=== PATIENT | female | born 1975 | race African-American/Black ===

== ENCOUNTER 2016-03-29 23:20 | Emergency (ER) | payer MEDICARE, MEDICAID ==
[2016-03-29] MEDS ORDERED: ASPIRIN 81 MG TABLET, CHEWABLE PO ONE (23:30)
[2016-03-30 00:23] LABS: ABSOLUTE EOSINOPHILS # (AUTO) 0.3 10^3/uL (0.0-0.6); ABSOLUTE LYMPHOCYTES (AUTO) 2.4 10^3/uL (0.5-4.7); ABSOLUTE MONOCYTES (AUTO) 0.6 10^3/uL (0.1-1.4); ABSOLUTE NEUT (AUTO) 3.5 10^3/uL (1.7-8.2); BASOPHILS % (AUTO) 0.5 % (0-2); EOSINOPHILS % (AUTO) 4.3 % (0-6); HEMATOCRIT 34.1 % (36.0-47.0); HEMOGLOBIN 10.7 g/dL (12.0-15.5); MEAN CORPUSCULAR HEMOGLOBIN 25.7 pg (27.0-33.4); MEAN CORPUSCULAR HGB CONC 31.5 g/dL (32.0-36.0); MEAN CORPUSCULAR VOLUME 82 fl (80-97); MONOCYTES % (AUTO) 8.5 % (3-13); RED BLOOD COUNT 4.18 10^6/uL (3.72-5.28); RED CELL DISTRIBUTION WIDTH 14.7 % (11.5-14.0); SEGMENTED NEUTROPHILS % (AUTO) 51.7 % (42-78); WHITE BLOOD COUNT 6.8 10^3/uL (4.0-10.5)
--- NOTE | 2016-03-30 00:29 | ER Document Report ---
ED Cardiac - General Chief Complaint: Chest Pain Stated Complaint: CHEST DISCOMFORT Time seen by provider: 00:27 Mode of Arrival: Medic Information source: Patient TRAVEL OUTSIDE OF THE [place] IN LAST 30 DAYS: No - HPI Patient complains to provider of: Chest pain, Palpitations, Shortness of breath Was the onset of pain: Gradual Is the pain a: New problem Chest pain location: Substernal Quality of pain: Achy Severity now: Mild Severity at worst: Moderate Chest pain precipitating factors: At Rest Cardiac risk factors: Hypertension, Hx CHF Associated symptoms: Back pain, Nausea/vomiting, Palpitations, Shortness of breath Exacerbated by: Denies Relieved by: Nothing Similar symptoms previously: Yes Recently seen / treated by doctor: No Notes: Patient is a 40-year-old female presenting to the emergency room complaining of chest pain, numbness and tingling in her hands and feet, blurred vision, head numbness, nonproductive cough, nausea, dyspnea on exertion, denies any fever, no shortness of breath at rest, no vomiting or diarrhea, she reports a mild headache after taking nitroglycerin, patient took aspirin at home prior to calling EMS - Related Data Allergies/Adverse Reactions: lisinopril [Lisinopril] Allergy (Severe, Verified 01/22/16 10:14) Difficulty breathing levofloxacin [From Levaquin] Allergy (Verified 01/22/16 10:14) Past Medical History - General Information source: Patient - Social History Smoking Status: Current Every Day Smoker Family History: CAD - Father with an MA in his 30s, Hyperlipidemia, Hypertension - Past Medical History Cardiac Medical History: Reports: Hx Congestive Heart Failure, Hx Coronary Artery Disease, Hx Heart Attack - 2007, Hx Hypercholesterolemia, Hx Hypertension Pulmonary Medical History: Reports: Hx Asthma, Hx COPD, Hx Pneumonia GI Medical History: Reports: Hx Gastroesophageal Reflux Disease Musculoskeltal Medical History: Reports Hx Arthritis Psychiatric Medical History: Reports: Hx Anxiety, Hx Depression Past Surgical History: Reports: Hx Section - x3, Hx Oral Surgery - wisdom tooth, Hx Orthopedic Surgery - left hand tendon repair, Hx Tonsillectomy - Immunizations Hx Diphtheria, Pertussis, Tetanus Vaccination: Yes Hx Pneumococcal Vaccination: 03/31/13 Review of Systems - Review of Systems Constitutional: No symptoms reported EENT: No symptoms reported Cardiovascular: See HPI Respiratory: See HPI Gastrointestinal: No symptoms reported Genitourinary: No symptoms reported Female Genitourinary: No symptoms reported Musculoskeletal: No symptoms reported Skin: No symptoms reported Hematologic/Lymphatic: No symptoms reported Neurological/Psychological: See HPI -: Yes All other systems reviewed and negative Physical Exam - Vital signs Vitals: Temp 97.5 F 03/29/16 23:22 Interpretation: Normal - General General appearance: Appears well, Alert - HEENT Head: Normocephalic, Atraumatic Eyes: Normal Pupils: PERRL - Respiratory Respiratory status: No respiratory distress Chest status: Nontender Breath sounds: Normal Chest palpation: Normal - Cardiovascular Rhythm: Regular Heart sounds: Normal auscultation Murmur: No - Abdominal Inspection: Morbidly Obese Distension: No distension Bowel sounds: Normal Tenderness: Nontender Organomegaly: No organomegaly - Back Back: Normal, Nontender - Extremities General upper extremity: Normal inspection, Nontender, Normal color, Normal ROM , Normal temperature General lower extremity: Normal inspection, Nontender, Normal color, Normal ROM , Normal temperature, Normal weight bearing. No: Selwyn's sign - Neurological Neuro grossly intact: Yes Cognition: Normal Orientation: AAOx4 Karan Coma Scale Eye Opening: Spontaneous Karan Coma Scale Verbal: Oriented [place] Coma Scale Motor: Obeys Commands Karan Coma Scale Total: 15 Speech: Normal Motor strength normal: LUE, RUE, LLE, RLE Sensory: Normal - Psychological Associated symptoms: Normal affect, Normal mood - Skin Skin Temperature: Warm Skin Moisture: Dry Skin Color: Normal Course - Re-evaluation Re-evalutation: 03/30/16 02:01 I received records from patient's visit to [facility] dated , patient did have a cardiac catheterization performed on 01/24/2016, report shows "no angiographic evidence of coronary artery disease", patient also had an echocardiogram performed, a shows "borderline PA PE, PV acceleration time of 129 MS right ventricular function cannot be assessed due to poor image quality. The left ventricle is normal in size 4 BSA mild concentric left ventricular hypertrophy, cannot assess left ventricular diastolic function and global LVEF of 52%" 03/30/16 02:33 Patient resting comfortably, vital signs are stable, she reports feeling much better, symptoms likely related to chronic cocaine abuse, I received records from [facility] which shows a clean cardiac catheterization that was performed 3 months ago, patient was advised to make lifestyle changes to decrease her risk of coronary artery disease in the future, follow up with her primary care provider in one to 2 days, return to the emergency room if symptoms worsen, patient acknowledges understanding and agreement with this plan - Vital Signs Vital signs: Temp Pulse Resp BP Pulse Ox 97.5 F 18 104/62 97 03/29/16 23:22 03/30/16 01:31 03/30/16 01:31 03/30/16 01:31 - Laboratory Result Diagrams: 03/29/16 23:58 03/29/16 23:58 Laboratory results interpreted by me: 03/29/16 03/29/16 03/30/16 23:58 23:58 02:09 Hgb 10.7 L Hct 34.1 L MCH 25.7 L MCHC 31.5 L RDW 14.7 H Sodium 145.2 H Potassium 3.5 L Urine Blood SMALL H Urine Urobilinogen 4.0 H - Diagnostic Test Radiology reviewed: Image reviewed, Reports reviewed - EKG Interpretation by Me EKG shows normal: Sinus rhythm Rate: Normal Rhythm: NSR When compared to previous EKG there are: No significant change Additional EKG results interpreted by me: 03/30/16 00:29 Inverted T waves in leads 2 and aVF Discharge - Discharge Clinical Impression: Paresthesias Chest pain Qualifiers: Chest pain type: unspecified Qualified Code(s): R07.9 - Chest pain, unspecified Condition: Stable Disposition: HOME, SELF-CARE Instructions: Chest Pain of Unclear Cause ([facility]), Numbness or Paresthesia ([facility]) Additional Instructions: Follow up with your primary care provider in one to 2 days. Return to the emergency room immediately if symptoms worsen or any additional concerns.
[2016-03-30 00:39] LABS: ALANINE AMINOTRANSFERASE 11 U/L (9-52); ALBUMIN 3.7 g/dL (3.5-5.0); ALKALINE PHOSPHATASE 61 U/L (38-126); ANION GAP 9 (5-19); ASPARTATE AMINO TRANSFERASE 23 U/L (14-36); BILIRUBIN,TOTAL 0.4 mg/dL (0.2-1.3); BLOOD UREA NITROGEN 13 mg/dL (7-20); CALCIUM 8.4 mg/dL (8.4-10.2); CARBON DIOXIDE 29 mmol/L (22-30); CHLORIDE 107 mmol/L (98-107); CREATINE KINASE 82 U/L (30-135); CREATININE RESULT 0.62 mg/dL (0.52-1.25); GLUCOSE 104 mg/dL (75-110); POTASSIUM 3.5 mmol/L (3.6-5.0); SODIUM 145.2 mmol/L (137-145); TOTAL PROTEIN 7.7 g/dL (6.3-8.2)
[2016-03-30 00:54] LABS: TROPONIN I < 0.012 ng/mL
[2016-03-30 02:29] LABS: APPEARANCE,URINE SLIGHTLY-CLOUDY; BILIRUBIN,URINE NEGATIVE (NEGATIVE); GLUCOSE, URINE NEGATIVE (NEGATIVE); KETONES,URINE NEGATIVE (NEGATIVE); LEUKOCYTE ESTERASE,URINE NEGATIVE (NEGATIVE); NITRITE,URINE NEGATIVE (NEGATIVE); PROTEIN,URINE NEGATIVE (NEGATIVE); URINE SPECIFIC GRAVITY 1.029
[2016-03-30 03:17] LABS: URINE BARBITURATES SCREEN NEGATIVE; URINE METHADONE SCREEN NEGATIVE; URINE OPIATES LOW NEGATIVE; URINE PHENCYCLIDINE SCREEN NEGATIVE
[2016-03-30 03:19] VITALS: BP 109/64
== END 2016-03-30 03:22 | disposition home or self-care (01) ==
LOC: ER 23:20
DX: R07.9 Chest pain, unspecified (principal); R00.2 Palpitations; R12 Heartburn; M54.9 Dorsalgia, unspecified; R20.0 Anesthesia of skin; R20.2 Paresthesia of skin; H53.8 Other visual disturbances; R05 Cough; Z88.8 Allergy status to other drugs, medicaments and biological substances; Z88.1 Allergy status to other antibiotic agents; F17.200 Nicotine dependence, unspecified, uncomplicated; Z82.49 Family history of ischemic heart disease and other diseases of the circulatory system; I25.10 Atherosclerotic heart disease of native coronary artery without angina pectoris; I25.2 Old myocardial infarction; I10 Essential (primary) hypertension; J44.9 Chronic obstructive pulmonary disease, unspecified; J45.909 Unspecified asthma, uncomplicated
CPT/HCPCS: 36415; 71010; 80053; 80307; 81001; 82550; 82553; 83880; 84484; 85025; 99285

== ENCOUNTER 2016-04-21 09:14 | Emergency (ER) | payer MEDICARE, MEDICAID ==
[2016-04-21] MEDS ORDERED: LIDOCAINE 5% (700 MG) TRANSDERMAL ADH..PATCH TP ONE (12:01)
--- NOTE | 2016-04-21 12:03 | ER Document Report ---
ED General - General Chief Complaint: Knee Injury Stated Complaint: KNEE PAIN TRAVEL OUTSIDE OF THE [place] IN LAST 30 DAYS: No - HPI Patient complains to provider of: left knee pain Notes: Patient is a severely morbidly obese female coming in for left knee pain and she hit it on a table. Patient states difficulty in relating. Patient denies any fevers chills nausea vomiting denies any other injuries. Upon my evaluation patient lying in stretcher on her right-hand side. - Related Data Allergies/Adverse Reactions: lisinopril [Lisinopril] Allergy (Severe, Verified 01/22/16 10:14) Difficulty breathing levofloxacin [From Levaquin] Allergy (Verified 01/22/16 10:14) Past Medical History - Social History Smoking Status: Current Every Day Smoker Chew tobacco use (# tins/day): No Frequency of alcohol use: None Drug Abuse: None Family History: CAD - Father with an IL in his 30s, Hyperlipidemia, Hypertension Patient has suicidal ideation: No Patient has homicidal ideation: No - Past Medical History Cardiac Medical History: Reports: Hx Congestive Heart Failure, Hx Coronary Artery Disease, Hx Heart Attack - 2007, Hx Hypercholesterolemia, Hx Hypertension Pulmonary Medical History: Reports: Hx Asthma, Hx COPD, Hx Pneumonia Renal/ Medical History: Denies: Hx Peritoneal Dialysis GI Medical History: Reports: Hx Gastroesophageal Reflux Disease Musculoskeltal Medical History: Reports Hx Arthritis Psychiatric Medical History: Reports: Hx Anxiety, Hx Depression Past Surgical History: Reports: Hx Section - x3, Hx Oral Surgery - wisdom tooth, Hx Orthopedic Surgery - left hand tendon repair, Hx Tonsillectomy - Immunizations Hx Diphtheria, Pertussis, Tetanus Vaccination: Yes Hx Pneumococcal Vaccination: 03/31/13 Review of Systems - Review of Systems Constitutional: No symptoms reported EENT: No symptoms reported Cardiovascular: No symptoms reported Respiratory: No symptoms reported Gastrointestinal: No symptoms reported Genitourinary: No symptoms reported Female Genitourinary: No symptoms reported Musculoskeletal: Other - Knee pain Skin: No symptoms reported Hematologic/Lymphatic: No symptoms reported Neurological/Psychological: No symptoms reported -: Yes All other systems reviewed and negative Physical Exam - Vital signs Vitals: Temp 98.6 F 04/21/16 09:18 Interpretation: Normal - Notes Notes: Patient's entire examination is made difficult that she is severely morbidly obese - General General appearance: Appears well, Alert - HEENT Head: Normocephalic, Atraumatic Eyes: Normal Pupils: PERRL - Respiratory Respiratory status: No respiratory distress Chest status: Nontender Breath sounds: Normal Chest palpation: Normal - Cardiovascular Rhythm: Regular Heart sounds: Normal auscultation Murmur: No - Abdominal Inspection: Normal, Morbidly Obese Distension: No distension Bowel sounds: Normal Tenderness: Nontender Organomegaly: No organomegaly - Back Back: Normal, Nontender - Extremities General upper extremity: Normal inspection, Normal color, Normal ROM, Normal temperature General lower extremity: Normal inspection, Nontender, Normal color, Normal ROM , Normal temperature. No: Selwyn's sign - Neurological Neuro grossly intact: Yes Cognition: Normal Orientation: AAOx4 [place] Coma Scale Eye Opening: Spontaneous Karan Coma Scale Verbal: Oriented Karan Coma Scale Motor: Obeys Commands Karan Coma Scale Total: 15 Speech: Normal Motor strength normal: LUE, RUE, LLE, RLE Sensory: Normal - Psychological Associated symptoms: Normal affect, Normal mood - Skin Skin Temperature: Warm Skin Moisture: Dry Skin Color: Normal Course - Re-evaluation Re-evalutation: 04/21/16 15:39 X-ray shows diffuse osteoarthritis there is no signs of any fracture. Patient will be discharged home follow-up with her PCP. - Vital Signs Vital signs: Temp Pulse Resp BP Pulse Ox 97.9 F 66 20 132/93 H 100 04/21/16 12:24 04/21/16 12:24 04/21/16 12:24 04/21/16 12:24 04/21/16 12:24 Procedures - Immobilization Left Knee Immobilizer type: Teo wrap Performed by: PCT Post-Proc Neuro Vasc Exam: Normal Alignment checked and good: No Discharge - Discharge Clinical Impression: Morbid obesity with BMI of 70 and over, adult Knee pain, left Qualifiers: Chronicity: acute Qualified Code(s): M25.562 - Pain in left knee Condition: Good Disposition: HOME, SELF-CARE Instructions: Use of Crutches ([facility]), Sprained Knee ([facility]), Teo Wrap ([facility]), Ice & Elevation ([facility]), Oral Narcotic Medication ([facility]) Additional Instructions: Follow-up with your primary care physician take medication as prescribed. Prescriptions: Lidocaine [Lidoderm 5% (700 mg) Transdermal Patch] 1 patch TP DAILY #30 adh..patch Tramadol HCl [Ultram 50 mg Tablet] 50 mg PO ASDIR PRN #20 tablet PRN Reason: Referrals: PAZ QUINTEROS MD [Primary Care Provider] - Follow up in 3-5 days
[2016-04-21 12:28] VITALS: BP 132/93
== END 2016-04-21 12:28 | disposition home or self-care (01) ==
LOC: ER 09:14 → EEVIPCON 09:14 → ER 12:28
DX: M25.562 Pain in left knee (principal); F17.200 Nicotine dependence, unspecified, uncomplicated; E66.01 Morbid (severe) obesity due to excess calories; Z68.45 Body mass index [BMI] 70 or greater, adult; I50.9 Heart failure, unspecified; I25.10 Atherosclerotic heart disease of native coronary artery without angina pectoris; J44.9 Chronic obstructive pulmonary disease, unspecified; E78.00 Pure hypercholesterolemia, unspecified; I11.0 Hypertensive heart disease with heart failure; J45.909 Unspecified asthma, uncomplicated; K21.9 Gastro-esophageal reflux disease without esophagitis; I25.2 Old myocardial infarction
CPT/HCPCS: 99283

== ENCOUNTER 2016-06-21 19:51 | Emergency (ER) | payer MEDICARE, MEDICAID ==
[2016-06-21 20:18] VITALS: BP 140/78
[2016-06-21] MEDS ORDERED: ASPIRIN 81 MG TABLET, CHEWABLE PO ONE (21:00)
--- NOTE | 2016-06-22 21:53 | EKG REPORT ---
SEVERITY:- ABNORMAL ECG - SINUS RHYTHM PROBABLE LEFT ATRIAL ABNORMALITY LEFT AXIS DEVIATION LEFT VENTRICULAR HYPERTROPHY NONSPECIFIC T ABNORMALITIES, INFERIOR LEADS : Confirmed by: Amy Montejo MD 22-Jun-2016 21:53:17
== END 2016-06-22 03:57 | disposition left against medical advice (07) ==
LOC: ER 19:51
DX: Z53.21 Procedure and treatment not carried out due to patient leaving prior to being seen by health care provider (principal)
CPT/HCPCS: 93005; 93010; A9270

== ENCOUNTER 2016-08-29 10:48 | Emergency (ER) | payer MEDICARE, MEDICAID ==
--- NOTE | 2016-08-29 11:27 | ER Document Report ---
ED Medical Screen (RME) - General Chief Complaint: Cold Symptoms Stated Complaint: SINUS CONGESTION Time Seen by Provider: 08/29/16 11:23 Notes: Pt is a 40 yo female, PMHx CHF, asthma, current smoker, HTN, presents with 2 of cough, congestion, left ear pain and now 1 day of feeling her heart is racing after she coughed. She has had this in the past and seen a analyst geochemical prospecting for this. Denies fevers, chest pain, increased leg swelling, hemoptysis or control use. PE: NAD. Mild end expiratory wheezes. Abdomen soft and nontender. I have greeted and performed a rapid initial assessment of this patient. A comprehensive ED assessment and evaluation of the patient, analysis of test results and completion of the medical decision making process will be conducted by additional ED providers. TRAVEL OUTSIDE OF THE [place] IN LAST 30 DAYS: No - Related Data Allergies/Adverse Reactions: lisinopril [Lisinopril] Allergy (Severe, Verified 08/29/16 10:55) Difficulty breathing levofloxacin [From Levaquin] Allergy (Verified 08/29/16 10:55) Past Medical History - Past Medical History Cardiac Medical History: Reports: Hx Congestive Heart Failure, Hx Coronary Artery Disease, Hx Heart Attack - 2007, Hx Hypercholesterolemia, Hx Hypertension Pulmonary Medical History: Reports: Hx Asthma, Hx COPD, Hx Pneumonia Renal/ Medical History: Denies: Hx Peritoneal Dialysis GI Medical History: Reports: Hx Gastroesophageal Reflux Disease Musculoskeltal Medical History: Reports Hx Arthritis Psychiatric Medical History: Reports: Hx Anxiety, Hx Depression Past Surgical History: Reports: Hx Section - x3, Hx Oral Surgery - wisdom tooth, Hx Orthopedic Surgery - left hand tendon repair, Hx Tonsillectomy - Immunizations Hx Diphtheria, Pertussis, Tetanus Vaccination: Yes Physical Exam - Vital signs Vitals: Temp Pulse Resp BP Pulse Ox 98.2 F 66 21 H 138/92 H 98 08/29/16 10:57 08/29/16 10:57 08/29/16 10:57 08/29/16 10:57 08/29/16 10:57 Course - Vital Signs Vital signs: Temp Pulse Resp BP Pulse Ox 98.2 F 66 21 H 138/92 H 98 08/29/16 10:57 08/29/16 10:57 08/29/16 10:57 08/29/16 10:57 08/29/16 10:57
--- NOTE | 2016-08-29 12:13 | RADIOLOGY REPORT (SQ) ---
EXAM DESCRIPTION: CHEST PA/LAT COMPLETED DATE/TIME: 08/29/2016 12:02 pm REASON FOR STUDY: chest pain COMPARISON: 01/22/2016 EXAM PARAMETERS: NUMBER OF VIEWS: two views TECHNIQUE: Digital Frontal and Lateral radiographic views of the chest acquired. RADIATION DOSE: NA LIMITATIONS: none FINDINGS: LUNGS AND PLEURA: No opacities, masses or pneumothorax. No pleural effusion. MEDIASTINUM AND HILAR STRUCTURES: No masses or contour abnormalities. HEART AND VASCULAR STRUCTURES: Heart size is borderline. There is pulmonary vascular congestion. BONES: No acute findings. HARDWARE: None in the chest. OTHER: No other significant finding. IMPRESSION: Borderline cardiomegaly with pulmonary vascular congestion but no cristhian CHF. TECHNICAL DOCUMENTATION: JOB ID: [id number] [employer]- All Rights Reserved
--- NOTE | 2016-08-29 12:34 | ER Document Report ---
ED Respiratory Problem - General Chief Complaint: Cold Symptoms Stated Complaint: SINUS CONGESTION Time Seen by Provider: 08/29/16 11:23 Mode of Arrival: Ambulatory Information source: Patient Notes: Patient is a 40-year-old female with a history of hypertension, COPD, asthma, current smoker, CHF who presents to the ER today for cough 3 days with wheezing. Patient states it is productive of thick yellow "chunky" sputum and also has some nausea and vomiting. She admits to fever and chills but did not take her temperature. She denies any increased swelling in her lower extremities, shortness of breath. TRAVEL OUTSIDE OF THE [place] IN LAST 30 DAYS: No - Related Data Allergies/Adverse Reactions: lisinopril [Lisinopril] Allergy (Severe, Verified 08/29/16 10:55) Difficulty breathing levofloxacin [From Levaquin] Allergy (Verified 08/29/16 10:55) Past Medical History - General Information source: Patient - Social History Smoking Status: Current Every Day Smoker Family History: CAD - Father with an CO in his 30s, Hyperlipidemia, Hypertension Patient has suicidal ideation: No Patient has homicidal ideation: No - Past Medical History Cardiac Medical History: Reports: Hx Congestive Heart Failure, Hx Coronary Artery Disease, Hx Heart Attack - 2007, Hx Hypercholesterolemia, Hx Hypertension Pulmonary Medical History: Reports: Hx Asthma, Hx COPD, Hx Pneumonia Renal/ Medical History: Denies: Hx Peritoneal Dialysis GI Medical History: Reports: Hx Gastroesophageal Reflux Disease Musculoskeltal Medical History: Reports Hx Arthritis Psychiatric Medical History: Reports: Hx Anxiety, Hx Depression Past Surgical History: Reports: Hx Section - x3, Hx Oral Surgery - wisdom tooth, Hx Orthopedic Surgery - left hand tendon repair, Hx Tonsillectomy - Immunizations Hx Diphtheria, Pertussis, Tetanus Vaccination: Yes Hx Pneumococcal Vaccination: 03/31/13 Review of Systems - Review of Systems Constitutional: See HPI EENT: No symptoms reported Cardiovascular: See HPI Respiratory: See HPI Gastrointestinal: No symptoms reported Genitourinary: No symptoms reported Female Genitourinary: No symptoms reported Musculoskeletal: No symptoms reported Skin: No symptoms reported Hematologic/Lymphatic: No symptoms reported Neurological/Psychological: No symptoms reported Physical Exam - Vital signs Vitals: Temp Pulse Resp BP Pulse Ox 98.2 F 66 21 H 138/92 H 98 08/29/16 10:57 08/29/16 10:57 08/29/16 10:57 08/29/16 10:57 08/29/16 10:57 - Notes Notes: PHYSICAL EXAMINATION: GENERAL: morbidly obese, mildly ill appearing, in no acute distress. HEAD: Atraumatic, normocephalic. EYES: Pupils equal round and reactive to light, extraocular movements intact, sclera anicteric, conjunctiva are normal. ENT: right ear canal without erythema or foreign body, left ear canal with white cotton in canal, cannot visulaize TM, right TM pearly streeter with good bony landmarks, nares with mucoid discharge, oropharynx clear without exudates. Moist mucous membranes. NECK: Normal range of motion, supple without lymphadenopathy LUNGS: coughing, otherwise CTAB and equal. No wheezes rales or rhonchi. HEART: Regular rate and rhythm without murmurs EXTREMITIES: Normal range of motion, no pitting edema. No cyanosis. NEUROLOGICAL: Cranial nerves grossly intact. Normal sensory/motor exams. PSYCH: Normal mood, normal affect. SKIN: Warm, Dry, normal turgor, no rashes or lesions noted Course - Re-evaluation Re-evalutation: 08/29/16 13:59 Upper is unremarkable today including a normal white blood cell count. Patient has some mild vascular congestion on chest x-ray but no cristhian CHF. BNP is mildly elevated. Patient is actively coughing productive sputum in the room, but no wheezing or shortness of breath. I will send her home with an inhaler from here as she has an asthmatic and does complain of wheezing with this. Her vitals are all stable, 97% on room air and not tachypneic, afebrile. I will place her on azithromycin. She does take Lasix daily. 08/29/16 14:25 08/29/16 14:35 Pt had cotton stuck in left ear canal, was removed by flushing by Wolfgang Quesada PA-C - Vital Signs Vital signs: Temp Pulse Resp BP Pulse Ox 98.2 F 66 21 H 138/92 H 98 08/29/16 10:57 08/29/16 10:57 08/29/16 10:57 08/29/16 10:57 08/29/16 10:57 - Laboratory Result Diagrams: 08/29/16 12:15 08/29/16 12:15 Laboratory results interpreted by me: 08/29/16 08/29/16 08/29/16 12:15 12:15 12:15 Hgb 10.4 L Hct 32.8 L MCH 25.5 L MCHC 31.7 L RDW 15.9 H Seg Neuts % (Manual) 38 L Band Neutrophils % 1 L Calcium 8.2 L NT-Pro-B Natriuret Pep 270 H Albumin 3.1 L Procedures - Additional Procedures foreign body removal ear Time performed: 14:36 - cotton removed by flushing Discharge - Discharge Clinical Impression: Asthmatic bronchitis Qualifiers: Asthma severity: unspecified severity Asthma complication type: uncomplicated Qualified Code(s): J45.909 - Unspecified asthma, uncomplicated Condition: Stable Disposition: HOME, SELF-CARE Additional Instructions: Return immediately for any new or worsening symptoms. Follow up with primary care provider, call tomorrow to make followup appointment. Prescriptions: Azithromycin [Zithromax 250 mg Tablet] 250 mg PO ASDIR PRN #6 tablet PRN Reason: D-Methorphan Hb/Prometh HCl [Promethazine-Dm Syrup] 5 ml PO Q8 PRN #120 ml PRN Reason: Referrals: PAZ QUINTEROS MD [Primary Care Provider] - Follow up as needed
[2016-08-29 12:35] LABS: HEMATOCRIT 32.8 % (36.0-47.0); HEMOGLOBIN 10.4 g/dL (12.0-15.5); HGB HCT DIFFERENCE -1.6; MEAN CORPUSCULAR HEMOGLOBIN 25.5 pg (27.0-33.4); MEAN CORPUSCULAR HGB CONC 31.7 g/dL (32.0-36.0); MEAN CORPUSCULAR VOLUME 81 fl (80-97); RED BLOOD COUNT 4.07 10^6/uL (3.72-5.28); RED CELL DISTRIBUTION WIDTH 15.9 % (11.5-14.0); WHITE BLOOD COUNT 5.3 10^3/uL (4.0-10.5)
[2016-08-29] MEDS ORDERED: GUAIFENESIN/D-METHORPHAN (200-20 MG) SYRUP 10 ML PO ONE (12:38)
[2016-08-29] MEDS ORDERED: BENZONATATE 100 MG CAPSULE PO ONE (12:38)
[2016-08-29 13:32] LABS: ALANINE AMINOTRANSFERASE 29 U/L (9-52); ALBUMIN 3.1 g/dL (3.5-5.0); ALKALINE PHOSPHATASE 75 U/L (38-126); ANION GAP 9 (5-19); ASPARTATE AMINO TRANSFERASE 31 U/L (14-36); BILIRUBIN,DIRECT 0.4 mg/dL (0.0-0.4); BILIRUBIN,TOTAL 0.6 mg/dL (0.2-1.3); BLOOD UREA NITROGEN 7 mg/dL (7-20); CALCIUM 8.2 mg/dL (8.4-10.2); CARBON DIOXIDE 29 mmol/L (22-30); CHLORIDE 105 mmol/L (98-107); CREATINE KINASE 51 U/L (30-135); CREATININE RESULT 0.62 mg/dL (0.52-1.25); GLUCOSE 93 mg/dL (75-110); SODIUM 142.6 mmol/L (137-145); TOTAL PROTEIN 7.1 g/dL (6.3-8.2)
[2016-08-29 13:39] LABS: BAND NEUTROPHILS % (MANUAL) 1 % (3-5); BASOPHILS % (MANUAL) 0 % (0-2); EOSINOPHILS % (MANUAL) 4 % (0-6); LYMPHOCYTES % (MANUAL) 44 % (13-45); TOTAL CELLS COUNTED 100
[2016-08-29 13:40] LABS: ANISOCYTOSIS SLIGHT; HYPOCHROMASIA SLIGHT; POLYCHROMASIA SLIGHT
[2016-08-29 13:45] LABS: TROPONIN I < 0.012 ng/mL
[2016-08-29] MEDS ORDERED: AZITHROMYCIN 250 MG TABLET PO ONE (13:54)
[2016-08-29 14:43] VITALS: BP 124/85
[2016-08-29] MEDS ORDERED: ALBUTEROL SULFATE HFA (90 MCG/PUFF) 8 GM MDI (1 MDI/ER DISP) IH PRN (15:10)
--- NOTE | 2016-08-29 21:24 | EKG REPORT ---
SEVERITY:- ABNORMAL ECG - SINUS RHYTHM BORDERLINE LEFT AXIS DEVIATION ABNORMAL Q SUGGESTS ANTERIOR INFARCT NONSPECIFIC T ABNORMALITIES, DIFFUSE LEADS : Confirmed by: Lacho Martinez 29-Aug-2016 21:24:01
== END 2016-08-29 14:50 | disposition home or self-care (01) ==
LOC: ER 10:48
DX: J45.909 Unspecified asthma, uncomplicated (principal); R09.81 Nasal congestion; I10 Essential (primary) hypertension; J44.9 Chronic obstructive pulmonary disease, unspecified; R05 Cough; F17.200 Nicotine dependence, unspecified, uncomplicated
CPT/HCPCS: 93005; 99284; 36415; 82550; 84443; 85025; 80053; 84484; 83880; 71020; 93010; A9270 ×2; J3490

== ENCOUNTER 2016-11-14 12:33 | Emergency (ER) | payer MEDICARE, MEDICAID ==
--- NOTE | 2016-11-14 13:07 | RADIOLOGY REPORT (SQ) ---
EXAM DESCRIPTION: CHEST SINGLE VIEW COMPLETED DATE/TIME: 11/14/2016 12:48 pm REASON FOR STUDY: bed 9 db COMPARISON: Two-view chest 08/29/2016 EXAM PARAMETERS: NUMBER OF VIEWS: One view. TECHNIQUE: Single frontal radiographic view of the chest acquired. RADIATION DOSE: NA LIMITATIONS: Morbidly obese patient, AP portable technique FINDINGS: LUNGS AND PLEURA: No opacities, masses or pneumothorax. No pleural effusion. MEDIASTINUM AND HILAR STRUCTURES: No masses. Contour normal. HEART AND VASCULAR STRUCTURES: Stable mild cardiomegaly BONES: No acute findings. HARDWARE: None in the chest. OTHER: No other significant finding. IMPRESSION: Stable mild cardiomegaly TECHNICAL DOCUMENTATION: JOB ID: [id number]
--- NOTE | 2016-11-14 13:20 | ER Document Report ---
ED Respiratory Problem - General Chief Complaint: Shortness Of Breath Stated Complaint: CHEST PAIN Time Seen by Provider: 11/14/16 13:16 Notes: Patient says that she has been experiencing a cough with shortness of breath and wheezing for about the past 3 days. She coughs up green appearing phlegm. Has also had some vomiting and diarrhea. Also has had some left-sided chest pain, especially with the cough. Not aware of any fever, although she has had some chills. Patient has a history of cardiomyopathy and CHF. Has had a cardiac cath done in January 2016, at [facility], and told she had an abnormal rhythm of her heart. History of hypertension, sleep apnea, morbid obesity with weight over 400 pounds. TRAVEL OUTSIDE OF THE [place] IN LAST 30 DAYS: No - Related Data Allergies/Adverse Reactions: lisinopril [Lisinopril] Allergy (Severe, Verified 08/29/16 10:55) Difficulty breathing levofloxacin [From Levaquin] Allergy (Verified 08/29/16 10:55) Home Medications: Current Home Medications Losartan/Hydrochlorothiazide [Hyzaar 100-25 Tablet] 1 each PO BID 11/14/16 [ History] Past Medical History - Social History Smoking Status: Current Every Day Smoker Family History: Reviewed & Not Pertinent, CAD - Father with an [place] in his 30s, Hyperlipidemia, Hypertension - Past Medical History Cardiac Medical History: Reports: Hx Congestive Heart Failure, Hx Coronary Artery Disease, Hx Heart Attack - 2008, Hx Hypercholesterolemia, Hx Hypertension Pulmonary Medical History: Reports: Hx Asthma, Hx COPD, Hx Pneumonia GI Medical History: Reports: Hx Gastroesophageal Reflux Disease Musculoskeltal Medical History: Reports Hx Arthritis Psychiatric Medical History: Reports: Hx Anxiety, Hx Depression Past Surgical History: Reports: Hx Section - x3, Hx Oral Surgery - wisdom tooth, Hx Orthopedic Surgery - left hand tendon repair, Hx Tonsillectomy - Immunizations Hx Diphtheria, Pertussis, Tetanus Vaccination: Yes Hx Pneumococcal Vaccination: 03/31/13 Review of Systems - Review of Systems Notes: REVIEW OF SYSTEMS: CONSTITUTIONAL : Denies fever, but says she has had some chills.. EENT: Denies eye, ear, nose or mouth or throat pain or other symptoms. CARDIOVASCULAR: Denies chest pain. Respiratory: See HPI. GASTROINTESTINAL: Denies abdominal pain but has had some nausea and vomiting and diarrhea this morning. GENITOURINARY: Denies difficulty or painful urinating, urinary frequency, blood in urine. No pretibial edema bilaterally. MUSCULOSKELETAL: Denies back or neck pain. Denies joint pain or swelling. SKIN: Denies rash or skin lesions. NEUROLOGICAL: Denies LOC or altered mental status. Denies headache. Denies sensory loss or motor deficits. ALL OTHER SYSTEMS REVIEWED AND NEGATIVE. Physical Exam - Vital signs Vitals: Pulse Ox 99 11/14/16 12:36 Interpretation: Normal - Notes Notes: PHYSICAL EXAMINATION: GENERAL: Well-appearing, in no acute distress. Weighs 190 kg. HEAD: Atraumatic, normocephalic. NECK: Normal range of motion, supple. LUNGS: Breath sounds clear and equal bilaterally. No rales heard. No rhonchi heard. No wheezes heard. Good air exchange. HEART: Regular rate and rhythm without murmurs. ABDOMEN: Soft, nontender. No guarding or rebound. BACK: No tenderness throughout entire back. EXTREMITIES: Normal range of motion without pain. No peripheral edema present. NEUROLOGICAL: Normal speech, normal gait. Normal sensory, motor, and reflex exams. Awake, alert, and oriented x3. Cranial nerves normal. PSYCH: Normal mood, normal affect. SKIN: Warm, dry, no rashes. Course - Vital Signs Vital signs: Temp Pulse Resp BP Pulse Ox 98.7 F 27 H 134/94 H 96 11/14/16 16:56 11/14/16 14:00 11/14/16 16:56 11/14/16 16:56 - Laboratory Result Diagrams: 11/14/16 12:50 11/14/16 12:50 Laboratory results interpreted by me: 11/14/16 11/14/16 12:50 12:50 Hgb 10.9 L Hct 32.9 L MCV 79 L MCH 26.2 L RDW 15.7 H Seg Neutrophils % 35.2 L Lymphocytes % 53.9 H Chloride 108 H Discharge - Discharge Clinical Impression: Bronchitis Condition: Stable Disposition: HOME, SELF-CARE Additional Instructions: BRONCHITIS: You have acute bronchitis. This disease is an infection or inflammation of the air passageways in your lungs. Symptoms usually include cough, low grade fever, shortness of breath, and wheezing. The cough usually persists for a couple of weeks. Most cases of bronchitis get better without antibiotics. We prescribe antibiotics when we believe bacteria are damaging your airways, or if there's high risk the bronchitis will worsen into pneumonia. Increase your fluid intake. A cool mist humidifier may make your lungs more comfortable. An expectorant (cough medicine that loosens phlegm) can help. If you smoke, STOP!!! Recovery from bronchitis can be somewhat slow, but you should see improvement within a day or two. Repeated episodes of bronchitis may result in lung damage -- for example, chronic bronchitis, recurrent pneumonias, or emphysema. Call the doctor if you develop increasing fever, shortness of breath, chest pain, bloody sputum, or otherwise worsen. If you have not improved at all after several days, contact the physician. ANTIBIOTIC THERAPY: You have been given an antibiotic prescription. It's important that you take all the medication, unless instructed otherwise by your physician. Failure to complete the entire course can result in relapse of your condition. Common side effects of antibiotics include nausea, intestinal cramping, or diarrhea. Women may develop vaginal yeast infections, and babies can get yeast (thrush) in the mouth following the use of antibiotics. Contact your physician if you develop significant side effects from this medication. Allergy to this antibiotic can result in hives, wheezing, faintness, or itching. If symptoms of allergy occur, stop the medication and call your doctor. AZITHROMYCIN: Azithromycin (Zithromax) is a broad spectrum antibiotic in the same class as erythromycin. It can treat a variety of bacterial infections, but is most frequently used for respiratory infections. Azithromycin is extremely long-lasting. It accumulates in body tissues and continues to kill bacteria for many days. In order to improve absorption, Azithromycin should be taken at least one hour before or two hours after a meal. It does not have the same strong tendency to upset the stomach as erythromycin and is usually very well tolerated. Patients who have had a rash or other true allergic reactions to erythromycin should not take this medication. Call if you develop gastrointestinal distress, severe diarrhea, rash, hives, itching, or shortness of breath. SMOKING: If you smoke, you should stop smoking. The tar and chemicals in cigarette smoke are harmful. Smoking has been shown to cause: emphysema chronic bronchitis lung cancer mouth and throat cancer stomach and pancreas cancer premature aging defects In addition, smoking increases ear and lung infections in children of smokers. FOLLOW-UP CARE: If you have been referred to a physician for follow-up care, call the physician s office for an appointment as you were instructed or within the next two days. If you experience worsening or a significant change in your symptoms, notify the physician immediately or return to the Emergency Department at any time for re-evaluation. Follow-up with Dr. Quinteros in his office this week. Prescriptions: Azithromycin [Zithromax 250 mg Tablet] 250 mg PO ASDIR PRN #6 tablet PRN Reason: Referrals: PAZ QUINTEROS MD [ACTIVE STAFF] - Follow up in 3-5 days
[2016-11-14 13:27] LABS: ABSOLUTE EOSINOPHILS # (AUTO) 0.2 10^3/uL (0.0-0.6); ABSOLUTE LYMPHOCYTES (AUTO) 3.3 10^3/uL (0.5-4.7); ABSOLUTE MONOCYTES (AUTO) 0.4 10^3/uL (0.1-1.4); ABSOLUTE NEUT (AUTO) 2.1 10^3/uL (1.7-8.2); BASOPHILS % (AUTO) 0.4 % (0-2); EOSINOPHILS % (AUTO) 3.8 % (0-6); HEMATOCRIT 32.9 % (36.0-47.0); HEMOGLOBIN 10.9 g/dL (12.0-15.5); HGB HCT DIFFERENCE -0.2; LYMPHOCYTES % (AUTO) 53.9 % (13-45); MEAN CORPUSCULAR HEMOGLOBIN 26.2 pg (27.0-33.4); MEAN CORPUSCULAR VOLUME 79 fl (80-97); MONOCYTES % (AUTO) 6.7 % (3-13); RED BLOOD COUNT 4.14 10^6/uL (3.72-5.28); RED CELL DISTRIBUTION WIDTH 15.7 % (11.5-14.0); SEGMENTED NEUTROPHILS % (AUTO) 35.2 % (42-78); WHITE BLOOD COUNT 6.1 10^3/uL (4.0-10.5)
[2016-11-14 13:30] LABS: ALANINE AMINOTRANSFERASE 17 U/L (9-52); ALBUMIN 3.5 g/dL (3.5-5.0); ALKALINE PHOSPHATASE 65 U/L (38-126); ANION GAP 8 (5-19); ASPARTATE AMINO TRANSFERASE 16 U/L (14-36); BILIRUBIN,DIRECT 0.3 mg/dL (0.0-0.4); BILIRUBIN,TOTAL 0.5 mg/dL (0.2-1.3); BLOOD UREA NITROGEN 8 mg/dL (7-20); CALCIUM 8.8 mg/dL (8.4-10.2); CARBON DIOXIDE 25 mmol/L (22-30); CHLORIDE 108 mmol/L (98-107); CREATINE KINASE 48 U/L (30-135); CREATININE RESULT 0.59 mg/dL (0.52-1.25); GLUCOSE 95 mg/dL (75-110); POTASSIUM 3.9 mmol/L (3.6-5.0); SODIUM 140.9 mmol/L (137-145); TOTAL PROTEIN 7.1 g/dL (6.3-8.2)
[2016-11-14 13:41] LABS: CREATINE KINASE MB 0.24 ng/mL (<4.55)
[2016-11-14 13:44] LABS: TROPONIN I < 0.012 ng/mL
[2016-11-14 17:07] VITALS: BP 134/94
--- NOTE | 2016-11-14 22:51 | EKG REPORT ---
SEVERITY:- ABNORMAL ECG - SINUS ARRHYTHMIA, RATE 58-68 VENTRICULAR PREMATURE COMPLEXES LEFT AXIS DEVIATION ABNORMAL Q SUGGESTS ANTERIOR INFARCT NONSPECIFIC T ABNORMALITIES, DIFFUSE LEADS : Confirmed by: Lacho Martinez 14-Nov-2016 22:51:21
== END 2016-11-14 17:07 | disposition home or self-care (01) ==
LOC: ER 12:33
DX: J40 Bronchitis, not specified as acute or chronic (principal); R06.02 Shortness of breath; R07.9 Chest pain, unspecified; R05 Cough; R06.2 Wheezing; R11.10 Vomiting, unspecified; R19.7 Diarrhea, unspecified; F17.200 Nicotine dependence, unspecified, uncomplicated; Z79.899 Other long term (current) drug therapy
CPT/HCPCS: 36415; 71010; 80053; 82550; 82553; 83880; 84484; 85025; 87040; 93005; 93010; 99285

== ENCOUNTER 2017-03-16 11:54 | Observation (INO) | payer MEDICARE, MEDICAID ==
[2017-03-16] MEDS ORDERED: FUROSEMIDE INJ/PF 40 MG/4 ML SDV IV ONE (12:12)
--- NOTE | 2017-03-16 12:15 | ER Document Report ---
ED Medical Screen (RME) - General Chief Complaint: Cough Stated Complaint: COUGH Time Seen by Provider: 03/16/17 12:11 Mode of Arrival: Wheelchair Information source: Patient TRAVEL OUTSIDE OF THE [place] IN LAST 30 DAYS: No - HPI Patient complains to provider of: cough, SOB Onset: Yesterday - pt with h/o CHF with c/o cough, achy, and sob -- has orthopnea and PND symptoms. Denies CP - Related Data Allergies/Adverse Reactions: lisinopril [Lisinopril] Allergy (Severe, Verified 03/16/17 12:07) Difficulty breathing levofloxacin [From Levaquin] Allergy (Verified 03/16/17 12:07) Home Medications: Current Home Medications Albuterol Sulfate [Proair Hfa Inhalation Aerosol 8.5 gm Mdi] 2 puff IH Q4 PRN [History] Past Medical History - Social History Chew tobacco use (# tins/day): No Frequency of alcohol use: None Drug Abuse: None - Past Medical History Cardiac Medical History: Reports: Hx Congestive Heart Failure, Hx Coronary Artery Disease, Hx Heart Attack - 2007, Hx Hypercholesterolemia, Hx Hypertension Pulmonary Medical History: Reports: Hx Asthma, Hx COPD, Hx Pneumonia Renal/ Medical History: Denies: Hx Peritoneal Dialysis GI Medical History: Reports: Hx Gastroesophageal Reflux Disease. Denies: Hx Pancreatitis Musculoskeltal Medical History: Reports Hx Arthritis Psychiatric Medical History: Reports: Hx Anxiety, Hx Depression Past Surgical History: Reports: Hx Section - x3, Hx Oral Surgery - wisdom tooth, Hx Orthopedic Surgery - left hand tendon repair, Hx Tonsillectomy - Immunizations Hx Diphtheria, Pertussis, Tetanus Vaccination: Yes History of Influenza Vaccine for 12/2016 - 05/2017 Season: No
[2017-03-16 13:20] LABS: ABSOLUTE LYMPHOCYTES (AUTO) 1.2 10^3/uL (0.5-4.7); ABSOLUTE MONOCYTES (AUTO) 0.6 10^3/uL (0.1-1.4); ABSOLUTE NEUT (AUTO) 1.9 10^3/uL (1.7-8.2); BASOPHILS % (AUTO) 0.2 % (0-2); EOSINOPHILS % (AUTO) 0.9 % (0-6); HEMATOCRIT 33.4 % (36.0-47.0); HEMOGLOBIN 10.7 g/dL (12.0-15.5); LYMPHOCYTES % (AUTO) 32.1 % (13-45); MEAN CORPUSCULAR HEMOGLOBIN 25.5 pg (27.0-33.4); MEAN CORPUSCULAR HGB CONC 32.1 g/dL (32.0-36.0); MEAN CORPUSCULAR VOLUME 79 fl (80-97); MONOCYTES % (AUTO) 15.7 % (3-13); PLATELET COUNT 147 10^3/uL (150-450); RED BLOOD COUNT 4.21 10^6/uL (3.72-5.28); SEGMENTED NEUTROPHILS % (AUTO) 51.1 % (42-78); TOTAL CELLS COUNTED % (AUTO) 100 %; WHITE BLOOD COUNT 3.7 10^3/uL (4.0-10.5)
[2017-03-16 13:28] LABS: A TYPE INFLUENZA AG POSITIVE (NEGATIVE); B INFLUENZA AG NEGATIVE (NEGATIVE)
[2017-03-16 13:40] LABS: ALANINE AMINOTRANSFERASE 18 U/L (9-52); ALBUMIN 3.7 g/dL (3.5-5.0); ALKALINE PHOSPHATASE 54 U/L (38-126); ANION GAP 7 (5-19); ASPARTATE AMINO TRANSFERASE 19 U/L (14-36); BILIRUBIN,DIRECT 0.2 mg/dL (0.0-0.4); BILIRUBIN,TOTAL 0.2 mg/dL (0.2-1.3); BLOOD UREA NITROGEN 8 mg/dL (7-20); CALCIUM 8.6 mg/dL (8.4-10.2); CARBON DIOXIDE 28 mmol/L (22-30); CHLORIDE 104 mmol/L (98-107); CREATINE KINASE 62 U/L (30-135); GLUCOSE 88 mg/dL (75-110); POTASSIUM 4.3 mmol/L (3.6-5.0); SODIUM 138.8 mmol/L (137-145); TOTAL PROTEIN 7.3 g/dL (6.3-8.2)
[2017-03-16 13:51] LABS: CREATINE KINASE MB < 0.22 ng/mL (<4.55); NT PRO BNP 135 pg/mL (<125); TROPONIN I < 0.012 ng/mL
--- NOTE | 2017-03-16 14:19 | RADIOLOGY REPORT (SQ) ---
EXAM DESCRIPTION: CHEST PA/LAT COMPLETED DATE/TIME: 03/16/2017 1:51 pm REASON FOR STUDY: cough, SOB COMPARISON: None. EXAM PARAMETERS: NUMBER OF VIEWS: two views TECHNIQUE: Digital Frontal and Lateral radiographic views of the chest acquired. RADIATION DOSE: NA LIMITATIONS: none FINDINGS: LUNGS AND PLEURA: No opacities, masses or pneumothorax. No pleural effusion. MEDIASTINUM AND HILAR STRUCTURES: No masses or contour abnormalities. HEART AND VASCULAR STRUCTURES: Borderline cardiomegaly. Borderline vascular congestion. BONES: No acute findings. HARDWARE: None in the chest. OTHER: No other significant finding. IMPRESSION: BORDERLINE CARDIOMEGALY WITH BORDERLINE VASCULAR CONGESTION. TECHNICAL DOCUMENTATION: JOB ID: [id number] [employer]- All Rights Reserved
[2017-03-16] MEDS ORDERED: ONDANSETRON 4 MG TAB.RAPDIS PO ONE (14:32)
[2017-03-16] MEDS ORDERED: NORMAL SALINE 1000 ML 1,000 ML IV PRN (14:59)
[2017-03-16] MEDS ORDERED: ACETAMINOPHEN 325 MG TABLET PO PRN (15:26)
[2017-03-16] MEDS ORDERED: ZOLPIDEM TARTRATE 5 MG TABLET PO PRN (15:26)
[2017-03-16] MEDS ORDERED: ONDANSETRON HCL INJ/PF 4 MG/2 ML SDV IV PRN (15:26)
[2017-03-16] MEDS ORDERED: ONDANSETRON 4 MG TAB.RAPDIS PO PRN (15:32)
--- NOTE | 2017-03-16 16:12 | ER Document Report ---
ED General - General Chief Complaint: Cough Stated Complaint: COUGH Time Seen by Provider: 03/16/17 12:11 Mode of Arrival: Wheelchair Information source: Patient TRAVEL OUTSIDE OF THE [place] IN LAST 30 DAYS: No - HPI Patient complains to provider of: Cough /body aches Onset: Other - Began 2 weeks ago Onset/Duration: Gradual, Worse Quality of pain: Achy - She complains of achy muscular pain all over her body as well as centralized dull chest pain worse with deep inspiration and cough Associated symptoms: Chest pain, Chills, Productive cough, Diarrhea, Hurts to breath, Nausea, Vomiting Relieved by: Denies Similar symptoms previously: Yes Recently seen / treated by doctor: Yes - Patient was seen here a few weeks ago - Related Data Allergies/Adverse Reactions: lisinopril [Lisinopril] Allergy (Severe, Verified 03/16/17 12:07) Difficulty breathing levofloxacin [From Levaquin] Allergy (Verified 03/16/17 12:07) Home Medications: Current Home Medications Albuterol Sulfate [Proair Hfa Inhalation Aerosol 8.5 gm Mdi] 2 puff IH Q4 PRN [History] Carvedilol [Coreg 6.25 mg Tablet] 6.25 mg PO Q12 03/16/17 [History] Dicyclomine HCl [Bentyl 20 mg Tablet] 20 mg PO QIDP PRN 03/16/17 [History] Valsartan [Diovan 80 mg Tablet] 80 mg PO DAILY 03/16/17 [History] Past Medical History - General Information source: Patient - Social History Smoking Status: Current Every Day Smoker Chew tobacco use (# tins/day): No Frequency of alcohol use: None Drug Abuse: None Lives with: Family Family History: Reviewed & Not Pertinent, CAD - Father with an [place] in his 30s, Hyperlipidemia, Hypertension Patient has suicidal ideation: No Patient has homicidal ideation: No - Past Medical History Cardiac Medical History: Reports: Hx Congestive Heart Failure, Hx Coronary Artery Disease, Hx Heart Attack - 2007, Hx Hypercholesterolemia, Hx Hypertension Pulmonary Medical History: Reports: Hx Asthma, Hx COPD, Hx Pneumonia, Hx Sleep Apnea Renal/ Medical History: Denies: Hx Peritoneal Dialysis GI Medical History: Reports: Hx Gastroesophageal Reflux Disease. Denies: Hx Pancreatitis Musculoskeltal Medical History: Reports Hx Arthritis Psychiatric Medical History: Reports: Hx Anxiety, Hx Depression Past Surgical History: Reports: Hx Section - x3, Hx Oral Surgery - wisdom tooth, Hx Orthopedic Surgery - left hand tendon repair, Hx Tonsillectomy - Immunizations Hx Diphtheria, Pertussis, Tetanus Vaccination: Yes History of Influenza Vaccine for 12/2016 - 05/2017 Season: No History of Pneumococcal Vaccine: Yes Hx Pneumococcal Vaccination: 10/09/16 Review of Systems - Review of Systems Constitutional: Chills, Weakness EENT: Nose congestion Cardiovascular: Chest pain, Heart racing Respiratory: Cough, Hurts to breathe, Short of breath Gastrointestinal: Diarrhea, Nausea Female Genitourinary: No symptoms reported Musculoskeletal: No symptoms reported Skin: No symptoms reported Hematologic/Lymphatic: No symptoms reported Neurological/Psychological: No symptoms reported Physical Exam - Vital signs Vitals: Temp Pulse Resp BP Pulse Ox 99.0 F 123 H 20 120/70 99 03/16/17 14:45 03/16/17 14:45 03/16/17 14:45 03/16/17 14:45 03/16/17 14:45 - Notes Notes: PHYSICAL EXAMINATION: GENERAL: Patient has a hacking dry cough, she is lying in the gurney and appears ill HEAD: Atraumatic, normocephalic. EYES: Pupils equal round and reactive to light, extraocular movements intact, conjunctiva are normal. ENT: Nares question, oropharynx clear without exudates. Dry mucous membranes. NECK: Normal range of motion, supple without lymphadenopathy LUNGS: Breath sounds clear to auscultation bilaterally and equal. No wheezes rales or rhonchi. HEART: Regular rate and rhythm without murmurs ABDOMEN: obese Soft, nontender, nondistended abdomen. No guarding, no rebound. No masses appreciated. Female : deferred Musculoskeletal: Normal range of motion, no pitting or edema. No cyanosis. NEUROLOGICAL: Cranial nerves grossly intact. Normal speech, normal gait. Normal sensory, motor exams PSYCH: Anxious teary-eyed SKIN: Warm, Dry, normal turgor, no rashes or lesions noted. Course - Re-evaluation Re-evalutation: 03/16/17 16:13 On ambulation patient's heart rate goes up to 125 sinus tach. Chest x-ray shows mild edema and BNP is mildly elevated. I do believe the patient is most likely intravascularly depleted however bolusing her with normal saline solution right results in extension of her pulmonary edema and hypoxia. I did talk to the hospitalist who agreed to an obtuse placement for the patient. - Vital Signs Vital signs: Temp Pulse Resp BP Pulse Ox 99.0 F 123 H 20 120/70 99 03/16/17 14:45 03/16/17 14:45 03/16/17 14:45 03/16/17 14:45 03/16/17 14:45 - Laboratory Result Diagrams: 03/16/17 12:35 03/16/17 12:35 Laboratory results interpreted by me: 03/16/17 03/16/17 12:35 12:35 WBC 3.7 L Hgb 10.7 L Hct 33.4 L MCV 79 L MCH 25.5 L RDW 15.0 H Plt Count 147 L Monocytes % 15.7 H NT-Pro-B Natriuret Pep 135 H 03/16/17 16:15 Influenza A positive - Diagnostic Test Radiology reviewed: Image reviewed, Reports reviewed Radiology results interpreted by nv: 03/16/17 16:12 Mild CHF - EKG Interpretation by Ne EKG shows normal: Sinus rhythm - 80 Rhythm: PVC's When compared to previous EKG there are: Other Additional EKG results interpreted by nv: 03/16/17 16:14 She has poor R-wave progression in the anterior leads. T-wave inversion in lead III Discharge - Discharge Clinical Impression: CHF (congestive heart failure), Influenza A Disposition: ADMITTED OBSERVATION Admitting Provider: Hospitalist - Dr. Oakley Unit Admitted: Telemetry Referrals: PAZ QUINTEROS MD [Primary Care Provider] - Follow up as needed
--- NOTE | 2017-03-16 16:40 | EKG REPORT ---
SEVERITY:- ABNORMAL ECG - SINUS RHYTHM VENTRICULAR PREMATURE COMPLEX CONSIDER ANTEROSEPTAL INFARCT NONSPECIFIC T ABNORMALITIES, INFERIOR LEADS : Confirmed by: Ruben Andres MD 16-Mar-2017 16:39:54
--- NOTE | 2017-03-16 17:06 | PDOC H&P ---
History of Present Illness Admission Date/PCP: [facility] March 16, 2017 Patient complains of: Cough for the past 2 days History of Present Illness: KEI PIERCE is a 41 year old female Presents to emergency room complaining of fever, chills, headache, pains all over her body for the past 2 weeks. Patient states that she began experiencing some cough last week but the fever and chills and other symptoms had been getting progressively worse over the course of 2 days. She admits that she did not get the flu vaccine but the pneumonia vaccine. Patient reports history of his sleep apnea and accordingly she is compliant with the CPAP. She is on a fluid restriction of 1500 mL's per day. She also carries a history of myocardial infarction. During the course of evaluation in emergency room influenza test was positive for influenza a and our service was contacted for further management and prompted to admit primarily for observation status. Dr. Arellano will take over care of patient in a.m. Past Medical History Cardiac Medical History: Reports: Congestive Heart Failure, Coronary Artery Disease, Myocardial Infarction - 2007, Hyperlipidema, Hypertension Pulmonary Medical History: Reports: Asthma, Chronic Obstructive Pulmonary Disease (COPD), Pneumonia EENT Medical History: Reports: None Neurological Medical History: Reports: None Endocrine Medical History: Reports: None Renal/ Medical History: Reports: None Malignancy Medical History: Reports: None GI Medical History: Reports: None, Gastroesophageal Reflux Disease Musculoskeltal Medical History: Reports: Arthritis Skin Medical History: Reports: None Psychiatric Medical History: Reports: Depression Traumatic Medical History: Reports: None Hematology: Reports: None Infectious Medical History: Reports: None Past Surgical History Past Surgical History: Reports: Section - x3, Orthopedic Surgery - left hand tendon repair, Tonsillectomy Denies: Amputation Social History Smoking Status: Current Every Day Smoker Frequency of Alcohol Use: None Hx Recreational Drug Use: No Drugs: None Hx Prescription Drug Abuse: No - Advance Directive Resuscitation Status: Full Code Family History Family History: Reviewed & Not Pertinent, CAD - Father with an [place] in his 30s, Hyperlipidemia, Hypertension Parental Family History Reviewed: Yes Children Family History Reviewed: Yes Sibling(s) Family History Reviewed.: Yes Medication/Allergy Home Medications: Furosemide [Lasix 40 mg Tablet] 40 mg PO DAILY #30 tablet 04/24/15 Albuterol Sulfate [Proair Hfa Inhalation Aerosol 8.5 gm Mdi] 2 puff IH Q4 PRN Carvedilol [Coreg 6.25 mg Tablet] 6.25 mg PO Q12 03/16/17 Dicyclomine HCl [Bentyl 20 mg Tablet] 20 mg PO QIDP PRN 03/16/17 Valsartan [Diovan 80 mg Tablet] 80 mg PO DAILY 03/16/17 Allergies/Adverse Reactions: lisinopril [Lisinopril] Allergy (Severe, Verified 03/16/17 12:07) Difficulty breathing levofloxacin [From Levaquin] Allergy (Verified 03/16/17 12:07) Review of Systems Constitutional: PRESENT: chills, fever(s), headache(s) Eyes: ABSENT: visual disturbances Ears: ABSENT: hearing changes Nose, Mouth, and Throat: PRESENT: sore throat. ABSENT: mouth pain Cardiovascular: ABSENT: chest pain, dyspnea on exertion, edema Respiratory: ABSENT: dyspnea Gastrointestinal: ABSENT: nausea, vomiting Genitourinary: ABSENT: dysuria Musculoskeletal: PRESENT: back pain. ABSENT: deformity, joint swelling Integumentary: ABSENT: pruritus, rash Neurological: PRESENT: weakness. ABSENT: focal weakness Endocrine: ABSENT: cold intolerance, flushing Hematologic/Lymphatic: ABSENT: lymphadenopathy Allergic/Immunologic: ABSENT: seasonal rhinorrhea Physical Exam Vital Signs: Temp Pulse Resp BP Pulse Ox 99.0 F 123 H 20 120/70 99 03/16/17 14:45 03/16/17 14:45 03/16/17 14:45 03/16/17 14:45 03/16/17 14:45 General appearance: PRESENT: cooperative, mild distress, morbidly obese Head exam: PRESENT: atraumatic, normocephalic Eye exam: PRESENT: conjunctiva pink, EOMI, PERRLA Ear exam: PRESENT: normal external ear exam Mouth exam: PRESENT: moist, neck supple Neck exam: PRESENT: full ROM. ABSENT: JVD, lymphadenopathy, tenderness Respiratory exam: PRESENT: clear to auscultation myranda. ABSENT: crackles, rhonchi , wheezes Cardiovascular exam: PRESENT: tachycardia. ABSENT: diastolic murmur, systolic murmur Vascular exam: PRESENT: normal capillary refill GI/Abdominal exam: PRESENT: normal bowel sounds, soft. ABSENT: tenderness Extremities exam: PRESENT: full ROM. ABSENT: joint swelling, pedal edema Neurological exam: PRESENT: alert, oriented to person, oriented to place, oriented to time Psychiatric exam: PRESENT: agitated, appropriate affect Skin exam: PRESENT: normal color Results Laboratory Results: 03/16/17 12:35 03/16/17 12:35 03/16/17 03/16/17 12:35 12:35 WBC 3.7 L RBC 4.21 Hgb 10.7 L Hct 33.4 L MCV 79 L MCH 25.5 L MCHC 32.1 RDW 15.0 H Plt Count 147 L Seg Neutrophils % 51.1 Lymphocytes % 32.1 Monocytes % 15.7 H Eosinophils % 0.9 Basophils % 0.2 Absolute Neutrophils 1.9 Absolute Lymphocytes 1.2 Absolute Monocytes 0.6 Absolute Eosinophils 0.0 Absolute Basophils 0.0 Sodium 138.8 Potassium 4.3 Chloride 104 Carbon Dioxide 28 Anion Gap 7 BUN 8 Creatinine 0.76 Est GFR ( Amer) > 60 Est GFR (Non-Af Amer) > 60 Glucose 88 Calcium 8.6 Total Bilirubin 0.2 AST 19 ALT 18 Alkaline Phosphatase 54 Total Protein 7.3 Albumin 3.7 03/16/17 03/16/17 12:35 12:35 Creatine Kinase 62 CK-MB (CK-2) < 0.22 Troponin I < 0.012 NT-Pro-B Natriuret Pep 135 H Impressions: Chest X-Ray 03/16/17 12:12 IMPRESSION: BORDERLINE CARDIOMEGALY WITH BORDERLINE VASCULAR CONGESTION. Assessment & Plan - Diagnosis (1) CHF (congestive heart failure) Qualifiers: Congestive heart failure type: diastolic Congestive heart failure chronicity: chronic Qualified Code(s): I50.32 - Chronic diastolic (congestive ) heart failure Is this a current diagnosis for this admission?: Yes Plan: Findings are consistent with chronic congestive heart failure. Patient is not in overt congestive heart failure acutely (2) Influenza A Is this a current diagnosis for this admission?: Yes Plan: Start Tamiflu since after history taking it appears that her symptoms got worse over the course of 2 days. Will provide supportive care (3) Morbid obesity Is this a current diagnosis for this admission?: Yes Plan: Patient states that she is going to have weight reduction surgery in the near future (4) Sleep apnea Is this a current diagnosis for this admission?: Yes Plan: To place on CPAP while in-house - Time Time Spent: 30 to 50 Minutes Medications reviewed and adjusted accordingly: Yes Anticipated discharge: Home Within: within 24 hours - Inpatient Certification Based on my medical assessment, after consideration of the patient's comorbidities, presenting symptoms, or acuity I expect that the services needed warrant INPATIENT care.: No I certify that my determination is in accordance with my understanding of Medicare's requirements for reasonable and necessary INPATIENT services [42 CFR 412.3e].: Yes Medical Necessity: Need for Nebulizer Therapy and Monitoring of Response
[2017-03-16] MEDS: CARVEDILOL 12.5 MG TABLET PO SCH (18:17)
[2017-03-16] MEDS: OSELTAMIVIR PHOSPHATE 75 MG CAPSULE PO SCH (18:18)
[2017-03-16] MEDS: DICYCLOMINE HCL 20 MG TABLET PO SCH ×2 (18:18→22:40)
[2017-03-16] MEDS: IPRATROPIUM/ALBUTEROL 0.5-2.5 MG/3 ML AMPUL NEB SCH (20:38)
[2017-03-16] MEDS: HEPARIN SOD (PORCINE) 5,000 UNIT/ML 1 ML SYRINGE SUBCUT SCH (22:37)
[2017-03-16] MEDS: BENZONATATE 100 MG CAPSULE PO PRN (23:56)
[2017-03-17] MEDS: HEPARIN SOD (PORCINE) 5,000 UNIT/ML 1 ML SYRINGE SUBCUT SCH ×2 (06:46→14:22)
[2017-03-17] MEDS: IPRATROPIUM/ALBUTEROL 0.5-2.5 MG/3 ML AMPUL NEB SCH ×2 (08:49→14:25)
[2017-03-17] MEDS: CARVEDILOL 12.5 MG TABLET PO SCH (09:35)
[2017-03-17] MEDS: OSELTAMIVIR PHOSPHATE 75 MG CAPSULE PO SCH ×2 (09:36→18:22)
[2017-03-17] MEDS: DICYCLOMINE HCL 20 MG TABLET PO SCH ×3 (09:36→18:22)
[2017-03-17] MEDS ORDERED: LOSARTAN POTASSIUM 50 MG TABLET PO SCH (10:00)
[2017-03-17] MEDS ORDERED: FUROSEMIDE 40 MG TABLET PO SCH (10:00)
[2017-03-17] MEDS ORDERED: OSELTAMIVIR PHOSPHATE 75 MG CAPSULE PO SCH (13:15)
[2017-03-17] MEDS ORDERED: ONDANSETRON 4 MG TAB.RAPDIS PO PRN (14:00)
[2017-03-17] MEDS: BENZONATATE 100 MG CAPSULE PO PRN (14:09)
[2017-03-17] MEDS ORDERED: OSELTAMIVIR PHOSPHATE 75 MG CAPSULE PO ONE (14:15)
[2017-03-17] MEDS ORDERED: NORMAL SALINE 1000 ML 1,000 ML IV PRN (14:37)
--- NOTE | 2017-03-17 16:47 | PDOC DISCHARGE SUMMARY ---
General - Admit/Disc Date/PCP Admission Date/Primary Care Provider: 03/16/17 16:55 PAZ ALDAIR Discharge Date: 03/17/17 - Discharge Diagnosis (1) Influenza A Is this a current diagnosis for this admission?: Yes (2) Chronic diastolic (congestive) heart failure Is this a current diagnosis for this admission?: Yes - Additional Information Resuscitation Status: Full Code Prescriptions: Oseltamivir Phosphate [Tamiflu 75 mg Capsule] 75 mg PO BID #14 capsule Home Medications: Furosemide [Lasix 40 mg Tablet] 40 mg PO DAILY #30 tablet 04/24/15 Albuterol Sulfate [Proair HFA Inhalation Aerosol 8.5 gm MDI] 2 puff IH Q4 PRN Carvedilol [Coreg 6.25 mg Tablet] 6.25 mg PO Q12 03/16/17 Dicyclomine HCl [Bentyl 20 mg Tablet] 20 mg PO QIDP PRN 03/16/17 Valsartan [Diovan 80 mg Tablet] 80 mg PO DAILY 03/16/17 Oseltamivir Phosphate [Tamiflu 75 mg Capsule] 75 mg PO BID #14 capsule 03/17/17 History of Present Illness History of Present Illness: KEI PIERCE is a 41 year old female she was admitted yesterday by the hospitalist service for treatment of influenza, she came to the emergency room for evaluation of 2 week history of respiratory symptoms, cough, congestion. She was found to have influenza virus A Hospital Course Hospital Course: Patient was admitted for the management of influenza, treated with Tamiflu, she was brought in for observation Physical Exam Vital Signs: Temp Pulse Resp BP Pulse Ox 99 F 69 18 107/55 L 97 03/17/17 13:45 03/17/17 14:25 03/17/17 14:25 03/17/17 13:45 03/17/17 13:45 Intake & Output 03/16/17 03/17/17 03/18/17 06:59 06:59 06:59 Weight 187.3 kg General appearance: PRESENT: no acute distress, well-developed, well-nourished Head exam: PRESENT: atraumatic, normocephalic Eye exam: PRESENT: conjunctiva pink, EOMI, PERRLA Ear exam: PRESENT: normal external ear exam Mouth exam: PRESENT: moist, tongue midline Neck exam: PRESENT: full ROM Respiratory exam: PRESENT: clear to auscultation myranda Cardiovascular exam: PRESENT: RRR, +S1, +S2 Pulses: PRESENT: normal dorsalis pedis pul, +2 pedal pulses bilateral Vascular exam: PRESENT: normal capillary refill GI/Abdominal exam: PRESENT: normal bowel sounds, soft Rectal exam: PRESENT: deferred Neurological exam: PRESENT: alert, awake, oriented to person, oriented to place , oriented to time, oriented to situation, CN II-XII grossly intact Psychiatric exam: PRESENT: appropriate affect, normal mood Skin exam: PRESENT: dry, intact, warm. ABSENT: cyanosis, rash Results Impressions: Chest X-Ray 03/16/17 12:12 IMPRESSION: BORDERLINE CARDIOMEGALY WITH BORDERLINE VASCULAR CONGESTION.
[2017-03-17 17:26] VITALS: BP 121/63
== END 2017-03-17 18:40 | disposition home or self-care (01) ==
LOC: ER 11:54 → EH 16:55 → 2N 03-17 13:40
PROVIDERS: ADMIT Emergency Medicine; ATTEND Internal Medicine Geriatric Medicine
PROC: 5A09357 Assistance with Respiratory Ventilation, Less than 24 Consecutive Hours, Continuous Positive Airway Pressure (ICD-10-PCS; principal; 2017-03-17)
PROC: 3E0F7GC Introduction of Other Therapeutic Substance into Respiratory Tract, Via Natural or Artificial Opening (ICD-10-PCS; 2017-03-17)
DX: J09.X2 Influenza due to identified novel influenza A virus with other respiratory manifestations (principal); I11.0 Hypertensive heart disease with heart failure; I50.32 Chronic diastolic (congestive) heart failure; G47.30 Sleep apnea, unspecified; E66.01 Morbid (severe) obesity due to excess calories; I25.2 Old myocardial infarction; I25.10 Atherosclerotic heart disease of native coronary artery without angina pectoris; F17.200 Nicotine dependence, unspecified, uncomplicated; J45.909 Unspecified asthma, uncomplicated; R45.1 Restlessness and agitation; R00.0 Tachycardia, unspecified; R19.7 Diarrhea, unspecified; R09.02 Hypoxemia; J81.1 Chronic pulmonary edema; Z79.899 Other long term (current) drug therapy; Z82.49 Family history of ischemic heart disease and other diseases of the circulatory system; Z87.01 Personal history of pneumonia (recurrent); Z68.44 Body mass index [BMI] 60.0-69.9, adult
CPT/HCPCS: 93005; 99285; 96361; 96374; 36415; 82553; 82550; 85025; 80053; 84484; 87804; 83880; 71046; 93010; 94660 ×2; 94640 ×2; A9270 ×15; J1644 ×2; J1940; J7030; G0378; J3490; J7620; S0119

== ENCOUNTER 2017-03-18 14:42 | Emergency (ER) | payer MEDICARE, MEDICAID ==
[2017-03-18] MEDS ORDERED: ALBUTEROL SULFATE 0.083% NEB 2.5 MG/3 ML AMPUL NEB ONE (16:18)
--- NOTE | 2017-03-18 16:19 | ER Document Report ---
ED Medical Screen (RME) - General Chief Complaint: Flu Symptoms Stated Complaint: COUGH Time Seen by Provider: 03/18/17 16:12 Notes: Patient was recently seen at this facility and diagnosed with influenza. She was admitted for observation. She was discharged approximately 24 hours ago. She states she still is nauseous and has diffuse body aches. She states she still feels short of breath and has cough and wheezing. She states she is not getting any relief from her inhaler. She states she called her primary care physician who instructed her to come back to the hospital. TRAVEL OUTSIDE OF THE [place] IN LAST 30 DAYS: No - Related Data Allergies/Adverse Reactions: lisinopril [Lisinopril] Allergy (Severe, Verified 03/16/17 12:07) Difficulty breathing levofloxacin [From Levaquin] Allergy (Verified 03/16/17 12:07) Past Medical History - Social History Chew tobacco use (# tins/day): No Frequency of alcohol use: None Drug Abuse: None - Past Medical History Cardiac Medical History: Reports: Hx Congestive Heart Failure, Hx Coronary Artery Disease, Hx Heart Attack - 2007, Hx Hypercholesterolemia, Hx Hypertension Pulmonary Medical History: Reports: Hx Asthma, Hx COPD, Hx Pneumonia, Hx Sleep Apnea Renal/ Medical History: Denies: Hx Peritoneal Dialysis GI Medical History: Reports: Hx Gastroesophageal Reflux Disease. Denies: Hx Pancreatitis Musculoskeltal Medical History: Reports Hx Arthritis Psychiatric Medical History: Reports: Hx Anxiety, Hx Depression Past Surgical History: Reports: Hx Section - x3, Hx Oral Surgery - wisdom tooth, Hx Orthopedic Surgery - left hand tendon repair, Hx Tonsillectomy - Immunizations Hx Diphtheria, Pertussis, Tetanus Vaccination: Yes History of Influenza Vaccine for 12/2016 - 05/2017 Season: No Physical Exam - Vital signs Vitals: Temp Pulse Resp BP Pulse Ox 98.2 F 73 14 121/56 L 97 03/18/17 14:59 03/18/17 14:59 03/18/17 14:59 03/18/17 14:59 03/18/17 14:59 Course - Vital Signs Vital signs: Temp Pulse Resp BP Pulse Ox 98.2 F 73 14 121/56 L 97 03/18/17 14:59 03/18/17 14:59 03/18/17 14:59 03/18/17 14:59 03/18/17 14:59
--- NOTE | 2017-03-18 16:49 | RADIOLOGY REPORT (SQ) ---
EXAM DESCRIPTION: CHEST PA/LAT COMPLETED DATE/TIME: 03/18/2017 4:42 pm REASON FOR STUDY: ocugh COMPARISON: 03/16/2017 EXAM PARAMETERS: NUMBER OF VIEWS: two views TECHNIQUE: Digital Frontal and Lateral radiographic views of the chest acquired. RADIATION DOSE: NA LIMITATIONS: none FINDINGS: LUNGS AND PLEURA: No new opacities, masses or pneumothorax. No pleural effusion. MEDIASTINUM AND HILAR STRUCTURES: No masses or contour abnormalities. HEART AND VASCULAR STRUCTURES: Heart stable in size. No evidence for failure. BONES: No acute findings. HARDWARE: None in the chest. OTHER: No other significant finding. IMPRESSION: NO ACUTE CARDIOPULMONARY PROCESS. NO SIGNIFICANT CHANGE FROM PRIOR STUDY. TECHNICAL DOCUMENTATION: JOB ID: [id number] [employer]- All Rights Reserved
[2017-03-18 16:51] LABS: HEMATOCRIT 34.4 % (36.0-47.0); MEAN CORPUSCULAR HEMOGLOBIN 25.2 pg (27.0-33.4); MEAN CORPUSCULAR HGB CONC 31.9 g/dL (32.0-36.0); MEAN CORPUSCULAR VOLUME 79 fl (80-97); PLATELET COUNT 141 10^3/uL (150-450); RED BLOOD COUNT 4.37 10^6/uL (3.72-5.28); RED CELL DISTRIBUTION WIDTH 15.3 % (11.5-14.0); WHITE BLOOD COUNT 4.1 10^3/uL (4.0-10.5)
[2017-03-18 17:17] LABS: ALANINE AMINOTRANSFERASE 26 U/L (9-52); ALBUMIN 3.5 g/dL (3.5-5.0); ALKALINE PHOSPHATASE 52 U/L (38-126); ANION GAP 7 (5-19); ASPARTATE AMINO TRANSFERASE 38 U/L (14-36); BILIRUBIN,DIRECT 0.2 mg/dL (0.0-0.4); BILIRUBIN,TOTAL 0.2 mg/dL (0.2-1.3); BLOOD UREA NITROGEN 9 mg/dL (7-20); CALCIUM 8.3 mg/dL (8.4-10.2); CARBON DIOXIDE 29 mmol/L (22-30); CHLORIDE 104 mmol/L (98-107); GLUCOSE 89 mg/dL (75-110); POTASSIUM 3.8 mmol/L (3.6-5.0); SODIUM 139.9 mmol/L (137-145); TOTAL PROTEIN 7.2 g/dL (6.3-8.2)
[2017-03-18 17:24] LABS: ABSOLUTE LYMPHOCYTES# (MANUAL) 3.1 10^3/uL (0.5-4.7); ABSOLUTE MONOCYTES # (MANUAL) 0.3 10^3/uL (0.1-1.4); ABSOLUTE NEUTROPHILS# (MANUAL) 0.7 10^3/uL (1.7-8.2); BASOPHILS % (MANUAL) 0 % (0-2); EOSINOPHILS % (MANUAL) 0 % (0-6); MONOCYTES % (MANUAL) 7 % (3-13); SEGMENTED NEUTROPHILS % (MAN) 17 % (42-78); TOTAL CELLS COUNTED 100
[2017-03-18 17:25] LABS: ANISOCYTOSIS SLIGHT; HYPOCHROMASIA SLIGHT; PLATELET CLUMPS PRESENT; PLATELET COMMENT ADEQUATE; PLATELET GIANT PRESENT; PLATELET LARGE PRESENT; TOXIC VACUOLATION PRESENT
[2017-03-18 17:27] LABS: LYMPHOCYTES % (MANUAL) 76 % (13-45)
[2017-03-18 18:44] VITALS: BP 112/62
[2017-03-18] MEDS ORDERED: PREDNISONE 20 MG TABLET PO ONE (18:56)
[2017-03-18] MEDS ORDERED: GUAIFENESIN/D-METHORPHAN (200-20 MG) SYRUP 10 ML PO ONE (18:56)
[2017-03-18] MEDS ORDERED: ALBUTEROL SULFATE HFA (90 MCG/PUFF) 8 GM MDI (1 MDI/ER DISP) IH PRN (18:57)
--- NOTE | 2017-03-18 19:04 | ER Document Report ---
ED General - General Chief Complaint: Flu Symptoms Stated Complaint: COUGH Time Seen by Provider: 03/18/17 16:12 Mode of Arrival: Ambulatory Information source: Patient, Relative TRAVEL OUTSIDE OF THE [place] IN LAST 30 DAYS: No - HPI Patient complains to provider of: wheezing Onset: Yesterday Context: She states that she was diagnosed with the flu 2 days ago here.(I was her emergency room physician). Patient states she was only admitted for approximately 8 hours she does not feel like it was long enough. She states Dr. Abraham discharged her home. She states she is wheezing for the last few days. She does have pro-air at home but she is run out. She has no other complaints. - Related Data Allergies/Adverse Reactions: lisinopril [Lisinopril] Allergy (Severe, Verified 03/16/17 12:07) Difficulty breathing levofloxacin [From Levaquin] Allergy (Verified 03/16/17 12:07) Past Medical History - General Information source: Patient - Social History Smoking Status: Current Every Day Smoker Chew tobacco use (# tins/day): No Frequency of alcohol use: None Drug Abuse: None Family History: Reviewed & Not Pertinent, CAD - Father with an [place] in his 30s, Hyperlipidemia, Hypertension Patient has suicidal ideation: No Patient has homicidal ideation: No - Past Medical History Cardiac Medical History: Reports: Hx Congestive Heart Failure, Hx Coronary Artery Disease, Hx Heart Attack - 2007, Hx Hypercholesterolemia, Hx Hypertension Pulmonary Medical History: Reports: Hx Asthma, Hx COPD, Hx Pneumonia, Hx Sleep Apnea Endocrine Medical History: Reports: None Renal/ Medical History: Denies: Hx Peritoneal Dialysis Malignancy Medical History: Reports: None GI Medical History: Reports: Hx Gastroesophageal Reflux Disease. Denies: Hx Pancreatitis Musculoskeltal Medical History: Reports Hx Arthritis Psychiatric Medical History: Reports: Hx Anxiety, Hx Depression Past Surgical History: Reports: Hx Section - x3, Hx Oral Surgery - wisdom tooth, Hx Orthopedic Surgery - left hand tendon repair, Hx Tonsillectomy - Immunizations Hx Diphtheria, Pertussis, Tetanus Vaccination: Yes Hx Pneumococcal Vaccination: 10/09/16 Review of Systems - Review of Systems Constitutional: Chills EENT: Nose congestion Cardiovascular: No symptoms reported Respiratory: Wheezing Gastrointestinal: No symptoms reported Genitourinary: No symptoms reported Female Genitourinary: No symptoms reported Musculoskeletal: Other - Body aches Skin: No symptoms reported Hematologic/Lymphatic: No symptoms reported Neurological/Psychological: No symptoms reported Physical Exam - Vital signs Vitals: Temp Pulse Resp BP Pulse Ox 98.2 F 70 14 121/56 L 98 03/18/17 14:55 03/18/17 14:55 03/18/17 14:55 03/18/17 14:55 03/18/17 14:55 Interpretation: Normal - Notes Notes: PHYSICAL EXAMINATION: GENERAL: Well-appearing, well-nourished and in no acute distress. HEAD: Atraumatic, normocephalic. EYES: Pupils equal round and reactive to light, extraocular movements intact, conjunctiva are normal. ENT: Nares patent, oropharynx clear without exudates. Moist mucous membranes. NECK: Normal range of motion, supple without lymphadenopathy LUNGS: Expiratory wheezing. No respiratory distress. HEART: Regular rate and rhythm without murmurs ABDOMEN: Obese, soft, nontender, nondistended abdomen. No guarding, no rebound. No masses appreciated. Female : deferred Musculoskeletal: Normal range of motion, no pitting or edema. No cyanosis. NEUROLOGICAL: Cranial nerves grossly intact. Normal speech, normal gait. Normal sensory, motor exams PSYCH: Normal mood, normal affect. SKIN: Warm, Dry, normal turgor, no rashes or lesions noted. Course - Re-evaluation Re-evalutation: 03/18/17 19:06 Pt. states she is out of her proair. - Vital Signs Vital signs: Temp Pulse Resp BP Pulse Ox 97.8 F 72 16 112/62 98 03/18/17 18:40 03/18/17 18:40 03/18/17 18:40 03/18/17 18:40 03/18/17 18:40 03/18/17 19:10 Pulse ox was 90% on room air at 1845. Will be discharged home with a pro-air inhaler so she has medication until she gets her prescription filled - Laboratory Result Diagrams: 03/18/17 15:31 03/18/17 15:31 Laboratory results interpreted by me: 03/18/17 03/18/17 15:31 15:31 Hgb 11.0 L Hct 34.4 L MCV 79 L MCH 25.2 L MCHC 31.9 L RDW 15.3 H Plt Count 141 L Seg Neuts % (Manual) 17 L Lymphocytes % (Manual) 76 H Abs Neuts (Manual) 0.7 L Calcium 8.3 L AST 38 H 03/18/17 19:01 Patient had positive influenza A 2 days ago here - Diagnostic Test Radiology reviewed: Image reviewed, Reports reviewed Radiology results interpreted by me: 03/18/17 19:11 No acute findings on chest x-ray. No evidence of heart failure 03/18/17 19:11 03/18/17 19:11 Discharge - Discharge Clinical Impression: Wheezing, Influenza A Disposition: HOME, SELF-CARE Prescriptions: Albuterol Sulfate [Proair Respiclick] 90 mcg IH Q4 #1 [email or web address] Prednisone [Deltasone 20 mg Tablet] 3 tab PO DAILY 5 Days #15 tablet Referrals: PAZ QUINTEROS MD [Primary Care Provider] - Follow up tomorrow (Call Dr. Abraham's office in a.m. for appointment in the next few days. Take prednisone and pro- air as we discussed. Return to the emergency department if you have any concerns)
== END 2017-03-18 19:34 | disposition home or self-care (01) ==
LOC: ER 14:42
DX: J44.9 Chronic obstructive pulmonary disease, unspecified (principal); J11.1 Influenza due to unidentified influenza virus with other respiratory manifestations; F17.200 Nicotine dependence, unspecified, uncomplicated; I25.10 Atherosclerotic heart disease of native coronary artery without angina pectoris; I10 Essential (primary) hypertension; I25.2 Old myocardial infarction; Z88.8 Allergy status to other drugs, medicaments and biological substances; Z88.1 Allergy status to other antibiotic agents; Z87.01 Personal history of pneumonia (recurrent)
CPT/HCPCS: 94640; 99283; 36415; 85025; 80053; 83880; 71046; A9270 ×3; J3490; J7512

== ENCOUNTER 2017-03-24 17:21 | Inpatient (IN) | payer MEDICARE, MEDICAID ==
--- NOTE | 2017-03-24 17:32 | ER Document Report ---
HPI - HPI Patient complains to provider of: Wheezing and vomiting Onset: This afternoon Onset/Duration: Sudden Pain Level: 0 Context: 41-year-old female with a history of congestive heart failure and morbid obesity is complaining of persistent coughing and wheezing. She was admitted to the hospital on March for influenza A. - REPRODUCTIVE Reproductive: DENIES: : Past Medical History - Social History Family History: Reviewed & Not Pertinent, CAD - Father with an CA in his 30s, Hyperlipidemia, Hypertension - Past Medical History Cardiac Medical History: Reports: Hx Congestive Heart Failure, Hx Coronary Artery Disease, Hx Heart Attack - 2008, Hx Hypercholesterolemia, Hx Hypertension Pulmonary Medical History: Reports: Hx Asthma, Hx COPD, Hx Pneumonia, Hx Sleep Apnea Renal/ Medical History: Denies: Hx Peritoneal Dialysis GI Medical History: Reports: Hx Gastroesophageal Reflux Disease. Denies: Hx Pancreatitis Musculoskeltal Medical History: Reports Hx Arthritis Psychiatric Medical History: Reports: Hx Anxiety, Hx Depression Past Surgical History: Reports: Hx Section - x3, Hx Oral Surgery - wisdom tooth, Hx Orthopedic Surgery - left hand tendon repair, Hx Tonsillectomy - Immunizations Hx Diphtheria, Pertussis, Tetanus Vaccination: Yes Hx Pneumococcal Vaccination: 10/09/16 Vertical Provider Document - INFECTION CONTROL TRAVEL OUTSIDE OF THE [place] IN LAST 30 DAYS: No - RESPIRATORY O2 Sat by Pulse Oximetry: 99 Course - Vital Signs Vital signs: Temp Pulse Resp BP Pulse Ox 98.4 F 69 16 141/98 H 99 03/24/17 17:24 03/24/17 17:24 03/24/17 17:24 03/24/17 17:24 03/24/17 17:24
[2017-03-24] MEDS ORDERED: IPRATROPIUM/ALBUTEROL 0.5-2.5 MG/3 ML AMPUL NEB ONE (17:42)
[2017-03-24] MEDS ORDERED: ASPIRIN 81 MG TABLET, CHEWABLE PO ONE (17:58)
--- NOTE | 2017-03-24 17:58 | ER Document Report ---
ED Respiratory Problem - General Chief Complaint: Flu Symptoms Stated Complaint: FLU LIKE SYMPTOMS Time Seen by Provider: 03/24/17 17:31 Mode of Arrival: Medic Information source: Patient Notes: 41-year-old smoker female with a Hx CHF, COPD, Asthma, [place], CAD, Hyperlipidemic, HTN and morbid obesity is complaining of persistent coughing, body pain, chest pressure, shortness of breath (got worse last night), food doesn't taste normal so not eating, and wheezing. She was admitted to the hospital on March 16 for influenza A. She was discharged on March 17. She returned to the emergency room on the to be reevaluated she did not think she was in the hospital long enough. She has been using albuterol metered-dose inhaler, COPD, and prednisone which did not help. She was feeling nauseated and vomited 3 times after orthodox today, with persistant cough and wheeze despite prednisone and alburterol MDI SHe is worried that the persistent cough, chest pressure, shortness of breath, and wheezes is due to her heart. Consult Dr. Velasco, the EKG inverted T waves are no significant change from January 2017. No Nebulizer at home. TRAVEL OUTSIDE OF THE [place] IN LAST 30 DAYS: No - Related Data Allergies/Adverse Reactions: lisinopril [Lisinopril] Allergy (Severe, Verified 03/24/17 17:22) Difficulty breathing levofloxacin [From Levaquin] Allergy (Verified 03/24/17 17:22) Past Medical History - General Information source: Patient - Social History Smoking Status: Current Every Day Smoker Frequency of alcohol use: None Drug Abuse: None Lives with: Spouse/Significant other Family History: Reviewed & Not Pertinent, CAD - Father with an [place] in his 30s, Hyperlipidemia, Hypertension - Past Medical History Cardiac Medical History: Reports: Hx Congestive Heart Failure, Hx Coronary Artery Disease, Hx Heart Attack - 2008, Hx Hypercholesterolemia, Hx Hypertension Pulmonary Medical History: Reports: Hx Asthma, Hx COPD, Hx Pneumonia, Hx Sleep Apnea Renal/ Medical History: Denies: Hx Peritoneal Dialysis GI Medical History: Reports: Hx Gastroesophageal Reflux Disease Musculoskeltal Medical History: Reports Hx Arthritis Psychiatric Medical History: Reports: Hx Anxiety, Hx Depression Past Surgical History: Reports: Hx Section - x3, Hx Oral Surgery - wisdom tooth, Hx Orthopedic Surgery - left hand tendon repair, Hx Tonsillectomy - Immunizations Hx Diphtheria, Pertussis, Tetanus Vaccination: Yes Hx Pneumococcal Vaccination: 10/09/16 Review of Systems - Review of Systems Constitutional: See HPI EENT: No symptoms reported Cardiovascular: See HPI Respiratory: See HPI Gastrointestinal: See HPI Genitourinary: No symptoms reported Female Genitourinary: No symptoms reported Musculoskeletal: No symptoms reported Skin: No symptoms reported Hematologic/Lymphatic: No symptoms reported Neurological/Psychological: No symptoms reported Physical Exam - Vital signs Vitals: Temp Pulse Resp BP Pulse Ox 98.4 F 69 16 141/98 H 99 03/24/17 17:24 03/24/17 17:24 03/24/17 17:24 03/24/17 17:24 03/24/17 17:24 Interpretation: Hypertensive - General General appearance: Appears well, Alert Notes: morbid obesity - HEENT Head: Normocephalic, Atraumatic Eyes: Normal Conjunctiva: Normal Pupils: PERRL Mucous membranes: Normal Pharynx: Erythema Neck: Supple. No: Lymphadenopathy - Respiratory Respiratory status: No respiratory distress Chest status: Nontender Breath sounds: Productive cough - but swallows it, Wheezing - expiratory biateral Chest palpation: Normal - Cardiovascular Rhythm: Regular Heart sounds: Normal auscultation Murmur: No - Abdominal Inspection: Normal Distension: No distension Bowel sounds: Normal Tenderness: Nontender. No: Tender Organomegaly: No organomegaly - Back Back: Normal, Nontender - Extremities General upper extremity: Normal inspection, Nontender, Normal color, Normal ROM , Normal temperature General lower extremity: Normal inspection, Nontender, Normal color, Normal ROM , Normal temperature, Normal weight bearing. No: Selwyn's sign Notes: no edema - Neurological Neuro grossly intact: Yes Cognition: Normal Orientation: AAOx4 Karan Coma Scale Eye Opening: Spontaneous [place] Coma Scale Verbal: Oriented [place] Coma Scale Motor: Obeys Commands [place] Coma Scale Total: 15 Speech: Normal Motor strength normal: LUE, RUE, LLE, RLE Sensory: Normal - Psychological Associated symptoms: Normal affect, Normal mood - Skin Skin Temperature: Warm Skin Moisture: Dry Skin Color: Normal Skin irregularity: negative: Rash Course - Re-evaluation Re-evalutation: 03/24/17 18:57 Patient had the nebulizer off because she is eating chicken. I told her that she needed to keep the nebulizer on to try to get rid of this wheezing. She still has persistent expiratory wheezing. Potassium is 3.3 I ordered some oral potassium. Also I ordered magnesium 2 g IV. 03/24/17 18:58 chest xray no infiltrate or failure 03/24/17 19:55 Patient continues to wheeze bilaterally despite a DuoNeb, albuterol 5 mg and Xopenex 1.2 mg and magnesium 2 g. Her cardiac enzymes were negative. I will call Dr. Vargas for COPD exacerbation, shortness of breath, and chest pain. 03/24/17 20:12 do alicia has not returned the call, the charging crane operator left a message on his cell phone 03/24/17 20:13 03/24/17 20:29 dr vargas will admit to [facility], pt agreeable to being admitted. He wants the influenza repeated. - Vital Signs Vital signs: Temp Pulse Resp BP Pulse Ox 98.4 F 69 30 H 159/92 H 97 03/24/17 17:24 03/24/17 17:24 03/24/17 19:31 03/24/17 19:31 03/24/17 19:31 - Laboratory Result Diagrams: 03/24/17 18:03 03/24/17 18:03 Laboratory results interpreted by me: 03/24/17 03/24/17 03/24/17 18:03 18:03 18:03 Hgb 10.7 L Hct 33.7 L MCV 79 L MCH 25.1 L MCHC 31.6 L RDW 15.6 H Plt Count 138 L Lymphocytes % 48.1 H Potassium 3.3 L NT-Pro-B Natriuret Pep 629 H Discharge - Discharge Clinical Impression: Hypokalemia, COPD exacerbation, Shortness of breath, Morbid obesity with BMI of 70 and over, adult, Wheezing Chest pain Qualifiers: Chest pain type: unspecified Qualified Code(s): R07.9 - Chest pain, unspecified Condition: Fair Disposition: ADMITTED INPATIENT Admitting Provider: Alicia Unit Admitted: [facility]
[2017-03-24] MEDS ORDERED: PREDNISONE 20 MG TABLET PO ONE (18:09)
[2017-03-24] MEDS ORDERED: ONDANSETRON 4 MG TAB.RAPDIS PO ONE (18:11)
--- NOTE | 2017-03-24 18:11 | ER Document Report ---
ED Medical Screen (RME) - General Chief Complaint: Flu Symptoms Stated Complaint: FLU LIKE SYMPTOMS Time Seen by Provider: 03/24/17 17:31 Mode of Arrival: Medic TRAVEL OUTSIDE OF THE [place] IN LAST 30 DAYS: No - Related Data Allergies/Adverse Reactions: lisinopril [Lisinopril] Allergy (Severe, Verified 03/24/17 17:22) Difficulty breathing levofloxacin [From Levaquin] Allergy (Verified 03/24/17 17:22) Past Medical History - Past Medical History Cardiac Medical History: Reports: Hx Congestive Heart Failure, Hx Coronary Artery Disease, Hx Heart Attack - 2007, Hx Hypercholesterolemia, Hx Hypertension Pulmonary Medical History: Reports: Hx Asthma, Hx COPD, Hx Pneumonia, Hx Sleep Apnea Renal/ Medical History: Denies: Hx Peritoneal Dialysis GI Medical History: Reports: Hx Gastroesophageal Reflux Disease. Denies: Hx Pancreatitis Musculoskeltal Medical History: Reports Hx Arthritis Psychiatric Medical History: Reports: Hx Anxiety, Hx Depression Past Surgical History: Reports: Hx Section - x3, Hx Oral Surgery - wisdom tooth, Hx Orthopedic Surgery - left hand tendon repair, Hx Tonsillectomy - Immunizations Hx Diphtheria, Pertussis, Tetanus Vaccination: Yes History of Influenza Vaccine for 12/2016 - 05/2017 Season: No Physical Exam - Vital signs Vitals: Temp Pulse Resp BP Pulse Ox 98.4 F 69 16 141/98 H 99 03/24/17 17:24 03/24/17 17:24 03/24/17 17:24 03/24/17 17:24 03/24/17 17:24 Course - Vital Signs Vital signs: Temp Pulse Resp BP Pulse Ox 98.4 F 69 16 141/98 H 99 03/24/17 17:24 03/24/17 17:24 03/24/17 17:24 03/24/17 17:24 03/24/17 17:51 - Laboratory Result Diagrams: 03/24/17 18:03 03/24/17 18:03
[2017-03-24] MEDS ORDERED: ALBUTEROL SULFATE 0.083% NEB 2.5 MG/3 ML AMPUL NEB ONE (18:18)
[2017-03-24 18:21] LABS: ABSOLUTE EOSINOPHILS # (AUTO) 0.1 10^3/uL (0.0-0.6); ABSOLUTE LYMPHOCYTES (AUTO) 4.1 10^3/uL (0.5-4.7); ABSOLUTE MONOCYTES (AUTO) 0.5 10^3/uL (0.1-1.4); ABSOLUTE NEUT (AUTO) 3.8 10^3/uL (1.7-8.2); BASOPHILS % (AUTO) 0.1 % (0-2); EOSINOPHILS % (AUTO) 0.7 % (0-6); HEMATOCRIT 33.7 % (36.0-47.0); HEMOGLOBIN 10.7 g/dL (12.0-15.5); LYMPHOCYTES % (AUTO) 48.1 % (13-45); MEAN CORPUSCULAR HEMOGLOBIN 25.1 pg (27.0-33.4); MEAN CORPUSCULAR HGB CONC 31.6 g/dL (32.0-36.0); MEAN CORPUSCULAR VOLUME 79 fl (80-97); MONOCYTES % (AUTO) 6.3 % (3-13); PLATELET COUNT 138 10^3/uL (150-450); RED BLOOD COUNT 4.25 10^6/uL (3.72-5.28); RED CELL DISTRIBUTION WIDTH 15.6 % (11.5-14.0); SEGMENTED NEUTROPHILS % (AUTO) 44.8 % (42-78); TOTAL CELLS COUNTED % (AUTO) 100 %; WHITE BLOOD COUNT 8.5 10^3/uL (4.0-10.5)
[2017-03-24 18:41] LABS: ALANINE AMINOTRANSFERASE 40 U/L (9-52); ALBUMIN 3.5 g/dL (3.5-5.0); ALKALINE PHOSPHATASE 52 U/L (38-126); ANION GAP 10 (5-19); ASPARTATE AMINO TRANSFERASE 21 U/L (14-36); BILIRUBIN,DIRECT 0.2 mg/dL (0.0-0.4); BILIRUBIN,TOTAL 0.2 mg/dL (0.2-1.3); BLOOD UREA NITROGEN 8 mg/dL (7-20); CALCIUM 8.5 mg/dL (8.4-10.2); CARBON DIOXIDE 30 mmol/L (22-30); CHLORIDE 105 mmol/L (98-107); CREATINE KINASE 58 U/L (30-135); GLUCOSE 99 mg/dL (75-110); POTASSIUM 3.3 mmol/L (3.6-5.0); SODIUM 144.6 mmol/L (137-145)
[2017-03-24 18:52] LABS: CREATINE KINASE MB 0.61 ng/mL (<4.55); NT PRO BNP 629 pg/mL (<125)
[2017-03-24] MEDS ORDERED: POTASSIUM CHLORIDE 20 MEQ/15 ML UDCUP PO ONE (18:55)
[2017-03-24 18:56] LABS: TROPONIN I < 0.012 ng/mL
[2017-03-24] MEDS ORDERED: LEVALBUTEROL HCL NEB 1.25 MG/3 ML AMPUL NEB ONE (18:58)
[2017-03-24] MEDS: MAGNESIUM SULFATE/D5W 1 GM/100 ML RTUPB IV SCH ×2 (19:32→21:14)
--- NOTE | 2017-03-24 19:32 | RADIOLOGY REPORT (SQ) ---
EXAM DESCRIPTION: CHEST SINGLE VIEW COMPLETED DATE/TIME: 03/24/2017 7:10 pm REASON FOR STUDY: persistant wheezing COMPARISON: Two-view chest 03/18/2017 EXAM PARAMETERS: NUMBER OF VIEWS: One view. TECHNIQUE: Single frontal radiographic view of the chest acquired. RADIATION DOSE: NA LIMITATIONS: Large patient, portable technique FINDINGS: LUNGS AND PLEURA: No opacities, masses or pneumothorax. No pleural effusion. MEDIASTINUM AND HILAR STRUCTURES: No masses. Contour normal. HEART AND VASCULAR STRUCTURES: Moderate cardiomegaly, stable BONES: No acute findings. HARDWARE: None in the chest. OTHER: No other significant finding. IMPRESSION: No acute findings TECHNICAL DOCUMENTATION: JOB ID: [id number] [employer]- All Rights Reserved
[2017-03-24] MEDS ORDERED: CEFTRIAXONE INJ 1000 MG VIAL IV ONE (19:57)
--- NOTE | 2017-03-24 19:58 | EKG REPORT ---
SEVERITY:- ABNORMAL ECG - SINUS RHYTHM PROBABLE LEFT ATRIAL ABNORMALITY LEFT AXIS DEVIATION LEFT VENTRICULAR HYPERTROPHY ANTERIOR Q WAVES, POSSIBLY DUE TO LVH ABNORMAL T, CONSIDER ISCHEMIA, INFERIOR LEADS : Confirmed by: Lacho Martinez 24-Mar-2017 19:57:32
[2017-03-24] MEDS ORDERED: ACETAMINOPHEN 325 MG TABLET PO ONE (20:11)
[2017-03-25] MEDS ORDERED: IPRATROPIUM/ALBUTEROL 0.5-2.5 MG/3 ML AMPUL NEB ONE (00:14)
[2017-03-25] MEDS ORDERED: CEFTRIAXONE 1 GM/D5W RTU 1 GM/50 ML RTUPB IV SCH (12:00)
--- NOTE | 2017-03-25 12:05 | PDOC H&P ---
History of Present Illness Admission Date/PCP: 03/24/17 21:07 PAZ MARLIYoni Patient complains of: Vomiting, Difficulty with breathing History of Present Illness: KEI PIERCE is a 41 year old female known to my practice who was brought to the ED via EMS due to development of vomiting and worsening difficulty with breathing. Patient reported that she was at a [employer] when she started having nausea and subsequently vomited several times prior to arrival in the ED. She was recently diagnosed with Influenza infection and treated with Tamiflu. She reported compliance with the treatment but continue to have productive coughing with feeling of pressure in her chest radiating down into her left shoulder and upper extremity. Despite nebulizer therapy with oral prednisone she continue to experience persistent wheezing. In view of her recent medical problem and repeated visit to the ED along with poor response to treatment she was advised admission to the hospital. Her morbidities included morbid obesity, chronic combined systolic/diastolic CHF, CAD, Old NM, Hyperlipidemia, Asthma and COPD. She continue to smoke cigarette and her living environment continue to expose her to significant cigarette smoke. Past Medical History Cardiac Medical History: Reports: Congestive Heart Failure, Coronary Artery Disease, Myocardial Infarction - 2008, Hyperlipidema, Hypertension Pulmonary Medical History: Reports: Asthma, Chronic Obstructive Pulmonary Disease (COPD), Pneumonia, Sleep Apnea GI Medical History: Reports: Gastroesophageal Reflux Disease Musculoskeltal Medical History: Reports: Arthritis Psychiatric Medical History: Reports: Depression Past Surgical History Past Surgical History: Reports: Section - x3, Orthopedic Surgery - left hand tendon repair, Tonsillectomy Denies: Amputation Social History Lives with: Spouse/Significant other Smoking Status: Current Every Day Smoker Frequency of Alcohol Use: None Hx Recreational Drug Use: No Drugs: None Hx Prescription Drug Abuse: No Family History Family History: Reviewed & Not Pertinent, CAD - Father with an NM in his 30s, Hyperlipidemia, Hypertension Parental Family History Reviewed: Yes Children Family History Reviewed: Yes Sibling(s) Family History Reviewed.: Yes Medication/Allergy Home Medications: Albuterol Sulfate [Proair HFA] 1 puff IH Q4 PRN 03/25/17 Carvedilol [Coreg] 6.25 mg PO Q12 03/25/17 Furosemide [Lasix] 40 mg PO BID 03/25/17 Valsartan [Diovan] 80 mg PO DAILY 03/25/17 Allergies/Adverse Reactions: lisinopril [Lisinopril] Allergy (Severe, Verified 03/24/17 17:22) Difficulty breathing levofloxacin [From Levaquin] Allergy (Verified 03/24/17 17:22) Review of Systems Constitutional: ABSENT: chills, fever(s), headache(s), weight gain, weight loss Eyes: ABSENT: visual disturbances Ears: ABSENT: hearing changes Nose, Mouth, and Throat: ABSENT: as per HPI, headache(s), mouth pain, sore throat, vertigo, other Cardiovascular: PRESENT: chest pain, dyspnea on exertion, orthropnea. ABSENT: as per HPI, edema, palpitations, other Respiratory: PRESENT: cough, dyspnea, sputum. ABSENT: as per HPI, hemoptysis, other Gastrointestinal: ABSENT: abdominal pain, constipation, diarrhea, hematemesis, hematochezia, nausea, vomiting Genitourinary: ABSENT: dysuria, hematuria Musculoskeletal: ABSENT: joint swelling Integumentary: ABSENT: rash, wounds Neurological: ABSENT: abnormal gait, abnormal speech, confusion, dizziness, focal weakness, syncope Psychiatric: ABSENT: anxiety, depression, homidical ideation, suicidal ideation Endocrine: ABSENT: cold intolerance, heat intolerance, menstrual abnormalities, polydipsia, polyuria Hematologic/Lymphatic: ABSENT: easy bleeding, easy bruising, lymphadenopathy Physical Exam Vital Signs: Temp Pulse Resp BP Pulse Ox 98.7 F 69 14 136/111 H 100 03/25/17 04:36 03/24/17 17:24 03/25/17 10:42 03/25/17 10:42 03/25/17 10:42 General appearance: PRESENT: morbidly obese Head exam: PRESENT: atraumatic, normocephalic Eye exam: PRESENT: conjunctiva pink, EOMI, PERRLA. ABSENT: scleral icterus Ear exam: PRESENT: normal external ear exam Mouth exam: PRESENT: moist, tongue midline Neck exam: PRESENT: full ROM. ABSENT: carotid bruit, JVD, lymphadenopathy, thyromegaly Respiratory exam: PRESENT: decreased breath sounds - at lung bases, rhonchi - expiratory phase, wheezes - expiratory phase Cardiovascular exam: PRESENT: RRR. ABSENT: diastolic murmur, rubs, systolic murmur Vascular exam: PRESENT: normal capillary refill. ABSENT: pallor GI/Abdominal exam: PRESENT: normal bowel sounds, soft. ABSENT: distended, guarding, mass, organolmegaly, rebound, tenderness Rectal exam: PRESENT: deferred Extremities exam: ABSENT: pedal edema Musculoskeletal exam: PRESENT: other - fat tissue loculation Neurological exam: PRESENT: alert, awake, oriented to person, oriented to place , oriented to time, oriented to situation, CN II-XII grossly intact. ABSENT: motor sensory deficit Psychiatric exam: PRESENT: appropriate affect, normal mood. ABSENT: homicidal ideation, suicidal ideation Skin exam: PRESENT: dry, intact, warm. ABSENT: cyanosis, rash Results Laboratory Results: 03/24/17 23:05 Troponin I < 0.012 Impressions: Chest X-Ray 03/24/17 17:42 IMPRESSION: No acute findings Assessment & Plan - Diagnosis (1) COPD exacerbation Is this a current diagnosis for this admission?: Yes Plan: See admitting physician orders. (2) Hypoventilation associated with obesity syndrome Is this a current diagnosis for this admission?: Yes Plan: See admitting physician orders. (4) Chronic combined systolic (congestive) and diastolic (congestive) heart failure Is this a current diagnosis for this admission?: Yes Plan: See admitting physician orders. (5) HTN (hypertension) Qualifiers: Hypertension type: essential hypertension Qualified Code(s): I10 - Essential (primary) hypertension Is this a current diagnosis for this admission?: Yes Plan: See admitting physician orders. (6) Sleep apnea Qualifiers: Sleep apnea type: unspecified type Qualified Code(s): G47.30 - Sleep apnea , unspecified Is this a current diagnosis for this admission?: Yes Plan: See admitting physician orders. - Time Time Spent: 50 to 70 Minutes Medications reviewed and adjusted accordingly: Yes Anticipated discharge: Home with Homehealth Within: Other - Inpatient Certification Based on my medical assessment, after consideration of the patient's comorbidities, presenting symptoms, or acuity I expect that the services needed warrant INPATIENT care.: Yes I certify that my determination is in accordance with my understanding of Medicare's requirements for reasonable and necessary INPATIENT services [42 CFR 412.3e].: Yes Medical Necessity: Need Close Monitoring Due to Risk of Patient Decompensation, Need For IV Fluids, Need For Continuous Telemetry Monitoring, Need for Nebulizer Therapy and Monitoring of Response, Need for IV Antibiotics, Risk of Complication if Not Cared For in Hospital 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
[2017-03-25] MEDS: IPRATROPIUM/ALBUTEROL 0.5-2.5 MG/3 ML AMPUL NEB PRN ×2 (12:08→15:43)
[2017-03-25] MEDS: VALSARTAN 80 MG TABLET PO SCH (12:51)
[2017-03-25] MEDS ORDERED: ENOXAPARIN SODIUM INJ 40 MG/0.4 ML DISP.SYRIN SUBCUT ONE (13:00)
[2017-03-25 13:19] LABS: INTERNATIONAL RATION (INR) 0.94; PROTHROMBIN TIME 13.3 SEC (11.4-15.4)
[2017-03-25 13:33] LABS: ANION GAP 8 (5-19); BLOOD UREA NITROGEN 11 mg/dL (7-20); CALCIUM 8.8 mg/dL (8.4-10.2); CARBON DIOXIDE 27 mmol/L (22-30); CHLORIDE 104 mmol/L (98-107); GLUCOSE 90 mg/dL (75-110); POTASSIUM 4.1 mmol/L (3.6-5.0); SODIUM 139.2 mmol/L (137-145)
[2017-03-25] MEDS: METHYLPREDNISOLONE INJ 125 MG/2 ML SDV IV SCH ×2 (15:02→22:40)
[2017-03-25] MEDS: CEFTRIAXONE SODIUM 1,000 MG in DEXTROSE 5%-WATER 50 ML IV SCH (15:03)
[2017-03-25] MEDS: FUROSEMIDE 40 MG TABLET PO SCH (17:49)
[2017-03-25] MEDS: CARVEDILOL 6.25 MG TABLET PO SCH (17:49)
[2017-03-25] MEDS: NORMAL SALINE 1000 ML 1,000 ML IV PRN (17:52)
[2017-03-26 04:57] LABS: ABSOLUTE LYMPHOCYTES (AUTO) 1.1 10^3/uL (0.5-4.7); ABSOLUTE MONOCYTES (AUTO) 0.2 10^3/uL (0.1-1.4); ABSOLUTE NEUT (AUTO) 7.8 10^3/uL (1.7-8.2); BASOPHILS % (AUTO) 0.1 % (0-2); HEMATOCRIT 33.6 % (36.0-47.0); HEMOGLOBIN 10.8 g/dL (12.0-15.5); LYMPHOCYTES % (AUTO) 11.8 % (13-45); MEAN CORPUSCULAR HEMOGLOBIN 25.2 pg (27.0-33.4); MEAN CORPUSCULAR HGB CONC 32.2 g/dL (32.0-36.0); MEAN CORPUSCULAR VOLUME 78 fl (80-97); MONOCYTES % (AUTO) 2.5 % (3-13); PLATELET COUNT 164 10^3/uL (150-450); RED BLOOD COUNT 4.29 10^6/uL (3.72-5.28); RED CELL DISTRIBUTION WIDTH 15.5 % (11.5-14.0); SEGMENTED NEUTROPHILS % (AUTO) 85.6 % (42-78); TOTAL CELLS COUNTED % (AUTO) 100 %; WHITE BLOOD COUNT 9.1 10^3/uL (4.0-10.5)
[2017-03-26] MEDS: CARVEDILOL 6.25 MG TABLET PO SCH ×2 (05:13→17:51)
[2017-03-26] MEDS: METHYLPREDNISOLONE INJ 125 MG/2 ML SDV IV SCH ×2 (05:15→13:49)
[2017-03-26] MEDS: LANSOPRAZOLE 30 MG TAB.RAP.DR PO SCH (05:15)
[2017-03-26 05:20] LABS: ALANINE AMINOTRANSFERASE 37 U/L (9-52); ALBUMIN 3.5 g/dL (3.5-5.0); ALKALINE PHOSPHATASE 56 U/L (38-126); ANION GAP 8 (5-19); ASPARTATE AMINO TRANSFERASE 18 U/L (14-36); BILIRUBIN,DIRECT 0.2 mg/dL (0.0-0.4); BILIRUBIN,TOTAL 0.2 mg/dL (0.2-1.3); BLOOD UREA NITROGEN 18 mg/dL (7-20); CALCIUM 8.9 mg/dL (8.4-10.2); CARBON DIOXIDE 26 mmol/L (22-30); CHLORIDE 106 mmol/L (98-107); GLUCOSE 142 mg/dL (75-110); POTASSIUM 4.9 mmol/L (3.6-5.0); SODIUM 139.7 mmol/L (137-145)
[2017-03-26] MEDS: ENOXAPARIN SODIUM INJ 40 MG/0.4 ML DISP.SYRIN SUBCUT SCH (09:40)
[2017-03-26] MEDS: FUROSEMIDE 40 MG TABLET PO SCH ×2 (09:41→17:54)
[2017-03-26] MEDS: IPRATROPIUM/ALBUTEROL 0.5-2.5 MG/3 ML AMPUL NEB PRN (11:27)
[2017-03-26] MEDS ORDERED: INFLUENZA ADLT QUAD (36MOS+) 2017-18 VAC 0.5 ML SYR IM PRN (11:43)
[2017-03-26] MEDS: VALSARTAN 80 MG TABLET PO SCH (11:55)
[2017-03-26] MEDS: CEFTRIAXONE SODIUM 1,000 MG in DEXTROSE 5%-WATER 50 ML IV SCH (13:49)
--- NOTE | 2017-03-26 20:29 | PDOC PROGRESS REPORT ---
Subjective Progress Note for:: 03/26/17 Subjective:: Patient reported coughing with blackish sputum production. She denied any definite associated chest pain with coughing. No fever or chills. Remain compliant with CPAP usage while sleeping. No fever or chills. No nausea or vomiting. Reason For Visit: ACUTE EXACERBATED COPD/MORBID OBESITY Physical Exam Vital Signs: Temp Pulse Resp BP Pulse Ox 98.6 F 53 L 20 166/80 H 99 03/26/17 16:22 03/26/17 16:22 03/26/17 16:22 03/26/17 16:22 03/26/17 16:22 Intake & Output 03/25/17 03/26/17 03/27/17 06:59 06:59 06:59 Intake Total 922 1360 Output Total 0 Balance 922 1360 Weight 185.5 kg General appearance: PRESENT: mild distress - with slight audible wheezing., morbidly obese Head exam: PRESENT: atraumatic, normocephalic Eye exam: PRESENT: conjunctiva pink, EOMI, PERRLA Mouth exam: PRESENT: moist Respiratory exam: PRESENT: decreased breath sounds - at lung bases, rhonchi, wheezes - minimal in expiratory phase Cardiovascular exam: PRESENT: RRR. ABSENT: diastolic murmur, rubs, systolic murmur GI/Abdominal exam: PRESENT: normal bowel sounds, soft. ABSENT: distended, guarding, mass, organolmegaly, rebound, tenderness Extremities exam: PRESENT: other - generalized loculated adipose tissue. ABSENT : pedal edema Musculoskeletal exam: PRESENT: deformity - loculated adipose tissue Neurological exam: PRESENT: alert, awake, oriented to person, oriented to place , oriented to time, oriented to situation, CN II-XII grossly intact. ABSENT: motor sensory deficit Psychiatric exam: PRESENT: appropriate affect, normal mood. ABSENT: homicidal ideation, suicidal ideation Skin exam: PRESENT: dry, intact, warm. ABSENT: cyanosis, rash Results Laboratory Results: 03/26/17 04:35 03/26/17 04:35 03/26/17 03/26/17 04:35 04:35 WBC 9.1 RBC 4.29 Hgb 10.8 L Hct 33.6 L MCV 78 L MCH 25.2 L MCHC 32.2 RDW 15.5 H Plt Count 164 Seg Neutrophils % 85.6 H Lymphocytes % 11.8 L Monocytes % 2.5 L Eosinophils % 0.0 Basophils % 0.1 Absolute Neutrophils 7.8 Absolute Lymphocytes 1.1 Absolute Monocytes 0.2 Absolute Eosinophils 0.0 Absolute Basophils 0.0 Sodium 139.7 Potassium 4.9 Chloride 106 Carbon Dioxide 26 Anion Gap 8 BUN 18 Creatinine 0.70 Est GFR ( Amer) > 60 Est GFR (Non-Af Amer) > 60 Glucose 142 H Calcium 8.9 Total Bilirubin 0.2 AST 18 ALT 37 Alkaline Phosphatase 56 Total Protein 7.0 Albumin 3.5 03/24/17 23:05 Troponin I < 0.012 Impressions: Chest X-Ray 03/24/17 17:42 IMPRESSION: No acute findings Assessment & Plan - Diagnosis (1) COPD exacerbation Is this a current diagnosis for this admission?: Yes (2) Hypoventilation associated with obesity syndrome Is this a current diagnosis for this admission?: Yes (4) Chronic combined systolic (congestive) and diastolic (congestive) heart failure Is this a current diagnosis for this admission?: Yes (5) HTN (hypertension) Qualifiers: Hypertension type: essential hypertension Qualified Code(s): I10 - Essential (primary) hypertension Is this a current diagnosis for this admission?: Yes (6) Sleep apnea Qualifiers: Sleep apnea type: unspecified type Qualified Code(s): G47.30 - Sleep apnea , unspecified Is this a current diagnosis for this admission?: Yes - Time Time Spent with patient: 25-34 minutes Medications reviewed and adjusted accordingly: Yes Anticipated discharge: Home with Homehealth Within: Other - Inpatient Certification Based on my medical assessment, after consideration of the patient's comorbidities, presenting symptoms, or acuity I expect that the services needed warrant INPATIENT care.: Yes I certify that my determination is in accordance with my understanding of Medicare's requirements for reasonable and necessary INPATIENT services [42 CFR 412.3e].: Yes Medical Necessity: Need Close Monitoring Due to Risk of Patient Decompensation, Need For IV Fluids, Need For Continuous Telemetry Monitoring, Need for Nebulizer Therapy and Monitoring of Response, Need for IV Antibiotics, Risk of Complication if Not Cared For in Hospital 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 Follow up on blood culture findings. Emphasized compliance with CPAP usage. Reevaluate Coreg dosing if heart rate persistently remain below 60/min. Her bradycardia is mostly related to LG.
[2017-03-26] MEDS ORDERED: METHYLPREDNISOLONE INJ 125 MG/2 ML SDV IV SCH (20:30)
[2017-03-26] MEDS: METHYLPREDNISOLONE INJ 40 MG/1 ML SDV IV SCH (21:37)
[2017-03-26] MEDS: ACETAMINOPHEN 325 MG TABLET PO PRN (22:32)
[2017-03-27] MEDS: CARVEDILOL 6.25 MG TABLET PO SCH ×2 (05:06→18:32)
[2017-03-27] MEDS: METHYLPREDNISOLONE INJ 40 MG/1 ML SDV IV SCH ×3 (05:12→21:12)
[2017-03-27] MEDS: LANSOPRAZOLE 30 MG TAB.RAP.DR PO SCH (05:12)
--- NOTE | 2017-03-27 07:20 | PDOC PROGRESS REPORT ---
Subjective Progress Note for:: 03/27/17 Subjective:: Patient reported nasal stuffiness. Some improvement in her coughing and sputum production. No fever or chills. No chest pain. Heart rate remain less than 60/ min and currently off Coreg administration. Remain compliant with CPAP usage while sleeping. No abdominal pain, nausea or vomiting. Reason For Visit: ACUTE EXACERBATED COPD/MORBID OBESITY Physical Exam Vital Signs: Temp Pulse Resp BP Pulse Ox 97.5 F 54 L 16 144/85 H 96 03/27/17 04:02 03/27/17 04:02 03/27/17 00:00 03/27/17 04:02 03/27/17 04:02 Intake & Output 03/26/17 03/27/17 03/28/17 06:59 06:59 06:59 Intake Total 922 2420 Output Total 0 Balance 922 2420 Weight 185.5 kg 186.6 kg Physical Exam: General appearance: PRESENT: mild distress - with slight audible wheezing., morbidly obese Head exam: PRESENT: atraumatic, normocephalic Eye exam: PRESENT: conjunctiva pink, EOMI, PERRLA Mouth exam: PRESENT: moist Respiratory exam: PRESENT: decreased breath sounds - at lung bases, rhonchi, wheezes - minimal in expiratory phase Cardiovascular exam: PRESENT: RRR. ABSENT: diastolic murmur, rubs, systolic murmur GI/Abdominal exam: PRESENT: normal bowel sounds, soft. ABSENT: distended, guarding, mass, organomegaly, rebound, tenderness Extremities exam: PRESENT: other - generalized loculated adipose tissue. ABSENT : pedal edema Musculoskeletal exam: PRESENT: deformity - loculated adipose tissue Neurological exam: PRESENT: alert, awake, oriented to person, oriented to place , oriented to time, oriented to situation, CN II-XII grossly intact. ABSENT: motor sensory deficit Psychiatric exam: PRESENT: appropriate affect, normal mood. ABSENT: homicidal ideation, suicidal ideation Skin exam: PRESENT: dry, intact, warm. ABSENT: cyanosis, rash Results Laboratory Results: 03/26/17 04:35 03/26/17 04:35 03/24/17 23:05 Troponin I < 0.012 Impressions: Chest X-Ray 03/24/17 17:42 IMPRESSION: No acute findings Assessment & Plan - Diagnosis (1) COPD exacerbation Is this a current diagnosis for this admission?: Yes (2) Hypoventilation associated with obesity syndrome Is this a current diagnosis for this admission?: Yes (4) Chronic combined systolic (congestive) and diastolic (congestive) heart failure Is this a current diagnosis for this admission?: Yes (5) HTN (hypertension) Qualifiers: Hypertension type: essential hypertension Qualified Code(s): I10 - Essential (primary) hypertension Is this a current diagnosis for this admission?: Yes (6) Sleep apnea Qualifiers: Sleep apnea type: unspecified type Qualified Code(s): G47.30 - Sleep apnea , unspecified Is this a current diagnosis for this admission?: Yes - Time Time Spent with patient: 25-34 minutes Medications reviewed and adjusted accordingly: Yes Anticipated discharge: Home with Homehealth Within: Other - Inpatient Certification Based on my medical assessment, after consideration of the patient's comorbidities, presenting symptoms, or acuity I expect that the services needed warrant INPATIENT care.: Yes I certify that my determination is in accordance with my understanding of Medicare's requirements for reasonable and necessary INPATIENT services [42 CFR 412.3e].: Yes Medical Necessity: Need Close Monitoring Due to Risk of Patient Decompensation, Need For IV Fluids, Need For Continuous Telemetry Monitoring, Need for Nebulizer Therapy and Monitoring of Response, Need for IV Antibiotics, Risk of Complication if Not Cared For in Hospital Post Hospital Care: D/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 Obtain complete echocardiogram in view of her chronic CHF history and persistent bradycardia despite CPAP usage. Encouraged compliance with CPAP machine usage.
[2017-03-27] MEDS: FLUTICASONE NASAL SPRAY 50 MCG/SPRY 120 SPRAY/16 GM NASL SCH (10:38)
[2017-03-27] MEDS: FUROSEMIDE 40 MG TABLET PO SCH ×2 (10:41→18:33)
[2017-03-27] MEDS: ENOXAPARIN SODIUM INJ 40 MG/0.4 ML DISP.SYRIN SUBCUT SCH (10:42)
--- NOTE | 2017-03-27 11:48 | XCELERA REPORT ---
[address] [address] Transthoracic Echocardiogram Report Name: KEI PIERCE Age: 41 yrs Gender: Female : 1975 Patient Status: Inpatient Patient Location: [address] [place] [address] Study Date: 03/27/2017 09:58 AM Height: 67 in Weight: 411 lb BSA: 2.7 m2 Procedure: A complete two-dimensional transthoracic echocardiogram was performed (2D, M-mode, spectral and color flow Doppler). The study was technically difficult with many images being suboptimal in quality. Reason For Study: Persistent Bradycardia, SOB, Bradycardia Ordering Physician: PAZ QUINTEROS Performed By: Eliane Long Interpretation Summary The study was technically difficult with many images being suboptimal in quality. The left ventricular ejection fraction is preserved. Consider additional methods to assess LVEF such as MUGA scan, CTA heart, cardiac MRI, SILVESTRE, etc. if clinically indicated. The left ventricle is grossly normal size. There is mild concentric left ventricular hypertrophy. Doppler measurements suggest pseudonormalized left ventricular relaxation, which is associated with grade II/IV or mild to moderate diastolic dysfunction Regional wall motion abnormalities cannot be excluded due to limited visualization. The right ventricular systolic function is normal. The right atrium is mildly dilated. The left atrium is mildly dilated. There is a trace amount of mitral regurgitation There is no mitral valve stenosis. There is no aortic valve stenosis No aortic regurgitation is present. No tricuspid regurgitation. There is no tricuspid stenosis. The aortic root is not well visualized. The inferior vena cava was not well visualized There is no pericardial effusion. MMode/2D Measurements & Calculations RVDd: 3.6 cm LVIDd: 6.2 cmFS: 26.5 % Ao root diam: 3.9 cm IVSd: 1.2 cm LVIDs: 4.5 cmEDV(Teich): 191.2 ml LVPWd: 1.2 cmESV(Teich): 93.9 ml Ao root area: 12.1 cm2 EF(Teich): 50.9 % LA dimension: 4.2 cm LVOT diam: 2.6 cm LVOT area: 5.3 cm2 Doppler Measurements & Calculations MV E max juliocesar: MV P1/2t max juliocesar: Ao V2 max: LV V1 max P.0 cm/sec 116.0 cm/sec 156.9 cm/sec 3.6 mmHg MV A max juliocesar: MV P1/2t: 63.4 msec Ao max PG: LV V1 max: 65.6 cm/sec MVA(P1/2t): 3.5 cm2 9.8 mmHg 94.8 cm/sec MV E/A: 1.8 MV dec slope: YEIMI(V,D): 3.2 cm2 535.4 cm/sec2 PA V2 max: PI end-d juliocesar: 83.9 cm/sec 122.2 cm/sec PA max P.8 mmHg Left Ventricle The left ventricle is grossly normal size. There is mild concentric left ventricular hypertrophy. The left ventricular ejection fraction is preserved. Consider additional methods to assess LVEF such as MUGA scan, CTA heart, cardiac MRI, SILVESTRE, etc. if clinically indicated. Doppler measurements suggest pseudonormalized left ventricular relaxation, which is associated with grade II/IV or mild to moderate diastolic dysfunction. Regional wall motion abnormalities cannot be excluded due to limited visualization. Right Ventricle The right ventricle is borderline dilated. There is normal right ventricular wall thickness. The right ventricular systolic function is normal. Atria The right atrium is mildly dilated. The left atrium is mildly dilated. Interarterial septum not well visualized and not well dopplered. Cannot comment on ASD/PFO presence. Mitral Valve There is mild mitral annular calcification. There is no mitral valve stenosis. There is a trace amount of mitral regurgitation. Aortic Valve The aortic valve is not well visualized secondary to technical limitations. There is no aortic valve stenosis. No aortic regurgitation is present. Tricuspid Valve The tricuspid valve is not well visualized secondary to technical limitations. There is no tricuspid stenosis. No tricuspid regurgitation. Pulmonic Valve The pulmonic valve is not well visualized. Great Vessels The aortic root is not well visualized. The inferior vena cava was not well visualized. Effusions There is no pericardial effusion. : PAZ QUINTEROS > Lacho Martinez
[2017-03-27] MEDS: VALSARTAN 80 MG TABLET PO SCH (13:13)
[2017-03-27] MEDS: CEFTRIAXONE SODIUM 1,000 MG in DEXTROSE 5%-WATER 50 ML IV SCH (13:14)
[2017-03-27] MEDS: NORMAL SALINE 1000 ML 1,000 ML IV PRN (13:24)
[2017-03-28] MEDS: METHYLPREDNISOLONE INJ 40 MG/1 ML SDV IV SCH ×3 (05:41→21:56)
[2017-03-28] MEDS: LANSOPRAZOLE 30 MG TAB.RAP.DR PO SCH (05:41)
[2017-03-28] MEDS: CARVEDILOL 6.25 MG TABLET PO SCH ×2 (05:42→17:09)
[2017-03-28] MEDS ORDERED: VALSARTAN 80 MG TABLET PO ONE (09:00)
[2017-03-28] MEDS: ENOXAPARIN SODIUM INJ 40 MG/0.4 ML DISP.SYRIN SUBCUT SCH (09:40)
[2017-03-28] MEDS: FLUTICASONE NASAL SPRAY 50 MCG/SPRY 120 SPRAY/16 GM NASL SCH (09:40)
[2017-03-28] MEDS: FUROSEMIDE 40 MG TABLET PO SCH ×2 (09:40→17:06)
[2017-03-28] MEDS: VALSARTAN 80 MG TABLET PO SCH (13:28)
[2017-03-28] MEDS: CEFTRIAXONE SODIUM 1,000 MG in DEXTROSE 5%-WATER 50 ML IV SCH (13:29)
--- NOTE | 2017-03-28 18:14 | PDOC PROGRESS REPORT ---
Subjective Progress Note for:: 03/28/17 Subjective:: Patient continue to complain about exertional dyspnea and wheezing. Episode of elevated blood pressure earlier today. Unable to get Coreg administration due to her persistent bradycardia. Reason For Visit: ACUTE EXACERBATED COPD/MORBID OBESITY Physical Exam Vital Signs: Temp Pulse Resp BP Pulse Ox 98.0 F 80 16 158/86 H 97 03/28/17 16:11 03/28/17 16:11 03/28/17 16:11 03/28/17 16:11 03/28/17 16:11 Intake & Output 03/27/17 03/28/17 03/29/17 06:59 06:59 06:59 Intake Total 2420 2983 918 Balance 2420 2983 918 Weight 186.6 kg 194 kg Physical Exam: General appearance: PRESENT: mild distress - with slight audible wheezing., morbidly obese Head exam: PRESENT: atraumatic, normocephalic Eye exam: PRESENT: conjunctiva pink, EOMI, PERRLA Mouth exam: PRESENT: moist Respiratory exam: PRESENT: decreased breath sounds - at lung bases Cardiovascular exam: PRESENT: RRR. ABSENT: diastolic murmur, rubs, systolic murmur GI/Abdominal exam: PRESENT: normal bowel sounds, soft. ABSENT: distended, guarding, mass, organomegaly, rebound, tenderness Extremities exam: PRESENT: other - generalized loculated adipose tissue. ABSENT : pedal edema Musculoskeletal exam: PRESENT: deformity - loculated adipose tissue Neurological exam: PRESENT: alert, awake, oriented to person, oriented to place , oriented to time, oriented to situation, CN II-XII grossly intact. ABSENT: motor sensory deficit Psychiatric exam: PRESENT: appropriate affect, normal mood. ABSENT: homicidal ideation, suicidal ideation Skin exam: PRESENT: dry, intact, warm. ABSENT: cyanosis, rash Results Laboratory Results: 03/26/17 04:35 03/26/17 04:35 03/24/17 23:05 Troponin I < 0.012 Impressions: Chest X-Ray 03/24/17 17:42 IMPRESSION: No acute findings Assessment & Plan - Diagnosis (1) COPD exacerbation Is this a current diagnosis for this admission?: Yes (2) Hypoventilation associated with obesity syndrome Is this a current diagnosis for this admission?: Yes (3) Morbid obesity with BMI of 60.0-69.9, adult Is this a current diagnosis for this admission?: Yes Plan: See attending physician orders. (4) Chronic combined systolic (congestive) and diastolic (congestive) heart failure Is this a current diagnosis for this admission?: Yes (5) HTN (hypertension) Qualifiers: Hypertension type: essential hypertension Qualified Code(s): I10 - Essential (primary) hypertension Is this a current diagnosis for this admission?: Yes (6) Sleep apnea Qualifiers: Sleep apnea type: unspecified type Qualified Code(s): G47.30 - Sleep apnea , unspecified Is this a current diagnosis for this admission?: Yes - Time Time Spent with patient: 25-34 minutes Medications reviewed and adjusted accordingly: Yes Anticipated discharge: Home with Homehealth Within: Other - Inpatient Certification Based on my medical assessment, after consideration of the patient's comorbidities, presenting symptoms, or acuity I expect that the services needed warrant INPATIENT care.: Yes I certify that my determination is in accordance with my understanding of Medicare's requirements for reasonable and necessary INPATIENT services [42 CFR 412.3e].: Yes Medical Necessity: Need Close Monitoring Due to Risk of Patient Decompensation, Need For IV Fluids, Need For Continuous Telemetry Monitoring, Need for Nebulizer Therapy and Monitoring of Response, Need for IV Antibiotics Post Hospital Care: D/C Belt Loop Maker Documentation - Plan Summary Plan Summary: Decrease IV Solu Medrol to 40 mg [id number]. Increase Diovan to 160 mg po daily. Maintain on all other current medication management. Follow up on blood culture. Obtain chest X ray PA and Lateral views.
[2017-03-28] MEDS: NORMAL SALINE 1000 ML 1,000 ML IV PRN (21:54)
[2017-03-29] MEDS: LANSOPRAZOLE 30 MG TAB.RAP.DR PO SCH (05:22)
[2017-03-29] MEDS: METHYLPREDNISOLONE INJ 40 MG/1 ML SDV IV SCH ×3 (05:22→21:37)
[2017-03-29] MEDS: CARVEDILOL 6.25 MG TABLET PO SCH ×2 (05:24→18:35)
[2017-03-29] MEDS: VALSARTAN 160 MG TABLET PO SCH (09:25)
[2017-03-29] MEDS: ENOXAPARIN SODIUM INJ 40 MG/0.4 ML DISP.SYRIN SUBCUT SCH (09:26)
[2017-03-29] MEDS: FUROSEMIDE 40 MG TABLET PO SCH ×2 (09:26→18:35)
[2017-03-29] MEDS: FLUTICASONE NASAL SPRAY 50 MCG/SPRY 120 SPRAY/16 GM NASL SCH (09:28)
[2017-03-29] MEDS ORDERED: CEFTRIAXONE SODIUM 1,000 MG in NORMAL SALINE 50 ML IV SCH (14:00)
[2017-03-29] MEDS: ACETAMINOPHEN 325 MG TABLET PO PRN (16:03)
--- NOTE | 2017-03-29 16:45 | PDOC PROGRESS REPORT ---
Subjective Progress Note for:: 03/29/17 Subjective:: Patient continue to experience SOB with exertion. She denied chest pain or palpitation. Currently off Coreg due to bradycardia. Blood pressure is fairly controlled. Reason For Visit: ACUTE EXACERBATED COPD/MORBID OBESITY Physical Exam Vital Signs: Temp Pulse Resp BP Pulse Ox 97.9 F 50 L 18 157/91 H 98 03/29/17 15:39 03/29/17 15:39 03/29/17 15:39 03/29/17 15:39 03/29/17 15:39 Intake & Output 03/28/17 03/29/17 03/30/17 06:59 06:59 06:59 Intake Total 2983 2218 600 Output Total 3000 Balance 2983 -782 600 Weight 194 kg Physical Exam: General appearance: PRESENT: mild distress - with slight audible wheezing., morbidly obese Head exam: PRESENT: atraumatic, normocephalic Eye exam: PRESENT: conjunctiva pink, EOMI, PERRLA Mouth exam: PRESENT: moist Respiratory exam: PRESENT: decreased breath sounds - at lung bases Cardiovascular exam: PRESENT: RRR. ABSENT: diastolic murmur, rubs, systolic murmur GI/Abdominal exam: PRESENT: normal bowel sounds, soft. ABSENT: distended, guarding, mass, organomegaly, rebound, tenderness Extremities exam: PRESENT: other - generalized loculated adipose tissue. ABSENT : pedal edema Musculoskeletal exam: PRESENT: deformity - loculated adipose tissue Neurological exam: PRESENT: alert, awake, oriented to person, oriented to place , oriented to time, oriented to situation, CN II-XII grossly intact. ABSENT: motor sensory deficit Psychiatric exam: PRESENT: appropriate affect, normal mood. ABSENT: homicidal ideation, suicidal ideation Skin exam: PRESENT: dry, intact, warm. ABSENT: cyanosis, rash Results Laboratory Results: 03/26/17 04:35 03/26/17 04:35 03/24/17 23:05 Troponin I < 0.012 Impressions: Chest X-Ray 03/24/17 17:42 IMPRESSION: No acute findings Assessment & Plan - Diagnosis (1) COPD exacerbation Is this a current diagnosis for this admission?: Yes (2) Hypoventilation associated with obesity syndrome Is this a current diagnosis for this admission?: Yes (3) Morbid obesity with BMI of 60.0-69.9, adult Is this a current diagnosis for this admission?: Yes (4) Chronic combined systolic (congestive) and diastolic (congestive) heart failure Is this a current diagnosis for this admission?: Yes Plan: Her morbid obesity may cause her low NT-BNP level. Her echocardiogram is unrevealing regard to her LVEF. Continue all other current medication management. (5) HTN (hypertension) Qualifiers: Hypertension type: essential hypertension Qualified Code(s): I10 - Essential (primary) hypertension Is this a current diagnosis for this admission?: Yes (6) Sleep apnea Qualifiers: Sleep apnea type: unspecified type Qualified Code(s): G47.30 - Sleep apnea , unspecified Is this a current diagnosis for this admission?: Yes - Time Time Spent with patient: 25-34 minutes Medications reviewed and adjusted accordingly: Yes Anticipated discharge: Home with Homehealth Within: Other - Inpatient Certification Based on my medical assessment, after consideration of the patient's comorbidities, presenting symptoms, or acuity I expect that the services needed warrant INPATIENT care.: Yes I certify that my determination is in accordance with my understanding of Medicare's requirements for reasonable and necessary INPATIENT services [42 CFR 412.3e].: Yes Medical Necessity: Need Close Monitoring Due to Risk of Patient Decompensation, Need For Continuous Telemetry Monitoring, Need for Nebulizer Therapy and Monitoring of Response, Need for IV Antibiotics, Risk of Complication if Not Cared For in Hospital Post Hospital Care: D/C It Director Documentation - Plan Summary Plan Summary: See attending physician orders.
[2017-03-29] MEDS: NORMAL SALINE 1000 ML 1,000 ML IV PRN (19:37)
[2017-03-30] MEDS: LANSOPRAZOLE 30 MG TAB.RAP.DR PO SCH (05:05)
[2017-03-30] MEDS: CARVEDILOL 6.25 MG TABLET PO SCH ×2 (05:06→17:12)
[2017-03-30] MEDS: ENOXAPARIN SODIUM INJ 40 MG/0.4 ML DISP.SYRIN SUBCUT SCH (09:43)
[2017-03-30] MEDS: VALSARTAN 160 MG TABLET PO SCH (09:44)
[2017-03-30] MEDS: FUROSEMIDE 40 MG TABLET PO SCH ×2 (09:44→17:13)
[2017-03-30] MEDS: FLUTICASONE NASAL SPRAY 50 MCG/SPRY 120 SPRAY/16 GM NASL SCH (09:44)
[2017-03-30] MEDS: METHYLPREDNISOLONE INJ 40 MG/1 ML SDV IV SCH (09:44)
--- NOTE | 2017-03-30 13:46 | PDOC PROGRESS REPORT ---
Subjective Progress Note for:: 03/30/17 Subjective:: Patient seen by the bedside, she lost the IV access, will transition IV medication to p.o. Reason For Visit: ACUTE EXACERBATED COPD/MORBID OBESITY Physical Exam Vital Signs: Temp Pulse Resp BP Pulse Ox 97.6 F 52 L 18 149/98 H 99 03/30/17 11:49 03/30/17 11:49 03/30/17 11:49 03/30/17 11:49 03/30/17 11:49 Intake & Output 03/29/17 03/30/17 03/31/17 06:59 06:59 06:59 Intake Total 2218 3350 Output Total 3000 Balance -782 3350 Weight 196.9 kg General appearance: PRESENT: no acute distress, obese Head exam: PRESENT: atraumatic, normocephalic Eye exam: PRESENT: PERRLA Neck exam: PRESENT: full ROM Respiratory exam: PRESENT: clear to auscultation myranda Cardiovascular exam: PRESENT: RRR, +S1, +S2 Vascular exam: PRESENT: normal capillary refill GI/Abdominal exam: PRESENT: normal bowel sounds, soft Rectal exam: PRESENT: deferred Neurological exam: PRESENT: alert, CN II-XII grossly intact. ABSENT: motor sensory deficit Psychiatric exam: PRESENT: appropriate affect, normal mood Skin exam: PRESENT: dry, intact, warm Results Laboratory Results: 03/26/17 04:35 03/26/17 04:35 03/24/17 23:05 Troponin I < 0.012 Impressions: Chest X-Ray 03/24/17 17:42 IMPRESSION: No acute findings Assessment & Plan - Diagnosis (1) COPD exacerbation Is this a current diagnosis for this admission?: Yes Plan: DC IV Solu-Medrol start prednisone 20 mg p.o. daily (2) Chronic combined systolic (congestive) and diastolic (congestive) heart failure Is this a current diagnosis for this admission?: Yes (3) Hypoventilation associated with obesity syndrome Is this a current diagnosis for this admission?: Yes (4) Morbid obesity with BMI of 60.0-69.9, adult Is this a current diagnosis for this admission?: Yes
[2017-03-30] MEDS ORDERED: PREDNISONE 20 MG TABLET PO ONE (15:00)
[2017-03-31] MEDS: CARVEDILOL 6.25 MG TABLET PO SCH ×2 (04:59→17:22)
[2017-03-31] MEDS: LANSOPRAZOLE 30 MG TAB.RAP.DR PO SCH (05:00)
[2017-03-31] MEDS: VALSARTAN 160 MG TABLET PO SCH (09:40)
[2017-03-31] MEDS: PREDNISONE 20 MG TABLET PO SCH (09:40)
[2017-03-31] MEDS: FLUTICASONE NASAL SPRAY 50 MCG/SPRY 120 SPRAY/16 GM NASL SCH (09:41)
[2017-03-31] MEDS: FUROSEMIDE 40 MG TABLET PO SCH ×2 (09:41→17:23)
[2017-03-31] MEDS: ENOXAPARIN SODIUM INJ 40 MG/0.4 ML DISP.SYRIN SUBCUT SCH (09:41)
[2017-03-31] MEDS ORDERED: (PENDING PHARMACY ID) (Clonazepam [Clonazepam] 0.5 MG) PO PRN (12:31)
[2017-03-31] MEDS ORDERED: CLONAZEPAM 1 MG TABLET PO PRN (14:29)
[2017-03-31] MEDS ORDERED: SERTRALINE HCL 50 MG TABLET PO ONE (15:00)
[2017-03-31] MEDS ORDERED: MAG HYDROX/AL HYDROX/SIMETH SUSP 30 ML UDCUP ONE (15:44)
[2017-03-31] MEDS ORDERED: MAG HYDROX/AL HYDROX/SIMETH SUSP 30 ML UDCUP PO PRN (15:46)
--- NOTE | 2017-03-31 17:04 | PDOC PROGRESS REPORT ---
Subjective Progress Note for:: 03/31/17 Subjective:: Patient seen by the bedside, she lost the IV access, will transition IV medication to p.o. Reason For Visit: ACUTE EXACERBATED COPD/MORBID OBESITY Physical Exam Vital Signs: Temp Pulse Resp BP Pulse Ox 97.6 F 81 20 145/68 H 96 03/31/17 08:14 03/31/17 14:00 03/31/17 08:14 03/31/17 08:14 03/31/17 08:14 Intake & Output 03/30/17 03/31/17 04/01/17 06:59 06:59 06:59 Intake Total 3350 3428 Balance 3350 3428 Weight 196.9 kg 196.4 kg General appearance: PRESENT: no acute distress Head exam: PRESENT: atraumatic, normocephalic Eye exam: PRESENT: conjunctiva pink, EOMI, PERRLA Ear exam: PRESENT: normal external ear exam Mouth exam: PRESENT: moist, tongue midline Neck exam: PRESENT: full ROM Respiratory exam: PRESENT: clear to auscultation myranda Cardiovascular exam: PRESENT: RRR, +S1, +S2 Pulses: PRESENT: normal dorsalis pedis pul, +2 pedal pulses bilateral Vascular exam: PRESENT: normal capillary refill GI/Abdominal exam: PRESENT: normal bowel sounds, soft Rectal exam: PRESENT: deferred Neurological exam: PRESENT: alert Skin exam: PRESENT: dry, intact, warm. ABSENT: cyanosis, rash Results Laboratory Results: 03/26/17 04:35 03/26/17 04:35 03/26/17 13:36 Blood Blood Culture - Final NO GROWTH IN 5 DAYS 03/26/17 12:56 Blood Blood Culture - Final NO GROWTH IN 5 DAYS 03/24/17 23:05 Troponin I < 0.012 Impressions: Chest X-Ray 03/24/17 17:42 IMPRESSION: No acute findings Assessment & Plan - Diagnosis (1) COPD exacerbation Is this a current diagnosis for this admission?: Yes (2) Chronic combined systolic (congestive) and diastolic (congestive) heart failure Is this a current diagnosis for this admission?: Yes (3) Hypoventilation associated with obesity syndrome Is this a current diagnosis for this admission?: Yes (4) Morbid obesity with BMI of 60.0-69.9, adult Is this a current diagnosis for this admission?: Yes
[2017-04-01] MEDS: CARVEDILOL 6.25 MG TABLET PO SCH ×2 (06:14→17:27)
[2017-04-01] MEDS: LANSOPRAZOLE 30 MG TAB.RAP.DR PO SCH (06:14)
[2017-04-01] MEDS: SERTRALINE HCL 50 MG TABLET PO SCH (10:14)
[2017-04-01] MEDS: VALSARTAN 160 MG TABLET PO SCH (10:15)
[2017-04-01] MEDS: ENOXAPARIN SODIUM INJ 40 MG/0.4 ML DISP.SYRIN SUBCUT SCH (10:15)
[2017-04-01] MEDS: PREDNISONE 20 MG TABLET PO SCH (10:15)
[2017-04-01] MEDS: FUROSEMIDE 40 MG TABLET PO SCH ×2 (10:15→17:28)
[2017-04-01] MEDS: FLUTICASONE NASAL SPRAY 50 MCG/SPRY 120 SPRAY/16 GM NASL SCH (10:16)
--- NOTE | 2017-04-01 18:57 | PDOC PROGRESS REPORT ---
Subjective Progress Note for:: 04/01/17 Subjective:: Patient denied any chest pain or palpitation. No nausea, vomiting or abdominal pain. Reason For Visit: ACUTE EXACERBATED COPD/MORBID OBESITY Physical Exam Vital Signs: Temp Pulse Resp BP Pulse Ox 98.3 F 95 18 136/73 H 100 04/01/17 16:02 04/01/17 16:02 04/01/17 16:02 04/01/17 16:02 04/01/17 16:02 Intake & Output 03/31/17 04/01/17 04/02/17 06:59 06:59 06:59 Intake Total 3428 2214 1177 Balance 3428 2214 1177 Weight 196.4 kg 192.2 kg Physical Exam: General appearance: PRESENT: morbidly obese Head exam: PRESENT: atraumatic, normocephalic Eye exam: PRESENT: conjunctiva pink, EOMI, PERRLA Mouth exam: PRESENT: moist Respiratory exam: PRESENT: decreased breath sounds - at lung bases Cardiovascular exam: PRESENT: RRR. ABSENT: diastolic murmur, rubs, systolic murmur GI/Abdominal exam: PRESENT: normal bowel sounds, soft. ABSENT: distended, guarding, mass, organomegaly, rebound, tenderness Extremities exam: PRESENT: other - generalized loculated adipose tissue. ABSENT : pedal edema Musculoskeletal exam: PRESENT: deformity - loculated adipose tissue Neurological exam: PRESENT: alert, awake, oriented to person, oriented to place , oriented to time, oriented to situation, CN II-XII grossly intact. ABSENT: motor sensory deficit Psychiatric exam: PRESENT: appropriate affect, normal mood. ABSENT: homicidal ideation, suicidal ideation Skin exam: PRESENT: dry, intact, warm. ABSENT: cyanosis, rash Results Laboratory Results: 03/26/17 04:35 03/26/17 04:35 03/24/17 23:05 Troponin I < 0.012 Impressions: Chest X-Ray 03/24/17 17:42 IMPRESSION: No acute findings Assessment & Plan - Diagnosis (1) COPD exacerbation Is this a current diagnosis for this admission?: Yes (2) Hypoventilation associated with obesity syndrome Is this a current diagnosis for this admission?: Yes (3) Morbid obesity with BMI of 60.0-69.9, adult Is this a current diagnosis for this admission?: Yes (4) Chronic combined systolic (congestive) and diastolic (congestive) heart failure Is this a current diagnosis for this admission?: Yes (5) HTN (hypertension) Qualifiers: Hypertension type: essential hypertension Qualified Code(s): I10 - Essential (primary) hypertension Is this a current diagnosis for this admission?: Yes (6) Sleep apnea Qualifiers: Sleep apnea type: unspecified type Qualified Code(s): G47.30 - Sleep apnea , unspecified Is this a current diagnosis for this admission?: Yes - Time Time Spent with patient: 25-34 minutes Medications reviewed and adjusted accordingly: Yes Anticipated discharge: Home with Homehealth Within: within 24 hours - Inpatient Certification Based on my medical assessment, after consideration of the patient's comorbidities, presenting symptoms, or acuity I expect that the services needed warrant INPATIENT care.: Yes I certify that my determination is in accordance with my understanding of Medicare's requirements for reasonable and necessary INPATIENT services [42 CFR 412.3e].: Yes Medical Necessity: Need Close Monitoring Due to Risk of Patient Decompensation, Need For Continuous Telemetry Monitoring, Need for Nebulizer Therapy and Monitoring of Response, Risk of Complication if Not Cared For in Hospital Post Hospital Care: D/C Airline Reservationist Documentation - Plan Summary Plan Summary: Continue current medication management. Obtain CBC, BMP.
[2017-04-01 19:39] LABS: ABSOLUTE EOSINOPHILS # (AUTO) 0.1 10^3/uL (0.0-0.6); ABSOLUTE LYMPHOCYTES (AUTO) 2.3 10^3/uL (0.5-4.7); ABSOLUTE MONOCYTES (AUTO) 0.8 10^3/uL (0.1-1.4); BASOPHILS % (AUTO) 0.3 % (0-2); EOSINOPHILS % (AUTO) 0.4 % (0-6); HEMATOCRIT 36.1 % (36.0-47.0); HEMOGLOBIN 11.3 g/dL (12.0-15.5); LYMPHOCYTES % (AUTO) 16.4 % (13-45); MEAN CORPUSCULAR HEMOGLOBIN 24.8 pg (27.0-33.4); MEAN CORPUSCULAR HGB CONC 31.3 g/dL (32.0-36.0); MEAN CORPUSCULAR VOLUME 79 fl (80-97); MONOCYTES % (AUTO) 5.8 % (3-13); PLATELET COUNT 217 10^3/uL (150-450); RED BLOOD COUNT 4.55 10^6/uL (3.72-5.28); SEGMENTED NEUTROPHILS % (AUTO) 77.1 % (42-78); TOTAL CELLS COUNTED % (AUTO) 100 %; WHITE BLOOD COUNT 14.2 10^3/uL (4.0-10.5)
[2017-04-01 19:55] LABS: ANION GAP 7 (5-19); BLOOD UREA NITROGEN 18 mg/dL (7-20); CALCIUM 8.8 mg/dL (8.4-10.2); CARBON DIOXIDE 32 mmol/L (22-30); CHLORIDE 100 mmol/L (98-107); GLUCOSE 125 mg/dL (75-110); POTASSIUM 4.4 mmol/L (3.6-5.0); SODIUM 139.4 mmol/L (137-145)
[2017-04-01] MEDS ORDERED: PREDNISONE 10 MG TABLET PO ONE (21:00)
[2017-04-01] MEDS: CLOTRIMAZOLE 10 MG TROCHE PO SCH (23:27)
[2017-04-02] MEDS: CARVEDILOL 6.25 MG TABLET PO SCH (06:03)
[2017-04-02] MEDS: LANSOPRAZOLE 30 MG TAB.RAP.DR PO SCH (06:03)
--- NOTE | 2017-04-02 08:28 | PDOC DISCHARGE SUMMARY ---
General - Admit/Disc Date/PCP Admission Date/Primary Care Provider: 03/24/17 21:07 PAZ ALDAIR Discharge Date: 04/02/17 - Discharge Diagnosis (1) COPD exacerbation Is this a current diagnosis for this admission?: Yes (2) Hypoventilation associated with obesity syndrome Is this a current diagnosis for this admission?: Yes (3) Morbid obesity with BMI of 60.0-69.9, adult Is this a current diagnosis for this admission?: Yes (4) Chronic combined systolic (congestive) and diastolic (congestive) heart failure Is this a current diagnosis for this admission?: Yes (5) HTN (hypertension) Is this a current diagnosis for this admission?: Yes (6) Sleep apnea Is this a current diagnosis for this admission?: Yes - Additional Information Resuscitation Status: Full Code Discharge Diet: Cardiac Discharge Activity: Activity As Tolerated Prescriptions: Clotrimazole [Mycelex 10 mg Yadi] 10 mg PO QID #40 yadi Fluticasone Propionate [Flonase Nasal [place] 50 Mcg/[place] 16 gm] 2 spray NASL DAILY #1 spray.pump Prednisone 5 mg PO ASDIR PRN #8 tablet PRN Reason: Valsartan [Diovan 160 mg Tablet] 160 mg PO DAILY #30 tablet Home Medications: Albuterol Sulfate [Proair HFA] 1 puff IH Q4 PRN 03/25/17 Carvedilol [Coreg] 6.25 mg PO Q12 03/25/17 Furosemide [Lasix] 40 mg PO BID 03/25/17 Clonazepam 0.5 mg PO Q8 PRN 03/31/17 Sertraline HCl 100 mg PO DAILY 03/31/17 Clotrimazole [Mycelex 10 mg Aydi] 10 mg PO QID #40 yadi 04/02/17 Fluticasone Propionate [Flonase Nasal [place] 50 Mcg/[place] 16 gm] 2 spray NASL DAILY #1 spray.pump 04/02/17 Prednisone 5 mg PO ASDIR PRN #8 tablet 04/02/17 Valsartan [Diovan 160 mg Tablet] 160 mg PO DAILY #30 tablet 04/02/17 History of Present Illness History of Present Illness: KEI PIERCE is a 41 year old female known to my practice who was brought to the ED via EMS due to development of vomiting and worsening difficulty with breathing. Patient reported that she was at a [employer]az[employer] when she started having nausea and subsequently vomited several times prior to arrival in the ED. She was recently diagnosed with Influenza infection and treated with Tamiflu. She reported compliance with the treatment but continue to have productive coughing with feeling of pressure in her chest radiating down into her left shoulder and upper extremity. Despite nebulizer therapy with oral prednisone she continue to experience persistent wheezing. In view of her recent medical problem and repeated visit to the ED along with poor response to treatment she was advised admission to the hospital. Her morbidities included morbid obesity, chronic combined systolic/diastolic CHF, CAD, Old HI, Hyperlipidemia, Asthma and COPD. She continue to smoke cigarette and her living environment continue to expose her to significant cigarette smoke. Hospital Course Hospital Course: Patient was admitted as a case of exacerbated COPD and responded to therapy. She was taper of IV Solu Medrol and Nebulizer therapy. She will be discharged home on Inhaler and tapering dose of Prednisone. Her cardiac evaluation did not revealed any overt congestive failure. She was extensively counselled on smoking cessation and avoidance of environment that exacerbate decompensation of her breathing ability. We will further evaluate her LVEF on outpatient. Schedule MUGA scan could not be completed in the hospital due to weight limitation at this facility. Physical Exam Vital Signs: Temp Pulse Resp BP Pulse Ox 97.6 F 58 L 20 112/63 95 04/02/17 07:30 04/02/17 07:30 04/02/17 07:30 04/02/17 07:30 04/02/17 07:30 Intake & Output 04/01/17 04/02/17 04/03/17 06:59 06:59 06:59 Intake Total 2214 2442 Balance 2214 2442 Weight 192.2 kg Physical Exam: General appearance: PRESENT: morbidly obese Head exam: PRESENT: atraumatic, normocephalic Eye exam: PRESENT: conjunctiva pink, EOMI, PERRLA Mouth exam: PRESENT: moist Respiratory exam: PRESENT: decreased breath sounds - at lung bases Cardiovascular exam: PRESENT: RRR. ABSENT: diastolic murmur, rubs, systolic murmur GI/Abdominal exam: PRESENT: normal bowel sounds, soft. ABSENT: distended, guarding, mass, organomegaly, rebound, tenderness Extremities exam: PRESENT: other - generalized loculated adipose tissue. ABSENT : pedal edema Musculoskeletal exam: PRESENT: deformity - loculated adipose tissue Neurological exam: PRESENT: alert, awake, oriented to person, oriented to place , oriented to time, oriented to situation, CN II-XII grossly intact. ABSENT: motor sensory deficit Psychiatric exam: PRESENT: appropriate affect, normal mood. ABSENT: homicidal ideation, suicidal ideation Skin exam: PRESENT: dry, intact, warm. ABSENT: cyanosis, rash Results Laboratory Results: 04/01/17 19:30 04/01/17 19:30 04/01/17 04/01/17 19:30 19:30 WBC 14.2 H RBC 4.55 Hgb 11.3 L Hct 36.1 MCV 79 L MCH 24.8 L MCHC 31.3 L RDW 16.0 H Plt Count 217 Seg Neutrophils % 77.1 Lymphocytes % 16.4 Monocytes % 5.8 Eosinophils % 0.4 Basophils % 0.3 Absolute Neutrophils 11.0 H Absolute Lymphocytes 2.3 Absolute Monocytes 0.8 Absolute Eosinophils 0.1 Absolute Basophils 0.0 Sodium 139.4 Potassium 4.4 Chloride 100 Carbon Dioxide 32 H Anion Gap 7 BUN 18 Creatinine 0.74 Est GFR ( Amer) > 60 Est GFR (Non-Af Amer) > 60 Glucose 125 H Calcium 8.8 03/24/17 23:05 Troponin I < 0.012 Impressions: Chest X-Ray 03/24/17 17:42 IMPRESSION: No acute findings Qualifiers PATEINT BEING DISCHARGED WITH ANY OF THE FOLLOWING DIAGNOSIS?: No Plan Discharge Plan: D/C home today with follow up appointment as instructed upon discharge. Time Spent: Less than 30 Minutes
[2017-04-02] MEDS: VALSARTAN 160 MG TABLET PO SCH (09:46)
[2017-04-02] MEDS: CLOTRIMAZOLE 10 MG TROCHE PO SCH (09:46)
[2017-04-02] MEDS: SERTRALINE HCL 50 MG TABLET PO SCH (09:46)
[2017-04-02] MEDS: FLUTICASONE NASAL SPRAY 50 MCG/SPRY 120 SPRAY/16 GM NASL SCH (09:47)
[2017-04-02] MEDS: FUROSEMIDE 40 MG TABLET PO SCH (09:47)
[2017-04-02] MEDS: ENOXAPARIN SODIUM INJ 40 MG/0.4 ML DISP.SYRIN SUBCUT SCH (09:47)
[2017-04-02] MEDS ORDERED: PREDNISONE 10 MG TABLET PO SCH (10:00)
[2017-04-02 11:08] VITALS: BP 140/77
[2017-04-02] MEDS ORDERED: PREDNISONE 20 MG TABLET PO SCH (19:15)
== END 2017-04-02 11:46 | disposition home or self-care (01) | DRG 191 ==
LOC: ER 17:21 → EH 21:07 → 3W 03-25 20:04
PROVIDERS: ADMIT Internal Medicine Geriatric Medicine; ATTEND Internal Medicine Geriatric Medicine
DX: J44.1 Chronic obstructive pulmonary disease with (acute) exacerbation (principal); I50.42 Chronic combined systolic (congestive) and diastolic (congestive) heart failure; Z68.44 Body mass index [BMI] 60.0-69.9, adult; E66.2 Morbid (severe) obesity with alveolar hypoventilation; I11.0 Hypertensive heart disease with heart failure; I25.10 Atherosclerotic heart disease of native coronary artery without angina pectoris; E78.5 Hyperlipidemia, unspecified; M19.90 Unspecified osteoarthritis, unspecified site; K21.9 Gastro-esophageal reflux disease without esophagitis; F32.9 Major depressive disorder, single episode, unspecified; Z79.899 Other long term (current) drug therapy; I25.2 Old myocardial infarction; F17.200 Nicotine dependence, unspecified, uncomplicated; Z88.8 Allergy status to other drugs, medicaments and biological substances
CPT/HCPCS: 36415; 71045; 80048; 80053; 82550; 82553; 83690; 83735; 83880; 84484; 85025; 85610; 85730; 87040; 90686; 93005; 93010; 93306; 94640; 94660; 96365; 99285; J0696; J1650; J2920; J2930; J3475; J3490; J7030; J7512; J7620; S0119

== ENCOUNTER 2017-04-08 00:56 | Emergency (ER) | payer MEDICARE, MEDICAID ==
[2017-04-08 01:30] LABS: ANION GAP 8 (5-19); BLOOD UREA NITROGEN 14 mg/dL (7-20); CALCIUM 8.5 mg/dL (8.4-10.2); CARBON DIOXIDE 26 mmol/L (22-30); CHLORIDE 108 mmol/L (98-107); GLUCOSE 107 mg/dL (75-110); POTASSIUM 3.8 mmol/L (3.6-5.0); SODIUM 142.1 mmol/L (137-145)
--- NOTE | 2017-04-08 02:04 | RADIOLOGY REPORT (SQ) ---
EXAM DESCRIPTION: CHEST SINGLE VIEW COMPLETED DATE/TIME: 04/08/2017 1:40 am REASON FOR STUDY: sob COMPARISON: Chest x-ray 03/24/2017, CT abdomen and pelvis 01/04/2017. EXAM PARAMETERS: NUMBER OF VIEWS: One view. TECHNIQUE: Single frontal radiographic view of the chest acquired. RADIATION DOSE: NA LIMITATIONS: Patient's body habitus. FINDINGS: LUNGS AND PLEURA: There is elevation of the right hemidiaphragm. No consolidation, pleura l effusion or pneumothorax. MEDIASTINUM AND HILAR STRUCTURES: No masses. Contour normal. HEART AND VASCULAR STRUCTURES: The heart remains enlarged. Normal vasculature. BONES: No acute findings. HARDWARE: None in the chest. IMPRESSION: Stable cardiomegaly. Otherwise, no acute radiographic finding in the chest. TECHNICAL DOCUMENTATION: JOB ID: [id number] 2010 [employer]- All Rights Reserved
[2017-04-08 02:18] VITALS: BP 106/75
--- NOTE | 2017-04-08 02:25 | ER Document Report ---
ED General - General Chief Complaint: Anxiety Stated Complaint: ANXIETY Time Seen by Provider: 04/08/17 01:09 Notes: Patient is a 41-year-old female with a past medical history of morbid obesity, coronary artery disease, diabetes, hypertension hyperlipidemia who presents with anxiety, palpitations, and shortness of breath. Symptoms have been constant and unchanged since onset. Describes a sensation of pins and needles over her chest. Nothing improves or worsens her symptoms. Patient states that this feels very similar to prior panic attacks but states that she was very worried it could also be her heart so she came to the emergency department. She states that she has been panicked regarding the way a speedboat driver had been driving a vehicle earlier in the day and could not shake the feeling of anxiety despite using clonazepam. She has not seen her general doctor regarding today' s concerns. TRAVEL OUTSIDE OF THE [place] IN LAST 30 DAYS: No - Related Data Allergies/Adverse Reactions: lisinopril [Lisinopril] Allergy (Severe, Verified 04/08/17 01:32) Difficulty breathing levofloxacin [From Levaquin] Allergy (Verified 04/08/17 01:32) Past Medical History - General Information source: Patient - Social History Smoking Status: Never Smoker Frequency of alcohol use: None Drug Abuse: None Lives with: Family Family History: Reviewed & Not Pertinent, CAD - Father with an ME in his 30s, Hyperlipidemia, Hypertension Patient has suicidal ideation: No Patient has homicidal ideation: No - Past Medical History Cardiac Medical History: Reports: Hx Congestive Heart Failure, Hx Coronary Artery Disease, Hx Heart Attack - 2008, Hx Hypercholesterolemia, Hx Hypertension Pulmonary Medical History: Reports: Hx Asthma, Hx COPD, Hx Pneumonia, Hx Sleep Apnea Renal/ Medical History: Denies: Hx Peritoneal Dialysis GI Medical History: Reports: Hx Gastroesophageal Reflux Disease. Denies: Hx Pancreatitis Musculoskeltal Medical History: Reports Hx Arthritis Psychiatric Medical History: Reports: Hx Anxiety, Hx Depression Past Surgical History: Reports: Hx Section - x3, Hx Oral Surgery - wisdom tooth, Hx Orthopedic Surgery - left hand tendon repair, Hx Tonsillectomy - Immunizations Hx Diphtheria, Pertussis, Tetanus Vaccination: Yes Hx Pneumococcal Vaccination: 10/09/16 Review of Systems - Review of Systems Notes: Constitutional: Negative for fever. HENT: Negative for sore throat. Eyes: Negative for visual changes. Cardiovascular: Positive for chest pain. Respiratory: Positive for shortness of breath. Gastrointestinal: Negative for abdominal pain, vomiting or diarrhea. Genitourinary: Negative for dysuria. Musculoskeletal: Negative for back pain. Skin: Negative for rash. Neurological: Negative for headaches, weakness or numbness. 10 point ROS negative except as marked above and in HPI. Physical Exam - Vital signs Vitals: Pulse 97 04/08/17 01:00 Interpretation: Normal Notes: PHYSICAL EXAMINATION: GENERAL: Well-appearing, well-nourished and in no acute distress. HEAD: Atraumatic, normocephalic. EYES: Pupils equal round and reactive to light, extraocular movements intact, sclera anicteric, conjunctiva are normal. ENT: nares patent, oropharynx clear without exudates. Moist mucous membranes. NECK: Normal range of motion, supple without lymphadenopathy LUNGS: Breath sounds clear to auscultation bilaterally and equal. No wheezes rales or rhonchi. HEART: Regular rate and rhythm without murmurs ABDOMEN: Soft, morbidly obese abdomen, nontender, normoactive bowel sounds. No guarding, no rebound. No masses appreciated. EXTREMITIES: Normal range of motion, no pitting or edema. No cyanosis. NEUROLOGICAL: No focal neurological deficits. Moves all extremities spontaneously and on command. PSYCH: Normal mood, normal affect. SKIN: Warm, Dry, normal turgor, no rashes or lesions noted. Course - Re-evaluation Re-evalutation: 04/08/17 02:21 Patient presents with complaints of panic, palpitations, feeling like she may or may not had chest pain. Patient states that she has been very anxious all day, took clonazepam with moderate improvement of her symptoms. At the time of my assessment she is listening to music, denies any symptoms and states that she has been very stressed out and worried about her health. Labs today unremarkable. EKG unchanged from prior. Chest x-ray with stable cardiomegaly. Low clinical suspicion for ACS, acute pulmonary embolus, pneumothorax, aortic dissection or any other lites or any pathology at this time based on exam and history. At this time will discharge with return precautions and follow-up recommendations. Verbal discharge instructions given a the bedside and opportunity for questions given. Medication warnings reviewed. Patient is in agreement with this plan and has verbalized understanding of return precautions and the need for primary care follow-up in the next 24-72 hours. - Vital Signs Vital signs: Temp Pulse Resp BP Pulse Ox 97 17 106/75 96 04/08/17 01:00 04/08/17 02:04 04/08/17 02:04 04/08/17 02:04 - Laboratory Result Diagrams: 04/08/17 01:04 Laboratory results interpreted by me: 04/08/17 01:04 Chloride 108 H - Diagnostic Test Radiology reviewed: Image reviewed, Reports reviewed Radiology results interpreted by me: 04/08/17 02:23 Chest x-ray: Cardiomegaly but no acute infiltrate or pulmonary edema - EKG Interpretation by Me Additional EKG results interpreted by me: 04/08/17 02:23 Sinus rhythm. Rate 93. No ST elevations or depressions. QTC is 463. Discharge - Discharge Clinical Impression: Morbid obesity with BMI of 70 and over, adult, Palpitations, Chest discomfort Condition: Fair Disposition: HOME, SELF-CARE Instructions: [facility] ([facility] Additional Instructions: You were seen today for chest pain. The exact cause of your pain is unclear. However, based on your cardiac enzyme testing, chest x-ray, and EKG it does not appear that it is from an immediately life-threatening cause at this time. Please return to emergency department immediately if you have worsening of your chest pain, shortness of breath, vomiting, become unable to exert yourself due to pain or difficulty breathing, you pass out, or have any pain that radiates into your arms, jaw, or back. Please also return if you have any additional symptoms that are concerning to you. Referrals: PAZ QUINTEROS MD [Primary Care Provider] - Follow up as needed
--- NOTE | 2017-04-08 06:29 | EKG REPORT ---
SEVERITY:- ABNORMAL ECG - SINUS RHYTHM MULTIFORM VENTRICULAR PREMATURE COMPLEXES BORDERLINE LEFT AXIS DEVIATION CONSIDER ANTEROSEPTAL INFARCT NONSPECIFIC T ABNORMALITIES, INFERIOR LEADS : Confirmed by: Ruben Andres MD 08-Apr-2017 06:28:01
== END 2017-04-08 03:05 | disposition home or self-care (01) ==
LOC: ER 00:56
DX: E66.01 Morbid (severe) obesity due to excess calories (principal); R07.9 Chest pain, unspecified; R00.2 Palpitations; F41.9 Anxiety disorder, unspecified; Z68.45 Body mass index [BMI] 70 or greater, adult; I25.10 Atherosclerotic heart disease of native coronary artery without angina pectoris; I50.9 Heart failure, unspecified; E78.00 Pure hypercholesterolemia, unspecified; I11.0 Hypertensive heart disease with heart failure; J44.9 Chronic obstructive pulmonary disease, unspecified; I25.2 Old myocardial infarction
CPT/HCPCS: 36415; 71045; 80048; 84484; 93005; 93010; 99284

== ENCOUNTER 2017-04-10 07:26 | Emergency (ER) | payer MEDICARE, MEDICAID ==
[2017-04-10] MEDS ORDERED: ACETAMINOPHEN 325 MG TABLET PO ONE (08:31)
--- NOTE | 2017-04-10 08:32 | ER Document Report ---
ED Extremity Problem, Lower - General Chief Complaint: Ankle Injury Stated Complaint: ANKLE PAIN Time Seen by Provider: 04/10/17 08:31 Notes: patient is a 41-year-old female who presents emergency department via EMS after a fall this evening. Patient states that she is on and off is nUmbness and tingling in her left leg for a couple of months. she has not followed up with her primary care doctor regarding this issue. Follows with Dr. Arellano she states that last night she was sitting on the toilet when she went to get up she lost her balance and rolled her left ankle. She admits to pain along the lateral aspect of her left ankle and left leg. She admits to history of chronic knee pain in this leg. Also has a history of congestive heart failure, osteoarthritis, low back pain.Past medical history significant for anxiety TRAVEL OUTSIDE OF THE [place] IN LAST 30 DAYS: No - Related Data Allergies/Adverse Reactions: lisinopril [Lisinopril] Allergy (Severe, Verified 04/10/17 07:34) Difficulty breathing levofloxacin [From Levaquin] Allergy (Verified 04/10/17 07:34) Past Medical History - Social History Smoking Status: Smoker,Current Status Unk Family History: Reviewed & Not Pertinent, CAD - Father with an CO in his 30s, Hyperlipidemia, Hypertension - Past Medical History Cardiac Medical History: Reports: Hx Congestive Heart Failure, Hx Coronary Artery Disease, Hx Heart Attack - 2007, Hx Hypercholesterolemia, Hx Hypertension Pulmonary Medical History: Reports: Hx Asthma, Hx COPD, Hx Pneumonia, Hx Sleep Apnea Renal/ Medical History: Denies: Hx Peritoneal Dialysis GI Medical History: Reports: Hx Gastroesophageal Reflux Disease. Denies: Hx Pancreatitis Musculoskeltal Medical History: Reports Hx Arthritis Psychiatric Medical History: Reports: Hx Anxiety, Hx Depression Past Surgical History: Reports: Hx Section - x3, Hx Oral Surgery - wisdom tooth, Hx Orthopedic Surgery - left hand tendon repair, Hx Tonsillectomy - Immunizations Hx Diphtheria, Pertussis, Tetanus Vaccination: Yes Hx Pneumococcal Vaccination: 10/09/16 Review of Systems - Review of Systems Constitutional: No symptoms reported Cardiovascular: No symptoms reported Respiratory: No symptoms reported Gastrointestinal: No symptoms reported Musculoskeletal: See HPI - Is Neurological/Psychological: See HPI -: Yes All other systems reviewed and negative Physical Exam - Vital signs Vitals: Temp Pulse Resp BP Pulse Ox 99.1 F 95 20 128/99 H 97 04/10/17 07:42 04/10/17 07:42 04/10/17 07:42 04/10/17 07:42 04/10/17 07:42 - Notes Notes: PHYSICAL EXAM GENERAL: Alert, interacts well. HEAD: Normocephalic, atraumatic. LUNGS: Clear to auscultation bilaterally, no wheezes, rales, or rhonchi. No respiratory distress. HEART: Regular rate and rhythm. No murmurs, gallops, or rubs. EXTREMITIES: Moves all 4 extremities spontaneously. Left lower extremity with no swelling, deformity, ecchymosis. Superficial tenderness palpation at the left fibula. Patient able to bear weight. No edema, radial and dorsalis pedis pulses 2/4 bilaterally. No cyanosis. NEUROLOGICAL: Alert and oriented x4. Face symmetric. Tongue protrudes midline. Extraocular motions intact. Pupils are 2 mm and equally reactive. Normal speech, normal gait. 5 out of 5 strength in both the distal and proximal upper and lower extremities bilaterally. Sensation is grossly intact throughout. Finger to nose testing normal. Pronator drift normal. PSYCH: Normal affect, normal mood. SKIN: Warm, dry, normal turgor. No rashes or lesions noted. Course - Re-evaluation Re-evalutation: 04/10/17 10:30 Patient is a 41-year-old female presents emergency department with chief complaint of fall. She is hemodynamically stable, no acute distress and afebrile. X-ray shows evidence of osteoarthritis of the left knee. No evidence of deformity, fracture on x-ray. Patient able to bear weight upon reassessment after administration of Tylenol. Discussed with her that there is also arthritis developing in her knees and that her numbness and tingling is consistent with a pinched nerve likely in her back. Discussed with her that her weight is a component of development of this. Discussed with her to follow- up with her primary care provider regarding the numbness and tingling in her leg given that today it is not consistent with an acute CVA, TIA. - Vital Signs Vital signs: Temp Pulse Resp BP Pulse Ox 99.1 F 95 20 125/86 H 97 04/10/17 07:42 04/10/17 07:42 04/10/17 07:42 04/10/17 10:54 04/10/17 07:42 - Diagnostic Test Radiology reviewed: Image reviewed, Reports reviewed Discharge - Discharge Clinical Impression: Ankle pain Qualifiers: Chronicity: acute Laterality: left Qualified Code(s): M25.572 - Pain in left ankle and joints of left foot Condition: Good Disposition: HOME, SELF-CARE Instructions: Ankle Stirrup Splint ([facility]), Use of Crutches ([facility]), Ice & Elevation ([facility]), Sprained Ankle ([facility]) Referrals: PAZ QUINTEROS MD [Primary Care Provider] - Follow up in 3-5 days
--- NOTE | 2017-04-10 09:13 | RADIOLOGY REPORT (SQ) ---
EXAM DESCRIPTION: TIBIA FIBULA LEFT COMPLETED DATE/TIME: 04/10/2017 8:57 am REASON FOR STUDY: fall COMPARISON: None. NUMBER OF VIEWS: 4 views. TECHNIQUE: Two radiographic images acquired of the left tibia and fibula to include the knee and ank le in at least one projection. LIMITATIONS: None. FINDINGS: There is marked degenerative arthritis of the left knee with osteophytic change medially a nd laterally. Peaking of the intercondylar eminences noted. There is bowling of the proximal left f ibular noted with minimal periosteal reaction. Genu valgum. Plantar calcaneal bone spur. Otherwise , no acute fracture or bony abnormality seen. IMPRESSION: Severe degenerative arthritis left knee. Genu valgum. No acute fractures seen. TECHNICAL DOCUMENTATION: JOB ID: [id number] SC-[id number] 2010 [employer]- All Rights Reserved
[2017-04-10] MEDS ORDERED: IBUPROFEN 600 MG TABLET PO ONE (10:25)
[2017-04-10 10:55] VITALS: BP 125/86
== END 2017-04-10 10:57 | disposition home or self-care (01) ==
LOC: ER 07:26
DX: S99.912A Unspecified injury of left ankle, initial encounter (principal); M25.572 Pain in left ankle and joints of left foot; M79.605 Pain in left leg; M25.569 Pain in unspecified knee; G89.29 Other chronic pain; M19.90 Unspecified osteoarthritis, unspecified site; M54.5 Low back pain; F17.200 Nicotine dependence, unspecified, uncomplicated; I50.9 Heart failure, unspecified; W19.XXXA Unspecified fall, initial encounter
CPT/HCPCS: 99284; 73590; L1902; A9270

== ENCOUNTER → 2017-05-28 | Outpatient (CLI) | payer MEDICARE, MEDICAID ==
--- NOTE | 2017-05-28 11:35 | RADIOLOGY REPORT (SQ) ---
EXAM DESCRIPTION: VENOUS BILATERAL LOWER COMPLETED DATE/TIME: 05/28/2017 11:21 am REASON FOR STUDY: PAIN, OSTEOARTHRITIS M79.661 PAIN IN RIGHT LOWER LEG M79.662 PAIN IN LEFT LOWER LEG COMPARISON: None. TECHNIQUE: Dynamic and static brown scale and color images acquired of both lower extremity venous sy stems. Selected spectral images acquired with additional compression and augmentation maneuvers. Imag es stored on PACS. LIMITATIONS: Limited visualization of some structures due to body habitus. FINDINGS: RIGHT LEG COMMON FEMORAL AND FEMORAL: Normal phasicity, compression and augmentation. No visualized echogenic m aterial on brown scale. No defects on color images. POPLITEAL: Normal compression and augmentation. No visualized echogenic material on brown scale. No de fects on color images. CALF VESSELS: Normal compression and augmentation. No visualized echogenic material on brown scale. No defects on color image. GSV AND SSV: Normal compression. No visualized echogenic material on brown scale. No defects on color images. ANY DEEP VENOUS INSUFFICIENCY: Not evaluated. ANY EVIDENCE OF POPLITEAL CYST: No. OTHER: No other significant finding. LEFT LEG COMMON FEMORAL AND FEMORAL: Normal phasicity, compression and augmentation. No visualized echogenic m aterial on brown scale. No defects on color images. POPLITEAL: Normal compression and augmentation. No visualized echogenic material on bronw scale. No de fects on color images. CALF VESSELS: Normal compression and augmentation. No visualized echogenic material on brown scale. No defects on color images. GSV AND SSV: Normal compression. No visualized echogenic material on brown scale. No defects on color images. ANY DEEP VENOUS INSUFFICIENCY: Not evaluated. ANY EVIDENCE POPLITEAL CYST: No. OTHER: No other significant finding. IMPRESSION: As assessed common no DVT or SVT in the bilateral lower extremities. Somewhat limiting body habitus. TECHNICAL DOCUMENTATION: JOB ID: [id number] [employer]- All Rights Reserved Reading location - IP/workstation name: [email or web address]
== END ==
LOC: SP 09:31
PROVIDERS: ATTEND Physician Assistant
DX: M79.661 Pain in right lower leg (principal); M79.662 Pain in left lower leg
CPT/HCPCS: 93970

== ENCOUNTER 2017-06-25 20:14 | Emergency (ER) | payer MEDICARE, MEDICAID ==
--- NOTE | 2017-06-25 20:33 | ER Document Report ---
ED Cardiac - General Chief Complaint: Chest Pain Stated Complaint: CHEST PAIN Time Seen by Provider: 06/25/17 20:28 Notes: The patient is a 41 yo female, PMHx morbid obesity, chronic combined systolic/ diastolic CHF, CAD, "Old [place]", Hyperlipidemia, Asthma and COPD, presents with 2 days of sharp left-sided chest pain and pressure and tingling in her right arm and into her left shoulder. She is also having some nausea and vomiting earlier today. EMS provided her with 4 baby aspirin and 4 mg of sublingual Zofran with relief of her nausea. She is also having mild shortness of breath and cough. Patient's last heart catheterization was 2 years ago in [facility] and she said it showed "45% stenosis of a coronary artery". She was unable to obtain a stress test at [facility] due to her weight. Patient denies increased swelling, hemoptysis, back pain, abdominal pain, rash or syncope. TRAVEL OUTSIDE OF THE [place] IN LAST 30 DAYS: No - Related Data Allergies/Adverse Reactions: lisinopril [Lisinopril] Allergy (Severe, Verified 04/10/17 07:34) Difficulty breathing levofloxacin [From Levaquin] Allergy (Verified 04/10/17 07:34) Past Medical History - General Information source: Patient - Social History Smoking Status: Unknown if Ever Smoked Family History: Reviewed & Not Pertinent, CAD - Father with an [place] in his 30s, Hyperlipidemia, Hypertension - Past Medical History Cardiac Medical History: Reports: Hx Congestive Heart Failure, Hx Coronary Artery Disease, Hx Heart Attack - 2008, Hx Hypercholesterolemia, Hx Hypertension Pulmonary Medical History: Reports: Hx Asthma, Hx Bronchitis, Hx COPD, Hx Pneumonia, Hx Sleep Apnea Renal/ Medical History: Denies: Hx Peritoneal Dialysis GI Medical History: Reports: Hx Gastroesophageal Reflux Disease. Denies: Hx Pancreatitis Musculoskeltal Medical History: Reports Hx Arthritis Psychiatric Medical History: Reports: Hx Anxiety, Hx Depression Past Surgical History: Reports: Hx Section - x3, Hx Oral Surgery - wisdom tooth, Hx Orthopedic Surgery - left hand tendon repair, Hx Tonsillectomy - Immunizations Hx Diphtheria, Pertussis, Tetanus Vaccination: Yes Hx Pneumococcal Vaccination: 10/09/16 Review of Systems - Review of Systems Notes: REVIEW OF SYSTEMS: CONSTITUTIONAL: -fevers, -chills EENT: -eye pain, -difficulty swallowing, -nasal congestion CARDIOVASCULAR: +chest pain, -syncope. RESPIRATORY: +cough, +SOB GASTROINTESTINAL: -abdominal pain, +nausea, +vomiting, -diarrhea GENITOURINARY: -dysuria, -hematuria MUSCULOSKELETAL: -back pain, -neck pain SKIN: -rash or skin lesions. HEMATOLOGIC: -easy bruising or bleeding. LYMPHATIC: -swollen, enlarged glands. NEUROLOGICAL: -altered mental status or loss of consciousness, -headache, - neurologic symptoms PSYCHIATRIC: -anxiety, -depression. ALL OTHER SYSTEMS REVIEWED AND NEGATIVE. Physical Exam - Vital signs Vitals: Resp BP Pulse Ox 23 H 116/70 96 06/25/17 20:33 06/25/17 20:33 06/25/17 20:33 - Notes Notes: PHYSICAL EXAMINATION: GENERAL: Well-appearing, well-nourished and in no acute distress. HEAD: Atraumatic, normocephalic. EYES: Pupils equal round and reactive to light, extraocular movements intact, sclera anicteric, conjunctiva are normal. ENT: nares patent, oropharynx clear without exudates. Moist mucous membranes. NECK: Normal range of motion, supple without lymphadenopathy LUNGS: Breath sounds clear to auscultation bilaterally and equal. No wheezes rales or rhonchi. HEART: Regular rate and rhythm without murmurs ABDOMEN: Soft, nontender, normoactive bowel sounds. No guarding, no rebound. No masses appreciated. EXTREMITIES: Normal range of motion, no pitting or edema. No cyanosis. NEUROLOGICAL: Cranial nerves grossly intact. Normal speech, normal gait. Normal sensory and motor exams. PSYCH: Normal mood, normal affect. SKIN: Warm, Dry, normal turgor, no rashes or lesions noted. Course - Re-evaluation Re-evalutation: Patient chest pain-free on arrival to the ER after single nitro. EKG is unchanged and does not show a STEMI. Her HEART score is 5 (2 for story, 1 for EKG, 2 for risk factors). Patient said her last heart catheterization 2 years ago showed a stenosis of 45% and she has not had a cath or stress test since then. CXR shows cardiomegaly without evidence of overt heart failure. She also has a possible left lower lobe pneumonia on CXR, but the patient does not have a cough, fevers or leukocytosis to suggest a pneumonia. 06/25/17 21:55 Pt's first troponin is negative. Spoke to her primary care physician, Dr. Quinteros to discuss admission at [facility] or transfer back to [facility] and he agrees that with patient's known CAD and new chest pain, it is best for patient to be transferred to a facility with public health officer for possible heart catheterization. Placed call to [facility] and awaiting callback. 06/25/17 22:[address] Razo ([facility] Hospitalist) and he has accepted patient. He looked through the patient's cath report from 2 years ago and he said it was normal. - Vital Signs Vital signs: Temp Pulse Resp BP Pulse Ox 17 110/85 90 L 06/25/17 22:13 06/25/17 22:13 06/25/17 22:13 - Laboratory Result Diagrams: 06/25/17 20:40 06/25/17 20:40 Laboratory results interpreted by me: 06/25/17 06/25/17 20:40 20:40 Hgb 10.6 L Hct 32.7 L MCV 76 L MCH 24.8 L RDW 16.4 H Sodium 146.0 H - Diagnostic Test Radiology reviewed: Image reviewed, Reports reviewed Radiology results interpreted by me: CXR: Cardiomegaly without evidence of heart failure, cannot exclude a left lower lobe pneumonia - EKG Interpretation by Me EKG shows normal: Sinus rhythm Rate: Normal Rhythm: PVC's When compared to previous EKG there are: No significant change Discharge - Discharge Clinical Impression: Chest pain with high risk for cardiac etiology Condition: Stable Disposition: [facility] Referrals: PAZ QUINTEROS MD [Primary Care Provider] - Follow up as needed
[2017-06-25 20:58] LABS: ABSOLUTE EOSINOPHILS # (AUTO) 0.1 10^3/uL (0.0-0.6); ABSOLUTE LYMPHOCYTES (AUTO) 2.7 10^3/uL (0.5-4.7); ABSOLUTE MONOCYTES (AUTO) 0.4 10^3/uL (0.1-1.4); ABSOLUTE NEUT (AUTO) 3.5 10^3/uL (1.7-8.2); BASOPHILS % (AUTO) 0.6 % (0-2); EOSINOPHILS % (AUTO) 1.7 % (0-6); HEMATOCRIT 32.7 % (36.0-47.0); HEMOGLOBIN 10.6 g/dL (12.0-15.5); LYMPHOCYTES % (AUTO) 39.7 % (13-45); MEAN CORPUSCULAR HEMOGLOBIN 24.8 pg (27.0-33.4); MEAN CORPUSCULAR HGB CONC 32.5 g/dL (32.0-36.0); MEAN CORPUSCULAR VOLUME 76 fl (80-97); MONOCYTES % (AUTO) 6.1 % (3-13); PLATELET COUNT 204 10^3/uL (150-450); RED BLOOD COUNT 4.28 10^6/uL (3.72-5.28); RED CELL DISTRIBUTION WIDTH 16.4 % (11.5-14.0); SEGMENTED NEUTROPHILS % (AUTO) 51.9 % (42-78); TOTAL CELLS COUNTED % (AUTO) 100 %; WHITE BLOOD COUNT 6.8 10^3/uL (4.0-10.5)
--- NOTE | 2017-06-25 21:15 | RADIOLOGY REPORT (SQ) ---
EXAM DESCRIPTION: CHEST SINGLE VIEW COMPLETED DATE/TIME: 06/25/2017 9:03 pm REASON FOR STUDY: CP COMPARISON: 04/08/2017 EXAM PARAMETERS: NUMBER OF VIEWS: One view. TECHNIQUE: Single frontal radiographic view of the chest acquired. RADIATION DOSE: NA LIMITATIONS: None. FINDINGS: LUNGS AND PLEURA: There is considerable retrocardiac opacity. MEDIASTINUM AND HILAR STRUCTURES: No masses. Contour normal. HEART AND VASCULAR STRUCTURES: Cardiomegaly. Pulmonary vascular prominence. BONES: No acute findings. HARDWARE: None in the chest. OTHER: No other significant finding. IMPRESSION: 1. Cardiomegaly with pulmonary vascular prominence but no cristhian CHF. 2. Cannot exclude left lower lobe pneumonia. TECHNICAL DOCUMENTATION: JOB ID: [id number] [employer]- All Rights Reserved Reading location - IP/workstation name: [email or web address]
[2017-06-25 21:27] LABS: ALANINE AMINOTRANSFERASE 21 U/L (9-52); ALBUMIN 3.7 g/dL (3.5-5.0); ALKALINE PHOSPHATASE 58 U/L (38-126); ANION GAP 12 (5-19); ASPARTATE AMINO TRANSFERASE 26 U/L (14-36); BILIRUBIN,DIRECT 0.2 mg/dL (0.0-0.4); BILIRUBIN,TOTAL 0.2 mg/dL (0.2-1.3); BLOOD UREA NITROGEN 8 mg/dL (7-20); CALCIUM 8.7 mg/dL (8.4-10.2); CARBON DIOXIDE 28 mmol/L (22-30); CHLORIDE 106 mmol/L (98-107); CREATINE KINASE 60 U/L (30-135); GLUCOSE 98 mg/dL (75-110); POTASSIUM 3.7 mmol/L (3.6-5.0); TOTAL PROTEIN 7.6 g/dL (6.3-8.2)
[2017-06-25 21:36] LABS: CREATINE KINASE MB 0.28 ng/mL (<4.55)
[2017-06-25 21:44] LABS: TROPONIN I < 0.012 ng/mL
[2017-06-25] MEDS: NITROGLYCERIN 0.4 MG/TAB 25 TAB/BOTTLE SL PRN ×2 (22:01→22:15)
[2017-06-26] MEDS ORDERED: ACETAMINOPHEN 325 MG TABLET PO ONE (01:41)
--- NOTE | 2017-06-26 07:30 | EKG REPORT ---
SEVERITY:- ABNORMAL ECG - SINUS RHYTHM MULTIPLE VENTRICULAR PREMATURE COMPLEXES PROBABLE LEFT ATRIAL ABNORMALITY BORDERLINE LEFT AXIS DEVIATION CONSIDER ANTEROSEPTAL INFARCT BORDERLINE T WAVE ABNORMALITIES : Confirmed by: Ruben Andres MD 26-Jun-2017 07:30:18
[2017-06-26] MEDS ORDERED: FENTANYL CITRATE INJ/PF 100 MCG/2 ML AMPUL IV ONE (11:34)
[2017-06-26] MEDS ORDERED: ASPIRIN 325 MG TABLET PO SCH (23:30)
[2017-06-27] MEDS ORDERED: ASPIRIN 325 MG TABLET PO ONE (00:30)
[2017-06-27] MEDS ORDERED: FENTANYL CITRATE INJ/PF 100 MCG/2 ML AMPUL IV ONE (08:59)
[2017-06-27] MEDS: FUROSEMIDE 40 MG TABLET PO SCH (09:44)
[2017-06-27] MEDS: VALSARTAN 80 MG TABLET PO SCH (09:47)
[2017-06-28] MEDS ORDERED: CLONAZEPAM 1 MG TABLET PO ONE (11:11)
[2017-06-28] MEDS: FUROSEMIDE 40 MG TABLET PO SCH (11:17)
[2017-06-28] MEDS: VALSARTAN 80 MG TABLET PO SCH (11:17)
[2017-06-28 23:06] VITALS: BP 120/84
== END 2017-06-28 23:25 | disposition left against medical advice (07) ==
LOC: EEVIPCON 20:14 → ER 20:14
DX: R07.9 Chest pain, unspecified (principal); E66.01 Morbid (severe) obesity due to excess calories; I51.7 Cardiomegaly; I50.9 Heart failure, unspecified; I25.10 Atherosclerotic heart disease of native coronary artery without angina pectoris; J44.9 Chronic obstructive pulmonary disease, unspecified; I25.2 Old myocardial infarction
CPT/HCPCS: 93005; 96376; 99285; 96374; 36415; 82553; 82550; 84703; 85025; 80053; 84484; 71045; 93010; 94660 ×2; A9270 ×7; J3010 ×2; J3490

== ENCOUNTER 2017-07-12 10:01 | Emergency (ER) | payer MEDICARE, MEDICAID ==
--- NOTE | 2017-07-12 11:50 | ER Document Report ---
ED General - General Chief Complaint: Numbness Stated Complaint: LEFT SHOULDER PAIN/LEFT HAND NUMBNESS Time Seen by Provider: 07/12/17 11:29 TRAVEL OUTSIDE OF THE [place] IN LAST 30 DAYS: No - HPI Notes: Patient is a 41-year-old female with a history of morbid obesity, LG, chronic combined systolic/diastolic congestive heart failure, coronary artery disease, hyperlipidemia, asthma, COPD who presents to the ED complaining of a dry nonproductive cough 1 week. Patient states that she also continues to have left hand tingling and numbness that is worse at nighttime over the last month. Patient states that she has did get dizzy yesterday once, but is otherwise feeling well. Pt states that she will feel a palpitation and get dizzy which has been happening chronically but not on a daily basis. Patient states that on occasion she will have bilateral arm pain, but currently does not have any. She is eating and drinking without any difficulties. She is urinating normally and having normal bowel movements. Pt states that she develops nasal britany/ discharge with her sleep apnea machine which is what she terms "SOB." Patient was seen last month with similar symptoms and had a negative workup at that time , but had associated chest pain which she does not have today. Denies any headache, fever, neck pain, changes in vision/speech/mentation/ hearing, sore throat, chest pain, palpitations, syncope, shortness of breath, wheeze, dyspnea, abdominal pain, nausea/vomiting/diarrhea, urinary retention, dysuria, hematuria, loss of control of bowel or bladder, saddle anesthesia, muscle paralysis/weakness, or rash. Last heart cath 2 years ago negative. - Related Data Allergies/Adverse Reactions: lisinopril [Lisinopril] Allergy (Severe, Verified 07/12/17 10:03) Difficulty breathing levofloxacin [From Levaquin] Allergy (Verified 07/12/17 10:03) Past Medical History - Social History Smoking Status: Current Every Day Smoker Frequency of alcohol use: None Drug Abuse: None Family History: Reviewed & Not Pertinent, CAD - Father with an [place] in his 30s, Hyperlipidemia, Hypertension Patient has suicidal ideation: No Patient has homicidal ideation: No - Past Medical History Cardiac Medical History: Reports: Hx Congestive Heart Failure, Hx Coronary Artery Disease, Hx Heart Attack - 2007, Hx Hypercholesterolemia, Hx Hypertension Pulmonary Medical History: Reports: Hx Asthma, Hx Bronchitis, Hx COPD, Hx Pneumonia, Hx Sleep Apnea Renal/ Medical History: Denies: Hx Peritoneal Dialysis GI Medical History: Reports: Hx Gastroesophageal Reflux Disease. Denies: Hx Pancreatitis Musculoskeltal Medical History: Reports Hx Arthritis Psychiatric Medical History: Reports: Hx Anxiety, Hx Depression - & anxiety Past Surgical History: Reports: Hx Section - x3, Hx Oral Surgery - wisdom tooth, Hx Orthopedic Surgery - left hand tendon repair, Hx Tonsillectomy - Immunizations Hx Diphtheria, Pertussis, Tetanus Vaccination: Yes Hx Pneumococcal Vaccination: 10/09/16 Review of Systems - Review of Systems -: Yes All other systems reviewed and negative Physical Exam - Vital signs Vitals: Temp Pulse Resp BP Pulse Ox 98.5 F 83 20 115/71 96 07/12/17 10:14 07/12/17 10:14 07/12/17 10:14 07/12/17 10:14 07/12/17 10:14 - Notes Notes: PHYSICAL EXAMINATION: GENERAL: Well-appearing, well-nourished and in no acute distress. A&Ox4. Answers questions appropriately. Eating [employer] fried chicken, mac n cheese, and the rest of the meal when I came into her room while drinking soda. HEAD: Atraumatic, normocephalic. EYES: Pupils equal round and reactive to light, extraocular movements intact, sclera anicteric, conjunctiva are normal. ENT: EAC clear b/l. TM's intact b/l without erythema, fluid, or perforation. Nares patent and without discharge. oropharynx clear without exudates. No tonsilar hypertrophy or erythema. Moist mucous membranes. No sinus tenderness. NECK: Normal range of motion, supple without lymphadenopathy. Non-tender. Spurling negative. No tenderness. LUNGS: Breath sounds clear to auscultation bilaterally and equal. No wheezes rales or rhonchi. HEART: Regular rate and rhythm without murmurs, rubs, gallops. ABDOMEN: Soft, obese, nontender, nondistended abdomen. No guarding, no rebound. No masses appreciated. Normal bowel sounds present. No CVA tenderness bilaterally. Musculoskeletal: Ext's b/l: FROM to passive/active. Strength 5+/5. [place] neg b/ l. no bony tenderness. + tinel/phalen to the left wrist which reproduces patient's complaint. Extremities: No cyanosis, clubbing, or edema b/l. Peripheral pulses 2+. Capillary refill less than 3 seconds. NEUROLOGICAL: Cranial nerves grossly intact. Normal speech, normal gait. Normal sensory, motor exams PSYCH: Normal mood, normal affect. SKIN: Warm, Dry, normal turgor, no rashes or lesions noted. Course - Re-evaluation Re-evalutation: 07/12/17 15:[address] Shipman who is in agreement with dispo/plan: Patient is an afebrile, well-hydrated 41-year-old female who presents to the ED with pulmonary vascular congestion and left carpal tunnel syndrome based on H&P today. Vitals are acceptable. PE is otherwise unremarkable. Patient is tolerating p.o. without difficulties that she was eating [employer] from me entering the room and drinking soda. She has no significant tachycardia, tachypnea, or hypoxia. CBC, CMP, cardiac enzymes 2/EKG, BNP were unremarkable for any acute pathology. See chest x-ray result which showed pulmonary vascular congestion. Heart Score of 2 today. PERC 0. No other labs or imaging warranted at this time based on H&P. Low suspicion for any ACS, PE, pneumothorax, pericarditis, dissection, respiratory compromise, severe dehydration, sepsis, meningitis, or other systemic emergent condition at this time. Patient is aware that her condition can change from initial presentation and she needs to monitor symptoms closely and seek medical attention for any acute changes. Pt to double her dose of lasix for 3 days then resume as normal. Recommend conservative measures for symptoms. Recheck with your PCM in 3-5 days. Return to the ED with any worsening/concerning symptoms otherwise as reviewed in discharge. Patient is in agreement. - Vital Signs Vital signs: Temp Pulse Resp BP Pulse Ox 98.5 F 83 22 H 124/94 H 99 07/12/17 10:14 07/12/17 11:24 07/12/17 15:01 07/12/17 15:01 07/12/17 15:01 - Laboratory Result Diagrams: 07/12/17 11:19 07/12/17 11:19 Laboratory results interpreted by me: 07/12/17 07/12/17 11:19 11:19 Hgb 10.3 L Hct 32.8 L MCV 77 L MCH 24.1 L MCHC 31.3 L RDW 16.4 H Seg Neutrophils % 34.4 L Lymphocytes % 51.6 H Sodium 146.9 H Carbon Dioxide 31 H Glucose 112 H Discharge - Discharge Clinical Impression: Pulmonary vascular congestion Condition: Stable Disposition: HOME, SELF-CARE Additional Instructions: Maintain adequate fluid intake Take meds as directed--double your dose of lasix for 3 days then resume normal dosing tylenol/ibuprofen as needed over the counter cold medication as needed for symptoms Humidified air may help Wash your hands regularly Wear a mask when coughing F/u: with your PCM in 3-5 days for a recheck Return to the ED with any fever, worsening pain, chest pain, palpitations, syncope, worsening LEE, neck pain/stiffness, shortness of breath, wheezing, drooling, trouble swallowing/breathing, abdominal pain, n/v/d, rash, or worsening/concerning symptoms otherwise. Referrals: PAZ QUINTEROS MD [Primary Care Provider] - Follow up in 3-5 days
--- NOTE | 2017-07-12 12:44 | RADIOLOGY REPORT (SQ) ---
EXAM DESCRIPTION: CHEST SINGLE VIEW COMPLETED DATE/TIME: 07/12/2017 12:19 pm REASON FOR STUDY: cough COMPARISON: 06/25/2017 EXAM PARAMETERS: NUMBER OF VIEWS: One view. TECHNIQUE: Single frontal radiographic view of the chest acquired. RADIATION DOSE: NA LIMITATIONS: Motion. Body habitus. FINDINGS: LUNGS AND PLEURA: No opacities, masses or pneumothorax. No pleural effusion. MEDIASTINUM AND HILAR STRUCTURES: No masses. Contour normal. HEART AND VASCULAR STRUCTURES: Cardiomegaly. Vascular congestion. BONES: No acute findings. HARDWARE: None in the chest. OTHER: No other significant finding. IMPRESSION: Pulmonary vascular congestion. TECHNICAL DOCUMENTATION: JOB ID: [id number] [employer]- All Rights Reserved Reading location - IP/workstation name: Unknown
[2017-07-12 13:35] LABS: ABSOLUTE EOSINOPHILS # (AUTO) 0.3 10^3/uL (0.0-0.6); ABSOLUTE LYMPHOCYTES (AUTO) 2.7 10^3/uL (0.5-4.7); ABSOLUTE MONOCYTES (AUTO) 0.5 10^3/uL (0.1-1.4); ABSOLUTE NEUT (AUTO) 1.8 10^3/uL (1.7-8.2); BASOPHILS % (AUTO) 0.4 % (0-2); HEMATOCRIT 32.8 % (36.0-47.0); HEMOGLOBIN 10.3 g/dL (12.0-15.5); LYMPHOCYTES % (AUTO) 51.6 % (13-45); MEAN CORPUSCULAR HEMOGLOBIN 24.1 pg (27.0-33.4); MEAN CORPUSCULAR HGB CONC 31.3 g/dL (32.0-36.0); MEAN CORPUSCULAR VOLUME 77 fl (80-97); MONOCYTES % (AUTO) 8.6 % (3-13); PLATELET COUNT 194 10^3/uL (150-450); RED BLOOD COUNT 4.27 10^6/uL (3.72-5.28); RED CELL DISTRIBUTION WIDTH 16.4 % (11.5-14.0); SEGMENTED NEUTROPHILS % (AUTO) 34.4 % (42-78); TOTAL CELLS COUNTED % (AUTO) 100 %; WHITE BLOOD COUNT 5.2 10^3/uL (4.0-10.5)
--- NOTE | 2017-07-12 13:45 | EKG REPORT ---
SEVERITY:- ABNORMAL ECG - SINUS RHYTHM PAIRED VENTRICULAR PREMATURE COMPLEXES PROBABLE LEFT ATRIAL ABNORMALITY BORDERLINE LEFT AXIS DEVIATION CONSIDER ANTEROSEPTAL INFARCT BORDERLINE T ABNORMALITIES, DIFFUSE LEADS : Confirmed by: Ruben Andres MD 12-Jul-2017 13:44:41
[2017-07-12 13:50] LABS: ALANINE AMINOTRANSFERASE 15 U/L (9-52); ALBUMIN 3.6 g/dL (3.5-5.0); ALKALINE PHOSPHATASE 57 U/L (38-126); ANION GAP 10 (5-19); ASPARTATE AMINO TRANSFERASE 21 U/L (14-36); BILIRUBIN,DIRECT 0.4 mg/dL (0.0-0.4); BILIRUBIN,TOTAL 0.4 mg/dL (0.2-1.3); BLOOD UREA NITROGEN 10 mg/dL (7-20); CALCIUM 8.8 mg/dL (8.4-10.2); CARBON DIOXIDE 31 mmol/L (22-30); CHLORIDE 106 mmol/L (98-107); CREATINE KINASE 96 U/L (30-135); GLUCOSE 112 mg/dL (75-110); POTASSIUM 3.9 mmol/L (3.6-5.0); SODIUM 146.9 mmol/L (137-145); TOTAL PROTEIN 7.3 g/dL (6.3-8.2)
[2017-07-12 13:59] LABS: CREATINE KINASE MB 0.51 ng/mL (<4.55); NT PRO BNP 82 pg/mL (<125)
[2017-07-12 14:00] LABS: TROPONIN I < 0.012 ng/mL
[2017-07-12] MEDS ORDERED: OXYCODONE HCL IR 5 MG TABLET PO ONE (16:08)
[2017-07-12 16:41] VITALS: BP 107/88
== END 2017-07-12 16:42 | disposition home or self-care (01) ==
LOC: ER 10:01
DX: I11.0 Hypertensive heart disease with heart failure (principal); I50.42 Chronic combined systolic (congestive) and diastolic (congestive) heart failure; R09.89 Other specified symptoms and signs involving the circulatory and respiratory systems; G56.02 Carpal tunnel syndrome, left upper limb; Z79.899 Other long term (current) drug therapy; I25.10 Atherosclerotic heart disease of native coronary artery without angina pectoris; J44.9 Chronic obstructive pulmonary disease, unspecified; I25.2 Old myocardial infarction; R05 Cough; R00.2 Palpitations; R42 Dizziness and giddiness; G47.33 Obstructive sleep apnea (adult) (pediatric); F17.200 Nicotine dependence, unspecified, uncomplicated; E66.01 Morbid (severe) obesity due to excess calories; Z68.44 Body mass index [BMI] 60.0-69.9, adult; Z88.8 Allergy status to other drugs, medicaments and biological substances; Z88.1 Allergy status to other antibiotic agents
CPT/HCPCS: 36415; 71045; 80053; 82550; 82553; 83880; 84484; 85025; 93005; 93010; 99284

== ENCOUNTER 2017-08-15 22:12 | Emergency (ER) | payer MEDICARE, MEDICAID ==
[2017-08-15] MEDS ORDERED: ASPIRIN 81 MG TABLET, CHEWABLE PO ONE (22:59)
[2017-08-15 23:13] LABS: ABSOLUTE EOSINOPHILS # (AUTO) 0.1 10^3/uL (0.0-0.6); ABSOLUTE LYMPHOCYTES (AUTO) 2.4 10^3/uL (0.5-4.7); ABSOLUTE MONOCYTES (AUTO) 0.4 10^3/uL (0.1-1.4); ABSOLUTE NEUT (AUTO) 3.3 10^3/uL (1.7-8.2); BASOPHILS % (AUTO) 0.3 % (0-2); EOSINOPHILS % (AUTO) 2.4 % (0-6); HEMATOCRIT 32.4 % (36.0-47.0); HEMOGLOBIN 10.4 g/dL (12.0-15.5); LYMPHOCYTES % (AUTO) 38.1 % (13-45); MEAN CORPUSCULAR HEMOGLOBIN 24.1 pg (27.0-33.4); MEAN CORPUSCULAR HGB CONC 32.1 g/dL (32.0-36.0); MEAN CORPUSCULAR VOLUME 75 fl (80-97); PLATELET COUNT 202 10^3/uL (150-450); RED BLOOD COUNT 4.32 10^6/uL (3.72-5.28); RED CELL DISTRIBUTION WIDTH 16.3 % (11.5-14.0); SEGMENTED NEUTROPHILS % (AUTO) 53.2 % (42-78); TOTAL CELLS COUNTED % (AUTO) 100 %; WHITE BLOOD COUNT 6.3 10^3/uL (4.0-10.5)
--- NOTE | 2017-08-15 23:28 | RADIOLOGY REPORT (SQ) ---
EXAM DESCRIPTION: XR CHEST 1 VIEW COMPLETED DATE/TME: 08/15/2017 22:59 CLINICAL HISTORY: chest pain, h/o CHF COMPARISON: None. FINDINGS: Single frontal view of the chest. Cardiomegaly. Pulmonary vascular congestion. Respiratory motion artifact. Leads overlie the chest. Possible interstitial edema. No pneumothorax or definite pleural effusion. No acute osseous abnormalities. Degenerative change of the spine. Upper abdominal soft tissues are unremarkable. IMPRESSION: 1. Cardiomegaly with pulmonary vascular congestion and likely interstitial edema.
[2017-08-15 23:31] LABS: ALANINE AMINOTRANSFERASE 17 U/L (9-52); ALBUMIN 3.6 g/dL (3.5-5.0); ALKALINE PHOSPHATASE 58 U/L (38-126); ANION GAP 8 (5-19); ASPARTATE AMINO TRANSFERASE 15 U/L (14-36); BILIRUBIN,DIRECT 0.2 mg/dL (0.0-0.4); BILIRUBIN,TOTAL 0.2 mg/dL (0.2-1.3); BLOOD UREA NITROGEN 13 mg/dL (7-20); CALCIUM 8.4 mg/dL (8.4-10.2); CARBON DIOXIDE 29 mmol/L (22-30); CHLORIDE 110 mmol/L (98-107); CREATINE KINASE 65 U/L (30-135); GLUCOSE 99 mg/dL (75-110); POTASSIUM 3.4 mmol/L (3.6-5.0); SODIUM 147.3 mmol/L (137-145); TOTAL PROTEIN 7.3 g/dL (6.3-8.2)
[2017-08-15 23:42] LABS: CREATINE KINASE MB 0.25 ng/mL (<4.55); NT PRO BNP 165 pg/mL (<125)
[2017-08-15 23:43] LABS: TROPONIN I < 0.012 ng/mL
--- NOTE | 2017-08-15 23:47 | ER Document Report ---
ED General - General Mode of Arrival: Medic Information source: Patient TRAVEL OUTSIDE OF THE [place] IN LAST 30 DAYS: No <ZULEYKA LYON - Last Filed: 08/16/17 02:51> <MELI MENJIVAR - Last Filed: 08/16/17 03:55> - General Chief Complaint: Chest Pain > 30 Stated Complaint: CHEST PAIN Time Seen by Provider: 08/15/17 22:59 Notes: Patient is a 41 year old female with hypertension, CHF, asthma, sleep apnea and a history of NJ presents to the emergency department complaining of intermittent chest pain and dizziness onset 1 month ago. Patient states her chest pain is located on the right and states her symptoms are exacerbated with sitting. Patient states in 2015 she had a NJ and was sent to [facility], which according to [facility] records the patient had a negative catheterization performed. She denies having a stress test or catheterization after that. At bedside patient states she feels better after receiving to Nitro and 4 Aspirin from EMS. According to [facility] records, patient was seen and admitted here on June 28 for similar symptoms and left AMA due to there being no beds at [facility]. According to records, patient had 3 negative troponins at that time. (ZULEYKA LYON) - Related Data Allergies/Adverse Reactions: lisinopril [Lisinopril] Allergy (Severe, Verified 07/12/17 10:03) Difficulty breathing levofloxacin [From Levaquin] Allergy (Verified 07/12/17 10:03) Past Medical History - General Information source: Patient - Social History Smoking Status: Current Some Day Smoker Chew tobacco use (# tins/day): No Frequency of alcohol use: None Drug Abuse: None Family History: Reviewed & Not Pertinent, CAD - Father with an NJ in his 30s, Hyperlipidemia, Hypertension Patient has suicidal ideation: No Patient has homicidal ideation: No - Past Medical History Cardiac Medical History: Reports: Hx Congestive Heart Failure, Hx Coronary Artery Disease, Hx Heart Attack - 2007,2016, Hx Hypercholesterolemia, Hx Hypertension Pulmonary Medical History: Reports: Hx Asthma, Hx Bronchitis, Hx COPD, Hx Pneumonia, Hx Sleep Apnea GI Medical History: Reports: Hx Gastroesophageal Reflux Disease Musculoskeltal Medical History: Reports Hx Arthritis Psychiatric Medical History: Reports: Hx Anxiety, Hx Depression - & anxiety Past Surgical History: Reports: Hx Section - x3, Hx Oral Surgery - wisdom tooth, Hx Orthopedic Surgery - left hand tendon repair, Hx Tonsillectomy - Immunizations Hx Diphtheria, Pertussis, Tetanus Vaccination: Yes Hx Pneumococcal Vaccination: 10/09/16 <ZULEYKA LYON - Last Filed: 08/16/17 02:51> Review of Systems - Review of Systems Constitutional: No symptoms reported EENT: No symptoms reported Cardiovascular: See HPI, Chest pain, Dizziness Respiratory: No symptoms reported Gastrointestinal: No symptoms reported Genitourinary: No symptoms reported Female Genitourinary: No symptoms reported Musculoskeletal: No symptoms reported Skin: No symptoms reported Hematologic/Lymphatic: No symptoms reported Neurological/Psychological: No symptoms reported -: Yes All other systems reviewed and negative <ZULEYKA LYON - Last Filed: 08/16/17 02:51> Physical Exam <ZULEYKA LYON - Last Filed: 08/16/17 02:51> <MELI MENJIVAR - Last Filed: 08/16/17 03:55> - Vital signs Vitals: Resp 11 L 08/15/17 22:28 - Notes Notes: GENERAL: Alert, interacts well. No acute distress. HEAD: Normocephalic, atraumatic. EYES: Pupils equal, round, and reactive to light. Extraocular movements intact. ENT: Oral mucosa moist, tongue midline. NECK: Full range of motion. Supple. Trachea midline. LUNGS: Clear to auscultation bilaterally although diminished breath sounds at the bases, no wheezes, rales, or rhonchi. No respiratory distress. HEART: Regular rate and rhythm. No murmurs, gallops, or rubs. ABDOMEN: Soft, morbidly obese. non-tender. Non-distended. Bowel sounds present in all 4 quadrants. EXTREMITIES: Moves all 4 extremities spontaneously. No edema, radial and dorsalis pedis pulses 2/4 bilaterally. No cyanosis. NEUROLOGICAL: Alert and oriented x3. Normal speech. Biceps and patellar DTRs 2+ bilaterally. PSYCH: Normal affect, normal mood. SKIN: Warm, dry, normal turgor. No rashes or lesions noted. (ZULEYKA LYON) Course - Laboratory Result Diagrams: 08/15/17 22:50 08/15/17 22:50 - Consults Dr. Quinteros Time consulted: 00:47 - States if patient second enzymes come negative, he will arrange outpatient stress test or catheterization. <CAMRON,TAMJENNIFER - Last Filed: 08/16/17 02:51> - Laboratory Result Diagrams: 08/15/17 22:50 08/15/17 22:50 <MELI MENJIVAR - Last Filed: 08/16/17 03:55> - Re-evaluation Re-evalutation: 08/16/17 03:52 CBC shows mild anemia with hemoglobin 10.4, no leukocytosis, CMP shows slightly low potassium at 3.4 which will be repleted orally, cardiac enzymes negative 2 4 hours apart, proBNP minimally elevated at 165, chest x-ray shows cardiomegaly with pulmonary vascular congestion and likely interstitial edema per radiology however I feel like some of this is actually related to significant amount of soft tissue on this patient. EKG is nonischemic 2. Chest pain is not very suspicious for cardiac disease as it worsens when she sits down and improves with movement as does her lightheadedness and shortness of breath. I did discuss the patient with Dr. Quinteros her primary care physician who agrees with performing cardiac enzymes 2 and so long as they are negative I can discharge her and she can follow up with him in the office, he will set her up for an outpatient stress test or cardiac catheterization to further characterize this pain. (MELI MENJIVAR) - Vital Signs Vital signs: Temp Pulse Resp BP Pulse Ox 98.1 F 88 24 H 115/75 100 08/15/17 23:25 08/15/17 23:25 08/16/17 02:00 08/15/17 23:25 08/15/17 23:25 - Laboratory Laboratory results interpreted by me: 08/15/17 08/15/17 08/15/17 22:50 22:50 22:50 Hgb 10.4 L Hct 32.4 L MCV 75 L MCH 24.1 L RDW 16.3 H Sodium 147.3 H Potassium 3.4 L Chloride 110 H NT-Pro-B Natriuret Pep 165 H - EKG Interpretation by Me Additional EKG results interpreted by me: 08/16/17 03:53 Initial EKG shows sinus rhythm at a rate of 84, left axis deviation, interventricular conduction delay with a QRS of 102, poor R-wave progression, no ST segment elevations or depressions, no T-wave inversions per my interpretation. Repeat EKG shows sinus rhythm at a rate of 76, occasional PVCs, left axis deviation, continued interventricular conduction delay with a QRS of 108, still no ST segment elevations or depressions, no T-wave inversions per my interpretation. (MELI MENJIVAR) Discharge <ZULEYKA LYON - Last Filed: 08/16/17 02:51> <MELI MENJIVAR - Last Filed: 08/16/17 03:55> - Discharge Clinical Impression: Chest pain of uncertain etiology, Morbid obesity with BMI of 70 and over, adult Condition: Stable Disposition: HOME, SELF-CARE Additional Instructions: Today we did not find any evidence of a heart attack. It is important that you follow-up with your primary care physician Dr. Quinteros as an outpatient. He will want to set you up for a stress test or possibly a heart catheterization to further define what is causing your chest pain. At this time it is very reassuring that he gets better when you move around and it worsens when you sit down. Please return to the emergency department should your pain worsen with exertion or you develop any new or concerning symptoms. Referrals: PAZ QUINTEROS MD [Primary Care Provider] - Follow up in 3-5 days Scribe Attestation: 08/16/17 03:55 I personally performed the services described in the documentation, reviewed and edited the documentation which was dictated to the scribe in my presence, and it accurately records my words and actions. (MELI MENJIVAR) Scribe Documentation - Scribe Written by Shira:: Shira Appiah, 08/16/2017 00:14 acting as scribe for :: Dayami <ZULEYKA LYON - Last Filed: 08/16/17 02:51>
[2017-08-16 02:34] VITALS: BP 113/90
[2017-08-16] MEDS ORDERED: POTASSIUM CHLORIDE 20 MEQ/15 ML UDCUP PO ONE (03:53)
--- NOTE | 2017-08-16 07:31 | EKG REPORT ---
SEVERITY:- ABNORMAL ECG - SINUS RHYTHM PAIRED VENTRICULAR PREMATURE COMPLEXES LEFT ATRIAL ABNORMALITY CONSIDER ANTERIOR INFARCT : Confirmed by: Ruben Andres MD 16-Aug-2017 07:31:26
--- NOTE | 2017-08-16 07:33 | EKG REPORT ---
SEVERITY:- ABNORMAL ECG - SINUS RHYTHM PROBABLE LEFT ATRIAL ABNORMALITY BORDERLINE LEFT AXIS DEVIATION ANTERIOR INFARCT, AGE INDETERMINATE : Confirmed by: Ruben Andres MD 16-Aug-2017 07:31:56
== END 2017-08-16 04:25 | disposition home or self-care (01) ==
LOC: ER 22:12
DX: R07.9 Chest pain, unspecified (principal); E66.01 Morbid (severe) obesity due to excess calories; Z68.45 Body mass index [BMI] 70 or greater, adult; I50.9 Heart failure, unspecified; I25.10 Atherosclerotic heart disease of native coronary artery without angina pectoris; E78.00 Pure hypercholesterolemia, unspecified; J44.9 Chronic obstructive pulmonary disease, unspecified; I11.0 Hypertensive heart disease with heart failure; I25.2 Old myocardial infarction
CPT/HCPCS: 36415; 71045; 80053; 82550; 82553; 83880; 84484; 85025; 93005; 93010; 99285

== ENCOUNTER 2017-09-09 17:54 | Emergency (ER) | payer MEDICARE, MEDICAID ==
--- NOTE | 2017-09-09 18:18 | ER Document Report ---
ED Medical Screen (RME) - General Chief Complaint: Breathing Difficulty Stated Complaint: DIFFICULTY BREATHING Time Seen by Provider: 09/09/17 18:14 Notes: RAPID MEDICAL EVALUATION DISCLOSURE I have seen this patient as part of a Rapid Medical Evaluation and, if applicable, placed any initially appropriate orders. The patient will be seen and fully evaluated, including a full history and physical exam, by a provider ( in Main ED or Fast Track) when a room becomes available. 5-year-old female PMH CHF here with complaints of progressively worsening shortness of breath diaphoresis lightheadedness leg swelling chest pain cough productive of sometimes clear and sometimes yellow/brown sputum ongoing over the past few weeks. Yesterday she started to feel like she was having fevers and chills but did not measure her temperature. Her chest pain is worse with exertion breathing. She has missed today's dose of Lasix but denies missing any other doses. She feels as though this may be pneumonia or heart failure acting up. EXAM Diaphoretic Difficult to auscultate cardiac/pulmonary sounds due to massive body habitus TRAVEL OUTSIDE OF THE [place] IN LAST 30 DAYS: No - Related Data Allergies/Adverse Reactions: lisinopril [Lisinopril] Allergy (Severe, Verified 07/12/17 10:03) Difficulty breathing levofloxacin [From Levaquin] Allergy (Verified 07/12/17 10:03) Past Medical History - Past Medical History Cardiac Medical History: Reports: Hx Congestive Heart Failure, Hx Coronary Artery Disease, Hx Heart Attack - 2008,2016, Hx Hypercholesterolemia, Hx Hypertension Pulmonary Medical History: Reports: Hx Asthma, Hx Bronchitis, Hx COPD, Hx Pneumonia, Hx Sleep Apnea Renal/ Medical History: Denies: Hx Peritoneal Dialysis GI Medical History: Reports: Hx Gastroesophageal Reflux Disease. Denies: Hx Pancreatitis Musculoskeltal Medical History: Reports Hx Arthritis Psychiatric Medical History: Reports: Hx Anxiety, Hx Depression - & anxiety Past Surgical History: Reports: Hx Section - x3, Hx Oral Surgery - wisdom tooth, Hx Orthopedic Surgery - left hand tendon repair, Hx Tonsillectomy - Immunizations Hx Diphtheria, Pertussis, Tetanus Vaccination: Yes History of Influenza Vaccine for 12/2016 - 05/2017 Season: No Doctor's Discharge - Discharge Referrals: PAZ QUINTEROS MD [Primary Care Provider] - Follow up as needed
--- NOTE | 2017-09-09 19:05 | RADIOLOGY REPORT (SQ) ---
EXAM DESCRIPTION: CHEST 2 VIEWS COMPLETED DATE/TIME: 09/09/2017 6:49 pm REASON FOR STUDY: cp sob cough; eval edema vs pna COMPARISON: 03/18/2017 EXAM PARAMETERS: NUMBER OF VIEWS: two views TECHNIQUE: Digital Frontal and Lateral radiographic views of the chest acquired. RADIATION DOSE: NA LIMITATIONS: none FINDINGS: LUNGS AND PLEURA: Mild pulmonary vascular congestion. MEDIASTINUM AND HILAR STRUCTURES: No masses or contour abnormalities. HEART AND VASCULAR STRUCTURES: Cardiomegaly. No pulmonary edema. BONES: No acute findings. HARDWARE: None in the chest. OTHER: No other significant finding. IMPRESSION: Cardiomegaly with mild pulmonary vascular congestion but no cristhian CHF. TECHNICAL DOCUMENTATION: JOB ID: [id number] [employer]- All Rights Reserved Reading location - IP/workstation name: [email or web address]
[2017-09-09 19:08] LABS: ABSOLUTE EOSINOPHILS # (AUTO) 0.2 10^3/uL (0.0-0.6); ABSOLUTE LYMPHOCYTES (AUTO) 2.6 10^3/uL (0.5-4.7); ABSOLUTE MONOCYTES (AUTO) 0.4 10^3/uL (0.1-1.4); BASOPHILS % (AUTO) 0.2 % (0-2); EOSINOPHILS % (AUTO) 2.7 % (0-6); HEMATOCRIT 33.4 % (36.0-47.0); HEMOGLOBIN 10.6 g/dL (12.0-15.5); LYMPHOCYTES % (AUTO) 42.4 % (13-45); MEAN CORPUSCULAR HEMOGLOBIN 23.6 pg (27.0-33.4); MEAN CORPUSCULAR HGB CONC 31.9 g/dL (32.0-36.0); MEAN CORPUSCULAR VOLUME 74 fl (80-97); MONOCYTES % (AUTO) 6.8 % (3-13); PLATELET COUNT 218 10^3/uL (150-450); RED CELL DISTRIBUTION WIDTH 16.6 % (11.5-14.0); SEGMENTED NEUTROPHILS % (AUTO) 47.9 % (42-78); TOTAL CELLS COUNTED % (AUTO) 100 %; WHITE BLOOD COUNT 6.2 10^3/uL (4.0-10.5)
[2017-09-09 19:22] LABS: ALANINE AMINOTRANSFERASE 13 U/L (9-52); ALBUMIN 3.6 g/dL (3.5-5.0); ALKALINE PHOSPHATASE 58 U/L (38-126); ANION GAP 11 (5-19); ASPARTATE AMINO TRANSFERASE 16 U/L (14-36); BILIRUBIN,DIRECT 0.2 mg/dL (0.0-0.4); BILIRUBIN,TOTAL 0.2 mg/dL (0.2-1.3); BLOOD UREA NITROGEN 13 mg/dL (7-20); CALCIUM 8.5 mg/dL (8.4-10.2); CARBON DIOXIDE 28 mmol/L (22-30); CHLORIDE 106 mmol/L (98-107); GLUCOSE 101 mg/dL (75-110); POTASSIUM 3.9 mmol/L (3.6-5.0); SODIUM 144.8 mmol/L (137-145); TOTAL PROTEIN 7.5 g/dL (6.3-8.2)
[2017-09-09 19:35] LABS: NT PRO BNP 161 pg/mL (<125)
[2017-09-09 19:36] LABS: TROPONIN I < 0.012 ng/mL
[2017-09-09] MEDS ORDERED: FUROSEMIDE INJ/PF 40 MG/4 ML SDV IV ONE (20:14)
--- NOTE | 2017-09-09 20:16 | ER Document Report ---
ED General - General Chief Complaint: Breathing Difficulty Stated Complaint: DIFFICULTY BREATHING Time Seen by Provider: 09/09/17 18:14 TRAVEL OUTSIDE OF THE [place] IN LAST 30 DAYS: No - HPI Notes: Patient is a 41-year-old female with a history of CHF, hypertension, morbid obesity, sleep apnea, WI in 2016 (according to [facility] records negative catheterization) who presents to the ED complaining of dyspnea on exertion 4-5 days. Patient states that she is also had a dry semi-productive cough throughout this time. Patient states that she will feel a little bit of chest pain on occasion over the last several days, but states that her breathing is what brought her in. Patient states that she is still eating and drinking difficulties. She is urinating normally and having normal bowel movements. Pt will occ have a green/brown discloration, but no obvious blood. Denies any headache, fever, neck pain, URI, sore throat, palpitations, syncope, cough, wheeze, abdominal pain, nausea/vomiting/diarrhea, urinary retention, dysuria, hematuria, back pain, loss of control of bowel or bladder, numbness/tingling, saddle anesthesia, muscle paralysis/weakness, or rash. Denies any smoking, IV drug use, cancer history, previous DVT/PE, hormone use, prolonged immobilization , recent surgery/trauma. - Related Data Allergies/Adverse Reactions: lisinopril [Lisinopril] Allergy (Severe, Verified 07/12/17 10:03) Difficulty breathing levofloxacin [From Levaquin] Allergy (Verified 07/12/17 10:03) Past Medical History - Social History Smoking Status: Unknown if Ever Smoked - exposed to 2nd hand smoke in household Chew tobacco use (# tins/day): No Frequency of alcohol use: None Drug Abuse: None Family History: Reviewed & Not Pertinent, CAD - Father with an WI in his 30s, Hyperlipidemia, Hypertension Patient has suicidal ideation: No Patient has homicidal ideation: No - Past Medical History Cardiac Medical History: Reports: Hx Congestive Heart Failure, Hx Coronary Artery Disease, Hx Heart Attack - 2007,2016, Hx Hypercholesterolemia, Hx Hypertension Pulmonary Medical History: Reports: Hx Asthma, Hx Bronchitis, Hx COPD, Hx Pneumonia, Hx Sleep Apnea Renal/ Medical History: Denies: Hx Peritoneal Dialysis GI Medical History: Reports: Hx Gastroesophageal Reflux Disease. Denies: Hx Pancreatitis Musculoskeltal Medical History: Reports Hx Arthritis Psychiatric Medical History: Reports: Hx Anxiety, Hx Depression - & anxiety Past Surgical History: Reports: Hx Section - x3, Hx Oral Surgery - wisdom tooth, Hx Orthopedic Surgery - left hand tendon repair, Hx Tonsillectomy - Immunizations Hx Diphtheria, Pertussis, Tetanus Vaccination: Yes Hx Pneumococcal Vaccination: 10/09/16 Review of Systems - Review of Systems -: Yes All other systems reviewed and negative Physical Exam - Vital signs Vitals: Temp Pulse Resp BP Pulse Ox 98.5 F 89 22 H 166/107 H 99 09/09/17 18:13 09/09/17 18:13 09/09/17 18:13 09/09/17 18:13 09/09/17 18:13 - Notes Notes: PHYSICAL EXAMINATION: GENERAL: Well-appearing, well-nourished and in no acute distress. A&Ox4. Speaks in full sentences. Pt appears comfortable. HEAD: Atraumatic, normocephalic. EYES: Pupils equal round and reactive to light, extraocular movements intact, sclera anicteric, conjunctiva are normal. ENT: Nares patent and without discharge. oropharynx clear without exudates. No tonsilar hypertrophy or erythema. Moist mucous membranes. NECK: Normal range of motion, supple without lymphadenopathy LUNGS: Decreased breath sounds b/l base HEART: Regular rate and rhythm without murmurs, rubs, gallops. ABDOMEN: Soft, nontender, nondistended abdomen. No guarding, no rebound. No masses appreciated. Normal bowel sounds present. No CVA tenderness bilaterally. Musculoskeletal: FROM to passive/active. Strength 5+/5. [place] neg b/l. Extremities: No cyanosis, clubbing, or edema b/l. Peripheral pulses 2+. Capillary refill less than 3 seconds. NEUROLOGICAL: Normal speech, normal gait. PSYCH: Normal mood, normal affect. SKIN: Warm, Dry, normal turgor, no rashes or lesions noted. Course - Re-evaluation Re-evalutation: 09/09/17 22:33 Patient is an afebrile, well-hydrated, 41-year-old female who presents to the ED with dyspnea on exertion, since resolved. Vitals are acceptable without any significant tachycardia, tachypnea, or hypoxia. PE is otherwise unremarkable. Patient is nontoxic-appearing his time p.o. without difficulties. Patient ate an entire dinner that was brought in by her spouse. Patient was given 1 sublingual nitro, but that did not have any significant effects for her. Patient was also given Lasix 40 mg IV. Patient states that she has been able to walk to the bathroom and she has not been having any dyspnea on exertion or chest pains. Patient has a heart score of 3 and a wells score of 0. Patient is also PERC negative. CBC, CMP, cardiac enzymes 2/EKG, BNP, chest x-ray were grossly unremarkable for acute pathology. No other labs or imaging warranted at this time based on H&P. Pt has not been in any respiratory distress throughout her stay. I did review this case with Dr. Quinteros who recommends having her follow-up in the office this week and no admission is warranted. Conservative measures for symptoms. Recheck with your PCM in 2-3 days. Return to the ED with any worsening/concerning symptoms otherwise as reviewed in discharge. Patient is in agreement. - Vital Signs Vital signs: Temp Pulse Resp BP Pulse Ox 98.5 F 89 22 H 166/107 H 99 09/09/17 18:13 09/09/17 18:13 09/09/17 18:13 09/09/17 18:13 09/09/17 18:13 - Laboratory Result Diagrams: 09/09/17 17:40 09/09/17 17:40 Laboratory results interpreted by me: 09/09/17 09/09/17 17:40 17:40 Hgb 10.6 L Hct 33.4 L MCV 74 L MCH 23.6 L MCHC 31.9 L RDW 16.6 H NT-Pro-B Natriuret Pep 161 H Discharge - Discharge Clinical Impression: Shortness of breath Condition: Stable Disposition: HOME, SELF-CARE Additional Instructions: Maintain adequate fluid and food intake Take home medications as directed Low sodium/fat diet Exercise regularly Weight control Monitor blood pressure daily and keep a log Monitor symptoms for any acute changes Recheck with your PCM in 2-3 days, call tomorrow* Consider a follow-up with cardiology Return to the ED with any worsening symptoms and/or development of fever, headache, chest pain, palpitations, syncope, shortness of breath, trouble breathing, abdominal pain, n/v/d, blood in stool/urine, loss of control of bowel /bladder, urinary retention, muscle weakness/paralysis, numbness/tingling, or other worsening symptoms that are concerning to you. Forms: Elevated Blood Pressure Referrals: PAZ QUINTEROS MD [Primary Care Provider] - 09/11/17
[2017-09-09] MEDS ORDERED: NITROGLYCERIN 0.4 MG/TAB 25 TAB/BOTTLE SL PRN (20:18)
--- NOTE | 2017-09-09 20:24 | EKG REPORT ---
SEVERITY:- ABNORMAL ECG - SINUS RHYTHM SANCHEZ, CONSIDER BIATRIAL ABNORMALITIES CONSIDER ANTEROSEPTAL INFARCT BORDERLINE T ABNORMALITIES, LATERAL LEADS : Confirmed by: Amy Montejo MD 09-Sep-2017 20:22:26
[2017-09-09 23:15] VITALS: BP 149/89
== END 2017-09-09 23:15 | disposition home or self-care (01) ==
LOC: ER 17:54
DX: R06.02 Shortness of breath (principal); R06.00 Dyspnea, unspecified; I50.9 Heart failure, unspecified; I10 Essential (primary) hypertension; E66.01 Morbid (severe) obesity due to excess calories; G47.30 Sleep apnea, unspecified; I25.2 Old myocardial infarction; R05 Cough; I25.10 Atherosclerotic heart disease of native coronary artery without angina pectoris; J44.9 Chronic obstructive pulmonary disease, unspecified
CPT/HCPCS: 93005; 99285; 96374; 36415; 87040; 85025; 80053; 84484; 83880; 71046; 93010; J1940

== ENCOUNTER 2017-09-19 21:36 | Emergency (ER) | payer MEDICARE, MEDICAID ==
--- NOTE | 2017-09-19 23:08 | EKG REPORT ---
SEVERITY:- ABNORMAL ECG - SINUS TACHYCARDIA RUN OF VENTRICULAR PREMATURE COMPLEXES PROBABLE LEFT ATRIAL ABNORMALITY LEFT AXIS DEVIATION LEFT VENTRICULAR HYPERTROPHY ANTERIOR Q WAVES, POSSIBLY DUE TO LVH : Confirmed by: Lacho Martinez 19-Sep-2017 23:07:56
--- NOTE | 2017-09-19 23:18 | RADIOLOGY REPORT (SQ) ---
PROCEDURE: XR CHEST 1 VIEW HISTORY: difficulty breathing COMPARISON: 09/09/2017 TECHNIQUE: Single projection of the chest was done. FINDINGS: The lung sandy are well inflated . There are no discrete airspace infiltrates, pneumothoraces or pleural effusions. The pulmonary vascularity is normal. The cardiomediastinal silhouette is unremarkable for patient's age and sex. IMPRESSION: There is no acute pleural-parenchymal process seen in the imaged lung sandy. Location of Interpretation: Teleradiology
[2017-09-19 23:45] LABS: ABSOLUTE BASOPHILS # (AUTO) 0.1 10^3/uL (0.0-0.2); ABSOLUTE EOSINOPHILS # (AUTO) 0.2 10^3/uL (0.0-0.6); ABSOLUTE LYMPHOCYTES (AUTO) 3.8 10^3/uL (0.5-4.7); ABSOLUTE MONOCYTES (AUTO) 0.6 10^3/uL (0.1-1.4); ABSOLUTE NEUT (AUTO) 4.6 10^3/uL (1.7-8.2); BASOPHILS % (AUTO) 0.7 % (0-2); EOSINOPHILS % (AUTO) 2.6 % (0-6); HEMATOCRIT 35.8 % (36.0-47.0); HEMOGLOBIN 11.6 g/dL (12.0-15.5); LYMPHOCYTES % (AUTO) 40.7 % (13-45); MEAN CORPUSCULAR HEMOGLOBIN 23.9 pg (27.0-33.4); MEAN CORPUSCULAR HGB CONC 32.4 g/dL (32.0-36.0); MEAN CORPUSCULAR VOLUME 74 fl (80-97); MONOCYTES % (AUTO) 6.4 % (3-13); PLATELET COUNT 292 10^3/uL (150-450); RED BLOOD COUNT 4.85 10^6/uL (3.72-5.28); RED CELL DISTRIBUTION WIDTH 17.2 % (11.5-14.0); SEGMENTED NEUTROPHILS % (AUTO) 49.6 % (42-78); TOTAL CELLS COUNTED % (AUTO) 100 %; WHITE BLOOD COUNT 9.3 10^3/uL (4.0-10.5)
--- NOTE | 2017-09-19 23:55 | ER Document Report ---
ED General - General Mode of Arrival: Wheelchair Information source: Patient TRAVEL OUTSIDE OF THE [place] IN LAST 30 DAYS: No <ZULEYKA LYON - Last Filed: 09/20/17 03:16> <JULIETH HALL - Last Filed: 09/20/17 05:43> - General Chief Complaint: Shortness Of Breath Stated Complaint: SHORTNESS OF BREATH Time Seen by Provider: 09/19/17 23:00 Notes: Patient is a 41 year old female with CHF presents to the emergency department complaining of shortness of breath and chest pain onset 1 day ago. Patient states her shortness of breath and chest pain is exacerbated with movement. She states she was doing a sleep study when she began to develop her symptoms. She mentions being on CPAP for sleep apnea, without oxygen, following up with Dr. Martinez for cardiology. Patient denies any swelling. Patient's PCP is Dr. Tsai. (ZULEYKA LOYN) - Related Data Allergies/Adverse Reactions: lisinopril [Lisinopril] Allergy (Severe, Verified 07/12/17 10:03) Difficulty breathing levofloxacin [From Levaquin] Allergy (Verified 07/12/17 10:03) Past Medical History - General Information source: Patient - Social History Smoking Status: Current Every Day Smoker Cigarette use (# per day): Yes Chew tobacco use (# tins/day): No Family History: Reviewed & Not Pertinent, CAD - Father with an MA in his 30s, Hyperlipidemia, Hypertension - Past Medical History Cardiac Medical History: Reports: Hx Congestive Heart Failure, Hx Coronary Artery Disease, Hx Heart Attack - 2007,2016, Hx Hypercholesterolemia, Hx Hypertension Pulmonary Medical History: Reports: Hx Asthma, Hx Bronchitis, Hx COPD, Hx Pneumonia, Hx Sleep Apnea GI Medical History: Reports: Hx Gastroesophageal Reflux Disease Musculoskeletal Medical History: Reports Hx Arthritis Psychiatric Medical History: Reports: Hx Anxiety, Hx Depression - & anxiety Past Surgical History: Reports: Hx Section - x3, Hx Oral Surgery - wisdom tooth, Hx Orthopedic Surgery - left hand tendon repair, Hx Tonsillectomy - Immunizations Hx Diphtheria, Pertussis, Tetanus Vaccination: Yes Hx Pneumococcal Vaccination: 10/09/16 <ZULEYKA LYON - Last Filed: 09/20/17 03:16> Review of Systems - Review of Systems Constitutional: No symptoms reported EENT: No symptoms reported Cardiovascular: See HPI, Chest pain Respiratory: See HPI, Short of breath Gastrointestinal: No symptoms reported Genitourinary: No symptoms reported Female Genitourinary: No symptoms reported Musculoskeletal: No symptoms reported Skin: No symptoms reported Hematologic/Lymphatic: No symptoms reported Neurological/Psychological: No symptoms reported -: Yes All other systems reviewed and negative <ZULEYKA LYON - Last Filed: 09/20/17 03:16> Physical Exam - General General appearance: Appears well - Eating a burrito., Alert In distress: None - HEENT Head: Normocephalic, Atraumatic Eyes: Normal Conjunctiva: Normal Extraocular movements intact: Yes Pupils: PERRL Neck: Normal - Respiratory Respiratory status: No respiratory distress Chest status: Nontender Breath sounds: Normal Chest palpation: Normal - Cardiovascular Rhythm: Regular Heart sounds: Normal auscultation Murmur: No Friction rub: No Gallop: None auscultated - Abdominal Inspection: Morbidly Obese Distension: No distension Bowel sounds: Normal Tenderness: Nontender Organomegaly: No organomegaly - Extremities General upper extremity: Normal ROM General lower extremity: Normal ROM. No: Edema - Neurological Neuro grossly intact: Yes Cognition: Normal Orientation: AAOx4 [place] Coma Scale Eye Opening: Spontaneous [place] Coma Scale Verbal: Oriented [place] Coma Scale Motor: Obeys Commands Karan Coma Scale Total: 15 Speech: Normal - Psychological Associated symptoms: Normal affect, Normal mood - Skin Skin Temperature: Warm Skin Moisture: Dry Skin Color: Normal <ZULEYKA LYON - Last Filed: 09/20/17 03:16> - Vital signs Vitals: Temp Pulse BP Pulse Ox 98.5 F 92 116/63 96 09/19/17 22:03 09/19/17 22:03 09/19/17 22:03 09/19/17 22:03 Course - Laboratory Result Diagrams: 09/19/17 23:25 09/19/17 23:25 <ZULEYKA LYON - Last Filed: 09/20/17 03:16> - Laboratory Result Diagrams: 09/19/17 23:25 09/19/17 23:25 - Diagnostic Test Radiology reviewed: Reports reviewed - EKG Interpretation by [place] EKG shows normal: Sinus rhythm Rate: Normal Rhythm: NSR <JULIETH HALL - Last Filed: 09/20/17 05:43> - Re-evaluation Re-evalutation: 09/20/17 03:14 Discussed patient's concerns and symptoms of tachycardia, shortness of breath and chest pain with her PCP, Dr. Tsai, who states he follow up with her in the morning. (ZULEYKA LYON) Patient is a morbidly obese 41-year-old female who comes in complaining of dyspnea on exertion. This apparently is not new for her. Patient does not have any acute findings on blood work, including 2 negative troponins. EKG similar to old 2. Patient has been resting comfortably in the room with an oxygen saturation of 100% and no tachycardia here in the emergency department. I discussed with the patient that I would be sending her home as I have talked to Dr. Martinez her metal furniture repairer and Dr. Tsai her primary care doctor. Patient states that there is something wrong with her and she is afraid to go home. I called Dr. Tsai back to discuss possibly doing stress test or further workup. He does not feel that she needs to be admitted. Patient left the emergency department while I was calling her primary care doctor back. Therefore has left without receiving her discharge paperwork. Before she left however, she is instructed to follow-up with her primary care doctor and her metal furniture repairer within the next few days. Stable for discharge. (JULIETH HALL) - Vital Signs Vital signs: Temp Pulse Resp BP Pulse Ox 97.8 F 79 20 110/63 100 09/20/17 01:41 09/20/17 02:40 09/20/17 02:40 09/20/17 02:40 09/20/17 02:40 - Laboratory Laboratory results interpreted by me: 09/19/17 23:25 Hgb 11.6 L Hct 35.8 L MCV 74 L MCH 23.9 L RDW 17.2 H Discharge <ZULEYKA LYON - Last Filed: 09/20/17 03:16> <JULIETH HALL - Last Filed: 09/20/17 05:43> - Discharge Clinical Impression: Dyspnea Qualifiers: Dyspnea type: unspecified Qualified Code(s): R06.00 - Dyspnea, unspecified Condition: Stable Disposition: HOME, SELF-CARE Instructions: Dyspnea, Nonspecific ([facility]) Referrals: YAKOV MARTINEZ MD [ACTIVE STAFF] - 09/20/17 Scribe Attestation: 09/20/17 05:43 I personally performed the services described in the documentation, reviewed and edited the documentation which was dictated to the scribe in my presence, and it accurately records my words and actions. (JULIETH HALL) Scribe Documentation - Scribe Written by Scribe:: Shira Appiah, 09/20/2017 01:40 acting as scribe for :: Princess <ZULEYKA LYON - Last Filed: 09/20/17 03:16>
[2017-09-19 23:56] LABS: ALANINE AMINOTRANSFERASE 25 U/L (9-52); ALKALINE PHOSPHATASE 68 U/L (38-126); ANION GAP 13 (5-19); ASPARTATE AMINO TRANSFERASE 17 U/L (14-36); BILIRUBIN,DIRECT 0.3 mg/dL (0.0-0.4); BILIRUBIN,TOTAL 0.4 mg/dL (0.2-1.3); BLOOD UREA NITROGEN 12 mg/dL (7-20); CALCIUM 9.1 mg/dL (8.4-10.2); CARBON DIOXIDE 28 mmol/L (22-30); CHLORIDE 102 mmol/L (98-107); CREATINE KINASE 50 U/L (30-135); GLUCOSE 109 mg/dL (75-110); POTASSIUM 3.9 mmol/L (3.6-5.0); TOTAL PROTEIN 8.2 g/dL (6.3-8.2)
[2017-09-20 00:05] LABS: CREATINE KINASE MB 0.29 ng/mL (<4.55); NT PRO BNP 103 pg/mL (<125)
[2017-09-20 00:06] LABS: TROPONIN I < 0.012 ng/mL
[2017-09-20 03:49] VITALS: BP 110/63
--- NOTE | 2017-09-20 22:12 | EKG REPORT ---
SEVERITY:- ABNORMAL ECG - SINUS RHYTHM PAIRED VENTRICULAR PREMATURE COMPLEXES PROBABLE LEFT ATRIAL ABNORMALITY LEFT VENTRICULAR HYPERTROPHY ANTERIOR Q WAVES, POSSIBLY DUE TO LVH BORDERLINE T ABNORMALITIES, INFERIOR LEADS : Confirmed by: Lacho Martinez 20-Sep-2017 22:12:10
== END 2017-09-20 03:50 | disposition home or self-care (01) ==
LOC: ER 21:36
DX: J44.9 Chronic obstructive pulmonary disease, unspecified (principal); R06.02 Shortness of breath; R07.9 Chest pain, unspecified; F17.210 Nicotine dependence, cigarettes, uncomplicated; I25.10 Atherosclerotic heart disease of native coronary artery without angina pectoris; I10 Essential (primary) hypertension; I25.2 Old myocardial infarction; E66.01 Morbid (severe) obesity due to excess calories; G47.30 Sleep apnea, unspecified; Z99.89 Dependence on other enabling machines and devices; Z88.8 Allergy status to other drugs, medicaments and biological substances; Z88.1 Allergy status to other antibiotic agents
CPT/HCPCS: 36415; 71045; 80053; 82550; 82553; 83880; 84443; 84484; 85025; 93005; 93010; 99285

== ENCOUNTER 2017-10-24 21:44 | Emergency (ER) | payer MEDICARE, MEDICAID ==
--- NOTE | 2017-10-25 00:51 | ER Document Report ---
ED Skin Rash/Insect Bite/Abscs - General Chief Complaint: Itching Stated Complaint: SKIN PROBLEM Time Seen by Provider: 10/24/17 23:29 Mode of Arrival: Ambulatory Information source: Patient Notes: Morbidly obese 41-year-old female presented to ED with her significant other and children for a itching all over with rash to the abdomen chest back and arms. She states her significant other was out of [facility] when he returned he developed a rash and itching all over and then everyone else in the family has developed itching. TRAVEL OUTSIDE OF THE [place] IN LAST 30 DAYS: No - HPI Patient complains to provider of: Skin rash/lesion, Other - Patient states she also has signs and symptoms of a cold and sore throat. Onset/Duration: Gradual Quality of pain: Other - Sore throat Severity: Mild Pain Level: 2 Skin Character: Rash - Scabies type rash with straight line rashes to the abdomen chest back and arms very itchy, Other - She also has a sore throat runny nose Quality of rash: Itchy, Painful - Sore throat Exacerbated by: Denies Relieved by: Denies Similar symptoms previously: Yes Recently seen / treated by doctor: No - Related Data Allergies/Adverse Reactions: lisinopril [Lisinopril] Allergy (Severe, Verified 07/12/17 10:03) Difficulty breathing levofloxacin [From Levaquin] Allergy (Verified 07/12/17 10:03) Past Medical History - General Information source: Patient - Social History Smoking Status: Current Every Day Smoker - 1-2 cigarettes a day Smoking Education Provided: Yes - 4 minutes Frequency of alcohol use: None Drug Abuse: None Lives with: Family Family History: Reviewed & Not Pertinent, CAD - Father with an NE in his 30s, Hyperlipidemia, Hypertension Patient has suicidal ideation: No Patient has homicidal ideation: No - Past Medical History Cardiac Medical History: Reports: Hx Congestive Heart Failure, Hx Coronary Artery Disease, Hx Heart Attack - 2008,2016, Hx Hypercholesterolemia, Hx Hypertension Pulmonary Medical History: Reports: Hx Asthma, Hx Bronchitis, Hx COPD, Hx Pneumonia, Hx Sleep Apnea EENT Medical History: Reports: None Neurological Medical History: Reports: None Endocrine Medical History: Reports: None Renal/ Medical History: Reports: None Malignancy Medical History: Reports: None GI Medical History: Reports: Hx Gastroesophageal Reflux Disease Musculoskeletal Medical History: Reports Hx Arthritis Psychiatric Medical History: Reports: Hx Anxiety, Hx Depression - & anxiety Past Surgical History: Reports: Hx Section - x3, Hx Oral Surgery - wisdom tooth, Hx Orthopedic Surgery - left hand tendon repair, Hx Tonsillectomy - Immunizations Hx Diphtheria, Pertussis, Tetanus Vaccination: Yes Hx Pneumococcal Vaccination: 10/09/16 Review of Systems - Review of Systems Constitutional: No symptoms reported EENT: Nose congestion, Nose discharge, Sinus pressure, Sinus discharge, Throat pain Cardiovascular: No symptoms reported Respiratory: No symptoms reported Gastrointestinal: No symptoms reported Genitourinary: No symptoms reported Female Genitourinary: No symptoms reported Musculoskeletal: No symptoms reported Skin: Rash Hematologic/Lymphatic: No symptoms reported Neurological/Psychological: No symptoms reported -: Yes All other systems reviewed and negative Physical Exam - Vital signs Vitals: Temp Pulse Resp BP Pulse Ox 97.6 F 95 18 172/101 H 97 10/24/17 22:03 10/24/17 22:03 10/24/17 22:03 10/24/17 22:03 10/24/17 22:03 Interpretation: Normal - General General appearance: Appears well, Alert - HEENT Head: Normocephalic, Atraumatic Eyes: Normal Pupils: PERRL Ears: Normal External canal: Normal Tympanic membrane: Normal Sinus: Normal Nasal: Purulent discharge, Swelling Mouth/Lips: Normal Mucous membranes: Normal Pharynx: Post nasal drainage. No: Erythema, Exudate, Tonsillar hypertrophy Neck: No: Anterior cervical chain - Respiratory Respiratory status: No respiratory distress Chest status: Nontender Breath sounds: Normal Chest palpation: Normal - Cardiovascular Rhythm: Regular Heart sounds: Normal auscultation Murmur: No - Abdominal Inspection: Normal Distension: No distension Bowel sounds: Normal Tenderness: Nontender Organomegaly: No organomegaly - Back Back: Normal, Nontender - Extremities General upper extremity: Normal inspection, Nontender, Normal color, Normal ROM , Normal temperature General lower extremity: Normal inspection, Nontender, Normal color, Normal ROM , Normal temperature, Normal weight bearing. No: Selwyn's sign - Neurological Neuro grossly intact: Yes Cognition: Normal Orientation: AAOx4 [place] Coma Scale Eye Opening: Spontaneous [place] Coma Scale Verbal: Oriented [place] Coma Scale Motor: Obeys Commands [place] Coma Scale Total: 15 Speech: Normal Motor strength normal: LUE, RUE, LLE, RLE Sensory: Normal - Psychological Associated symptoms: Normal affect, Normal mood - Skin Skin Temperature: Warm Skin Moisture: Dry Skin Color: Normal Location of irregularity: Abdomen, Chest, Back, Extremities Character of irregularity: Fine - Red scabies type rash with some of the rash in straight lines Course - Re-evaluation Re-evalutation: 10/25/17 02:47 Patient given instructions for upper respiratory infection as well as scabies infestation. Patient was given a prescription for permethrin and discharged home. Patient to follow-up with her primary doctor. - Vital Signs Vital signs: Temp Pulse Resp BP Pulse Ox 98.5 F 88 16 173/99 H 97 10/25/17 01:02 10/25/17 01:02 10/25/17 01:02 10/25/17 01:02 10/25/17 01:02 Discharge - Discharge Clinical Impression: Scabies Condition: Stable Disposition: HOME, SELF-CARE Additional Instructions: Scabies Your exam suggests the presence of scabies, which are microscopic parasites of the skin. These mites jeffy through the skin, causing severe itching. The mite can be spread to other persons by skin contact. All clothing, towels, and bedding should be washed in very hot water, set aside for a week, then washed again. You should apply scabies-killing lotion from the neck down, then wash it off after 12 hours. You may need medication for itching, as the itch persists for many days after the mites have been killed. All family members and close personal contacts should be examined. Repeat treatment may be necessary if the infestation is not eliminated with a single treatment. Call the doctor if you develop increasing swelling and redness, red streaks , tender lumps, fever, or drainage from a skin sore. Acetaminophen Acetaminophen may be taken for pain relief or fever control. It's much safer than aspirin, offering a wider range of "safe" dosages. It is safe during . Some brand names are Tylenol, Panadol, Datril, Anacin 3, Tempra, and Liquiprin. Acetaminophen can be repeated every four hours. The following are maximum recommended dosages: WEIGHT Dose Drops Elixir Chewable( 80mg) (LBS.) drprs=droppers tsp=teaspoon 6 40 mg .4 ml (1/2) 6-11 80 mg .8 ml (full) 1/2 tsp 1 tab 12-16 120 mg 1 1/2 drprs 3/4 tsp 1 1/2 tabs 17-23 160 mg 2 drprs 1 tsp 2 tabs 24-30 240 mg 3 drprs 1 1/2 tsp 3 tabs 30-35 320 mg 2 tsp 4 tabs 36-41 360 mg 2 1/4 tsp 4 1 /2 tabs 42-47 400 mg 2 1/2 tsp 5 tabs 48-53 480 mg 3 tsp 6 tabs 54-59 520 mg 3 1/4 tsp 6 1 /2 tabs 60-64 560 mg 3 1/2 tsp 7 tabs 65-70 600 mg 3 3/4 tsp 7 1 /2 tabs 71-76 640 mg 4 tsp 8 tabs 77-82 720 mg 4 1/2 tsp 9 tabs 83-88 800 mg 5 tsp 10 tabs >89 pounds or adults 650 mg to 900 mg Acetaminophen can be repeated every four hours. Maximum daily dose not to exceed 4000 mg. These maximum recommended dosages are slightly higher than the dosages written on the product container, but these dosages are very safe and well below the toxic dosage for acetaminophen. FOLLOW-UP CARE: If you have been referred to a physician for follow-up care, call the physician s office for an appointment as you were instructed or within the next two days. If you experience worsening or a significant change in your symptoms, notify the physician immediately or return to the Emergency Department at any time for re-evaluation. Prescriptions: Permethrin [Elimite] 60 gm TP ONCE PRN #120 cream.gm. PRN Reason: Forms: Elevated Blood Pressure Referrals: PAZ QUINTEROS MD [Primary Care Provider] - Follow up as needed
[2017-10-25 01:03] VITALS: BP 173/99
== END 2017-10-25 01:02 | disposition home or self-care (01) ==
LOC: ER 21:44
DX: B86 Scabies (principal); R09.81 Nasal congestion; J34.89 Other specified disorders of nose and nasal sinuses; R07.0 Pain in throat; R09.82 Postnasal drip; I25.10 Atherosclerotic heart disease of native coronary artery without angina pectoris; I10 Essential (primary) hypertension; I25.2 Old myocardial infarction; J44.9 Chronic obstructive pulmonary disease, unspecified; F17.210 Nicotine dependence, cigarettes, uncomplicated; Z71.6 Tobacco abuse counseling; Z88.8 Allergy status to other drugs, medicaments and biological substances; Z88.1 Allergy status to other antibiotic agents
CPT/HCPCS: 99283; 99406

== ENCOUNTER 2017-11-21 21:04 | Emergency (ER) | payer MEDICARE, MEDICAID ==
[2017-11-21] MEDS ORDERED: IPRATROPIUM/ALBUTEROL 0.5-2.5 MG/3 ML AMPUL NEB ONE ×3 (21:54→21:56)
[2017-11-21] MEDS ORDERED: PREDNISONE 20 MG TABLET PO ONE (21:55)
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
--- NOTE | 2017-11-21 22:44 | RADIOLOGY REPORT (SQ) ---
EXAM DESCRIPTION: XR CHEST 1 VIEW COMPLETED DATE/TME: 11/21/2017 21:55 CLINICAL HISTORY: 41 years, Female, shortness of breath, cough COMPARISON: None. 1. 09/19/2017 EXAM DESCRIPTION: CLINICAL HISTORY: shortness of breath, cough COMPARISON: 09/19/2017 FINDINGS: Single view of the chest is submitted. Cardiac silhouette is mildly enlarged. No focal parenchymal or pleural disease. No acute bony abnormality. There is bilateral pulmonary vascular engorgement. IMPRESSION: Mild pulmonary edema and mild cardiomegaly.
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
[2017-11-22 00:29] LABS: ABSOLUTE EOSINOPHILS # (AUTO) 0.3 10^3/uL (0.0-0.6); ABSOLUTE LYMPHOCYTES (AUTO) 1.2 10^3/uL (0.5-4.7); ABSOLUTE MONOCYTES (AUTO) 0.4 10^3/uL (0.1-1.4); ABSOLUTE NEUT (AUTO) 5.1 10^3/uL (1.7-8.2); BASOPHILS % (AUTO) 0.3 % (0-2); HEMATOCRIT 32.8 % (36.0-47.0); HEMOGLOBIN 10.5 g/dL (12.0-15.5); LYMPHOCYTES % (AUTO) 17.4 % (13-45); MEAN CORPUSCULAR HEMOGLOBIN 23.7 pg (27.0-33.4); MEAN CORPUSCULAR HGB CONC 31.8 g/dL (32.0-36.0); MEAN CORPUSCULAR VOLUME 74 fl (80-97); MONOCYTES % (AUTO) 5.9 % (3-13); PLATELET COUNT 213 10^3/uL (150-450); RED BLOOD COUNT 4.42 10^6/uL (3.72-5.28); RED CELL DISTRIBUTION WIDTH 17.4 % (11.5-14.0); SEGMENTED NEUTROPHILS % (AUTO) 72.4 % (42-78); TOTAL CELLS COUNTED % (AUTO) 100 %; WHITE BLOOD COUNT 7.1 10^3/uL (4.0-10.5)
[2017-11-22 01:04] LABS: ALANINE AMINOTRANSFERASE 17 U/L (9-52); ALBUMIN 3.4 g/dL (3.5-5.0); ALKALINE PHOSPHATASE 60 U/L (38-126); ANION GAP 9 (5-19); ASPARTATE AMINO TRANSFERASE 17 U/L (14-36); BILIRUBIN,DIRECT 0.2 mg/dL (0.0-0.4); BILIRUBIN,TOTAL 0.3 mg/dL (0.2-1.3); BLOOD UREA NITROGEN 9 mg/dL (7-20); CALCIUM 8.7 mg/dL (8.4-10.2); CARBON DIOXIDE 25 mmol/L (22-30); CHLORIDE 106 mmol/L (98-107); GLUCOSE 106 mg/dL (75-110); POTASSIUM 4.3 mmol/L (3.6-5.0); TOTAL PROTEIN 7.4 g/dL (6.3-8.2)
[2017-11-22 01:17] LABS: NT PRO BNP 307 pg/mL (<125)
[2017-11-22 01:21] LABS: TROPONIN I < 0.012 ng/mL
[2017-11-22] MEDS ORDERED: FUROSEMIDE 40 MG TABLET PO ONE (02:19)
[2017-11-22] MEDS ORDERED: AMOXICILLIN TRIHYDRATE 500 MG CAPSULE PO ONE (02:21)
[2017-11-22 03:09] VITALS: BP 138/82
--- NOTE | 2017-11-22 10:27 | EKG REPORT ---
SEVERITY:- ABNORMAL ECG - SINUS TACHYCARDIA VENTRICULAR PREMATURE COMPLEX LEFT ATRIAL ABNORMALITY LEFT AXIS DEVIATION CONSIDER ANTEROSEPTAL INFARCT NONSPECIFIC T ABNORMALITIES, LATERAL LEADS : Confirmed by: Amy Montejo MD 22-Nov-2017 10:27:00
--- NOTE | 2017-11-22 10:27 | EKG REPORT ---
SEVERITY:- ABNORMAL ECG - SINUS RHYTHM PAIRED VENTRICULAR PREMATURE COMPLEXES PROBABLE LEFT ATRIAL ABNORMALITY LEFT AXIS DEVIATION CONSIDER ANTEROSEPTAL INFARCT BORDERLINE T WAVE ABNORMALITIES : Confirmed by: Amy Montejo MD 22-Nov-2017 10:26:55
== END 2017-11-22 03:11 | disposition home or self-care (01) ==
LOC: ER 21:04
DX: J40 Bronchitis, not specified as acute or chronic (principal); J98.01 Acute bronchospasm; I50.9 Heart failure, unspecified; R06.02 Shortness of breath; R05 Cough; I42.9 Cardiomyopathy, unspecified; R06.82 Tachypnea, not elsewhere classified; F17.200 Nicotine dependence, unspecified, uncomplicated; I25.10 Atherosclerotic heart disease of native coronary artery without angina pectoris; I10 Essential (primary) hypertension; J44.9 Chronic obstructive pulmonary disease, unspecified
CPT/HCPCS: 93005; 94640; 99285; 36415; 85025; 80053; 84484; 83880; 71045; 93010; A9270 ×4; J7512; J7620

== ENCOUNTER 2017-12-08 23:55 | Emergency (ER) | payer MEDICARE, MEDICAID ==
--- NOTE | 2017-12-09 00:47 | ER Document Report ---
ED General - General Chief Complaint: Shortness Of Breath Stated Complaint: SHORTNESS OF BREATH Time Seen by Provider: 12/09/17 00:30 Notes: Patient is a 42-year-old female, morbidly obese currently 200 kg, has a history of hypertension, hyperlipidemia, diabetes, sleep apnea, not currently using her CPAP machine due to apparently not having tubing for the machine, who presents with 48 hours of progressive worsening cough, shortness of breath, worsened on exertion. She states the symptoms have been getting progressively worse since she has been unable to use her CPAP machine. She has been taking Lasix 40 mill grams twice daily as directed by her primary care doctor. She also notes that her blood pressures continue to be elevated. Admits to ongoing significant dietary indiscretions. She has not seen her primary care doctor regarding today 's concerns. Nothing has improved her symptoms since onset. TRAVEL OUTSIDE OF THE [place] IN LAST 30 DAYS: No - Related Data Allergies/Adverse Reactions: lisinopril [Lisinopril] Allergy (Severe, Verified 07/12/17 10:03) Difficulty breathing levofloxacin [From Levaquin] Allergy (Verified 07/12/17 10:03) Past Medical History - General Information source: Patient - Social History Smoking Status: Current Some Day Smoker Chew tobacco use (# tins/day): No Frequency of alcohol use: None Drug Abuse: None Lives with: Spouse/Significant other Family History: Reviewed & Not Pertinent, CAD - Father with an ME in his 30s, Hyperlipidemia, Hypertension Patient has suicidal ideation: No Patient has homicidal ideation: No - Past Medical History Cardiac Medical History: Reports: Hx Congestive Heart Failure, Hx Coronary Artery Disease, Hx Heart Attack - 2007,2016, Hx Hypercholesterolemia, Hx Hypertension Pulmonary Medical History: Reports: Hx Asthma, Hx Bronchitis, Hx COPD, Hx Pneumonia, Hx Sleep Apnea Renal/ Medical History: Denies: Hx Peritoneal Dialysis GI Medical History: Reports: Hx Gastroesophageal Reflux Disease. Denies: Hx Pancreatitis Musculoskeletal Medical History: Reports Hx Arthritis Psychiatric Medical History: Reports: Hx Anxiety, Hx Depression - & anxiety Past Surgical History: Reports: Hx Section - x3, Hx Oral Surgery - wisdom tooth, Hx Orthopedic Surgery - left hand tendon repair, Hx Tonsillectomy - Immunizations Hx Diphtheria, Pertussis, Tetanus Vaccination: Yes Hx Pneumococcal Vaccination: 10/09/16 Review of Systems - Review of Systems Notes: Constitutional: Negative for fever. HENT: Negative for sore throat. Eyes: Negative for visual changes. Cardiovascular: Negative for chest pain. Respiratory: Positive for shortness of breath. Gastrointestinal: Negative for abdominal pain, vomiting or diarrhea. Genitourinary: Negative for dysuria. Musculoskeletal: Negative for back pain. Skin: Negative for rash. Neurological: Negative for headaches, weakness or numbness. 10 point ROS negative except as marked above and in HPI. Physical Exam - Vital signs Vitals: Temp Pulse Resp BP Pulse Ox 98.5 F 92 22 H 154/107 H 97 12/09/17 00:00 12/09/17 00:00 12/09/17 00:00 12/09/17 00:00 12/09/17 00:00 Interpretation: Hypertensive Notes: PHYSICAL EXAMINATION: GENERAL: Morbidly obese female, lying in bed, in no distress HEAD: Atraumatic, normocephalic. EYES: Pupils equal round and reactive to light, extraocular movements intact, sclera anicteric, conjunctiva are normal. ENT: nares patent, oropharynx clear without exudates. Moderately dry mucous membranes. NECK: Normal range of motion, supple without lymphadenopathy LUNGS: Limited secondary to body habitus. Breath sounds are present bilateral. HEART: Regular rate and rhythm without murmurs ABDOMEN: Soft, no focal tenderness, no guarding, no rebound. No masses appreciated. EXTREMITIES: Normal range of motion, 2+ pitting edema bilateral lower extremities that is equal and symmetric. No cyanosis. NEUROLOGICAL: No focal neurological deficits. Moves all extremities spontaneously and on command. PSYCH: Normal mood, normal affect. SKIN: Warm, Dry, normal turgor, no rashes or lesions noted. Course - Re-evaluation Re-evalutation: 12/09/17 00:47 Patient presents with progressively worsening shortness of breath over the past 2 days. At time of presentation vitals show hypertension but are otherwise within normal limits. The patient is PERC criteria negative. ACS seems improbable given the absence of chest pain, normal EKG. Troponin pending. Patient has a long-standing history of CHF, dietary noncompliance, and is not currently using her CPAP. Anticipate that lack of CPAP at night with her sleep apnea as well as ongoing morbid obesity exacerbating her underlying CHF is likely the etiology of today's presentation. Will obtain labs, chest x-ray, reassess the patient 12/09/17 03:06 Labs, chest x-ray completely unremarkable. I have emphasized the patient that a prominence of her symptoms is likely coming from the absence of nighttime CPAP. I have also again reviewed with her that she is almost 200 kg and emergently needs to lose weight as this is the direct cause of the majority of her subsequent illnesses including hypertension, sleep apnea and congestive heart failure. At this time will discharge with return precautions and follow- up recommendations. Verbal discharge instructions given a the bedside and opportunity for questions given. Medication warnings reviewed. Patient is in agreement with this plan and has verbalized understanding of return precautions and the need for primary care follow-up in the next 24-72 hours. - Vital Signs Vital signs: Temp Pulse Resp BP Pulse Ox 98.5 F 92 13 168/111 H 99 12/09/17 00:00 12/09/17 00:00 12/09/17 02:14 12/09/17 02:14 12/09/17 02:14 - Laboratory Result Diagrams: 12/09/17 01:01 12/09/17 01:21 Laboratory results interpreted by me: 12/09/17 12/09/17 12/09/17 01:01 01:01 01:21 Hgb 10.2 L Hct 32.3 L MCV 75 L MCH 23.6 L MCHC 31.5 L RDW 17.0 H Potassium 3.5 L Chloride 108 H Calcium 7.9 L NT-Pro-B Natriuret Pep 362 H - Diagnostic Test Radiology reviewed: Image reviewed, Reports reviewed Radiology results interpreted by me: 12/09/17 03:10 Chest x-ray: No acute infiltrate or pneumothorax Discharge - Discharge Clinical Impression: Morbid obesity, Shortness of breath CHF (congestive heart failure) Qualifiers: Heart failure type: unspecified Heart failure chronicity: unspecified Qualified Code(s): I50.9 - Heart failure, unspecified Condition: Stable Disposition: HOME, SELF-CARE Additional Instructions: Your shortness of breath is likely related to not having your CPAP machine at night as well as your morbid obesity. Your chest x-ray and labs are normal. Please return if you have worsening of your symptoms, chest pain, fever, vomiting or any other symptoms that are worrisome to you. As we discussed today, please strongly consider losing weight. Your obesity will result in a shorter life and serious diagnoses including heart attacks, stroke, diabetes, high blood pressure, high cholesterol, kidney failure, and will also result in a much less enjoyable life due to these chronic conditions. Focus on gradual life style changes including removing sugared beverages and processed foods from your diet and at least 30 minutes of moderate activity daily. Try to target 4-5lbs of weight loss per month. Referrals: PAZ QUINTEROS MD [Primary Care Provider] - Follow up as needed
[2017-12-09 01:09] LABS: ABSOLUTE EOSINOPHILS # (AUTO) 0.2 10^3/uL (0.0-0.6); ABSOLUTE LYMPHOCYTES (AUTO) 2.6 10^3/uL (0.5-4.7); ABSOLUTE MONOCYTES (AUTO) 0.5 10^3/uL (0.1-1.4); ABSOLUTE NEUT (AUTO) 3.5 10^3/uL (1.7-8.2); BASOPHILS % (AUTO) 0.7 % (0-2); EOSINOPHILS % (AUTO) 3.4 % (0-6); HEMATOCRIT 32.3 % (36.0-47.0); HEMOGLOBIN 10.2 g/dL (12.0-15.5); LYMPHOCYTES % (AUTO) 37.2 % (13-45); MEAN CORPUSCULAR HEMOGLOBIN 23.6 pg (27.0-33.4); MEAN CORPUSCULAR HGB CONC 31.5 g/dL (32.0-36.0); MEAN CORPUSCULAR VOLUME 75 fl (80-97); MONOCYTES % (AUTO) 7.6 % (3-13); PLATELET COUNT 185 10^3/uL (150-450); SEGMENTED NEUTROPHILS % (AUTO) 51.1 % (42-78); TOTAL CELLS COUNTED % (AUTO) 100 %; WHITE BLOOD COUNT 6.9 10^3/uL (4.0-10.5)
[2017-12-09 01:32] LABS: TROPONIN I 0.013 ng/mL
[2017-12-09 01:48] LABS: ANION GAP 5 (5-19); BLOOD UREA NITROGEN 10 mg/dL (7-20); CALCIUM 7.9 mg/dL (8.4-10.2); CARBON DIOXIDE 28 mmol/L (22-30); CHLORIDE 108 mmol/L (98-107); GLUCOSE 100 mg/dL (75-110); POTASSIUM 3.5 mmol/L (3.6-5.0); SODIUM 140.7 mmol/L (137-145)
--- NOTE | 2017-12-09 02:48 | RADIOLOGY REPORT (SQ) ---
EXAM DESCRIPTION: X-ray single view chest. CLINICAL HISTORY: 42 years Female, sob and cough COMPARISON: Prior portable chest performed on 11/21/2017 TECHNIQUE: Single portable view of the chest performed on 12/09/2017 at 2:24 AM FINDINGS: The lungs are well expanded and are clear. There is no evidence of a pneumothorax. The cardiac silhouette is stable and mildly prominent. The cardiac silhouette may be accentuated by the portable technique. The mediastinal contours are normal. No acute osseous abnormality is identified. No focal soft tissue abnormalities are seen. Lines and tubes: None. IMPRESSION: 1. Stable mild prominence of the cardiac silhouette which may be accentuated by the portable technique. 2. No definite acute intrathoracic disease.
[2017-12-09 03:44] VITALS: BP 140/111
--- NOTE | 2017-12-09 06:51 | EKG REPORT ---
SEVERITY:- ABNORMAL ECG - SINUS RHYTHM LEFT ANTERIOR FASCICULAR BLOCK PROBABLE LEFT VENTRICULAR HYPERTROPHY ANTERIOR Q WAVES, POSSIBLY DUE TO LVH vs ANT LA AGE INDETERMINATE : Confirmed by: Lacho Martinez 09-Dec-2017 06:50:07
== END 2017-12-09 03:44 | disposition home or self-care (01) ==
LOC: ER 23:55
DX: R06.02 Shortness of breath (principal); E66.01 Morbid (severe) obesity due to excess calories; I50.9 Heart failure, unspecified; F17.200 Nicotine dependence, unspecified, uncomplicated; E78.00 Pure hypercholesterolemia, unspecified; E11.9 Type 2 diabetes mellitus without complications; I11.0 Hypertensive heart disease with heart failure; I25.10 Atherosclerotic heart disease of native coronary artery without angina pectoris; I25.2 Old myocardial infarction
CPT/HCPCS: 36415; 71045; 80048; 83880; 84484; 85025; 93005; 93010; 99285

== ENCOUNTER 2017-12-17 12:04 | Observation (INO) | payer MEDICARE, MEDICAID ==
[2017-12-17] MEDS ORDERED: ASPIRIN 81 MG TABLET, CHEWABLE PO ONE (12:38)
--- NOTE | 2017-12-17 12:42 | ER Document Report ---
ED Medical Screen (RME) - General Chief Complaint: Chest Pain Stated Complaint: RESP DISTRESS Time Seen by Provider: 12/17/17 12:31 Mode of Arrival: Ambulatory Information source: Patient Notes: 42-year-old female presents emergency department with complaints of shortness of breath and chest pain. She states that the pain started this morning. She describes it as sharp and stabbing sensation located in the center of the chest. No radiation. She is having intermittent palpitations with the chest pain. The palpitations cause her to feel lightheaded and short of breath. She states that she is also having upper abdominal pain that is a sharp and stabbing sensation. She is having associated nausea and vomiting. She denies any diarrhea or constipation. Patient states that she does have a history of coronary artery disease. She has a history of hypertension, hyperlipidemia, smoking, family history of coronary artery disease. She has had stents placed. Patient denies any recent travel, recent surgery, calf pain, history of DVT or PE, calf swelling, hormone use, recent malignancy. I have greeted and performed a rapid initial assessment of this patient. A comprehensive ED assessment and evaluation of the patient, analysis of test results and completion of the medical decision making process will be conducted by additional ED providers. PHYSICAL EXAMINATION: GENERAL: Well-appearing, well-nourished and in no acute distress. HEAD: Atraumatic, normocephalic. EYES: Pupils equal round extraocular movements intact, conjunctiva are normal. ENT: Nares patent NECK: Normal range of motion LUNGS: No respiratory distress Musculoskeletal: Normal range of motion NEUROLOGICAL: Normal speech, normal gait. PSYCH: Normal mood, normal affect. SKIN: Warm, Dry, normal turgor, no rashes or lesions noted. TRAVEL OUTSIDE OF THE [place] IN LAST 30 DAYS: No - Related Data Allergies/Adverse Reactions: lisinopril [Lisinopril] Allergy (Severe, Verified 07/12/17 10:03) Difficulty breathing levofloxacin [From Levaquin] Allergy (Verified 07/12/17 10:03) Past Medical History - Past Medical History Cardiac Medical History: Reports: Hx Congestive Heart Failure, Hx Coronary Artery Disease, Hx Heart Attack - 2007,2016, Hx Hypercholesterolemia, Hx Hypertension Pulmonary Medical History: Reports: Hx Asthma, Hx Bronchitis, Hx COPD, Hx Pneumonia, Hx Sleep Apnea Renal/ Medical History: Denies: Hx Peritoneal Dialysis GI Medical History: Reports: Hx Gastroesophageal Reflux Disease. Denies: Hx Pancreatitis Musculoskeltal Medical History: Reports Hx Arthritis Psychiatric Medical History: Reports: Hx Anxiety, Hx Depression - & anxiety Past Surgical History: Reports: Hx Section - x3, Hx Oral Surgery - wisdom tooth, Hx Orthopedic Surgery - left hand tendon repair, Hx Tonsillectomy - Immunizations Hx Diphtheria, Pertussis, Tetanus Vaccination: Yes History of Influenza Vaccine for 12/2016 - 05/2017 Season: No Physical Exam - Vital signs Vitals: Temp Pulse Resp BP Pulse Ox 98.8 F 87 22 H 121/89 H 96 12/17/17 12:23 12/17/17 12:23 12/17/17 12:23 12/17/17 12:23 12/17/17 12:23 Course - Vital Signs Vital signs: Temp Pulse Resp BP Pulse Ox 98.8 F 87 22 H 121/89 H 96 12/17/17 12:23 12/17/17 12:23 12/17/17 12:23 12/17/17 12:23 12/17/17 12:23 Doctor's Discharge - Discharge Referrals: PAZ QUINTEROS MD [Primary Care Provider] - Follow up as needed
--- NOTE | 2017-12-17 13:02 | EKG REPORT ---
SEVERITY:- ABNORMAL ECG - SINUS RHYTHM PROBABLE LEFT ATRIAL ABNORMALITY LEFT VENTRICULAR HYPERTROPHY ANTERIOR Q WAVES, POSSIBLY DUE TO LVH BORDERLINE T ABNORMALITIES, INFERIOR LEADS : Confirmed by: Ruben Andrse MD 17-Dec-2017 13:02:08
--- NOTE | 2017-12-17 13:03 | ER Document Report ---
ED General - General Chief Complaint: Chest Pain Stated Complaint: RESP DISTRESS Time Seen by Provider: 12/17/17 12:31 Mode of Arrival: Ambulatory Notes: Patient is a 42-year-old female with CAD, CHF, hypertension that presents to the emergency department for chief complaint of shortness of breath and chest pain. Patient states she has been having chest pain on the left side of her chest and a heaviness in the middle of her chest like someone stepping on her chest. It started this morning. She is also been feeling palpitations associated and lightheadedness. The pain does seem to be worse with exertion, she currently rates it as a 6 out of 10, and sharp in nature. She states that this pain seems to be similar to the pain she has had in the past related to her CAD. She reports having a stent, that was placed in 2016, in [facility]. She also reports a history of CHF, and obstructive sleep apnea , but she is not currently wearing her CPAP machine. She was seen in the emergency department last week, and discharged to home. She does currently smoke, she has a strong family history of coronary disease in their 30s. Past Medical History: GERD, CAD, CHF, hypertension, obstructive sleep apnea, hyperlipidemia Past Surgical History: PCI with stenting Social History: Current tobacco smoker, denies alcohol or drug use Family History: Father had an PR in his 30s Allergies: Reviewed, see documented allergy list. REVIEW OF SYSTEMS: Unless otherwise stated in this report the patient's positive and negative responses for review of systems for constitutional, eyes, ENT, cardiovascular, respiratory, gastrointestinal, neurological, genitourinary, musculoskeletal, and integumentary systems and related systems to the presenting problem are either as stated in the HPI or were not pertinent or were negative for the symptoms and/or complaints related to the presenting medical problem. PHYSICAL EXAMINATION: Vital signs reviewed, nursing noted reviewed. GENERAL: Morbidly obese female, no acute distress HEAD: Atraumatic, normocephalic. EYES: Eyes appear normal, extraocular movements intact, sclera anicteric, conjunctiva are normal. ENT: nares patent, oropharynx clear without exudates. Moist mucous membranes. NECK: Normal range of motion, supple without lymphadenopathy LUNGS: Breath sounds clear to auscultation bilaterally and equal. No wheezes rales or rhonchi. HEART: Regular rate and rhythm without murmurs ABDOMEN: Soft, nontender, normoactive bowel sounds. No rebound, guarding, or rigidity. No masses appreciated. EXTREMITIES: Nontender, good range of motion, no pitting or edema. NEUROLOGICAL: No focal neurological deficits. Moves all extremities spontaneously Motor and sensory grossly intact on exam. PSYCH: Normal mood, normal affect. SKIN: Warm, Dry, normal turgor, no rashes or lesions noted on exposed skin TRAVEL OUTSIDE OF THE [place] IN LAST 30 DAYS: No - Related Data Allergies/Adverse Reactions: lisinopril [Lisinopril] Allergy (Severe, Verified 07/12/17 10:03) Difficulty breathing levofloxacin [From Levaquin] Allergy (Verified 07/12/17 10:03) Past Medical History - General Information source: Patient - Social History Smoking Status: Current Some Day Smoker Chew tobacco use (# tins/day): No Frequency of alcohol use: None Drug Abuse: None Family History: Reviewed & Not Pertinent, CAD - Father with an PR in his 30s, Hyperlipidemia, Hypertension Patient has suicidal ideation: No Patient has homicidal ideation: No - Past Medical History Cardiac Medical History: Reports: Hx Congestive Heart Failure, Hx Coronary Artery Disease, Hx Heart Attack - 2007,2015, Hx Hypercholesterolemia, Hx Hypertension Pulmonary Medical History: Reports: Hx Asthma, Hx Bronchitis, Hx COPD, Hx Pneumonia, Hx Sleep Apnea Renal/ Medical History: Denies: Hx Peritoneal Dialysis GI Medical History: Reports: Hx Gastroesophageal Reflux Disease. Denies: Hx Pancreatitis Musculoskeletal Medical History: Reports Hx Arthritis Psychiatric Medical History: Reports: Hx Anxiety, Hx Depression - & anxiety Past Surgical History: Reports: Hx Section - x3, Hx Oral Surgery - wisdom tooth, Hx Orthopedic Surgery - left hand tendon repair, Hx Tonsillectomy - Immunizations Hx Diphtheria, Pertussis, Tetanus Vaccination: Yes Hx Pneumococcal Vaccination: 10/09/16 Physical Exam - Vital signs Vitals: Temp Pulse Resp BP Pulse Ox 98.8 F 87 22 H 121/89 H 96 12/17/17 12:23 12/17/17 12:23 12/17/17 12:23 12/17/17 12:23 12/17/17 12:23 Course - Re-evaluation Re-evalutation: Patient seen and examined vital signs reviewed. Laboratory data and imaging were ordered as appropriate for the patient's presenting symptoms and complaint, with consideration of any critical or life threatening conditions that may be associated with their obtained history and exam as noted above. Patient was treated with aspirin Results were reviewed when available and demonstrated negative troponin and chest x-ray with exception of cardiomegaly, rest of her blood work was grossly unremarkable The patient was re-evaluated and was hemodynamically stable Evaluation was most consistent with chest pain, in a patient with significant risk factors for coronary disease including history of coronary artery disease and stenting, CHF, and super morbid obesity, I feel the patient need to be ruled out with 3 serial troponins, patient agreeable to this plan of care. Results were discussed with the patient at this point after careful consideration I feel that that patient should be admitted to the hospital. This was discussed with the patient that it is in the best interest for their care to be admitted for further evaluation and management. Patient agreed with this plan of care. A call was placed to the admitted physician, Dr. Costa who graciously accepted the patient onto their service. *Note is created using voice recognition software and may contain spelling, syntax or grammatical errors. HEART SCORE: HISTORY: 2 EK AGE: 1 RISK: 3 Troponin: 1 TOTAL: 6 Laboratory 12/17/17 12/17/17 12/17/17 12:27 12:57 12:57 WBC 7.5 RBC 5.01 Hgb 12.0 Hct 37.4 MCV 75 L MCH 23.9 L MCHC 32.0 RDW 17.4 H Plt Count 276 Seg Neutrophils % 50.9 Lymphocytes % 39.1 Monocytes % 6.5 Eosinophils % 3.0 Basophils % 0.5 Absolute Neutrophils 3.8 Absolute Lymphocytes 2.9 Absolute Monocytes 0.5 Absolute Eosinophils 0.2 Absolute Basophils 0.0 Sodium 141.9 Potassium 4.3 Chloride 106 Carbon Dioxide 28 Anion Gap 8 BUN 11 Creatinine 0.68 Est GFR ( Amer) > 60 Est GFR (Non-Af Amer) > 60 Glucose 104 Calcium 8.9 Total Bilirubin 0.7 Direct Bilirubin 0.2 Neonat Total Bilirubin Not Reportable Neonat Direct Bilirubin Not Reportable Neonat Indirect Bili Not Reportable AST 17 ALT 13 Alkaline Phosphatase 63 Creatine Kinase 54 CK-MB (CK-2) Troponin I Total Protein 8.1 Albumin 3.8 Urine Color YELLOW Urine Appearance CLOUDY Urine pH 5.0 Ur Specific [place] 1.031 Urine Protein 30 H Urine Glucose (UA) NEGATIVE Urine Ketones NEGATIVE Urine Blood NEGATIVE Urine Nitrite NEGATIVE Urine Bilirubin NEGATIVE Urine Urobilinogen 4.0 H Ur Leukocyte Esterase TRACE H Urine WBC (Auto) 7 Urine RBC (Auto) 7 Squamous Epi Cells Auto 13 Urine Mucus (Auto) FEW Urine Ascorbic Acid NEGATIVE Urine HCG, Qual NEGATIVE 12/17/17 12:57 WBC RBC Hgb Hct MCV MCH MCHC RDW Plt Count Seg Neutrophils % Lymphocytes % Monocytes % Eosinophils % Basophils % Absolute Neutrophils Absolute Lymphocytes Absolute Monocytes Absolute Eosinophils Absolute Basophils Sodium Potassium Chloride Carbon Dioxide Anion Gap BUN Creatinine Est GFR ( Amer) Est GFR (Non-Af Amer) Glucose Calcium Total Bilirubin Direct Bilirubin Neonat Total Bilirubin Neonat Direct Bilirubin Neonat Indirect Bili AST ALT Alkaline Phosphatase Creatine Kinase CK-MB (CK-2) 0.43 Troponin I < 0.012 Total Protein Albumin Urine Color Urine Appearance Urine pH Ur Specific [place] Urine Protein Urine Glucose (UA) Urine Ketones Urine Blood Urine Nitrite Urine Bilirubin Urine Urobilinogen Ur Leukocyte Esterase Urine WBC (Auto) Urine RBC (Auto) Squamous Epi Cells Auto Urine Mucus (Auto) Urine Ascorbic Acid Urine HCG, Qual Chest X-Ray 12/17/17 12:39 IMPRESSION: NO ACUTE RADIOGRAPHIC FINDING IN THE CHEST. - Vital Signs Vital signs: Temp Pulse Resp BP Pulse Ox 98.8 F 87 22 H 121/89 H 100 12/17/17 12:23 12/17/17 12:23 12/17/17 12:23 12/17/17 12:23 12/17/17 13:55 - Laboratory Result Diagrams: 12/17/17 12:57 12/17/17 12:57 Laboratory results interpreted by me: 12/17/17 12/17/17 12:27 12:57 MCV 75 L MCH 23.9 L RDW 17.4 H Urine Protein 30 H Urine Urobilinogen 4.0 H Ur Leukocyte Esterase TRACE H - EKG Interpretation by Me Additional EKG results interpreted by me: EKG demonstrates sinus rhythm with a ventricular rate of 84 bpm, left axis deviation, there are noted T wave inversions in leads II, III and aVF, Q waves in aVL, this is compared with prior EKG from 12/09/2017, without significant change. Discharge - Discharge Clinical Impression: Chest pain Qualifiers: Chest pain type: unspecified Qualified Code(s): R07.9 - Chest pain, unspecified Condition: Stable Disposition: ADMITTED OBSERVATION Admitting Provider: Hospitalist - Dr. Costa Unit Admitted: Telemetry
[2017-12-17 13:25] LABS: ABSOLUTE EOSINOPHILS # (AUTO) 0.2 10^3/uL (0.0-0.6); ABSOLUTE LYMPHOCYTES (AUTO) 2.9 10^3/uL (0.5-4.7); ABSOLUTE MONOCYTES (AUTO) 0.5 10^3/uL (0.1-1.4); ABSOLUTE NEUT (AUTO) 3.8 10^3/uL (1.7-8.2); BASOPHILS % (AUTO) 0.5 % (0-2); HEMATOCRIT 37.4 % (36.0-47.0); LYMPHOCYTES % (AUTO) 39.1 % (13-45); MEAN CORPUSCULAR HEMOGLOBIN 23.9 pg (27.0-33.4); MEAN CORPUSCULAR VOLUME 75 fl (80-97); MONOCYTES % (AUTO) 6.5 % (3-13); PLATELET COUNT 276 10^3/uL (150-450); RED BLOOD COUNT 5.01 10^6/uL (3.72-5.28); RED CELL DISTRIBUTION WIDTH 17.4 % (11.5-14.0); SEGMENTED NEUTROPHILS % (AUTO) 50.9 % (42-78); TOTAL CELLS COUNTED % (AUTO) 100 %; WHITE BLOOD COUNT 7.5 10^3/uL (4.0-10.5)
--- NOTE | 2017-12-17 13:38 | RADIOLOGY REPORT (SQ) ---
EXAM DESCRIPTION: CHEST 2 VIEWS COMPLETED DATE/TIME: 12/17/2017 1:22 pm REASON FOR STUDY: chest pain COMPARISON: 11/21/2017 EXAM PARAMETERS: NUMBER OF VIEWS: two views TECHNIQUE: Digital Frontal and Lateral radiographic views of the chest acquired. RADIATION DOSE: NA LIMITATIONS: none FINDINGS: LUNGS AND PLEURA: No opacities, masses or pneumothorax. No pleural effusion. MEDIASTINUM AND HILAR STRUCTURES: No masses or contour abnormalities. HEART AND VASCULAR STRUCTURES: Heart normal size. No evidence for failure. BONES: No acute findings. HARDWARE: None in the chest. OTHER: No other significant finding. IMPRESSION: NO ACUTE RADIOGRAPHIC FINDING IN THE CHEST. TECHNICAL DOCUMENTATION: JOB ID: [id number] [facility]- All Rights Reserved Reading location - IP/workstation name: [email or web address]
[2017-12-17 13:46] LABS: ALANINE AMINOTRANSFERASE 13 U/L (9-52); ALBUMIN 3.8 g/dL (3.5-5.0); ALKALINE PHOSPHATASE 63 U/L (38-126); ANION GAP 8 (5-19); ASPARTATE AMINO TRANSFERASE 17 U/L (14-36); BILIRUBIN,DIRECT 0.2 mg/dL (0.0-0.4); BILIRUBIN,TOTAL 0.7 mg/dL (0.2-1.3); BLOOD UREA NITROGEN 11 mg/dL (7-20); CALCIUM 8.9 mg/dL (8.4-10.2); CARBON DIOXIDE 28 mmol/L (22-30); CHLORIDE 106 mmol/L (98-107); CREATINE KINASE 54 U/L (30-135); GLUCOSE 104 mg/dL (75-110); POTASSIUM 4.3 mmol/L (3.6-5.0); SODIUM 141.9 mmol/L (137-145); TOTAL PROTEIN 8.1 g/dL (6.3-8.2)
[2017-12-17 13:51] LABS: APPEARANCE,URINE CLOUDY; BILIRUBIN,URINE NEGATIVE (NEGATIVE); GLUCOSE, URINE NEGATIVE (NEGATIVE); KETONES,URINE NEGATIVE (NEGATIVE); LEUKOCYTE ESTERASE,URINE TRACE (NEGATIVE); NITRITE,URINE NEGATIVE (NEGATIVE); PROTEIN,URINE 30 mg/dL (NEGATIVE); URINE SPECIFIC GRAVITY 1.031
[2017-12-17 13:52] LABS: COLOR,URINE YELLOW
[2017-12-17 13:59] LABS: CREATINE KINASE MB 0.43 ng/mL (<4.55)
[2017-12-17 14:00] LABS: TROPONIN I < 0.012 ng/mL
[2017-12-17] MEDS ORDERED: MAGNESIUM HYDROXIDE SUSP 30 ML UDCUP PO PRN (15:23)
[2017-12-17] MEDS ORDERED: ZOLPIDEM TARTRATE 5 MG TABLET PO PRN (15:23)
[2017-12-17] MEDS ORDERED: ACETAMINOPHEN 325 MG TABLET PO PRN (15:23)
[2017-12-17] MEDS ORDERED: ONDANSETRON HCL INJ/PF 4 MG/2 ML SDV IV PRN (15:23)
[2017-12-17] MEDS ORDERED: ONDANSETRON HCL INJ/PF 4 MG/2 ML SDV IV ONE (15:26)
[2017-12-17] MEDS ORDERED: MORPHINE SULFATE 10 MG/ML INJ IV PRN (15:35)
--- NOTE | 2017-12-17 16:17 | PDOC H&P ---
History of Present Illness Admission Date/PCP: 12/17/17 14:20 PAZ ALDAIR History of Present Illness: KEI PIERCE is a 42 year old female who presented to the emergency room with a 1 hour history of chest pain. She states that she began having severe sharp left-sided chest pain and a severe heaviness in the middle of her chest that she describes as a crushing weight sensation. After the chest pain seemed to subside a little she began having palpitations and dizziness/lightheadedness. She reports the nonradiating chest pain was accompanied by dyspnea as well as nausea without vomiting. She admits to having numerous episodes such as this in the past and like other episodes this episode was made worse with exertion. She acknowledges a history of coronary artery disease, congestive heart failure , hypertension and chronic obstructive sleep apnea. She admits that she has not been using her CPAP machine recently started being instructed to use the device when she was seen in the emergency room last week. Additionally she smokes and has a very strong family history of coronary artery disease with early . She had negative cardiac enzymes x2 and a negative EKG in the emergency room however because of her history of coronary artery disease she was admitted for observation status and cardiac consultation with her director consumer affairs Dr. Montejo. Past Medical History Cardiac Medical History: Reports: Congestive Heart Failure, Coronary Artery Disease, Myocardial Infarction - 2007,2016, Hyperlipidema, Hypertension Pulmonary Medical History: Reports: Asthma, Bronchitis, Chronic Obstructive Pulmonary Disease (COPD), Pneumonia, Sleep Apnea EENT Medical History: Reports: None Neurological Medical History: Denies: Hemorrhagic CVA, Ischemic CVA, Seizures Endocrine Medical History: Reports: Obesity Denies: Diabetes Mellitus Type 1, Hyperthyroidism, Hypothyroidism Renal/ Medical History: Denies: Chronic Kidney Disease, Nephrolithiasis Malignancy Medical History: Reports: None GI Medical History: Reports: Gastroesophageal Reflux Disease Denies: Crohn's Disease, Ulcerative Colitis Musculoskeltal Medical History: Reports: Arthritis Denies: Gout Skin Medical History: Denies: Eczema, Psoriasis Psychiatric Medical History: Reports: Depression - & anxiety, Tobacco Dependency Denies: Alcohol Dependency, General Anxiety Disorder, Substance Abuse Traumatic Medical History: Denies: None Hematology: Denies: Anemia, Sickle Cell Disease Infectious Medical History: Reports: None Past Surgical History Past Surgical History: Reports: Cardiac Catheterization, Section - x3, Orthopedic Surgery - left hand tendon repair, Tonsillectomy Denies: Amputation, Coronary Artery Bypass Graft, Coronary Stent, Valve Replacement Social History Information Source: Patient Smoking Status: Current Every Day Smoker Frequency of Alcohol Use: None Hx Recreational Drug Use: No Drugs: None Hx Prescription Drug Abuse: No Family History Family History: Reviewed & Not Pertinent, CAD - Father with an [place] in his 30s, Hyperlipidemia, Hypertension Parental Family History Reviewed: Yes Children Family History Reviewed: NA Sibling(s) Family History Reviewed.: Yes Medication/Allergy Allergies/Adverse Reactions: lisinopril [Lisinopril] Allergy (Severe, Verified 07/12/17 10:03) Difficulty breathing levofloxacin [From Levaquin] Allergy (Verified 07/12/17 10:03) Review of Systems Constitutional: ABSENT: chills, fever(s) Eyes: ABSENT: visual disturbances, other - Ocular pain Ears: ABSENT: hearing changes, other - Ear pain Nose, Mouth, and Throat: PRESENT: vertigo. ABSENT: mouth pain, sore throat Cardiovascular: PRESENT: chest pain, dyspnea on exertion, palpitations. ABSENT : edema, orthropnea Respiratory: PRESENT: dyspnea. ABSENT: cough, hemoptysis Gastrointestinal: PRESENT: abdominal pain - Off and on a few times a week, nausea. ABSENT: constipation, diarrhea, vomiting Genitourinary: ABSENT: dysuria, hematuria Musculoskeletal: PRESENT: back pain - Intermittent episodes of variable durations and frequencies.. ABSENT: deformity, joint swelling Integumentary: ABSENT: erythema, lesions, pruritus, rash Neurological: PRESENT: dizziness, vertigo. ABSENT: abnormal speech, confusion, convulsions, focal weakness, lack of coordination, memory loss, tremor(s), weakness Psychiatric: ABSENT: anxiety, depression Endocrine: ABSENT: cold intolerance Hematologic/Lymphatic: ABSENT: easy bleeding, easy bruising Allergic/Immunologic: ABSENT: seasonal rhinorrhea, other - Insect bite allergy Physical Exam Vital Signs: Temp Pulse Resp BP Pulse Ox 98.8 F 87 19 145/114 H 100 12/17/17 12:23 12/17/17 12:23 12/17/17 15:02 12/17/17 15:02 12/17/17 15:02 General appearance: PRESENT: no acute distress, cooperative, morbidly obese Head exam: PRESENT: atraumatic, normocephalic Eye exam: PRESENT: EOMI. ABSENT: conjunctival injection, nystagmus, scleral icterus Ear exam: PRESENT: normal external ear exam. ABSENT: drainage Mouth exam: PRESENT: moist, tongue midline Neck exam: ABSENT: thyromegaly, tracheal deviation Respiratory exam: PRESENT: clear to auscultation myranda, symmetrical, unlabored Cardiovascular exam: ABSENT: clicks, diastolic murmur, gallop, RRR, rubs, systolic murmur Pulses: PRESENT: normal radial pulses, normal dorsalis pedis pul Vascular exam: PRESENT: normal capillary refill. ABSENT: pallor GI/Abdominal exam: PRESENT: normal bowel sounds, soft Rectal exam: PRESENT: deferred Extremities exam: ABSENT: joint swelling, pedal edema Musculoskeletal exam: PRESENT: full ROM, normal inspection. ABSENT: deformity, dislocation Neurological exam: PRESENT: alert, awake, oriented to person, oriented to place , oriented to time, oriented to situation, CN II-XII grossly intact. ABSENT: motor sensory deficit Psychiatric exam: PRESENT: appropriate affect, normal mood Skin exam: ABSENT: jaundice, rash, urticaria Results Impressions: Chest X-Ray 12/17/17 12:39 IMPRESSION: NO ACUTE RADIOGRAPHIC FINDING IN THE CHEST. Assessment & Plan - Diagnosis (1) Chest pain Qualifiers: Chest pain type: unspecified Qualified Code(s): R07.9 - Chest pain, unspecified Is this a current diagnosis for this admission?: Yes Plan: Chest pain is not appear to be true angina although there may be some ischemic component though no evidence is noted on EKG or cardiac enzymes. (2) Chronic combined systolic (congestive) and diastolic (congestive) heart failure Is this a current diagnosis for this admission?: Yes Plan: Patient has been extensively evaluated for her heart failure in the past and has been on medications appropriate treating heart failure however not necessarily appropriate for her COPD due to her continued smoking. As result her cardiac regiment will be changed to metoprolol succinate 100 mg p.o. daily, atorvastatin 40 mg p.o. daily, losartan 25 mg p.o. daily, Demadex 40 mg p.o. daily & spironolactone 25 mg p.o. daily. Therapy will be reassessed on an ongoing basis. Morning laboratory tests are ordered including a CBC, BMP, magnesium, EKG, CK, CK-MB and troponin. Cardiology consult with Dr. Montejo will be obtained. (3) Morbid obesity with BMI of 60.0-69.9, adult Is this a current diagnosis for this admission?: Yes Plan: Recommendation patient to lose weight and consider diet or possibly surgical therapy as part of her course to better health was made. A brief discussion was entertained by the patient and then she seemed to dismiss the option. A low -fat continuous carbohydrate 3 plan diet will be used during her hospital course. (4) HTN (hypertension) Qualifiers: Hypertension type: essential hypertension Qualified Code(s): I10 - Essential (primary) hypertension Is this a current diagnosis for this admission?: Yes Plan: She will be maintained on her usual antihypertensive medication during her hospital course with adjustments being made only as necessary. (5) Heart palpitations Is this a current diagnosis for this admission?: Yes Plan: Patient is evidently had an extensive workup for this done by a director consumer affairs in [place]. There was no specific diagnosis given to the patient nor was any specific treatment given to her other than the treatment for her high blood pressure and other cardiac related problems. - Time Time Spent: 50 to 70 Minutes Critical Time spent with patient: Less than 15 minutes Smoking Cessation Education: 3 to 10 minutes Medications reviewed and adjusted accordingly: Yes Anticipated discharge: Home Within: within 24 hours
[2017-12-17] MEDS: DOCUSATE SODIUM 100 MG CAPSULE PO SCH (17:44)
[2017-12-17] MEDS: FAMOTIDINE 20 MG TABLET PO SCH (21:07)
[2017-12-17] MEDS: HEPARIN SOD (PORCINE) 5,000 UNIT/ML 1 ML SYRINGE SUBCUT SCH (21:08)
[2017-12-18 05:14] LABS: HEMATOCRIT 31.7 % (36.0-47.0); HEMOGLOBIN 10.2 g/dL (12.0-15.5); MEAN CORPUSCULAR HEMOGLOBIN 23.6 pg (27.0-33.4); MEAN CORPUSCULAR HGB CONC 32.1 g/dL (32.0-36.0); MEAN CORPUSCULAR VOLUME 74 fl (80-97); PLATELET COUNT 200 10^3/uL (150-450); RED BLOOD COUNT 4.31 10^6/uL (3.72-5.28); RED CELL DISTRIBUTION WIDTH 17.1 % (11.5-14.0); WHITE BLOOD COUNT 7.8 10^3/uL (4.0-10.5)
[2017-12-18] MEDS: HEPARIN SOD (PORCINE) 5,000 UNIT/ML 1 ML SYRINGE SUBCUT SCH ×3 (05:25→21:08)
[2017-12-18 05:52] LABS: ANION GAP 5 (5-19); BLOOD UREA NITROGEN 12 mg/dL (7-20); CALCIUM 8.2 mg/dL (8.4-10.2); CARBON DIOXIDE 27 mmol/L (22-30); CHLORIDE 106 mmol/L (98-107); CREATINE KINASE 42 U/L (30-135); GLUCOSE 106 mg/dL (75-110); POTASSIUM 4.1 mmol/L (3.6-5.0)
[2017-12-18 05:56] LABS: CREATINE KINASE MB 0.44 ng/mL (<4.55)
[2017-12-18 06:14] LABS: TROPONIN I < 0.012 ng/mL
--- NOTE | 2017-12-18 08:06 | EKG REPORT ---
SEVERITY:- ABNORMAL ECG - SINUS RHYTHM PROBABLE LEFT ATRIAL ABNORMALITY EXTENSIVE ANTERIOR INFARCT, RECENT NONSPECIFIC T ABNORMALITIES, INFERIOR LEADS : Confirmed by: Ruben Andres MD 18-Dec-2017 08:05:16
[2017-12-18] MEDS ORDERED: POTASSIUM CHLORIDE 10 MEQ CAPSULE.ER PO SCH (10:00)
[2017-12-18] MEDS: FAMOTIDINE 20 MG TABLET PO SCH ×2 (11:13→21:08)
[2017-12-18] MEDS: METOPROLOL SUCCINATE 50 MG TAB.SR.24H PO SCH (11:13)
[2017-12-18] MEDS: ATORVASTATIN CALCIUM 40 MG TABLET PO SCH (11:14)
[2017-12-18] MEDS: DOCUSATE SODIUM 100 MG CAPSULE PO SCH ×2 (11:14→18:09)
[2017-12-18] MEDS: TORSEMIDE 20 MG TABLET PO SCH (11:16)
[2017-12-18] MEDS: SPIRONOLACTONE 25 MG TABLET PO SCH (12:08)
[2017-12-18] MEDS: LOSARTAN POTASSIUM 25 MG TABLET PO SCH (12:08)
--- NOTE | 2017-12-18 13:04 | EKG REPORT ---
SEVERITY:- ABNORMAL ECG - SINUS RHYTHM PROBABLE LEFT ATRIAL ABNORMALITY BORDERLINE LEFT AXIS DEVIATION CONSIDER ANTEROSEPTAL INFARCT ABNORMAL T, CONSIDER ISCHEMIA, INFERIOR LEADS : Confirmed by: Ruben Andres MD 18-Dec-2017 13:04:11
--- NOTE | 2017-12-18 18:07 | PDOC PROGRESS REPORT ---
Subjective Progress Note for:: 12/18/17 Subjective:: Patient denied any ongoing chest pain. No palpitation, abdominal pain, nausea or vomiting. No fever or chills. Reason For Visit: CHEST PAIN Physical Exam Vital Signs: Temp Pulse Resp BP Pulse Ox 97.7 F 70 18 102/60 97 12/18/17 16:00 12/18/17 16:00 12/18/17 12:00 12/18/17 16:00 12/18/17 16:00 Intake & Output 12/17/17 12/18/17 12/19/17 06:59 06:59 06:59 Intake Total 444 1035 Balance 444 1035 Weight 199.8 kg General appearance: PRESENT: no acute distress, morbidly obese Head exam: PRESENT: atraumatic, normocephalic Eye exam: PRESENT: conjunctiva pink, EOMI, PERRLA. ABSENT: scleral icterus Ear exam: PRESENT: normal external ear exam Mouth exam: PRESENT: moist Respiratory exam: PRESENT: clear to auscultation myranda Cardiovascular exam: PRESENT: RRR. ABSENT: diastolic murmur, rubs, systolic murmur Vascular exam: ABSENT: pallor GI/Abdominal exam: PRESENT: normal bowel sounds, soft. ABSENT: distended, guarding, mass, organolmegaly, rebound, tenderness Extremities exam: ABSENT: pedal edema Musculoskeletal exam: PRESENT: normal inspection Neurological exam: PRESENT: alert, awake, oriented to person, oriented to place , oriented to time, oriented to situation, CN II-XII grossly intact. ABSENT: motor sensory deficit Psychiatric exam: PRESENT: appropriate affect, normal mood. ABSENT: homicidal ideation, suicidal ideation Skin exam: PRESENT: dry, warm Results Laboratory Results: 12/18/17 03:57 12/18/17 03:57 12/18/17 12/18/17 03:57 03:57 WBC 7.8 RBC 4.31 Hgb 10.2 L Hct 31.7 L MCV 74 L MCH 23.6 L MCHC 32.1 RDW 17.1 H Plt Count 200 Sodium 138.0 Potassium 4.1 Chloride 106 Carbon Dioxide 27 Anion Gap 5 BUN 12 Creatinine 0.68 Est GFR ( Amer) > 60 Est GFR (Non-Af Amer) > 60 Glucose 106 Calcium 8.2 L Magnesium 2.0 12/18/17 12/18/17 03:57 03:57 Creatine Kinase 42 CK-MB (CK-2) 0.44 Troponin I < 0.012 Impressions: Chest X-Ray 12/17/17 12:39 IMPRESSION: NO ACUTE RADIOGRAPHIC FINDING IN THE CHEST. Assessment & Plan - Diagnosis (1) Chest pain with high risk for cardiac etiology Is this a current diagnosis for this admission?: Yes Plan: She did ruled out for any acute cardiac event by serial cardiac enzymes. He pain most likely gastric reflux versus musculoskeletal in origin. Continue current PPI therapy and instruct patient on positional adaptation to aide management of reflux. (2) Chronic combined systolic (congestive) and diastolic (congestive) heart failure Is this a current diagnosis for this admission?: Yes Plan: Continue current medication management. (3) HTN (hypertension) Qualifiers: Hypertension type: essential hypertension Qualified Code(s): I10 - Essential (primary) hypertension Is this a current diagnosis for this admission?: Yes Plan: Continue current medication management. (4) Hypoventilation associated with obesity syndrome Is this a current diagnosis for this admission?: Yes Plan: Continue current medication management. (5) Morbid obesity with BMI of 70 and over, adult Is this a current diagnosis for this admission?: Yes Plan: Continue current medication management. - Time Time Spent with patient: 25-34 minutes Medications reviewed and adjusted accordingly: Yes Anticipated discharge: Home Within: within 24 hours - Plan Summary Plan Summary: Continue current medication management. Follow up on cardiology consultation with Dr. Torrez in view of her persistent abnormal 12 lead EKG. Patient expressed wish for discharge tomorrow morning.
[2017-12-18 19:24] LABS: ABSOLUTE EOSINOPHILS # (AUTO) 0.3 10^3/uL (0.0-0.6); ABSOLUTE MONOCYTES (AUTO) 0.6 10^3/uL (0.1-1.4); ABSOLUTE NEUT (AUTO) 4.4 10^3/uL (1.7-8.2); BASOPHILS % (AUTO) 0.4 % (0-2); EOSINOPHILS % (AUTO) 3.5 % (0-6); HEMATOCRIT 33.5 % (36.0-47.0); HEMOGLOBIN 10.6 g/dL (12.0-15.5); MEAN CORPUSCULAR HEMOGLOBIN 23.5 pg (27.0-33.4); MEAN CORPUSCULAR HGB CONC 31.6 g/dL (32.0-36.0); MEAN CORPUSCULAR VOLUME 74 fl (80-97); MONOCYTES % (AUTO) 7.2 % (3-13); PLATELET COUNT 247 10^3/uL (150-450); RED BLOOD COUNT 4.51 10^6/uL (3.72-5.28); SEGMENTED NEUTROPHILS % (AUTO) 52.9 % (42-78); TOTAL CELLS COUNTED % (AUTO) 100 %; WHITE BLOOD COUNT 8.4 10^3/uL (4.0-10.5)
[2017-12-18 20:00] LABS: CREATINE KINASE MB 0.58 ng/mL (<4.55)
[2017-12-18 20:03] LABS: TROPONIN I < 0.012 ng/mL
[2017-12-19] MEDS: HEPARIN SOD (PORCINE) 5,000 UNIT/ML 1 ML SYRINGE SUBCUT SCH ×2 (05:36→13:27)
[2017-12-19 06:22] LABS: HEMATOCRIT 31.3 % (36.0-47.0); MEAN CORPUSCULAR HEMOGLOBIN 23.6 pg (27.0-33.4); MEAN CORPUSCULAR HGB CONC 31.9 g/dL (32.0-36.0); MEAN CORPUSCULAR VOLUME 74 fl (80-97); PLATELET COUNT 182 10^3/uL (150-450); RED BLOOD COUNT 4.23 10^6/uL (3.72-5.28); RED CELL DISTRIBUTION WIDTH 17.5 % (11.5-14.0); WHITE BLOOD COUNT 7.7 10^3/uL (4.0-10.5)
[2017-12-19 06:44] LABS: ANION GAP 11 (5-19); BLOOD UREA NITROGEN 16 mg/dL (7-20); CALCIUM 8.3 mg/dL (8.4-10.2); CARBON DIOXIDE 24 mmol/L (22-30); CHLORIDE 104 mmol/L (98-107); GLUCOSE 101 mg/dL (75-110); SODIUM 138.8 mmol/L (137-145)
[2017-12-19] MEDS: TORSEMIDE 20 MG TABLET PO SCH (09:36)
[2017-12-19] MEDS: LOSARTAN POTASSIUM 25 MG TABLET PO SCH (09:36)
[2017-12-19] MEDS: FAMOTIDINE 20 MG TABLET PO SCH (09:36)
[2017-12-19] MEDS: ATORVASTATIN CALCIUM 40 MG TABLET PO SCH (09:36)
[2017-12-19] MEDS: DOCUSATE SODIUM 100 MG CAPSULE PO SCH ×2 (09:36→18:08)
[2017-12-19] MEDS: SPIRONOLACTONE 25 MG TABLET PO SCH (09:36)
--- NOTE | 2017-12-19 12:57 | Physician Advisory Note ---
Physician Advisor ProgressNote .: Pursuant to the plan for [facility], I have reviewed the medical record for this patient. Physician Advisor Statement: Please specify, by time of d/c, ONE most likely cause of pt's CP. Status - Medicare pt: If pt had ongoing or new CLINICAL need for 2nd MN in hospital last PM - not just waiting for solar site assessment specialist eval that was ordered (payer will say if consult wasn't done by end of 12/18, it was "delay of care " causing the 2nd MN rather than pt clinical issue) - then appropriate to change to Inpatient status with documentation of what attending's ongoing concerns were (even if she ends up able to go home later today). If she was just kept the 2nd MN b/c waiting for a solar site assessment specialist eval that wasn't done yet due to logistical issues unassociated with pt's clinical problems/tests , then should not be Inpt. Thanks! CK
[2017-12-19] MEDS ORDERED: MAG HYDROX/AL HYDROX/SIMETH SUSP 30 ML UDCUP PO PRN (13:12)
[2017-12-19] MEDS: METOPROLOL SUCCINATE 50 MG TAB.SR.24H PO SCH (13:26)
[2017-12-19] MEDS ORDERED: ONDANSETRON HCL INJ/PF 4 MG/2 ML SDV IV PRN (13:30)
[2017-12-19 20:11] VITALS: BP 109/71
--- NOTE | 2017-12-19 20:21 | PDOC DISCHARGE SUMMARY ---
General - Admit/Disc Date/PCP Admission Date/Primary Care Provider: 12/17/17 14:20 PAZ ALDAIR Discharge Date: 12/19/17 - Discharge Diagnosis (1) Chest pain with high risk for cardiac etiology Is this a current diagnosis for this admission?: Yes (2) Chronic combined systolic (congestive) and diastolic (congestive) heart failure Is this a current diagnosis for this admission?: Yes (3) HTN (hypertension) Is this a current diagnosis for this admission?: Yes (4) Hypoventilation associated with obesity syndrome Is this a current diagnosis for this admission?: Yes (5) Morbid obesity with BMI of 70 and over, adult Is this a current diagnosis for this admission?: Yes - Additional Information Resuscitation Status: Full Code Prescriptions: Atorvastatin Calcium [Lipitor 40 mg Tablet] 40 mg PO QHS #30 tablet Docusate Sodium [Colace 100 mg Capsule] 100 mg PO BID #60 capsule Famotidine [Pepcid 20 mg Tablet] 20 mg PO Q12 #60 tablet Losartan Potassium [Cozaar 25 mg Tablet] 25 mg PO DAILY #30 tablet Metoprolol Succinate 100 mg PO DAILY #30 tab.er.24h Spironolactone [Aldactone 25 mg Tablet] 25 mg PO DAILY #30 tablet Sucralfate [Carafate 1 gm Tablet] 1 gm PO ACHS #120 tablet Torsemide [Demadex 20 mg Tablet] 20 mg PO DAILY #30 tablet Home Medications: Atorvastatin Calcium [Lipitor 40 mg Tablet] 40 mg PO QHS #30 tablet 12/19/17 Docusate Sodium [Colace 100 mg Capsule] 100 mg PO BID #60 capsule 12/19/17 Famotidine [Pepcid 20 mg Tablet] 20 mg PO Q12 #60 tablet 12/19/17 Losartan Potassium [Cozaar 25 mg Tablet] 25 mg PO DAILY #30 tablet 12/19/17 Metoprolol Succinate 100 mg PO DAILY #30 tab.er.24h 12/19/17 Spironolactone [Aldactone 25 mg Tablet] 25 mg PO DAILY #30 tablet 12/19/17 Sucralfate [Carafate 1 gm Tablet] 1 gm PO ACHS #120 tablet 12/19/17 Torsemide [Demadex 20 mg Tablet] 20 mg PO DAILY #30 tablet 12/19/17 History of Present Illness Patient complains of: Left sided chest pain History of Present Illness: KEI PIERCE is a 42 year old female who presented to the emergency room with a 1 hour history of chest pain. She states that she began having severe sharp left-sided chest pain and a severe heaviness in the middle of her chest that she describes as a crushing weight sensation. After the chest pain seemed to subside a little she began having palpitations and dizziness/lightheadedness. She reports the nonradiating chest pain was accompanied by dyspnea as well as nausea without vomiting. She admits to having numerous episodes such as this in the past and like other episodes this episode was made worse with exertion. She acknowledges a history of coronary artery disease, congestive heart failure , hypertension and chronic obstructive sleep apnea. She admits that she has not been using her CPAP machine recently started being instructed to use the device when she was seen in the emergency room last week. Additionally she smokes and has a very strong family history of coronary artery disease with early . She had negative cardiac enzymes x2 and a negative EKG in the emergency room however because of her history of coronary artery disease she was admitted for observation status and cardiac consultation with her billing services manager Dr. Montejo. Hospital Course Hospital Course: Patient did ruled out for cardiac source of her chest pain. Her hospital stay was protracted due to continue concern for possible cardiac origin for her chest pain due to her persistent abnormal 12 lead EKG and recurrent complaint about chest pain. I discussed case at length with Dr. Torrez, billing services manager who agreed that she abnormal EKG could be due to lead misplacement versus body habitus. Patient cardiac catheterization in 2016 revealed clean coronaries. She denied any ongoing chest pain today. No difficulty with breathing. She will be discharged home on her current medication management and follow up with Dr. Torrez and myself as instructed upon discharge. Physical Exam Vital Signs: Temp Pulse Resp BP Pulse Ox 98.0 F 75 18 109/71 99 12/19/17 19:37 12/19/17 19:37 12/19/17 19:37 12/19/17 19:37 12/19/17 19:37 Intake & Output 12/18/17 12/19/17 12/20/17 06:59 06:59 06:59 Intake Total 444 2679 Balance 444 2679 Weight 199.8 kg 196.8 kg Physical Exam: General appearance: PRESENT: no acute distress, morbidly obese Head exam: PRESENT: atraumatic, normocephalic Eye exam: PRESENT: conjunctiva pink, EOMI, PERRLA. ABSENT: scleral icterus Ear exam: PRESENT: normal external ear exam Mouth exam: PRESENT: moist Respiratory exam: PRESENT: clear to auscultation myranda Cardiovascular exam: PRESENT: RRR. ABSENT: diastolic murmur, rubs, systolic murmur Vascular exam: ABSENT: pallor GI/Abdominal exam: PRESENT: normal bowel sounds, soft. ABSENT: distended, guarding, mass, organomegaly, rebound, tenderness Extremities exam: ABSENT: pedal edema Musculoskeletal exam: PRESENT: normal inspection Neurological exam: PRESENT: alert, awake, oriented to person, oriented to place , oriented to time, oriented to situation, CN II-XII grossly intact. ABSENT: motor sensory deficit Psychiatric exam: PRESENT: appropriate affect, normal mood. ABSENT: homicidal ideation, suicidal ideation Skin exam: PRESENT: dry, warm Results Laboratory Results: 12/19/17 05:13 12/19/17 05:13 12/19/17 12/19/17 05:13 05:13 WBC 7.7 RBC 4.23 Hgb 10.0 L Hct 31.3 L MCV 74 L MCH 23.6 L MCHC 31.9 L RDW 17.5 H Plt Count 182 Sodium 138.8 Potassium 4.0 Chloride 104 Carbon Dioxide 24 Anion Gap 11 BUN 16 Creatinine 0.73 Est GFR ( Amer) > 60 Est GFR (Non-Af Amer) > 60 Glucose 101 Calcium 8.3 L 12/18/17 12/18/17 12/18/17 03:57 03:57 19:05 Creatine Kinase 42 77 CK-MB (CK-2) 0.44 Troponin I < 0.012 12/18/17 19:05 Creatine Kinase CK-MB (CK-2) 0.58 Troponin I < 0.012 Impressions: Chest X-Ray 12/17/17 12:39 IMPRESSION: NO ACUTE RADIOGRAPHIC FINDING IN THE CHEST. Qualifiers - * PATIENT BEING DISCHARGED WITH ANY OF THE FOLLOWING DIAGNOSIS: No Plan Discharge Plan: Discharge home today. Follow up with Dr Torrez and myself as instructed upon discharge.
[2017-12-20] MEDS ORDERED: ATORVASTATIN CALCIUM 40 MG TABLET PO SCH (22:00)
== END 2017-12-19 20:55 | disposition home or self-care (01) ==
LOC: ER 12:04 → EH 14:20 → 4N 16:31
PROVIDERS: ADMIT Emergency Medicine; ATTEND Internal Medicine Geriatric Medicine
PROC: HZ31ZZZ Individual Counseling for Substance Abuse Treatment, Behavioral (ICD-10-PCS; principal; 2017-12-17)
PROC: 3E02340 Introduction of Influenza Vaccine into Muscle, Percutaneous Approach (ICD-10-PCS; 2017-12-19)
DX: R07.9 Chest pain, unspecified (principal); I11.0 Hypertensive heart disease with heart failure; I50.42 Chronic combined systolic (congestive) and diastolic (congestive) heart failure; E66.2 Morbid (severe) obesity with alveolar hypoventilation; R11.0 Nausea; R94.31 Abnormal electrocardiogram [ECG] [EKG]; F17.200 Nicotine dependence, unspecified, uncomplicated; R10.9 Unspecified abdominal pain; J44.9 Chronic obstructive pulmonary disease, unspecified; E78.5 Hyperlipidemia, unspecified; R00.2 Palpitations; I25.2 Old myocardial infarction; Z68.45 Body mass index [BMI] 70 or greater, adult; Z79.899 Other long term (current) drug therapy; Z82.49 Family history of ischemic heart disease and other diseases of the circulatory system; Z91.19 Patient's noncompliance with other medical treatment and regimen; Z23 Encounter for immunization
CPT/HCPCS: 93005 ×2; 99285; 96374; 36415 ×3; 82553 ×2; 82550 ×2; 83735; 85025 ×2; 85027 ×2; 81025; 80048 ×2; 80053; 81001; 84484 ×2; 83880; 71046; 90686; 93010 ×2; 94660 ×2; 99406; G0378 ×4; G0008; A9270 ×16; J1644 ×3; J3490 ×3; J2405; 90471

== ENCOUNTER 2018-05-08 14:19 | Emergency (ER) | payer MEDICARE, MEDICAID ==
--- NOTE | 2018-05-08 15:22 | ER Document Report ---
ED Medical Screen (RME) - General Chief Complaint: Cough Stated Complaint: COUGH Time Seen by Provider: 05/08/18 15:13 Primary Care Provider: PAZ QUINTEROS MD [Primary Care Provider] - Follow up as needed Mode of Arrival: Wheelchair Information source: Patient Notes: This is a 42-year-old female with a history of obesity, obstructive sleep apnea, coronary artery disease (2 stents) who presents to the emergency room with a persistent cough, episodes of chest pain, dizziness for the past week. TRAVEL OUTSIDE OF THE [place] IN LAST 30 DAYS: No - Related Data Allergies/Adverse Reactions: lisinopril [Lisinopril] Allergy (Severe, Verified 12/31/17 15:04) Difficulty breathing levofloxacin [From Levaquin] Allergy (Verified 12/31/17 15:04) Past Medical History - Social History Chew tobacco use (# tins/day): No Frequency of alcohol use: None Drug Abuse: None - Past Medical History Cardiac Medical History: Reports: Hx Congestive Heart Failure, Hx Coronary Artery Disease, Hx Heart Attack - 2007,2015, Hx Hypercholesterolemia, Hx Hypertension Pulmonary Medical History: Reports: Hx Asthma, Hx Bronchitis, Hx COPD, Hx Pneumonia, Hx Sleep Apnea Neurological Medical History: Denies: Hx Seizures Endocrine Medical History: Denies: Hx Diabetes Mellitus Type 1, Hx Hy perthyroidism, Hx Hypothyroidism Renal/ Medical History: Denies: Hx Peritoneal Dialysis GI Medical History: Reports: Hx Gastroesophageal Reflux Disease. Denies: Hx Crohn's Disease, Hx Pancreatitis, Hx Ulcerative Colitis Musculoskeltal Medical History: Reports Hx Arthritis, Denies Hx Gout Skin Medical History: Denies Hx Eczema, Denies Hx Psoriasis Psychiatric Medical History: Reports: Hx Anxiety, Hx Depression - & anxiety Past Surgical History: Reports: Hx Cardiac Catheterization, Hx Section - x3, Hx Oral Surgery - wisdom tooth, Hx Orthopedic Surgery - left hand tendon repair, Hx Tonsillectomy. Denies: Hx Coronary Artery Bypass Graft, Hx Coronary Stent, Hx Valve Replacement - Immunizations Hx Diphtheria, Pertussis, Tetanus Vaccination: Yes History of Influenza Vaccine for 12/2016 - 05/2017 Season: No Physical Exam - Vital signs Vitals: Temp Pulse Resp BP Pulse Ox 97.4 F 88 20 141/99 H 96 05/08/18 14:36 05/08/18 14:36 05/08/18 14:36 05/08/18 14:36 05/08/18 14:36 Course - Vital Signs Vital signs: Temp Pulse Resp BP Pulse Ox 97.4 F 88 20 141/99 H 96 05/08/18 14:36 05/08/18 14:36 05/08/18 14:36 05/08/18 14:36 05/08/18 14:36 Doctor's Discharge - Discharge Referrals: PAZ QUINTEROS MD [Primary Care Provider] - Follow up as needed
[2018-05-08 15:51] LABS: ABSOLUTE EOSINOPHILS # (AUTO) 0.2 10^3/uL (0.0-0.6); ABSOLUTE LYMPHOCYTES (AUTO) 3.4 10^3/uL (0.5-4.7); ABSOLUTE MONOCYTES (AUTO) 0.5 10^3/uL (0.1-1.4); ABSOLUTE NEUT (AUTO) 3.8 10^3/uL (1.7-8.2); BASOPHILS % (AUTO) 0.5 % (0-2); EOSINOPHILS % (AUTO) 2.9 % (0-6); HEMOGLOBIN 12.2 g/dL (12.0-15.5); MEAN CORPUSCULAR HEMOGLOBIN 23.7 pg (27.0-33.4); MEAN CORPUSCULAR HGB CONC 32.1 g/dL (32.0-36.0); MEAN CORPUSCULAR VOLUME 74 fl (80-97); MONOCYTES % (AUTO) 5.9 % (3-13); PLATELET COUNT 244 10^3/uL (150-450); RED BLOOD COUNT 5.14 10^6/uL (3.72-5.28); RED CELL DISTRIBUTION WIDTH 18.2 % (11.5-14.0); SEGMENTED NEUTROPHILS % (AUTO) 47.7 % (42-78); TOTAL CELLS COUNTED % (AUTO) 100 %
--- NOTE | 2018-05-08 16:17 | RADIOLOGY REPORT (SQ) ---
EXAM DESCRIPTION: CHEST SINGLE VIEW COMPLETED DATE/TIME: 05/08/2018 3:51 pm REASON FOR STUDY: cough, cp COMPARISON: 12/17/2017 EXAM PARAMETERS: NUMBER OF VIEWS: One view. TECHNIQUE: Single frontal radiographic view of the chest acquired. RADIATION DOSE: NA LIMITATIONS: None. FINDINGS: LUNGS AND PLEURA: Subsegmental parenchymal density partially silhouetting the left diaphra gm. No effusions. MEDIASTINUM AND HILAR STRUCTURES: No masses. Contour normal. HEART AND VASCULAR STRUCTURES: Heart normal in size. Normal vasculature. BONES: No acute findings. HARDWARE: None in the chest. OTHER: No other significant finding. IMPRESSION: Atelectasis or early pneumonia left lower lobe. TECHNICAL DOCUMENTATION: JOB ID: [id number] [employer]- All Rights Reserved Reading location - IP/workstation name: [email or web address]
[2018-05-08 16:18] LABS: ALANINE AMINOTRANSFERASE 10 U/L (9-52); ALBUMIN 4.1 g/dL (3.5-5.0); ALKALINE PHOSPHATASE 71 U/L (38-126); ANION GAP 9 (5-19); ASPARTATE AMINO TRANSFERASE 22 U/L (14-36); BILIRUBIN,DIRECT 0.3 mg/dL (0.0-0.4); BILIRUBIN,TOTAL 0.4 mg/dL (0.2-1.3); BLOOD UREA NITROGEN 14 mg/dL (7-20); CALCIUM 9.6 mg/dL (8.4-10.2); CARBON DIOXIDE 35 mmol/L (22-30); CHLORIDE 99 mmol/L (98-107); CREATINE KINASE 102 U/L (30-135); GLUCOSE 112 mg/dL (75-110); POTASSIUM 3.7 mmol/L (3.6-5.0); SODIUM 143.4 mmol/L (137-145); TOTAL PROTEIN 8.2 g/dL (6.3-8.2)
[2018-05-08 16:54] LABS: CREATINE KINASE MB 0.47 ng/mL (<4.55)
[2018-05-08 17:02] LABS: TROPONIN I < 0.012 ng/mL
[2018-05-08] MEDS ORDERED: DOXYCYCLINE HYCLATE 100 MG TABLET PO ONE (17:11)
[2018-05-08] MEDS ORDERED: ALBUTEROL SULFATE HFA (90 MCG/PUFF) 8 GM MDI (1 MDI/ER DISP) IH SCH (17:15)
--- NOTE | 2018-05-08 17:40 | ER Document Report ---
ED General - General Chief Complaint: Cough Stated Complaint: COUGH Time Seen by Provider: 05/08/18 15:13 Primary Care Provider: PAZ QUINTEROS MD [Primary Care Provider] - Follow up as needed Mode of Arrival: Wheelchair TRAVEL OUTSIDE OF THE [place] IN LAST 30 DAYS: No - HPI Notes: Patient presents to the emergency department for evaluation of cough, dizziness. Symptoms been present for the last 2 weeks. Her cough does not seem to be getting better. She feels very weak. She states she is dizzy when she tries to walk. She has had intermittent episodes of chest pain, worse with coughing. She described it as an ache. - Related Data Allergies/Adverse Reactions: lisinopril [Lisinopril] Allergy (Severe, Verified 12/31/17 15:04) Difficulty breathing levofloxacin [From Levaquin] Allergy (Verified 12/31/17 15:04) Past Medical History - General Information source: Patient - Social History Smoking Status: Current Every Day Smoker Chew tobacco use (# tins/day): No Frequency of alcohol use: None Drug Abuse: None Family History: Reviewed & Not Pertinent, CAD - Father with an PR in his 30s, H yperlipidemia, Hypertension Patient has suicidal ideation: No Patient has homicidal ideation: No - Past Medical History Cardiac Medical History: Reports: Hx Congestive Heart Failure, Hx Coronary Artery Disease, Hx Heart Attack - 2007,2016, Hx Hypercholesterolemia, Hx Hypertension Pulmonary Medical History: Reports: Hx Asthma, Hx Bronchitis, Hx COPD, Hx Pneumonia, Hx Sleep Apnea Neurological Medical History: Denies: Hx Seizures Endocrine Medical History: Denies: Hx Diabetes Mellitus Type 1, Hx Hyperthyroidism, Hx Hypothyroidism Renal/ Medical History: Denies: Hx Peritoneal Dialysis GI Medical History: Reports: Hx Gastroesophageal Reflux Disease. Denies: Hx Crohn's Disease, Hx Pancreatitis, Hx Ulcerative Colitis Musculoskeletal Medical History: Reports Hx Arthritis, Denies Hx Gout Skin Medical History: Denies Hx Eczema, Denies Hx Psoriasis Psychiatric Medical History: Reports: Hx Anxiety, Hx Depression - & anxiety Past Surgical History: Reports: Hx Cardiac Catheterization, Hx Section - x3, Hx Oral Surgery - wisdom tooth, Hx Orthopedic Surgery - left hand tendon repair, Hx Tonsillectomy. Denies: Hx Coronary Artery Bypass Graft, Hx Coronary Stent, Hx Valve Replacement - Immunizations Hx Diphtheria, Pertussis, Tetanus Vaccination: Yes Hx Pneumococcal Vaccination: 10/09/16 Review of Systems - Review of Systems Constitutional: Malaise, Weakness EENT: No symptoms reported Cardiovascular: See HPI Respiratory: See HPI Gastrointestinal: No symptoms reported Musculoskeletal: No symptoms reported Skin: No symptoms reported Neurological/Psychological: No symptoms reported Physical Exam - Vital signs Vitals: Temp Pulse Resp BP Pulse Ox 97.4 F 88 20 141/99 H 96 05/08/18 14:36 05/08/18 14:36 05/08/18 14:36 05/08/18 14:36 05/08/18 14:36 Interpretation: Hypertensive - Notes Notes: Vital signs reviewed, please refer to chart. Patient is normocephalic, atraumatic. Pupils equal round, reactive to light. Neck is supple without meningismus. Heart is regular rate and rhythm. Lungs exam reveals mildly diminished breath sounds in the left lower lobe. Abdomen is soft, nontender, normoactive bowel sounds throughout. Extremities without cyanosis, clubbing. Peripheral pulses are equal. Skin is warm and dry. Patient is awake, alert, x3. Cranial nerves II through XII are grossly intact without focal neurological deficits. Strength is plus 5 out of 5 bilateral upper and lower extremities. Sensation is intact. Intact finger nose finger, rapid alternating movements, heel to alcocer. Course - Re-evaluation Re-evalutation: 05/08/18 17:38 Evaluation. She complained of some chest pain and dizziness, but primarily gets the cough that is her concern. She had initial orders as placed by physician in triage. Laboratory investigations were entirely unremarkable. Chest x-ray was suspicious for pneumonia. The patient is advised to quit smoking. She is allergic to Levaquin. Given the need for coverage of atypicals, I did decide to treat the patient with doxycycline. She was also given an albuterol inhaler here. 05/08/18 17:56 Patient feeling improved after even just inhaler. EKG unchanged. We will send her home with prescription for doxycycline, albuterol inhaler instructions, close follow-up. She is to return with worsening. - Vital Signs Vital signs: Temp Pulse Resp BP Pulse Ox 97.4 F 88 19 145/74 H 96 05/08/18 14:36 05/08/18 14:36 05/08/18 17:41 05/08/18 17:41 05/08/18 17:41 - Laboratory Result Diagrams: 05/08/18 15:35 05/08/18 15:35 Laboratory results interpreted by me: 05/08/18 05/08/18 15:35 15:35 MCV 74 L MCH 23.7 L RDW 18.2 H Carbon Dioxide 35 H Glucose 112 H - Diagnostic Test Radiology reviewed: Reports reviewed - Left lower lobe pneumonia - EKG Interpretation by Me Additional EKG results interpreted by me: 05/08/18 17:56 EKG reveals a sinus mechanism with a rate of 79 bpm. PVCs. IVCD. Left axis deviation. Nonspecific ST changes. No significant change when compared to prior study of December 31, 2017. Discharge - Discharge Clinical Impression: Pneumonia, Dizziness Disposition: HOME, SELF-CARE Instructions: Pneumonia (OM) Additional Instructions: Take antibiotics as prescribed until gone. Use albuterol inhaler, 1-2 puffs every 4-6 hours as needed. Follow-up with your doctor at the beginning of next week. If you develop worsening or new concerning symptoms of any sort, return i mmediately to the emergency department for reevaluation. Referrals: PAZ QUINTEROS MD [Primary Care Provider] - Follow up as needed
--- NOTE | 2018-05-08 18:14 | EKG REPORT ---
SEVERITY:- ABNORMAL ECG - SINUS RHYTHM PAIRED VENTRICULAR PREMATURE COMPLEXES LEFT ATRIAL ABNORMALITY LVH WITH IVCD, LAD AND SECONDARY REPOL ABNRM : Confirmed by: Amy Montejo MD 08-May-2018 18:13:36
[2018-05-08 18:39] VITALS: BP 123/80
== END 2018-05-08 18:52 | disposition home or self-care (01) ==
LOC: ER 14:19
DX: J18.9 Pneumonia, unspecified organism (principal); R42 Dizziness and giddiness; R53.1 Weakness; F17.200 Nicotine dependence, unspecified, uncomplicated; I50.9 Heart failure, unspecified; I25.10 Atherosclerotic heart disease of native coronary artery without angina pectoris; E78.00 Pure hypercholesterolemia, unspecified; I11.0 Hypertensive heart disease with heart failure; J44.9 Chronic obstructive pulmonary disease, unspecified; Z88.3 Allergy status to other anti-infective agents; I25.2 Old myocardial infarction
CPT/HCPCS: 93005; 99284; 36415; 82553; 82550; 85025; 80053; 84484; 71045; 93010; A9270; J3490

== ENCOUNTER 2018-05-27 18:36 | Emergency (ER) | payer MEDICARE, MEDICAID ==
[2018-05-27 19:05] VITALS: BP 142/109
--- NOTE | 2018-05-27 19:12 | ER Document Report ---
ED Medical Screen (RME) - General Chief Complaint: Chest Pain Stated Complaint: COUGH Time Seen by Provider: 05/27/18 18:58 Primary Care Provider: PAZ QUINTEROS MD [Primary Care Provider] - Follow up as needed Notes: Patient is a 42-year-old female with history of CAD that presents to the emergency department for chief complaint of chest pain and cough. Reports symptoms have been going on for a few days, but the chest pain started today describes it on the middle of her chest going towards the right arm, history of 2 stents. ROS: Other than noted above, the 12 point review of systems was reviewed with the patient and were negative, all pertinent findings are included in the HPI. PHYSICAL EXAMINATION: Vital signs reviewed. GENERAL: Morbidly obese female, in no acute distress HEAD: Atraumatic, normocephalic. EYES: Pupils equal round extraocular movements intact, conjunctiva are normal. ENT: Nares patent NECK: Normal range of motion CV: Heart regular rate and rhythm LUNGS: No respiratory distress Musculoskeletal: Normal range of motion NEUROLOGICAL: Normal speech PSYCH: Normal mood, normal affect. MDM: Patient seen and examined for rapid initial assessment. Vital signs reviewed. A comprehensive ED assessment and evaluation of the patient, analysis of test results and completion of the medical decision making process will be conducted by additional ED providers. *Note is created using voice recognition software and may contain spelling, syntax or grammatical errors. TRAVEL OUTSIDE OF THE [place] IN LAST 30 DAYS: No - Related Data Allergies/Adverse Reactions: lisinopril [Lisinopril] Allergy (Severe, Verified 05/27/18 18:40) Difficulty breathing levofloxacin [From Levaquin] Allergy (Verified 05/27/18 18:40) Past Medical History - Past Medical History Cardiac Medical History: Reports: Hx Congestive Heart Failure, Hx Coronary Art liss Disease, Hx Heart Attack - 2007,2016, Hx Hypercholesterolemia, Hx Hypertension Pulmonary Medical History: Reports: Hx Asthma, Hx Bronchitis, Hx COPD, Hx Pneumonia, Hx Sleep Apnea Neurological Medical History: Denies: Hx Seizures Endocrine Medical History: Denies: Hx Diabetes Mellitus Type 1, Hx Hyperthyroidism, Hx Hypothyroidism Renal/ Medical History: Denies: Hx Peritoneal Dialysis GI Medical History: Reports: Hx Gastroesophageal Reflux Disease. Denies: Hx Crohn's Disease, Hx Pancreatitis, Hx Ulcerative Colitis Musculoskeltal Medical History: Reports Hx Arthritis, Denies Hx Gout Skin Medical History: Denies Hx Eczema, Denies Hx Psoriasis Psychiatric Medical History: Reports: Hx Anxiety, Hx Depression - & anxiety Past Surgical History: Reports: Hx Cardiac Catheterization, Hx Section - x3, Hx Oral Surgery - wisdom tooth, Hx Orthopedic Surgery - left hand tendon repair, Hx Tonsillectomy. Denies: Hx Coronary Artery Bypass Graft, Hx Coronary Stent, Hx Valve Replacement - Immunizations Hx Diphtheria, Pertussis, Tetanus Vaccination: Yes History of Influenza Vaccine for 12/2016 - 05/2017 Season: No Physical Exam - Vital signs Vitals: Temp Pulse Resp BP Pulse Ox 98.8 F 94 24 H 142/109 H 97 05/27/18 18:53 05/27/18 18:53 05/27/18 18:53 05/27/18 18:53 05/27/18 18:53 Course - Vital Signs Vital signs: Temp Pulse Resp BP Pulse Ox 98.8 F 94 24 H 142/109 H 97 05/27/18 18:53 05/27/18 18:53 05/27/18 18:53 05/27/18 18:53 05/27/18 18:53 Doctor's Discharge - Discharge Referrals: PAZ QUINTEROS MD [Primary Care Provider] - Follow up as needed
[2018-05-27] MEDS ORDERED: NITROGLYCERIN 0.4 MG/TAB 25 TAB/BOTTLE SL PRN (19:48)
--- NOTE | 2018-05-27 19:58 | RADIOLOGY REPORT (SQ) ---
EXAM DESCRIPTION: Earlier CHEST SINGLE VIEW COMPLETED DATE/TIME: 05/27/2018 7:44 pm REASON FOR STUDY: chest pain COMPARISON: 379 EXAM PARAMETERS: NUMBER OF VIEWS: One view. TECHNIQUE: Single frontal radiographic view of the chest acquired. RADIATION DOSE: NA LIMITATIONS: None. FINDINGS: LUNGS AND PLEURA: No opacities, masses or pneumothorax. No pleural effusion. MEDIASTINUM AND HILAR STRUCTURES: No masses. Contour normal. HEART AND VASCULAR STRUCTURES: Heart normal in size. Normal vasculature. BONES: No acute findings. HARDWARE: None in the chest. OTHER: No other significant finding. IMPRESSION: NO ACUTE RADIOGRAPHIC FINDING IN THE CHEST. TECHNICAL DOCUMENTATION: JOB ID: [id number]- All Rights Reserved Reading location - IP/workstation name: [email or web address]
[2018-05-27 20:20] LABS: ABSOLUTE EOSINOPHILS # (AUTO) 0.2 10^3/uL (0.0-0.6); ABSOLUTE LYMPHOCYTES (AUTO) 2.8 10^3/uL (0.5-4.7); ABSOLUTE MONOCYTES (AUTO) 0.5 10^3/uL (0.1-1.4); ABSOLUTE NEUT (AUTO) 4.5 10^3/uL (1.7-8.2); BASOPHILS % (AUTO) 0.4 % (0-2); EOSINOPHILS % (AUTO) 2.8 % (0-6); HEMATOCRIT 33.9 % (36.0-47.0); HEMOGLOBIN 10.8 g/dL (12.0-15.5); LYMPHOCYTES % (AUTO) 34.9 % (13-45); MEAN CORPUSCULAR HEMOGLOBIN 23.6 pg (27.0-33.4); MEAN CORPUSCULAR HGB CONC 31.9 g/dL (32.0-36.0); MEAN CORPUSCULAR VOLUME 74 fl (80-97); PLATELET COUNT 192 10^3/uL (150-450); RED BLOOD COUNT 4.58 10^6/uL (3.72-5.28); RED CELL DISTRIBUTION WIDTH 18.6 % (11.5-14.0); SEGMENTED NEUTROPHILS % (AUTO) 55.9 % (42-78); TOTAL CELLS COUNTED % (AUTO) 100 %
[2018-05-27 20:26] LABS: INTERNATIONAL RATION (INR) 0.95; PROTHROMBIN TIME 13.2 SEC (11.4-15.4)
[2018-05-27 20:27] LABS: PARTIAL THROMBOPLASTIN TIME 31.7 SEC (23.5-35.8)
[2018-05-27 20:29] LABS: D-DIMER 0.66 ug/mL (0.00-0.50)
[2018-05-27 20:41] LABS: ALANINE AMINOTRANSFERASE 26 U/L (9-52); ALBUMIN 3.4 g/dL (3.5-5.0); ALKALINE PHOSPHATASE 64 U/L (38-126); ANION GAP 8 (5-19); ASPARTATE AMINO TRANSFERASE 17 U/L (14-36); BILIRUBIN,DIRECT 0.2 mg/dL (0.0-0.4); BILIRUBIN,TOTAL 0.3 mg/dL (0.2-1.3); BLOOD UREA NITROGEN 11 mg/dL (7-20); CALCIUM 8.3 mg/dL (8.4-10.2); CARBON DIOXIDE 29 mmol/L (22-30); CHLORIDE 103 mmol/L (98-107); CREATINE KINASE 73 U/L (30-135); GLUCOSE 104 mg/dL (75-110); POTASSIUM 3.3 mmol/L (3.6-5.0); SODIUM 139.6 mmol/L (137-145); TOTAL PROTEIN 7.3 g/dL (6.3-8.2)
[2018-05-27 20:53] LABS: CREATINE KINASE MB 0.23 ng/mL (<4.55); NT PRO BNP 216 pg/mL (<125)
[2018-05-27 20:55] LABS: TROPONIN I < 0.012 ng/mL
--- NOTE | 2018-05-27 21:52 | EKG REPORT ---
SEVERITY:- ABNORMAL ECG - SINUS RHYTHM VENTRICULAR PREMATURE COMPLEX LEFT ATRIAL ABNORMALITY LEFT AXIS DEVIATION LVH WITH SECONDARY REPOLARIZATION ABNORMALITY ANTERIOR Q WAVES, POSSIBLY DUE TO LVH : Confirmed by: Amy Montejo MD 27-May-2018 21:52:19
--- NOTE | 2018-05-27 22:03 | ER Document Report ---
Doctor's Note Notes: 05/27/18 21:47 I went into the room to assess patient. Patient refused to answer my questions saying that she has been asked the same question before by another provider in triage and that I need to go and read the initial providers notes because she does not want to talk to me. I explained to her that we have a first provider greet patient to get initial history to start the workup in triage but when the patient comes back to the main ED a second provider will talk to the patient in details and verify the information which was obtained in triage and manage the patient in the ED. She still refused to talk to me and said she is tired of talking to different people. At that point her voice was very low so I gently asked her to speak louder so that I can hear her, but she got more upset and said that she does not like this hospital. She also said that she has been here before and she does not like the way she was treated in this hospital. She became really loud and abusive. She cursed at me several times saying that she does not want to see me anymore or see another provider. The patient nurse came to the room and she started quarreling with the nurse and said that the nurse has an attitude and she does not want the nurse to also partaking her care. She threatened to pull out her IV line and threatened that she will jose a everybody in this hospital that we do not know what we are doing and she does not like the hospital based on her previous experience in this hospital. She accused nurse of taking care of her in the past and that she does not like her because she has an attitude. I tried to calm her down by explaining to her the reason for the medical interview.. However, she still received to be seen by me or another ED provider. She said she is going to go home and she will talk to her sales market leader. I explained to her that because she is having chest pain she may be having a heart attack or other serious medical condition like pulmonary embolism. She says she understands all that but she does not want to see me or any other provider in this hospital. She signed and left AGAINST MEDICAL ADVICE. She is alert and oriented x4 and she has medical decision-making capacity. I still encouraged her to come back to the ED if she changes her mind and want to be seen in the emergency room. She says she is not coming back and that she does not like this hospital in the first place. She also said that when her was sick, her was mistreated in this hospital. She kept going on and on and her voice was really loud and she threatened to jose a the nurse, me and the hospital.
== END 2018-05-27 20:15 | disposition left against medical advice (07) ==
LOC: ER 18:36
DX: R07.9 Chest pain, unspecified (principal); R05 Cough; I25.10 Atherosclerotic heart disease of native coronary artery without angina pectoris; I50.9 Heart failure, unspecified; E78.00 Pure hypercholesterolemia, unspecified; I11.0 Hypertensive heart disease with heart failure; J44.9 Chronic obstructive pulmonary disease, unspecified; Z88.3 Allergy status to other anti-infective agents; I25.2 Old myocardial infarction
CPT/HCPCS: 36415; 71045; 80053; 82550; 82553; 83880; 84484; 85025; 85379; 85610; 85730; 93005; 93010; 99284

== ENCOUNTER 2018-05-29 19:00 | Emergency (ER) | payer MEDICARE, MEDICAID ==
--- NOTE | 2018-05-29 20:15 | EKG REPORT ---
SEVERITY:- ABNORMAL ECG - SINUS RHYTHM VENTRICULAR BIGEMINY LEFT ATRIAL ABNORMALITY LEFT AXIS DEVIATION CONSIDER ANTEROSEPTAL INFARCT NONSPECIFIC T ABNORMALITIES, LATERAL LEADS : Confirmed by: Amy Montejo MD 29-May-2018 20:14:21
[2018-05-29] MEDS ORDERED: ONDANSETRON 4 MG TAB.RAPDIS PO ONE (22:19)
--- NOTE | 2018-05-29 22:22 | ER Document Report ---
ED Medical Screen (RME) - General Chief Complaint: Chest Pain Stated Complaint: SHORTNESS OF BREATH,COUGH Time Seen by Provider: 05/29/18 22:18 Primary Care Provider: PAZ QUINTEROS MD [Primary Care Provider] - Follow up as needed Notes: 42-year-old female with a history of asthma, smoking, comes to the emergency department for chief complaint of 1 week of 6 symptoms including productive cough, she states that today she is also vomited twice, she states the vomiting was not after a coughing episode. Reports generalized flank, abdominal, and rib pain with some radiation to the right arm. States she was seen yesterday but she does not know her results were. States she was placed on doxycycline initially and she has been taking this. TRAVEL OUTSIDE OF THE [place] IN LAST 30 DAYS: No - Related Data Allergies/Adverse Reactions: lisinopril [Lisinopril] Allergy (Severe, Verified 05/29/18 19:03) Difficulty breathing levofloxacin [From Levaquin] Allergy (Verified 05/29/18 19:03) Past Medical History - Past Medical History Cardiac Medical History: Reports: Hx Congestive Heart Failure, Hx Coronary Artery Disease, Hx Heart Attack - 2007,2015, Hx Hypercholesterolemia, Hx Hypertension Pulmonary Medical History: Reports: Hx Asthma, Hx Bronchitis, Hx COPD, Hx Pneumonia, Hx Sleep Apnea Neurological Medical History: Denies: Hx Seizures Endocrine Medical History: Denies: Hx Diabetes Mellitus Type 1, Hx Hyperthyroidism, Hx Hypothyroidism Renal/ Medical History: Denies: Hx Peritoneal Dialysis GI Medical History: Reports: Hx Gastroesophageal Reflux Disease. Denies: Hx Crohn's Disease, Hx Pancreatitis, Hx Ulcerative Colitis Musculoskeltal Medical History: Reports Hx Arthritis, Denies Hx Gout Skin Medical History: Denies Hx Eczema, Denies Hx Psoriasis Psychiatric Medical History: Reports: Hx Anxiety, Hx Depression - & anxiety Past Surgical History: Reports: Hx Cardiac Catheterization, Hx Section - x3, Hx Oral Surgery - wisdom tooth, Hx Orthopedic Surgery - left hand tendon repair, Hx Tonsillectomy. Denies: Hx Coronary Artery Bypass Graft, Hx Coronary Stent, Hx Valve Replacement - Immunizations Hx Diphtheria, Pertussis, Tetanus Vaccination: Yes History of Influenza Vaccine for 12/2016 - 05/2017 Season: No Physical Exam - Vital signs Vitals: Temp Pulse BP Pulse Ox 98.7 F 75 125/71 99 05/29/18 19:46 05/29/18 19:46 05/29/18 19:46 05/29/18 19:46 - Respiratory Respiratory status: No respiratory distress Breath sounds: Nonproductive cough - Occasional congested coughing episodes. No: Decreased air movement, Wheezing Course - Re-evaluation Re-evalutation: I have greeted and performed a rapid initial assessment of this patient. A comprehensive ED assessment and evaluation of the patient, analysis of test results and completion of the medical decision making process will be conducted by additional ED providers. - Vital Signs Vital signs: Temp Pulse Resp BP Pulse Ox 98.7 F 75 29 H 125/71 99 05/29/18 19:46 05/29/18 19:46 05/29/18 19:49 05/29/18 19:46 05/29/18 19:46 Doctor's Discharge - Discharge Referrals: PAZ QUINTEROS MD [Primary Care Provider] - Follow up as needed
[2018-05-29 23:05] LABS: ABSOLUTE EOSINOPHILS # (AUTO) 0.3 10^3/uL (0.0-0.6); ABSOLUTE LYMPHOCYTES (AUTO) 3.7 10^3/uL (0.5-4.7); ABSOLUTE MONOCYTES (AUTO) 0.6 10^3/uL (0.1-1.4); ABSOLUTE NEUT (AUTO) 4.1 10^3/uL (1.7-8.2); BASOPHILS % (AUTO) 0.3 % (0-2); HEMATOCRIT 33.5 % (36.0-47.0); HEMOGLOBIN 10.7 g/dL (12.0-15.5); LYMPHOCYTES % (AUTO) 42.4 % (13-45); MEAN CORPUSCULAR HEMOGLOBIN 23.8 pg (27.0-33.4); MEAN CORPUSCULAR VOLUME 75 fl (80-97); PLATELET COUNT 199 10^3/uL (150-450); RED BLOOD COUNT 4.49 10^6/uL (3.72-5.28); RED CELL DISTRIBUTION WIDTH 18.7 % (11.5-14.0); SEGMENTED NEUTROPHILS % (AUTO) 47.3 % (42-78); TOTAL CELLS COUNTED % (AUTO) 100 %; WHITE BLOOD COUNT 8.7 10^3/uL (4.0-10.5)
--- NOTE | 2018-05-29 23:10 | RADIOLOGY REPORT (SQ) ---
EXAM DESCRIPTION: XR CHEST 1 VIEW COMPLETED DATE/TME: 05/29/2018 22:19 CLINICAL HISTORY: 42 years, Female, chest pain, cough COMPARISON: None. NUMBER OF VIEWS: TECHNIQUE: LIMITATIONS: None. FINDINGS: There is questionable increased opacity at the medial right lung base. The lungs are otherwise clear. The heart and mediastinum are unremarkable. Pulmonary vascularity appears normal. IMPRESSION: Questionable increased opacity at the medial right lung base. Infiltrate or atelectasis cannot be excluded. copyright 2010 [employer]- All Rights Reserved
[2018-05-29 23:23] LABS: ALANINE AMINOTRANSFERASE 18 U/L (9-52); ALBUMIN 3.4 g/dL (3.5-5.0); ALKALINE PHOSPHATASE 63 U/L (38-126); ANION GAP 7 (5-19); ASPARTATE AMINO TRANSFERASE 17 U/L (14-36); BILIRUBIN,DIRECT 0.1 mg/dL (0.0-0.4); BILIRUBIN,TOTAL 0.2 mg/dL (0.2-1.3); BLOOD UREA NITROGEN 13 mg/dL (7-20); CALCIUM 8.7 mg/dL (8.4-10.2); CARBON DIOXIDE 29 mmol/L (22-30); CHLORIDE 106 mmol/L (98-107); GLUCOSE 114 mg/dL (75-110); LIPASE 148.6 U/L (23-300); POTASSIUM 3.5 mmol/L (3.6-5.0); SODIUM 142.3 mmol/L (137-145); TOTAL PROTEIN 7.4 g/dL (6.3-8.2)
[2018-05-29 23:28] LABS: APPEARANCE,URINE SLIGHTLY-CLOUDY; BILIRUBIN,URINE NEGATIVE (NEGATIVE); COLOR,URINE AMBER; GLUCOSE, URINE NEGATIVE (NEGATIVE); KETONES,URINE TRACE mg/dL (NEGATIVE); LEUKOCYTE ESTERASE,URINE TRACE (NEGATIVE); NITRITE,URINE NEGATIVE (NEGATIVE); PROTEIN,URINE 100 mg/dL (NEGATIVE); URINE SPECIFIC GRAVITY 1.029
--- NOTE | 2018-05-30 00:51 | ER Document Report ---
ED General - General Chief Complaint: Chest Pain Stated Complaint: SHORTNESS OF BREATH,COUGH Time Seen by Provider: 05/29/18 22:18 Primary Care Provider: PAZ QUINTEROS MD [Primary Care Provider] - Follow up tomorrow Mode of Arrival: Ambulatory Information source: Patient Notes: This is a 42-year-old female with a history of asthma, obstructive sleep apnea, morbid obesity, coronary artery disease (2 stents), CHF, hypertension. Patient presents to the emergency room with intermittent cough productive of green sputum. Patient states she has been getting sharp chest pains with the cough. Patient states she was recently treated with an inhaler but it just gave her palpitations and did not help her cough. She was treated with doxycycline. TRAVEL OUTSIDE OF THE [place] IN LAST 30 DAYS: No - HPI Onset: Last week Onset/Duration: Gradual Quality of pain: Sharp Severity: Moderate Pain Level: 2 Associated symptoms: Chest pain - Sharp chest pain with the cough, Productive cough, Shortness of breath. denies: Fever Exacerbated by: Walking Relieved by: Remaining still Similar symptoms previously: Yes Recently seen / treated by doctor: Yes - Related Data Allergies/Adverse Reactions: lisinopril [Lisinopril] Allergy (Severe, Verified 05/29/18 19:03) Difficulty breathing levofloxacin [From Levaquin] Allergy (Verified 05/29/18 19:03) Past Medical History - General Information source: Patient - Social History Smoking Status: Former Smoker Cigarette use (# per day): No - Patient denies smoking. Does states she is exposed to secondary smoke Frequency of alcohol use: None Drug Abuse: None Lives with: Family Family History: Reviewed & Not Pertinent, CAD - Father with an MD in his 30s, Hyperlipidemia, Hypertension Patient has suicidal ideation: No Patient has homicidal ideation: No - Past Medical History Cardiac Medical History: Reports: Hx Congestive Heart Failure, Hx Coronary Artery Disease, Hx Heart Attack - 2007,2016, Hx Hypercholesterolemia, Hx Hypertension Pulmonary Medical History: Reports: Hx Asthma, Hx Bronchitis, Hx COPD, Hx Pneumonia, Hx Sleep Apnea Neurological Medical History: Denies: Hx Seizures Endocrine Medical History: Denies: Hx Diabetes Mellitus Type 1, Hx Hyperthyroidism, Hx Hypothyroidism Renal/ Medical History: Denies: Hx Peritoneal Dialysis GI Medical History: Reports: Hx Gastroesophageal Reflux Disease. Denies: Hx Crohn's Disease, Hx Pancreatitis, Hx Ulcerative Colitis Musculoskeletal Medical History: Reports Hx Arthritis, Denies Hx Gout Skin Medical History: Denies Hx Eczema, Denies Hx Psoriasis Psychiatric Medical History: Reports: Hx Anxiety, Hx Depression - & anxiety Past Surgical History: Reports: Hx Cardiac Catheterization, Hx Section - x3, Hx Oral Surgery - wisdom tooth, Hx Orthopedic Surgery - left hand tendon repair, Hx Tonsillectomy. Denies: Hx Coronary Artery Bypass Graft, Hx Coronary Stent, Hx Valve Replacement - Immunizations Hx Diphtheria, Pertussis, Tetanus Vaccination: Yes Hx Pneumococcal Vaccination: 10/09/16 Review of Systems - Review of Systems Constitutional: denies: Chills, Fever EENT: No symptoms reported Cardiovascular: denies: Palpitations, Heart racing, Syncope Respiratory: See HPI Gastrointestinal: No symptoms reported Genitourinary: No symptoms reported Female Genitourinary: No symptoms reported Musculoskeletal: No symptoms reported Skin: No symptoms reported Hematologic/Lymphatic: No symptoms reported Neurological/Psychological: No symptoms reported Physical Exam - Vital signs Vitals: Temp Pulse BP Pulse Ox 98.7 F 75 125/71 99 05/29/18 19:46 05/29/18 19:46 05/29/18 19:46 05/29/18 19:46 Notes: Physical exam: GENERAL: Patient is alert and oriented x3 and does not appear in any respiratory distress. Does have a cough. HEAD: Atraumatic, normocephalic. EYES: Pupils equal round and reactive to light, extraocular movements intact, sclera anicteric, conjunctiva are normal. ENT: TMs normal, nares patent, oropharynx clear without exudates. Moist mucous membranes. NECK: Normal range of motion, supple without obvious mass or JVD. LUNGS: Breath sounds clear to auscultation bilaterally and equal. No wheezes rales or rhonchi. HEART: Regular rate and rhythm without murmurs, rubs or gallops. ABDOMEN: Soft, normoactive bowel sounds. No tenderness to palpation. No guardi ng, no rebound. No masses appreciated. EXTREMITIES: Normal range of motion, no pitting or edema. No clubbing or cyanosis. NEUROLOGICAL: Cranial nerves II through XII grossly intact. Normal speech, moving all extremities. PSYCH: Normal mood, normal affect. SKIN: Warm, Dry, normal turgor, no rashes or lesions noted. Course - Re-evaluation Re-evalutation: 05/30/18 01:01 Note: The patient does not have any fever. She does have a productive cough but she has already been through a course of antibiotics. I did recommend she follow-up with Dr. Quinteros may be outpatient referral to pulmonary. - Vital Signs Vital signs: Temp Pulse Resp BP Pulse Ox 98.2 F 70 21 H 132/69 H 96 05/30/18 01:12 05/30/18 01:12 05/30/18 01:12 05/30/18 01:12 05/30/18 01:12 - Laboratory Result Diagrams: 05/29/18 22:55 05/29/18 22:55 Laboratory results interpreted by me: 05/29/18 05/29/18 05/29/18 22:55 22:55 23:12 Hgb 10.7 L Hct 33.5 L MCV 75 L MCH 23.8 L RDW 18.7 H Potassium 3.5 L Glucose 114 H Albumin 3.4 L Urine Protein 100 H Urine Ketones TRACE H Urine Blood LARGE H Urine Urobilinogen 4.0 H Ur Leukocyte Esterase TRACE H - Diagnostic Test Radiology reviewed: Image reviewed, Reports reviewed - Possible opacity in the right mid lung (infiltrate versus atelectasis). Vil[place] looks more like atelectasis to me. - EKG Interpretation by Me Rate: Normal Rhythm: NSR - EKG shows normal sinus rhythm with a ventricular rate of 75, there are some PVCs, no acute ST changes Discharge - Discharge Clinical Impression: URI Condition: Stable Disposition: HOME, SELF-CARE Additional Instructions: I do want you to follow-up with Dr. Quinteros: Call the office tomorrow to set up an appointment. I think you should tell him that he been in the emergency room several times for the symptoms and that recommend you follow-up with a pulmonary doctor. Return to the emergency room for worsening pain or redness of breath or cough. Referrals: PAZ QUINTEROS MD [Primary Care Provider] - Follow up tomorrow
[2018-05-30 01:12] VITALS: BP 132/69
== END 2018-05-30 01:12 | disposition home or self-care (01) ==
LOC: ER 19:00
DX: J06.9 Acute upper respiratory infection, unspecified (principal); R07.9 Chest pain, unspecified; R06.02 Shortness of breath; R05 Cough; J45.909 Unspecified asthma, uncomplicated; G47.33 Obstructive sleep apnea (adult) (pediatric); E66.01 Morbid (severe) obesity due to excess calories; I25.10 Atherosclerotic heart disease of native coronary artery without angina pectoris; I50.9 Heart failure, unspecified; I11.0 Hypertensive heart disease with heart failure; Z87.891 Personal history of nicotine dependence; J44.9 Chronic obstructive pulmonary disease, unspecified
CPT/HCPCS: 93005; 99285; 36415; 83690; 85025; 81025; 80053; 81001; 71045; 93010; A9270; S0119

== ENCOUNTER 2018-08-05 22:23 | Emergency (ER) | payer MEDICARE, MEDICAID ==
[2018-08-06] MEDS ORDERED: ASPIRIN 81 MG TABLET, CHEWABLE PO ONE (00:58)
--- NOTE | 2018-08-06 01:03 | ER Document Report ---
ED Medical Screen (RME) - General Chief Complaint: Shortness Of Breath Stated Complaint: SHORTNESS OF BREATH Time Seen by Provider: 08/06/18 00:57 Primary Care Provider: PAZ QUINTEROS MD [Primary Care Provider] - Follow up as needed Mode of Arrival: Medic Information source: Patient Notes: 42-year-old female presented to ED for complaint of cough cold congestion chest pain with history of CHF cardiomyopathy reflux and sleep apnea. She states that the EMS told her that she had a lot of fluids on her lung and her blood pressure was very high. She states that she is gained a lot of weight she knows she has a lot of fluid on her leg. I did weigh her standing on the scale to 198.7 kg. Patient is alert oriented coughing and complaining of shortness of breath. I have greeted and performed a rapid initial assessment of this patient. A comprehensive ED assessment and evaluation of the patient, analysis of test results and completion of medical decision making process will be conducted by an additional ED providers. Dictation of this chart was performed using voice recognition software; therefore, there may be some unintended grammatical errors. TRAVEL OUTSIDE OF THE [place] IN LAST 30 DAYS: No - Related Data Allergies/Adverse Reactions: lisinopril [Lisinopril] Allergy (Severe, Verified 05/29/18 19:03) Difficulty breathing levofloxacin [From Levaquin] Allergy (Verified 05/29/18 19:03) Past Medical History - Past Medical History Cardiac Medical History: Reports: Hx Congestive Heart Failure, Hx Coronary Artery Disease, Hx Heart Attack - 2007,2016, Hx Hypercholesterolemia, Hx Hypertension Pulmonary Medical History: Reports: Hx Asthma, Hx Bronchitis, Hx COPD, Hx Pneumonia, Hx Sleep Apnea Neurological Medical History: Denies: Hx Seizures Endocrine Medical History: Denies: Hx Diabetes Mellitus Type 1, Hx Hyperthyroidism, Hx Hypothyroidism Renal/ Medical History: Denies: Hx Peritoneal Dialysis GI Medical History: Reports: Hx Gastroesophageal Reflux Disease. Denies: Hx Crohn's Disease, Hx Pancreatitis, Hx Ulcerative Colitis Musculoskeltal Medical History: Reports Hx Arthritis, Denies Hx Gout Skin Medical History: Denies Hx Eczema, Denies Hx Psoriasis Psychiatric Medical History: Reports: Hx Anxiety, Hx Depression - & anxiety Past Surgical History: Reports: Hx Cardiac Catheterization, Hx Section - x3, Hx Oral Surgery - wisdom tooth, Hx Orthopedic Surgery - left hand tendon repair, Hx Tonsillectomy. Denies: Hx Coronary Artery Bypass Graft, Hx Coronary Stent, Hx Valve Replacement - Immunizations Hx Diphtheria, Pertussis, Tetanus Vaccination: Yes History of Influenza Vaccine for 12/2016 - 05/2017 Season: No Physical Exam - Vital signs Vitals: Temp Pulse Resp BP Pulse Ox 98.5 F 95 21 H 139/96 H 98 08/05/18 22:38 08/05/18 22:38 08/05/18 22:38 08/05/18 22:38 08/05/18 22:38 Course - Vital Signs Vital signs: Temp Pulse Resp BP Pulse Ox 98.5 F 95 21 H 139/96 H 98 08/05/18 22:38 08/05/18 22:38 08/05/18 22:38 08/05/18 22:38 08/05/18 22:38 Doctor's Discharge - Discharge Referrals: PAZ QUINTEROS MD [Primary Care Provider] - Follow up as needed
--- NOTE | 2018-08-06 01:37 | RADIOLOGY REPORT (SQ) ---
EXAM DESCRIPTION: [facility]: XR CHEST 2 VIEWS Views: 2 CLINICAL HISTORY: 42 years Female, Shortness of breath cough chest pain COMPARISON: 05/29/2018 FINDINGS: The lungs are clear. No pneumothorax or significant pleural effusion. Cardiomediastinal silhouette is within normal limits. Bony structures are unremarkable for age. IMPRESSION: 1. No acute cardiothoracic abnormality.
[2018-08-06 02:52] LABS: ABSOLUTE EOSINOPHILS # (AUTO) 0.2 10^3/uL (0.0-0.6); ABSOLUTE LYMPHOCYTES (AUTO) 2.9 10^3/uL (0.5-4.7); ABSOLUTE MONOCYTES (AUTO) 0.4 10^3/uL (0.1-1.4); BASOPHILS % (AUTO) 0.3 % (0-2); HEMOGLOBIN 10.4 g/dL (12.0-15.5); LYMPHOCYTES % (AUTO) 37.6 % (13-45); MEAN CORPUSCULAR HEMOGLOBIN 23.5 pg (27.0-33.4); MEAN CORPUSCULAR HGB CONC 31.5 g/dL (32.0-36.0); MEAN CORPUSCULAR VOLUME 75 fl (80-97); MONOCYTES % (AUTO) 5.8 % (3-13); PLATELET COUNT 196 10^3/uL (150-450); RED BLOOD COUNT 4.42 10^6/uL (3.72-5.28); RED CELL DISTRIBUTION WIDTH 17.8 % (11.5-14.0); SEGMENTED NEUTROPHILS % (AUTO) 53.3 % (42-78); TOTAL CELLS COUNTED % (AUTO) 100 %; WHITE BLOOD COUNT 7.6 10^3/uL (4.0-10.5)
[2018-08-06 02:59] LABS: ALANINE AMINOTRANSFERASE 12 U/L (9-52); ALBUMIN 3.4 g/dL (3.5-5.0); ALKALINE PHOSPHATASE 59 U/L (38-126); ANION GAP 8 (5-19); ASPARTATE AMINO TRANSFERASE 17 U/L (14-36); BILIRUBIN,DIRECT 0.2 mg/dL (0.0-0.4); BILIRUBIN,TOTAL 0.3 mg/dL (0.2-1.3); BLOOD UREA NITROGEN 10 mg/dL (7-20); CALCIUM 8.4 mg/dL (8.4-10.2); CARBON DIOXIDE 30 mmol/L (22-30); CHLORIDE 107 mmol/L (98-107); GLUCOSE 93 mg/dL (75-110); POTASSIUM 3.6 mmol/L (3.6-5.0); SODIUM 144.9 mmol/L (137-145); TOTAL PROTEIN 7.1 g/dL (6.3-8.2)
[2018-08-06 03:11] LABS: NT PRO BNP 392 pg/mL (<125)
[2018-08-06 03:17] LABS: TROPONIN I < 0.012 ng/mL
[2018-08-06] MEDS ORDERED: DEXAMETHASONE SOD PHOS INJ 10 MG/1 ML VIAL IV ONE (04:10)
--- NOTE | 2018-08-06 04:16 | ER Document Report ---
ED Respiratory Problem - General Chief Complaint: Shortness Of Breath Stated Complaint: SHORTNESS OF BREATH Time Seen by Provider: 08/06/18 00:57 Primary Care Provider: PAZ QUINTEROS MD [Primary Care Provider] - Follow up as needed Mode of Arrival: Medic Notes: Patient is a 42 year old female that comes to the emergency department for chief complaint of congestion, cough, pain with cough for the past several days. She denies fever/chills. She reports shortness of breath but this is with cough as well. She comes by EMS. She has an extensive history including reported CHF with cardiomyopathy, sleep apnea, morbid obesity, asthma, CAD with 2 stents. She states she was told by EMS that they "saw that she had fluid on her lungs by looking at her heart monitor". She states she might have some swelling in her legs compared to prior. She is on torsemide and reports she is compliant with this. She follows a primary care doctor Eulalio but does not have a analyst market intelligence or integration consultant. TRAVEL OUTSIDE OF THE [place] IN LAST 30 DAYS: No - Related Data Allergies/Adverse Reactions: lisinopril [Lisinopril] Allergy (Severe, Verified 05/29/18 19:03) Difficulty breathing levofloxacin [From Levaquin] Allergy (Verified 05/29/18 19:03) Past Medical History - General Information source: Patient - Social History Smoking Status: Never Smoker Chew tobacco use (# tins/day): No Drug Abuse: None Lives with: Family Family History: Reviewed & Not Pertinent, CAD - Father with an OR in his 30s, Hyperlipidemia, Hypertension Patient has suicidal ideation: No Patient has homicidal ideation: No - Past Medical History Cardiac Medical History: Reports: Hx Congestive Heart Failure, Hx Coronary Artery Disease, Hx Heart Attack - 2007,2016, Hx Hypercholesterolemia, Hx Hypertension Pulmonary Medical History: Reports: Hx Asthma, Hx Bronchitis, Hx COPD, Hx Pneumonia, Hx Sleep Apnea Neurological Medical History: Denies: Hx Seizures Endocrine Medical History: Denies: Hx Diabetes Mellitus Type 1, Hx Hyperthyroidism, Hx Hypothyroidism Renal/ Medical History: Denies: Hx Peritoneal Dialysis GI Medical History: Reports: Hx Gastroesophageal Reflux Disease. Denies: Hx Crohn's Disease, Hx Pancreatitis, Hx Ulcerative Colitis Musculoskeletal Medical History: Reports Hx Arthritis, Denies Hx Gout Skin Medical History: Denies Hx Eczema, Denies Hx Psoriasis Psychiatric Medical History: Reports: Hx Anxiety, Hx Depression - & anxiety Past Surgical History: Reports: Hx Cardiac Catheterization, Hx Section - x3, Hx Oral Surgery - wisdom tooth, Hx Orthopedic Surgery - left hand tendon repair, Hx Tonsillectomy. Denies: Hx Coronary Artery Bypass Graft, Hx Coronary Stent, Hx Valve Replacement - Immunizations Hx Diphtheria, Pertussis, Tetanus Vaccination: Yes Hx Pneumococcal Vaccination: 10/09/16 Review of Systems - Review of Systems Constitutional: No symptoms reported EENT: See HPI Cardiovascular: See HPI Respiratory: See HPI Gastrointestinal: No symptoms reported Genitourinary: No symptoms reported Female Genitourinary: No symptoms reported Musculoskeletal: No symptoms reported Skin: No symptoms reported Hematologic/Lymphatic: No symptoms reported Neurological/Psychological: No symptoms reported Physical Exam - Vital signs Vitals: Temp Pulse Resp BP Pulse Ox 98.5 F 95 21 H 139/96 H 98 08/05/18 22:38 08/05/18 22:38 08/05/18 22:38 08/05/18 22:38 08/05/18 22:38 - Notes Notes: GENERAL: Alert, interacts well. No acute distress. Smiling, talkative, well- appearing. Morbidly obese. HEAD: Normocephalic, atraumatic. EYES: Pupils equal, round, and reactive to light. Extraocular movements intact. ENT: Oral mucosa moist, tongue midline. Oropharynx unremarkable. Airway patent. Nares congested, sinuses congested, sinuses nontender. TM's intact. NECK: Full range of motion. Supple. Trachea midline. LUNGS: Clear to auscultation bilaterally, no wheezes, rales, or rhonchi. No r espiratory distress. Occasional cough which is tight and mild. HEART: Regular rate and rhythm. No murmur ABDOMEN: Soft, non-tender. Non-distended. Bowel sounds present in all 4 quadrants. GENITOURINARY: Deferred EXTREMITIES: Moves all 4 extremities spontaneously. No edema, normal radial and dorsalis pedis pulses bilaterally. No cyanosis. BACK: no cervical, thoracic, lumbar midline tenderness. No saddle anesthesia, normal distal neurovascular exam. Moves all extremities in full range of motion. NEUROLOGICAL: Alert and oriented x3. Normal speech. Cranial nerves II through XII grossly intact. PSYCH: Normal affect, normal mood. SKIN: Warm, dry, normal turgor. No rashes or lesions noted. Course - Re-evaluation Re-evalutation: EKG sinus rhythm without T wave inversion or ST segment changes. No significant change compared to prior. Chest x-ray with no acute findings and no pulmonary vascular congestion. BNP is borderline. Troponin is not elevated. CBC and chemistry are unremarkable. On physical examination patient does not have pitting edema of the lower extremities, swelling to either extremity. Patient has sinus congestion, nasal congestion, occasional cough. Lungs are clear without rales, wheezing, or other abnormality. She is talkative, smiling, well- appearing, alert. I was able to lay her flat without her having any noted symptoms. Appears to be upper respiratory congestion, possible asthma componen t. I discussed work-up with patient in detail. Patient is requesting treatment for asthma and discharge. She was given dexamethasone here, she states she does not like taking prednisone. She is provided with inhaler, spacer, antiallergy medication as well. Discussed close follow-up with primary care and return precautions. Patient states understanding and agreement with plan. - Vital Signs Vital signs: Temp Pulse Resp BP Pulse Ox 98.3 F 95 17 130/79 H 97 08/06/18 04:00 08/05/18 22:38 08/06/18 04:00 08/06/18 04:00 08/06/18 04:00 - Laboratory Result Diagrams: 08/06/18 02:20 08/06/18 02:20 Laboratory results interpreted by me: 08/06/18 08/06/18 08/06/18 02:20 02:20 02:20 Hgb 10.4 L Hct 33.0 L MCV 75 L MCH 23.5 L MCHC 31.5 L RDW 17.8 H NT-Pro-B Natriuret Pep 392 H Albumin 3.4 L - EKG Interpretation by Me Additional EKG results interpreted by me: EKG sinus rhythm with no T wave inversions or ST segment changes in consecutive leads. Borderline bundle branch block which is unchanged compared to prior. Discharge - Discharge Clinical Impression: Shortness of breath, Cough, Sinus congestion Condition: Stable Disposition: HOME, SELF-CARE Additional Instructions: Your evaluation and work-up are reassuring. This appears to be upper respiratory, allergic even, causing your sinus congestion, postnasal drip, and c ough. I recommend the Perri prescription, or similar antiallergy medication [id number]. I also recommend you use your albuterol inhaler with the spacer provided. You have been given steroids that should last in your system for the next few days and help with your symptoms. Follow close with your primary care provider for additional evaluation and management. Return if you worsen including fever, difficulty breathing, or any other concerning or worsening symptoms. Prescriptions: Albuterol Sulfate [Proair HFA Inhalation Aerosol 8.5 gm MDI] 2 puff IH Q4H PRN #1 mdi PRN Reason: Fexofenadine HCl [Perri Allergy] 180 mg PO DAILY #30 tablet Forms: Treatment of Relative/Child Referrals: PAZ QUINTEROS MD [Primary Care Provider] - Follow up as needed
[2018-08-06 04:37] VITALS: BP 130/79
--- NOTE | 2018-08-06 13:32 | EKG REPORT ---
SEVERITY:- ABNORMAL ECG - SINUS RHYTHM LEFT ATRIAL ABNORMALITY INCOMPLETE LEFT BUNDLE BRANCH BLOCK LVH WITH SECONDARY REPOLARIZATION ABNORMALITY ANTERIOR INFARCT, AGE INDETERMINATE : Confirmed by: Ruben Andres MD 06-Aug-2018 13:31:31
== END 2018-08-06 04:36 | disposition home or self-care (01) ==
LOC: ER 22:23
DX: R09.81 Nasal congestion (principal); R06.02 Shortness of breath; R05 Cough; E66.01 Morbid (severe) obesity due to excess calories; I11.0 Hypertensive heart disease with heart failure; I50.9 Heart failure, unspecified; I25.10 Atherosclerotic heart disease of native coronary artery without angina pectoris; E78.00 Pure hypercholesterolemia, unspecified; Z88.3 Allergy status to other anti-infective agents; I25.2 Old myocardial infarction
CPT/HCPCS: 93005; 99285; 96374; 36415; 82553; 84703; 85025; 80053; 84484; 83880; 71046; 93010; A9270; J1100

== ENCOUNTER 2018-10-08 19:53 | Emergency (ER) | payer MEDICARE, MEDICAID ==
--- NOTE | 2018-10-08 20:17 | ER Document Report ---
ED General - General Chief Complaint: Shortness Of Breath Stated Complaint: SHORTNESS OF BREATH Time Seen by Provider: 10/08/18 20:17 Primary Care Provider: PAZ QUINTEROS MD [Primary Care Provider] - Follow up as needed TRAVEL OUTSIDE OF THE [place] IN LAST 30 DAYS: No - HPI Patient complains to provider of: Shortness of breath Notes: Patient presents with increasing shortness of breath for the last 2 days. Patient then goes on to repeat a very similar story of all of her last visits to the hospital where she endorses CHF, cardiomyopathy history of 2 cardiac stents. Has she has water on her lungs as seen by her EKG withy the EMS. Followed by Chris and here for her heart.. Patient is very concerned her stents are not working. Although she denies any chest pain. Denies orthopnea. Her main concern is now her profound cough that keeps her up at night and makes it hard for her to get around. This patient is a morbidly obese 42-year-old female with obstructive sleep apnea. Denies any other symptoms denies nausea vomiting fever rash - Related Data Allergies/Adverse Reactions: lisinopril [Lisinopril] Allergy (Severe, Verified 05/29/18 19:03) Difficulty breathing levofloxacin [From Levaquin] Allergy (Verified 05/29/18 19:03) Past Medical History - Social History Smoking Status: Unknown if Ever Smoked Family History: Reviewed & Not Pertinent, CAD - Father with an ND in his 30s, Hyperlipidemia, Hypertension - Past Medical History Cardiac Medical History: Reports: Hx Congestive Heart Failure, Hx Coronary Artery Disease, Hx Heart Attack - 2007,2016, Hx Hypercholesterolemia, Hx Hypertension Pulmonary Medical History: Reports: Hx Asthma, Hx Bronchitis, Hx COPD, Hx Pneumonia, Hx Sleep Apnea Neurological Medical History: Denies: Hx Seizures Endocrine Medical History: Denies: Hx Diabetes Mellitus Type 1, Hx Hyperthyroidism, Hx Hypothyroidism Renal/ Medical History: Denies: Hx Peritoneal Dialysis GI Medical History: Reports: Hx Gastroesophageal Reflux Disease. Denies: Hx Crohn's Disease, Hx Pancreatitis, Hx Ulcerative Colitis Musculoskeletal Medical History: Reports Hx Arthritis, Denies Hx Gout Skin Medical History: Denies Hx Eczema, Denies Hx Psoriasis Psychiatric Medical History: Reports: Hx Anxiety, Hx Depression - & anxiety Past Surgical History: Reports: Hx Cardiac Catheterization, Hx Section - x3, Hx Oral Surgery - wisdom tooth, Hx Orthopedic Surgery - left hand tendon repair, Hx Tonsillectomy. Denies: Hx Coronary Artery Bypass Graft, Hx Coronary Stent, Hx Valve Replacement - Immunizations Hx Diphtheria, Pertussis, Tetanus Vaccination: Yes Hx Pneumococcal Vaccination: 10/09/16 Review of Systems - Review of Systems Notes: REVIEW OF SYSTEMS: CONSTITUTIONAL: -fevers, -chills EENT: -eye pain, -difficulty swallowing, -nasal congestion CARDIOVASCULAR: -chest pain, -syncope. RESPIRATORY: positive cough, positive SOB GASTROINTESTINAL: -abdominal pain, -nausea, -vomiting, -diarrhea GENITOURINARY: -dysuria, -hematuria MUSCULOSKELETAL: -back pain, -neck pain SKIN: -rash or skin lesions. HEMATOLOGIC: -easy bruising or bleeding. LYMPHATIC: -swollen, enlarged glands. NEUROLOGICAL: -altered mental status or loss of consciousness, -headache, - neurologic symptoms PSYCHIATRIC: -anxiety, -depression. ALL OTHER SYSTEMS REVIEWED AND NEGATIVE. Physical Exam - Vital signs Vitals: Temp Resp BP Pulse Ox 24 F L 28 H 124/79 99 10/08/18 20:17 10/08/18 20:17 10/08/18 20:17 10/08/18 20:17 - Notes Notes: PHYSICAL EXAMINATION: GENERAL: Well-appearing, well-nourished and in no acute distress. HEAD: Atraumatic, normocephalic. EYES: Pupils equal round and reactive to light, extraocular movements intact, sclera anicteric, conjunctiva are normal. ENT: nares patent, oropharynx clear without exudates. Moist mucous membranes. NECK: Normal range of motion, supple without lymphadenopathy LUNGS: Breath sounds clear to auscultation bilaterally and equal. No wheezes rales or rhonchi. HEART: Regular rate and rhythm without murmurs ABDOMEN: Soft, nontender, normoactive bowel sounds. No guarding, no rebound. No masses appreciated. EXTREMITIES: Normal range of motion, no pitting or edema. No cyanosis. NEUROLOGICAL: Cranial nerves grossly intact. Normal speech, normal gait. Normal sensory and motor exams. PSYCH: Normal mood, normal affect. SKIN: Warm, Dry, normal turgor, no rashes or lesions noted. Course - Re-evaluation Re-evalutation: 10/08/18 20:24 Patient is stable vital signs within normal limits no acute distress. Very benign physical exam, no wheezing or rhonchi initially, no basilar crackles. Patient able to be laying flat without difficulty speaking in full sentences. 10/08/18 21:26 Well-appearing female no acute distress given breathing treatments feeling markedly improved. Patient's EKG is no ischemic changes, chest x-ray is unchanged from all previous. Troponin negative, BNP normal. Patient be discharged home improved follow-up PCP given strict return precautions anything should change please return - Vital Signs Vital signs: Temp Pulse Resp BP Pulse Ox 97.4 F 21 H 124/79 99 10/08/18 20:19 10/08/18 20:18 10/08/18 20:17 10/08/18 20:17 - Laboratory Result Diagrams: 10/08/18 20:25 10/08/18 20:25 Laboratory results interpreted by me: 10/08/18 10/08/18 20:25 20:25 Hgb 10.5 L Hct 33.4 L MCV 73 L MCH 23.0 L MCHC 31.5 L RDW 17.7 H Carbon Dioxide 31 H - EKG Interpretation by Sd EKG shows normal: Sinus rhythm Rate: Normal Rhythm: NSR Additional EKG results interpreted by me: 10/08/18 20:26 Normal sinus rhythm, no pathologic ST elevations, no pathologic T wave inversions, normal WA, normal QRS, normal QTC Discharge - Discharge Clinical Impression: Morbid obesity with BMI of 60.0-69.9, adult, Shortness of breath Condition: Stable Disposition: HOME, SELF-CARE Instructions: Dyspnea, Nonspecific ([facility]) Additional Instructions: See your PCP Referrals: PAZ QUINTEROS MD [Primary Care Provider] - Follow up as needed
[2018-10-08] MEDS ORDERED: IPRATROPIUM/ALBUTEROL 0.5-2.5 MG/3 ML AMPUL NEB ONE (20:22)
[2018-10-08 20:41] LABS: ABSOLUTE EOSINOPHILS # (AUTO) 0.2 10^3/uL (0.0-0.6); ABSOLUTE MONOCYTES (AUTO) 0.6 10^3/uL (0.1-1.4); ABSOLUTE NEUT (AUTO) 3.6 10^3/uL (1.7-8.2); BASOPHILS % (AUTO) 0.6 % (0-2); EOSINOPHILS % (AUTO) 3.5 % (0-6); HEMATOCRIT 33.4 % (36.0-47.0); HEMOGLOBIN 10.5 g/dL (12.0-15.5); LYMPHOCYTES % (AUTO) 30.2 % (13-45); MEAN CORPUSCULAR HGB CONC 31.5 g/dL (32.0-36.0); MEAN CORPUSCULAR VOLUME 73 fl (80-97); MONOCYTES % (AUTO) 9.7 % (3-13); PLATELET COUNT 204 10^3/uL (150-450); RED BLOOD COUNT 4.59 10^6/uL (3.72-5.28); RED CELL DISTRIBUTION WIDTH 17.7 % (11.5-14.0); TOTAL CELLS COUNTED % (AUTO) 100 %; WHITE BLOOD COUNT 6.5 10^3/uL (4.0-10.5)
[2018-10-08 20:57] LABS: ALBUMIN 3.9 g/dL (3.5-5.0); ALKALINE PHOSPHATASE 57 U/L (38-126); ANION GAP 8 (5-19); ASPARTATE AMINO TRANSFERASE 20 U/L (14-36); BILIRUBIN,DIRECT 0.2 mg/dL (0.0-0.4); BILIRUBIN,TOTAL 0.4 mg/dL (0.2-1.3); BLOOD UREA NITROGEN 19 mg/dL (7-20); CALCIUM 8.6 mg/dL (8.4-10.2); CARBON DIOXIDE 31 mmol/L (22-30); CHLORIDE 101 mmol/L (98-107); GLUCOSE 99 mg/dL (75-110); POTASSIUM 4.1 mmol/L (3.6-5.0); TOTAL PROTEIN 7.7 g/dL (6.3-8.2)
[2018-10-08 21:07] LABS: NT PRO BNP 83 pg/mL (<125)
[2018-10-08 21:16] LABS: TROPONIN I < 0.012 ng/mL
--- NOTE | 2018-10-08 21:20 | RADIOLOGY REPORT (SQ) ---
EXAM DESCRIPTION: CLINICAL HISTORY: 42 years Female, COugh COMPARISON: 05/29/2018. FINDINGS: [id number] cardiomegaly. No suspicious mediastinal widening. There is nonspecific vascular congestion questionable bronchial wall thickening. Similar findings were seen previously. May be exaggerated by patient's large size. No focal infiltrate or obvious effusion. IMPRESSION: Cardiomegaly. Question bronchial wall thickening and vascular congestion. Rule out bronchitis or mild CHF. Similar findings were seen previously. No obvious new findings.
[2018-10-08 22:02] VITALS: BP 102/73
--- NOTE | 2018-10-09 08:02 | EKG REPORT ---
SEVERITY:- ABNORMAL ECG - SINUS RHYTHM VENTRICULAR PREMATURE COMPLEX LEFT ATRIAL ABNORMALITY LEFT AXIS DEVIATION LVH WITH SECONDARY REPOLARIZATION ABNORMALITY ANTERIOR INFARCT, OLD : Confirmed by: Ruben Andres MD 09-Oct-2018 08:01:09
== END 2018-10-08 22:01 | disposition home or self-care (01) ==
LOC: ER 19:53
DX: R06.02 Shortness of breath (principal); R05 Cough; E66.01 Morbid (severe) obesity due to excess calories; Z68.44 Body mass index [BMI] 60.0-69.9, adult; I50.9 Heart failure, unspecified; I25.10 Atherosclerotic heart disease of native coronary artery without angina pectoris; E78.00 Pure hypercholesterolemia, unspecified; I25.2 Old myocardial infarction; I11.0 Hypertensive heart disease with heart failure
CPT/HCPCS: 93005; 94640; 99285; 36415; 85025; 80053; 84484; 83880; 71046; 93010; A9270; J7620

== ENCOUNTER 2018-10-16 13:40 | Emergency (ER) | payer MEDICARE, MEDICAID ==
--- NOTE | 2018-10-16 15:05 | ER Document Report ---
ED Medical Screen (RME) - General Chief Complaint: Chest Pain Stated Complaint: CHEST PAIN Time Seen by Provider: 10/16/18 15:00 Primary Care Provider: PAZ QUINTEROS MD [Primary Care Provider] - Follow up as needed Mode of Arrival: Medic Information source: Patient Notes: Patient is a 42-year-old female presents emergency department chief complaint of chest pain. Patient reports chest pain radiates to the left shoulder. Patient reports history of myocardial infarction with stent placement. Patient also reports history of CHF. She does report that over the last few days she has had increased edema to her bilateral lower extremities. She states she was seen at [place] recently for chest pain and states they discharged her with an oxygen saturation in the 60s. She reports that the chest pain has continued since then. Exam: Obese [place] female alert and answering all questions appropriately. Reproducible pain with palpation to the left chest wall. I have greeted and performed a rapid initial assessment of this patient. A comprehensive ED assessment and evaluation of the patient, analysis of test results and completion of the medical decision making process will be conducted by additional ED providers. I have specifically instructed the patient or family members with the patient to immediately return to any nursing staff should anything change in the patient's condition or with their chief complaint. This medical record was dictated with voice recognizing software. There may be grammatical, syntax errors that are unintended. TRAVEL OUTSIDE OF THE [place] IN LAST 30 DAYS: No - Related Data Allergies/Adverse Reactions: lisinopril [Lisinopril] Allergy (Severe, Verified 10/16/18 14:51) Difficulty breathing levofloxacin [From Levaquin] Allergy (Verified 10/16/18 14:51) Past Medical History - Past Medical History Cardiac Medical History: Reports: Hx Congestive Heart Failure, Hx Coronary Artery Disease, Hx Heart Attack - 2007,2016, Hx Hypercholesterolemia, Hx Hypertension Pulmonary Medical History: Reports: Hx Asthma, Hx Bronchitis, Hx COPD, Hx Pneumonia, Hx Sleep Apnea Neurological Medical History: Denies: Hx Seizures Endocrine Medical History: Denies: Hx Diabetes Mellitus Type 1, Hx Hyperthyroidism, Hx Hypothyroidism Renal/ Medical History: Denies: Hx Peritoneal Dialysis GI Medical History: Reports: Hx Gastroesophageal Reflux Disease. Denies: Hx Crohn's Disease, Hx Pancreatitis, Hx Ulcerative Colitis Musculoskeltal Medical History: Reports Hx Arthritis, Denies Hx Gout Skin Medical History: Denies Hx Eczema, Denies Hx Psoriasis Psychiatric Medical History: Reports: Hx Anxiety, Hx Depression - & anxiety Past Surgical History: Reports: Hx Cardiac Catheterization, Hx Section - x3, Hx Oral Surgery - wisdom tooth, Hx Orthopedic Surgery - left hand tendon repair, Hx Tonsillectomy. Denies: Hx Coronary Artery Bypass Graft, Hx Coronary Stent, Hx Valve Replacement - Immunizations Hx Diphtheria, Pertussis, Tetanus Vaccination: Yes History of Influenza Vaccine for 12/2016 - 05/2017 Season: No Physical Exam - Vital signs Vitals: Temp Pulse Resp BP Pulse Ox 98.0 F 83 22 H 126/79 H 93 10/16/18 13:49 10/16/18 13:49 10/16/18 13:49 10/16/18 13:49 10/16/18 13:49 Course - Vital Signs Vital signs: Temp Pulse Resp BP Pulse Ox 98.0 F 83 22 H 126/79 H 93 10/16/18 13:49 10/16/18 13:49 10/16/18 13:49 10/16/18 13:49 10/16/18 13:49 Doctor's Discharge - Discharge Referrals: PAZ QUINTEROS MD [Primary Care Provider] - Follow up as needed
[2018-10-16 16:18] LABS: ABSOLUTE BASOPHILS # (AUTO) 0.1 10^3/uL (0.0-0.2); ABSOLUTE EOSINOPHILS # (AUTO) 0.3 10^3/uL (0.0-0.6); ABSOLUTE LYMPHOCYTES (AUTO) 3.5 10^3/uL (0.5-4.7); ABSOLUTE MONOCYTES (AUTO) 0.7 10^3/uL (0.1-1.4); ABSOLUTE NEUT (AUTO) 4.7 10^3/uL (1.7-8.2); BASOPHILS % (AUTO) 0.8 % (0-2); EOSINOPHILS % (AUTO) 3.3 % (0-6); HEMATOCRIT 33.2 % (36.0-47.0); HEMOGLOBIN 10.4 g/dL (12.0-15.5); LYMPHOCYTES % (AUTO) 37.7 % (13-45); MEAN CORPUSCULAR HEMOGLOBIN 22.8 pg (27.0-33.4); MEAN CORPUSCULAR HGB CONC 31.4 g/dL (32.0-36.0); MEAN CORPUSCULAR VOLUME 73 fl (80-97); MONOCYTES % (AUTO) 7.2 % (3-13); RED BLOOD COUNT 4.56 10^6/uL (3.72-5.28); RED CELL DISTRIBUTION WIDTH 17.5 % (11.5-14.0); TOTAL CELLS COUNTED % (AUTO) 100 %; WHITE BLOOD COUNT 9.3 10^3/uL (4.0-10.5)
[2018-10-16 16:35] LABS: ALBUMIN 3.7 g/dL (3.5-5.0); ALKALINE PHOSPHATASE 63 U/L (38-126); ANION GAP 10 (5-19); ASPARTATE AMINO TRANSFERASE 23 U/L (14-36); BILIRUBIN,DIRECT 0.3 mg/dL (0.0-0.4); BILIRUBIN,TOTAL 0.5 mg/dL (0.2-1.3); BLOOD UREA NITROGEN 11 mg/dL (7-20); CALCIUM 8.3 mg/dL (8.4-10.2); CARBON DIOXIDE 21 mmol/L (22-30); CHLORIDE 109 mmol/L (98-107); GLUCOSE 87 mg/dL (75-110); POTASSIUM 3.8 mmol/L (3.6-5.0); TOTAL PROTEIN 7.6 g/dL (6.3-8.2)
[2018-10-16 16:46] LABS: TROPONIN I 0.023 ng/mL
--- NOTE | 2018-10-16 16:51 | RADIOLOGY REPORT (SQ) ---
EXAM DESCRIPTION: CHEST 2 VIEWS COMPLETED DATE/TIME: 10/16/2018 4:40 pm REASON FOR STUDY: chest pain COMPARISON: 10/08/2018. NUMBER OF VIEWS: Two view. TECHNIQUE: Frontal and lateral radiographic views of the chest acquired. LIMITATIONS: None. FINDINGS: LUNGS AND PLEURA: No opacities, masses or pneumothorax. No pleural effusion. MEDIASTINUM AND HILAR STRUCTURES: No masses. No contour abnormalities. HEART AND VASCULAR STRUCTURES: Heart enlarged without failure. Aorta normal for age. BONES: No acute findings. HARDWARE: None in the chest. OTHER: No other significant finding. IMPRESSION: CARDIAC ENLARGEMENT WITHOUT FAILURE. TECHNICAL DOCUMENTATION: JOB ID: [id number] [employer]- All Rights Reserved Reading location - IP/workstation name: [email or web address]
[2018-10-16 16:55] LABS: PLATELET COUNT 155 10^3/uL (150-450)
[2018-10-16] MEDS ORDERED: LIDOCAINE 5% (700 MG) TRANSDERMAL ADH..PATCH TP ONE (19:34)
[2018-10-16] MEDS ORDERED: DIAZEPAM 2 MG TABLET PO ONE (19:34)
--- NOTE | 2018-10-16 20:45 | ER Document Report ---
ED Cardiac - General Chief Complaint: Chest Pain Stated Complaint: CHEST PAIN Time Seen by Provider: 10/16/18 15:00 Primary Care Provider: PAZ QUINTEROS MD [Primary Care Provider] - Follow up as needed Mode of Arrival: Medic Notes: Patient is a pleasant 42-year-old female who comes in complaining of intermittent chest pain that is worse with movement. Patient has a history of heart failure. Her legs have not had any increased edema. Patient is always short of breath is not worse today. No cough or fever. Patient states that she was seen recently with similar symptoms and is concerned about her heart. TRAVEL OUTSIDE OF THE [place] IN LAST 30 DAYS: No - HPI Patient complains to provider of: Chest pain Chest pain location: Other - Right-sided, radiates to back. Worse with movement Quality of pain: Intermittent Chest pain precipitating factors: movement Cardiac risk factors: Hx CHF, Hx ID Exacerbated by: Activity, Torso movement Relieved by: Rest Similar symptoms previously: Yes Recently seen / treated by doctor: Yes - Related Data Allergies/Adverse Reactions: lisinopril [Lisinopril] Allergy (Severe, Verified 10/16/18 14:51) Difficulty breathing levofloxacin [From Levaquin] Allergy (Verified 10/16/18 14:51) Past Medical History - General Information source: Patient - Social History Smoking Status: Former Smoker Chew tobacco use (# tins/day): No Frequency of alcohol use: None Drug Abuse: None Family History: Reviewed & Not Pertinent, CAD - Father with an ID in his 30s, Hyperlipidemia, Hypertension Patient has suicidal ideation: No Patient has homicidal ideation: No - Past Medical History Cardiac Medical History: Reports: Hx Congestive Heart Failure, Hx Coronary Artery Disease, Hx Heart Attack - 2007,2015, Hx Hypercholesterolemia, Hx Hypertension Pulmonary Medical History: Reports: Hx Asthma, Hx Bronchitis, Hx COPD, Hx Pneumonia, Hx Sleep Apnea Neurological Medical History: Denies: Hx Seizures Endocrine Medical History: Denies: Hx Diabetes Mellitus Type 1, Hx Hyperthyroidism, Hx Hypothyroidism Renal/ Medical History: Denies: Hx Peritoneal Dialysis GI Medical History: Reports: Hx Gastroesophageal Reflux Disease. Denies: Hx Crohn's Disease, Hx Pancreatitis, Hx Ulcerative Colitis Musculoskeletal Medical History: Reports Hx Arthritis, Denies Hx Gout Skin Medical History: Denies Hx Eczema, Denies Hx Psoriasis Psychiatric Medical History: Reports: Hx Anxiety, Hx Depression - & anxiety Past Surgical History: Reports: Hx Cardiac Catheterization, Hx Section - x3, Hx Oral Surgery - wisdom tooth, Hx Orthopedic Surgery - left hand tendon repair, Hx Tonsillectomy. Denies: Hx Coronary Artery Bypass Graft, Hx Coronary Stent, Hx Valve Replacement - Immunizations Hx Diphtheria, Pertussis, Tetanus Vaccination: Yes Hx Pneumococcal Vaccination: 10/09/16 Review of Systems - Review of Systems Constitutional: No symptoms reported EENT: No symptoms reported Cardiovascular: See HPI Respiratory: No symptoms reported Gastrointestinal: No symptoms reported Genitourinary: No symptoms reported Female Genitourinary: No symptoms reported Musculoskeletal: No symptoms reported Skin: No symptoms reported Hematologic/Lymphatic: No symptoms reported Neurological/Psychological: No symptoms reported Physical Exam - Vital signs Vitals: Temp Pulse Resp BP Pulse Ox 98.0 F 83 22 H 126/79 H 93 10/16/18 13:49 10/16/18 13:49 10/16/18 13:49 10/16/18 13:49 10/16/18 13:49 Interpretation: Normal - General General appearance: Appears well, Alert - HEENT Head: Normocephalic, Atraumatic Eyes: Normal Pupils: PERRL - Respiratory Respiratory status: No respiratory distress Chest status: Nontender Breath sounds: Normal Chest palpation: Other - Reproducible right chest wall tenderness to palpation. - Cardiovascular Rhythm: Regular Heart sounds: Normal auscultation Murmur: No - Abdominal Inspection: Normal, Morbidly Obese Distension: No distension Bowel sounds: Normal Tenderness: Nontender Organomegaly: No organomegaly - Back Back: Normal, Tender - Right upper back tenderness to palpation - Extremities General upper extremity: Normal inspection, Nontender, Normal color, Normal ROM, Normal temperature General lower extremity: Normal inspection, Nontender, Normal color, Normal ROM, Normal temperature, Normal weight bearing. No: Selwyn's sign - Neurological Neuro grossly intact: Yes Cognition: Normal Orientation: AAOx4 [place] Coma Scale Eye Opening: Spontaneous [place] Coma Scale Verbal: Oriented Karan Coma Scale Motor: Obeys Commands [place] Coma Scale Total: 15 Speech: Normal Motor strength normal: LUE, RUE, LLE, RLE Sensory: Normal - Psychological Associated symptoms: Normal affect, Normal mood - Skin Skin Temperature: Warm Skin Moisture: Dry Skin Color: Normal Course - Re-evaluation Re-evalutation: 10/16/18 21:11 Patient is a 42-year-old female who comes in complaining of right sided chest pain that is worse with movement. Patient has reproducible tenderness to palpation along her rib both anteriorly and posteriorly. No acute EKG changes. Troponin negative x2. Patient feels better with Lidoderm patch. She will be discharged home and is to follow-up with her doctor. Return if any worsening or concerning symptoms. Understands and agrees with plan. Stable for discharge. No evidence for PE. No evidence for heart failure. No evidence for ACS. - Vital Signs Vital signs: Temp Pulse Resp BP Pulse Ox 98.0 F 83 38 H 93/60 L 99 10/16/18 13:49 10/16/18 13:49 10/16/18 20:32 10/16/18 20:32 10/16/18 18:39 - Laboratory Result Diagrams: 10/16/18 15:56 10/16/18 15:56 Laboratory results interpreted by me: 10/16/18 10/16/18 15:56 15:56 Hgb 10.4 L Hct 33.2 L MCV 73 L MCH 22.8 L MCHC 31.4 L RDW 17.5 H Chloride 109 H Carbon Dioxide 21 L Calcium 8.3 L - Diagnostic Test Radiology reviewed: Reports reviewed - EKG Interpretation by Me EKG shows normal: Sinus rhythm Rate: Normal Rhythm: NSR Discharge - Discharge Clinical Impression: Chest wall pain Condition: Stable Disposition: HOME, SELF-CARE Instructions: Chest Wall Pain ([facility]) Prescriptions: Diazepam [Valium 2 mg Tablet] 2 mg PO BIDP PRN #10 tablet PRN Reason: Lidocaine [Lidoderm 5% (700 mg) Transdermal Patch] 1 patch TP DAILY #30 ad h..patch Referrals: PAZ QUINTEROS MD [Primary Care Provider] - Follow up as needed
[2018-10-16 21:20] VITALS: BP 123/80
--- NOTE | 2018-10-18 10:27 | EKG REPORT ---
SEVERITY:- ABNORMAL ECG - SINUS RHYTHM MULTIPLE VENTRICULAR PREMATURE COMPLEXES PROBABLE LEFT ATRIAL ABNORMALITY NONSPECIFIC IVCD WITH LAD LEFT VENTRICULAR HYPERTROPHY ANTERIOR Q WAVES, POSSIBLY DUE TO LVH : Confirmed by: Lacho Martinez 18-Oct-2018 10:27:13
== END 2018-10-16 21:03 | disposition home or self-care (01) ==
LOC: ER 13:40
DX: R07.89 Other chest pain (principal); J44.9 Chronic obstructive pulmonary disease, unspecified; R06.02 Shortness of breath; I25.10 Atherosclerotic heart disease of native coronary artery without angina pectoris; I10 Essential (primary) hypertension; I25.2 Old myocardial infarction; Z88.8 Allergy status to other drugs, medicaments and biological substances; Z88.1 Allergy status to other antibiotic agents; Z82.49 Family history of ischemic heart disease and other diseases of the circulatory system; Z87.891 Personal history of nicotine dependence; Z87.01 Personal history of pneumonia (recurrent)
CPT/HCPCS: 93005; 99284; 36415; 85025; 80053; 84484; 83880; 71046; 93010; A9270; J3490

== ENCOUNTER 2019-02-06 12:17 | Emergency (ER) | payer MEDICARE, MEDICAID ==
--- NOTE | 2019-02-06 13:23 | ER Document Report ---
ED Medical Screen (RME) - General Chief Complaint: Breathing Difficulty Stated Complaint: TROUBLE BREATHING/VOMITING/COUGH/PAIN Time Seen by Provider: 02/06/19 13:17 Primary Care Provider: PAZ QUINTEROS MD [Primary Care Provider] - Follow up as needed Mode of Arrival: Wheelchair Information source: Patient Notes: 43-year-old female presented to ED for complaint of cough congestion headache with numbness to the fingers and toes dizziness cough and nausea vomiting times worse over a week. She states she has had some chills at times also. She states her appetite is been very diminished and felt like she was getting up if she ate. She states she smokes 1 or 2 cigarettes at the most states she does not drink or do any kind of street drugs. Patient states she does have a history of congestive heart failure cardiomyopathy high blood pressure asthma reflux and sleep apnea. TRAVEL OUTSIDE OF THE [place] IN LAST 30 DAYS: No - HPI Onset: Last week Quality of pain: Achy Associated Symptoms: Body/muscle aches - Related Data Smoking: Cigarettes, Less than 1 pack/day Frequency of alcohol use: None Drug Abuse: None Allergies/Adverse Reactions: lisinopril [Lisinopril] Allergy (Severe, Verified 10/16/18 14:51) Difficulty breathing levofloxacin [From Levaquin] Allergy (Verified 10/16/18 14:51) Past Medical History - Past Medical History Cardiac Medical History: Reports: Hx Congestive Heart Failure, Hx Coronary Artery Disease, Hx Heart Attack - 2007,2015, Hx Hypercholesterolemia, Hx Hypertension Pulmonary Medical History: Reports: Hx Asthma, Hx Bronchitis, Hx COPD, Hx Pneumonia, Hx Sleep Apnea EENT Medical History: Reports: None Neurological Medical History: Reports: None Endocrine Medical History: Reports: None Renal/ Medical History: Reports: None Malignancy Medical History: Reports: None GI Medical History: Reports: Hx Gastroesophageal Reflux Disease Musculoskeltal Medical History: Reports Hx Arthritis Skin Medical History: Denies Hx Eczema, Denies Hx Psoriasis Psychiatric Medical History: Reports: Hx Anxiety, Hx Depression - & anxiety Past Surgical History: Reports: Hx Cardiac Catheterization, Hx Section, Hx Coronary Stent, Hx Tonsillectomy - Immunizations Hx Diphtheria, Pertussis, Tetanus Vaccination: Yes Physical Exam - Vital signs Vitals: Temp Pulse Resp BP Pulse Ox 97.7 F 88 20 125/95 H 95 02/06/19 12:31 02/06/19 12:31 02/06/19 12:31 02/06/19 12:31 02/06/19 12:31 Course - Vital Signs Vital signs: Temp Pulse Resp BP Pulse Ox 97.7 F 88 20 125/95 H 95 02/06/19 12:31 02/06/19 12:31 02/06/19 12:31 02/06/19 12:31 02/06/19 12:31 Doctor's Discharge - Discharge Referrals: PAZ QUINTEROS MD [Primary Care Provider] - Follow up as needed
[2019-02-06 14:23] LABS: ABSOLUTE EOSINOPHILS # (AUTO) 0.3 10^3/uL (0.0-0.6); ABSOLUTE LYMPHOCYTES (AUTO) 3.1 10^3/uL (0.5-4.7); ABSOLUTE MONOCYTES (AUTO) 0.6 10^3/uL (0.1-1.4); ABSOLUTE NEUT (AUTO) 3.3 10^3/uL (1.7-8.2); BASOPHILS % (AUTO) 0.4 % (0-2); HEMATOCRIT 36.2 % (36.0-47.0); HEMOGLOBIN 11.5 g/dL (12.0-15.5); LYMPHOCYTES % (AUTO) 42.9 % (13-45); MEAN CORPUSCULAR HEMOGLOBIN 23.7 pg (27.0-33.4); MEAN CORPUSCULAR HGB CONC 31.8 g/dL (32.0-36.0); MEAN CORPUSCULAR VOLUME 75 fl (80-97); MONOCYTES % (AUTO) 7.6 % (3-13); PLATELET COUNT 205 10^3/uL (150-450); RED BLOOD COUNT 4.86 10^6/uL (3.72-5.28); RED CELL DISTRIBUTION WIDTH 18.4 % (11.5-14.0); SEGMENTED NEUTROPHILS % (AUTO) 45.1 % (42-78); TOTAL CELLS COUNTED % (AUTO) 100 %; WHITE BLOOD COUNT 7.3 10^3/uL (4.0-10.5)
[2019-02-06 14:28] LABS: APPEARANCE,URINE CLOUDY; BILIRUBIN,URINE SMALL (NEGATIVE); COLOR,URINE AMBER; GLUCOSE, URINE NEGATIVE (NEGATIVE); KETONES,URINE NEGATIVE (NEGATIVE); PROTEIN,URINE 30 mg/dL (NEGATIVE); URINE SPECIFIC GRAVITY 1.032
[2019-02-06 14:44] LABS: ALBUMIN 3.7 g/dL (3.5-5.0); ALKALINE PHOSPHATASE 61 U/L (38-126); ANION GAP 10 (5-19); ASPARTATE AMINO TRANSFERASE 21 U/L (14-36); BILIRUBIN,DIRECT 0.2 mg/dL (0.0-0.4); BILIRUBIN,TOTAL 0.4 mg/dL (0.2-1.3); BLOOD UREA NITROGEN 10 mg/dL (7-20); CALCIUM 8.7 mg/dL (8.4-10.2); CARBON DIOXIDE 27 mmol/L (22-30); CHLORIDE 107 mmol/L (98-107); GLUCOSE 104 mg/dL (75-110); POTASSIUM 3.7 mmol/L (3.6-5.0); TOTAL PROTEIN 7.9 g/dL (6.3-8.2)
--- NOTE | 2019-02-06 14:52 | RADIOLOGY REPORT (SQ) ---
EXAM DESCRIPTION: CHEST 2 VIEWS COMPLETED DATE/TIME: 02/06/2019 2:26 pm REASON FOR STUDY: cough COMPARISON: 10/16/2018 EXAM PARAMETERS: NUMBER OF VIEWS: two views TECHNIQUE: Digital Frontal and Lateral radiographic views of the chest acquired. RADIATION DOSE: NA LIMITATIONS: none FINDINGS: LUNGS AND PLEURA: Left retrocardiac opacity. No pleural effusion or pneumothorax. MEDIASTINUM AND HILAR STRUCTURES: No masses or contour abnormalities. HEART AND VASCULAR STRUCTURES: Enlarged cardiac silhouette, stable. Central vascular congestion. BONES: No acute findings. HARDWARE: None in the chest. OTHER: No other significant finding. IMPRESSION: Left lower lobe retrocardiac opacity suggestive of pneumonia. Enlarged cardiac silhouette and central vascular congestion, stable. TECHNICAL DOCUMENTATION: JOB ID: [id number] [employer]- All Rights Reserved Reading location - IP/workstation name: [email or web address]
[2019-02-06] MEDS ORDERED: ACETAMINOPHEN 325 MG TABLET PO ONE (15:55)
[2019-02-06 16:07] LABS: A TYPE INFLUENZA AG NEGATIVE (NEGATIVE); B INFLUENZA AG NEGATIVE (NEGATIVE)
[2019-02-06] MEDS ORDERED: DOXYCYCLINE HYCLATE 100 MG TABLET PO ONE (17:35)
[2019-02-06] MEDS ORDERED: ALBUTEROL SULFATE HFA (90 MCG/PUFF) 8 GM MDI (1 MDI/ER DISP) IH ONE (17:35)
[2019-02-06] MEDS ORDERED: CEFTRIAXONE INJ 1000 MG VIAL IM ONE (17:35)
[2019-02-06] MEDS ORDERED: LIDOCAINE 1% INJ (10 MG/ML) 10 ML MDV INJ ONE (17:36)
--- NOTE | 2019-02-06 17:38 | ER Document Report ---
ED Respiratory Problem - General Chief Complaint: Cough Stated Complaint: TROUBLE BREATHING/VOMITING/COUGH/PAIN Time Seen by Provider: 02/06/19 13:17 Primary Care Provider: PAZ QUINTEROS MD [Primary Care Provider] - 02/09/19 Mode of Arrival: Wheelchair Information source: Patient Notes: Patient presents complaining of productive cough for the past week. Patient reports occasional chills at home. Patient states over the past few days she has had some vomiting although none today. Patient does report some burning with urination. Patient states she is noticed some blood in her sputum as well. Patient denies any other abnormal bleeding or bruising. TRAVEL OUTSIDE OF THE [place] IN LAST 30 DAYS: No - HPI Patient complains to provider of: Asthma, CHF, Cough. No: Short of breath Onset: Last week Duration: Continuous Initiating Event: URI. No: Out of meds Quality of pain: Achy Pain Level: 2 Context: Hx asthma, Hx CHF, Smoker. denies: Recent immobilization Cough: Productive Sputum amount: Small Sputum color: Red Specks Associated symptoms: Bloody cough, Chills, Cough, Other - Left posterior rib pain. denies: Chest pain/discomfort, Difficulty breathing, Fever, Heart racing, Runny nose, Short of breath, Sore Throat, Wheezing Similar symptoms previously: Yes Recently seen / treated by doctor: No - Related Data Allergies/Adverse Reactions: lisinopril [Lisinopril] Allergy (Severe, Verified 10/16/18 14:51) Difficulty breathing levofloxacin [From Levaquin] Allergy (Verified 10/16/18 14:51) Past Medical History - General Information source: Patient - Social History Smoking Status: Unknown if Ever Smoked Frequency of alcohol use: None Drug Abuse: None Occupation: None Family History: Reviewed & Not Pertinent, CAD - Father with an OH in his 30s, Hyperlipidemia, Hypertension Patient has suicidal ideation: No Patient has homicidal ideation: No - Past Medical History Cardiac Medical History: Reports: Hx Congestive Heart Failure, Hx Coronary Artery Disease, Hx Heart Attack - 2007,2016, Hx Hypercholesterolemia, Hx Hypertension Pulmonary Medical History: Reports: Hx Asthma, Hx Bronchitis, Hx COPD, Hx Pneumonia, Hx Sleep Apnea EENT Medical History: Reports: None Neurological Medical History: Reports: None Endocrine Medical History: Reports: None Renal/ Medical History: Reports: None Malignancy Medical History: Reports: None GI Medical History: Reports: Hx Gastroesophageal Reflux Disease Musculoskeletal Medical History: Reports Hx Arthritis Skin Medical History: Denies Hx Eczema, Denies Hx Psoriasis Psychiatric Medical History: Reports: Hx Anxiety, Hx Depression - & anxiety Past Surgical History: Reports: Hx Cardiac Catheterization, Hx Section, Hx Coronary Stent, Hx Tonsillectomy - Immunizations Hx Diphtheria, Pertussis, Tetanus Vaccination: Yes Hx Pneumococcal Vaccination: 10/09/16 Review of Systems - Review of Systems Constitutional: Chills. denies: Recent illness EENT: No symptoms reported. denies: Nose pain, Nose congestion, Throat pain Cardiovascular: No symptoms reported. denies: Chest pain, Dizziness, Lightheaded Respiratory: Cough, Hemoptysis, Sputum. denies: Short of breath Gastrointestinal: Vomiting - 2 days ago none since. denies: Abdominal pain Genitourinary: No symptoms reported Female Genitourinary: No symptoms reported Musculoskeletal: Back pain - Left thoracic back pain with coughing Skin: No symptoms reported Hematologic/Lymphatic: No symptoms reported Neurological/Psychological: No symptoms reported Physical Exam - Vital signs Vitals: Temp Pulse Resp BP Pulse Ox 97.7 F 88 20 125/95 H 95 02/06/19 12:31 02/06/19 12:31 02/06/19 12:31 02/06/19 12:31 02/06/19 12:31 - General General appearance: Appears well, Alert In distress: None - HEENT Head: Normocephalic, Atraumatic Eyes: Normal Conjunctiva: Normal Pupils: PERRL Ears: Normal External canal: Normal Nasal: Normal Mouth/Lips: Normal Pharynx: Normal Neck: Normal, Supple. No: Lymphadenopathy - Respiratory Respiratory status: No respiratory distress Chest status: Pain with cough Breath sounds: Nonproductive cough, Rhonchi Chest palpation: Normal - Cardiovascular Rhythm: Regular Heart sounds: S1 appreciated, S2 appreciated - Abdominal Inspection: Morbidly Obese Distension: No distension Tenderness: Nontender - Back Back: Normal, Nontender - Extremities General upper extremity: Normal inspection, Normal ROM General lower extremity: Normal inspection, Normal ROM - Neurological Neuro grossly intact: Yes Cognition: Normal Karan Coma Scale Eye Opening: Spontaneous Karan Coma Scale Verbal: Oriented Mobile Coma Scale Motor: Obeys Commands Mobile Coma Scale Total: 15 - Psychological Associated symptoms: Normal affect, Normal mood - Skin Skin Temperature: Warm Skin Moisture: Dry Skin Color: Normal Course - Re-evaluation Re-evalutation: 02/06/19 18:23 Patient with left lower lobe pneumonia on x-ray. Patient with stable vital signs at this time. No concern for sepsis. Will give a dose of Rocephin and start patient on doxycycline and encourage outpatient follow-up with primary doctor on Saturday. Good return precautions discussed with patient. Patient also with urinary symptoms, will culture urine. Patient without any chest pain symptoms. Patient verbalized understanding of instructions and is agreeable with discharge plan of care at this time. 02/06/19 19:50 - Vital Signs Vital signs: Temp Pulse Resp BP Pulse Ox 97.7 F 85 16 137/88 H 98 02/06/19 18:43 02/06/19 18:43 02/06/19 18:43 02/06/19 18:43 02/06/19 18:43 - Laboratory Result Diagrams: 02/06/19 14:05 02/06/19 14:05 Laboratory results interpreted by me: 02/06/19 02/06/19 02/06/19 14:05 14:05 14:05 Hgb 11.5 L MCV 75 L MCH 23.7 L MCHC 31.8 L RDW 18.4 H NT-Pro-B Natriuret Pep 223 H Urine Protein 30 H Urine Blood SMALL H Urine Bilirubin SMALL H Urine Urobilinogen 4.0 H Leukocyte Esterase Rfl SMALL H 02/06/19 18:23 Labs- Entire Visit 02/06/19 02/06/19 02/06/19 14:05 14:05 14:05 WBC 7.3 RBC 4.86 Hgb 11.5 L Hct 36.2 MCV 75 L MCH 23.7 L MCHC 31.8 L RDW 18.4 H Plt Count 205 Lymph % (Auto) 42.9 Hitchcock % (Auto) 7.6 Eos % (Auto) 4.0 Baso % (Auto) 0.4 Absolute Neuts (auto) 3.3 Absolute Lymphs (auto) 3.1 Absolute Monos (auto) 0.6 Absolute Eos (auto) 0.3 Absolute Basos (auto) 0.0 Seg Neutrophils % 45.1 Sodium 143.5 Potassium 3.7 Chloride 107 Carbon Dioxide 27 Anion Gap 10 BUN 10 Creatinine 0.75 Est GFR ( Amer) > 60 Est GFR (MDRD) Non-Af > 60 Glucose 104 Calcium 8.7 Total Bilirubin 0.4 Direct Bilirubin 0.2 Neonat Total Bilirubin Not Reportable Neonat Direct Bilirubin Not Reportable Neonat Indirect Bili Not Reportable AST 21 ALT 12 Alkaline Phosphatase 61 NT-Pro-B Natriuret Pep 223 H Total Protein 7.9 Albumin 3.7 Lipase 96.4 Urine Color Urine Appearance Urine pH Ur Specific Mullen Urine Protein Urine Glucose (UA) Urine Ketones Urine Blood Urine Nitrite (Reflex) Urine Bilirubin Urine Urobilinogen Leukocyte Esterase Rfl Urine RBC (Auto) Urine Bacteria (Auto) Urine WBC (Reflex) Squamous Epi Cells Auto Urine Mucus (Auto) Urine Ascorbic Acid Influenza A (Rapid) Influenza B (Rapid) 02/06/19 02/06/19 14:05 15:42 WBC RBC Hgb Hct MCV MCH MCHC RDW Plt Count Lymph % (Auto) Hitchcock % (Auto) Eos % (Auto) Baso % (Auto) Absolute Neuts (auto) Absolute Lymphs (auto) Absolute Monos (auto) Absolute Eos (auto) Absolute Basos (auto) Seg Neutrophils % Sodium Potassium Chloride Carbon Dioxide Anion Gap BUN Creatinine Est GFR ( Amer) Est GFR (MDRD) Non-Af Glucose Calcium Total Bilirubin Direct Bilirubin Neonat Total Bilirubin Neonat Direct Bilirubin Neonat Indirect Bili AST ALT Alkaline Phosphatase NT-Pro-B Natriuret Pep Total Protein Albumin Lipase Urine Color WILLIAM Urine Appearance CLOUDY Urine pH 6.0 Ur Specific Mullen 1.032 Urine Protein 30 H Urine Glucose (UA) NEGATIVE Urine Ketones NEGATIVE Urine Blood SMALL H Urine Nitrite (Reflex) NEGATIVE Urine Bilirubin SMALL H Urine Urobilinogen 4.0 H Leukocyte Esterase Rfl SMALL H Urine RBC (Auto) 20 Urine Bacteria (Auto) 2+ Urine WBC (Reflex) 16 Squamous Epi Cells Auto 16 Urine Mucus (Auto) FEW Urine Ascorbic Acid NEGATIVE Influenza A (Rapid) NEGATIVE Influenza B (Rapid) NEGATIVE - Diagnostic Test Radiology reviewed: Reports reviewed Discharge - Discharge Clinical Impression: UTI (urinary tract infection) Qualifiers: Urinary tract infection type: site unspecified Hematuria presence: with hematuria Qualified Code(s): N39.0 - Urinary tract infection, site not specified Pneumonia Qualifiers: Pneumonia type: due to unspecified organism Laterality: left Lung location: lower lobe of lung Qualified Code(s): J18.9 - Pneumonia, unspecified organism Condition: Stable Disposition: HOME, SELF-CARE Instructions: Doxycycline ([facility]), Pneumonia ([facility]), Rocephin ([facility]), Urinary Tract Infection ([facility]) Additional Instructions: Return immediately for any new or worsening symptoms Followup with your primary care provider on Saturday for recheck Use inhaler 2 puffs every 4 hours as needed for cough Prescriptions: Benzonatate [Tessalon Perle 100 mg Capsule] 100 mg PO Q8HP PRN #20 cap PRN Reason: Doxycycline Hyclate 100 mg PO BID #20 capsule Referrals: PAZ QUINTEROS MD [Primary Care Provider] - 02/09/19
[2019-02-06 17:48] VITALS: BP 137/88
== END 2019-02-06 18:44 | disposition home or self-care (01) ==
LOC: ER 12:17
DX: J18.9 Pneumonia, unspecified organism (principal); N39.0 Urinary tract infection, site not specified; R11.10 Vomiting, unspecified; R68.83 Chills (without fever); I25.10 Atherosclerotic heart disease of native coronary artery without angina pectoris; E78.00 Pure hypercholesterolemia, unspecified; I50.9 Heart failure, unspecified; I11.0 Hypertensive heart disease with heart failure; I25.2 Old myocardial infarction
CPT/HCPCS: 99283; 96372; 36415; 87086; 83690; 85025; 80053; 81001; 87804; 83880; 71046; A9270 ×3; J0696; J3490

== ENCOUNTER 2019-02-19 00:25 | Emergency (ER) | payer MEDICARE, MEDICAID ==
[2019-02-19 00:48] LABS: ABSOLUTE EOSINOPHILS # (AUTO) 0.3 10^3/uL (0.0-0.6); ABSOLUTE LYMPHOCYTES (AUTO) 3.2 10^3/uL (0.5-4.7); ABSOLUTE MONOCYTES (AUTO) 0.8 10^3/uL (0.1-1.4); ABSOLUTE NEUT (AUTO) 5.5 10^3/uL (1.7-8.2); BASOPHILS % (AUTO) 0.5 % (0-2); EOSINOPHILS % (AUTO) 2.6 % (0-6); HEMATOCRIT 36.5 % (36.0-47.0); HEMOGLOBIN 11.3 g/dL (12.0-15.5); LYMPHOCYTES % (AUTO) 32.2 % (13-45); MEAN CORPUSCULAR HEMOGLOBIN 23.6 pg (27.0-33.4); MEAN CORPUSCULAR VOLUME 76 fl (80-97); MONOCYTES % (AUTO) 8.6 % (3-13); PLATELET COUNT 224 10^3/uL (150-450); RED CELL DISTRIBUTION WIDTH 18.3 % (11.5-14.0); SEGMENTED NEUTROPHILS % (AUTO) 56.1 % (42-78); TOTAL CELLS COUNTED % (AUTO) 100 %; WHITE BLOOD COUNT 9.8 10^3/uL (4.0-10.5)
[2019-02-19 01:07] LABS: ALBUMIN 3.9 g/dL (3.5-5.0); ALKALINE PHOSPHATASE 65 U/L (38-126); ANION GAP 13 (5-19); ASPARTATE AMINO TRANSFERASE 17 U/L (14-36); BILIRUBIN,DIRECT 0.2 mg/dL (0.0-0.4); BILIRUBIN,TOTAL 0.4 mg/dL (0.2-1.3); BLOOD UREA NITROGEN 10 mg/dL (7-20); CALCIUM 8.8 mg/dL (8.4-10.2); CARBON DIOXIDE 26 mmol/L (22-30); CHLORIDE 104 mmol/L (98-107); CREATINE KINASE 64 U/L (30-135); GLUCOSE 103 mg/dL (75-110); TOTAL PROTEIN 8.3 g/dL (6.3-8.2)
[2019-02-19 01:18] LABS: CREATINE KINASE MB 0.62 ng/mL (<4.55)
[2019-02-19 01:20] LABS: TROPONIN I < 0.012 ng/mL
[2019-02-19 05:55] LABS: APPEARANCE,URINE SLIGHTLY-CLOUDY; BILIRUBIN,URINE NEGATIVE (NEGATIVE); COLOR,URINE AMBER; GLUCOSE, URINE NEGATIVE (NEGATIVE); KETONES,URINE NEGATIVE (NEGATIVE); LEUKOCYTE ESTERASE,URINE NEGATIVE (NEGATIVE); NITRITE,URINE NEGATIVE (NEGATIVE); PROTEIN,URINE 30 mg/dL (NEGATIVE); URINE SPECIFIC GRAVITY 1.029
--- NOTE | 2019-02-19 06:33 | RADIOLOGY REPORT (SQ) ---
EXAM DESCRIPTION: XR CHEST 2 VIEWS COMPLETED DATE/TME: 02/19/2019 04:48 CLINICAL HISTORY: 43 years Female, cough, dyspnea COMPARISON: None. NUMBER OF VIEWS/TECHNIQUE: 2, Frontal, Lateral FINDINGS: Adequate lung volume, pulmonary vascular congestion, mildly enlarged cardiac silhouette, and intact bony thorax. IMPRESSION: Pulmonary vascular congestion. Mildly enlarged cardiac silhouette.
--- NOTE | 2019-02-19 06:49 | ER Document Report ---
ED General - General Chief Complaint: Shortness Of Breath Stated Complaint: SYNCOPE Time Seen by Provider: 02/19/19 04:32 Primary Care Provider: PAZ QUINTEROS MD [Primary Care Provider] - Follow up as needed TRAVEL OUTSIDE OF THE [place] IN LAST 30 DAYS: No - HPI Notes: Patient is a 43-year-old female who presents emergency department for evaluation. She is a very difficult historian. Patient states that she is having right-sided chest pain intermittently, but she really cannot describe it for me. She states she has not had in the last several days, but she was having it before. She is feeling short of breath with exertion. She states she had an unresponsive episode. It was noted by family that she was "not breathing for 10 minutes." They did some chest compressions and she started to breathe again. The patient states she has some middle chest pain right now, she believes is from the chest compressions. She is also concerned because she states her BiPAP mask is not fitting her correctly. It is leaking, and she believes it is "filled with bacteria." She is awaiting approval for new care for her BiPAP. She had been recently treated for pneumonia as well as urinary tract infection with an antibiotic. She states she took all of it, although it did make her sick. She was concerned that that had not resolved either. - Related Data Allergies/Adverse Reactions: lisinopril [Lisinopril] Allergy (Severe, Verified 10/16/18 14:51) Difficulty breathing levofloxacin [From Levaquin] Allergy (Verified 10/16/18 14:51) Home Medications: losartan with potassium. Doxycycline. Please see list Past Medical History - General Information source: Patient - Social History Smoking Status: Current Every Day Smoker Chew tobacco use (# tins/day): No Frequency of alcohol use: None Drug Abuse: None Family History: Reviewed & Not Pertinent, CAD - Father with an CA in his 30s, Hyperlipidemia, Hypertension Patient has suicidal ideation: No Patient has homicidal ideation: No - Past Medical History Cardiac Medical History: Reports: Hx Congestive Heart Failure, Hx Coronary Artery Disease, Hx Heart Attack - 2007,2016, Hx Hypercholesterolemia, Hx Hypertension Pulmonary Medical History: Reports: Hx Asthma, Hx Bronchitis, Hx COPD, Hx Pneumonia, Hx Sleep Apnea GI Medical History: Reports: Hx Gastroesophageal Reflux Disease Musculoskeletal Medical History: Reports Hx Arthritis Skin Medical History: Denies Hx Eczema, Denies Hx Psoriasis Psychiatric Medical History: Reports: Hx Anxiety, Hx Depression - & anxiety Past Surgical History: Reports: Hx Cardiac Catheterization, Hx Section, Hx Coronary Stent, Hx Tonsillectomy - Immunizations Hx Diphtheria, Pertussis, Tetanus Vaccination: Yes Hx Pneumococcal Vaccination: 10/09/16 Review of Systems - Review of Systems Constitutional: See HPI EENT: No symptoms reported Cardiovascular: See HPI Respiratory: See HPI - 13. Entire thing Gastrointestinal: No symptoms reported Genitourinary: No symptoms reported Musculoskeletal: No symptoms reported Skin: No symptoms reported Neurological/Psychological: No symptoms reported Physical Exam - Vital signs Vitals: Temp Pulse Resp BP Pulse Ox 98.2 F 95 28 H 144/105 H 96 02/19/19 00:31 02/19/19 00:31 02/19/19 00:31 02/19/19 00:31 02/19/19 00:31 - Notes Notes: This is a 43-year-old female who appears older than her stated age, no acute distress. Vital signs reviewed, please refer to chart. Head is normocephalic, atraumatic. Pupils equal round, reactive to light. Neck is supple without meningismus. Heart is regular rate and rhythm. Lungs reveal diminished breath sounds, likely secondary to body habitus, but no wheezes, rales, rhonchi. Abdomen is soft, nontender, normoactive bowel sounds throughout. Extremities without cyanosis, clubbing. Posterior calves are nontender. Peripheral pulses are equal. Skin is warm and dry. Patient is awake, alert, neurological exam is nonfocal. Course - Re-evaluation Re-evalutation: 02/19/19 06:47 Patient presents emergency department for evaluation. She complains of multiple issues. She is oxygenating well. Her lungs are clear. Her respiratory rate is mildly elevated, but this patient is morbidly obese with a BMI of 65. Her chest x-ray shows potential pulmonary vascular congestion, but her proBNP is only been mildly elevated in the past. She is completely negative cardiac enzymes despite cardiac compressions from her family. I explained to the patient that everything seems stable at this time. Her infiltrative process on the last x- ray was gone, her urinary tract infection had resolved, she has no leukocytosis. Patient became extremely agitated, stating that something was wrong, and she wanted further evaluation. I explained to her I would be happy to speak to her primary care provider. I spoke with Dr. Quinteros. Dr. Quinteros did not believe that there was any information that would lead her to be necessarily admitted, and he would follow-up with her in the office. I explained this to the patient. The patient became tearful. She admits that she is depressed. She denies any suicidal or homicidal ideation, no visual or auditory hallucination. Her social situation has mandated that she is living with family members, she states she is constantly being threatened to be thrown out into the street with her sons. She admits to being depressed, thinks that might be contributing to her symptoms. She also states that she is having difficulty losing weight secondary to her problems with her sleep apnea. We talked at length about all of these issues. I strongly encouraged her to discuss the possibility of an antidepressant with her primary care provider. Certainly she needs further evaluation for these ongoing medical issues. She voiced understanding to this and the patient was discharged. - Vital Signs Vital signs: Temp Pulse Resp BP Pulse Ox 98.2 F 95 24 H 122/69 100 02/19/19 00:40 02/19/19 00:40 02/19/19 06:00 02/19/19 05:18 02/19/19 06:00 - Laboratory Result Diagrams: 02/19/19 00:35 02/19/19 00:35 Laboratory results interpreted by me: 02/19/19 02/19/19 02/19/19 00:35 00:35 05:15 Hgb 11.3 L MCV 76 L MCH 23.6 L MCHC 31.0 L RDW 18.3 H Total Protein 8.3 H Urine Protein 30 H Urine Blood SMALL H Urine Urobilinogen 4.0 H - Diagnostic Test Radiology reviewed: Image reviewed, Reports reviewed Radiology results interpreted by me: 02/19/19 06:46 Chest X-Ray 02/19/19 04:48 IMPRESSION: Pulmonary vascular congestion. Mildly enlarged cardiac silhouette. - EKG Interpretation by Me Additional EKG results interpreted by me: 02/19/19 06:48 Sinus mechanism with a rate of 92 bpm. Left axis deviation, IVCD. Borderline prolonged QT interval. Nonspecific ST changes, but no acute changes concerning for acute infarction. Lateral ST wave changes, likely secondary to LVH. Discharge - Discharge Clinical Impression: Dyspnea on exertion, Shortness of breath, Chest pain Condition: Stable Disposition: HOME, SELF-CARE Instructions: Chest Pain of Unclear Cause ([facility]), Dyspnea, Nonspecific ([facility]) Additional Instructions: No clear cause is found for your symptoms today. Please follow-up with Dr. Quinteros in the next 1 to 2 days. He should discuss with him the possibility of starting an antidepressant. Further discuss appropriate repair of your CPAP machine. Return to the emergency department with worsening or new concerning symptoms of any sort. Referrals: PAZ QUINTEROS MD [Primary Care Provider] - Follow up as needed
[2019-02-19 07:05] VITALS: BP 127/83
--- NOTE | 2019-02-20 17:24 | EKG REPORT ---
SEVERITY:- ABNORMAL ECG - SINUS RHYTHM SANCHEZ, CONSIDER BIATRIAL ABNORMALITIES LAD, CONSIDER LEFT ANTERIOR FASCICULAR BLOCK LVH WITH SECONDARY REPOLARIZATION ABNORMALITY ANTERIOR Q WAVES, POSSIBLY DUE TO LVH BORDERLINE PROLONGED QT INTERVAL : Confirmed by: Lacho Martinez 20-Feb-2019 17:24:13
== END 2019-02-19 07:12 | disposition home or self-care (01) ==
LOC: ER 00:25
DX: J44.9 Chronic obstructive pulmonary disease, unspecified (principal); R07.9 Chest pain, unspecified; I45.9 Conduction disorder, unspecified; R06.02 Shortness of breath; E66.01 Morbid (severe) obesity due to excess calories; Z68.44 Body mass index [BMI] 60.0-69.9, adult; G47.30 Sleep apnea, unspecified; Z99.89 Dependence on other enabling machines and devices; I25.10 Atherosclerotic heart disease of native coronary artery without angina pectoris; I25.2 Old myocardial infarction; I10 Essential (primary) hypertension; F17.200 Nicotine dependence, unspecified, uncomplicated; Z62.820 Parent-biological child conflict; Z95.5 Presence of coronary angioplasty implant and graft; Z87.01 Personal history of pneumonia (recurrent); Z79.899 Other long term (current) drug therapy; Z79.2 Long term (current) use of antibiotics; Z88.8 Allergy status to other drugs, medicaments and biological substances; Z88.1 Allergy status to other antibiotic agents
CPT/HCPCS: 36415; 71046; 80053; 81001; 82550; 82553; 84484; 85025; 93005; 93010; 99285

== ENCOUNTER 2019-03-11 13:43 | Emergency (ER) | payer MEDICARE, MEDICAID ==
--- NOTE | 2019-03-11 15:37 | ER Document Report ---
ED Medical Screen (RME) - General Chief Complaint: Shortness Of Breath Stated Complaint: SHORTNESS OF BREATH Time Seen by Provider: 03/11/19 15:29 Primary Care Provider: PAZ QUINTEROS MD [Primary Care Provider] - Follow up as needed Mode of Arrival: Wheelchair Information source: Patient Notes: 43-year-old female presented to ED for cough cold congestion dizziness weakness. She states she has not felt any better since February when she was diagnosed with pneumonia. She did take all of her antibiotics as ordered. She was seen again in February [address] Tian. Patient states she is still not getting any better. I have greeted and performed a rapid initial assessment of this patient. A comprehensive ED assessment and evaluation of the patient, analysis of test results and completion of medical decision making process will be conducted by an additional ED providers. TRAVEL OUTSIDE OF THE [place] IN LAST 30 DAYS: No - Related Data Allergies/Adverse Reactions: lisinopril [Lisinopril] Allergy (Severe, Verified 10/16/18 14:51) Difficulty breathing levofloxacin [From Levaquin] Allergy (Verified 10/16/18 14:51) Past Medical History - Past Medical History Cardiac Medical History: Reports: Hx Congestive Heart Failure, Hx Coronary Artery Disease, Hx Heart Attack - 2007,2015, Hx Hypercholesterolemia, Hx Hypertension Pulmonary Medical History: Reports: Hx Asthma, Hx Bronchitis, Hx COPD, Hx Pneumonia, Hx Sleep Apnea GI Medical History: Reports: Hx Gastroesophageal Reflux Disease Musculoskeltal Medical History: Reports Hx Arthritis Skin Medical History: Denies Hx Eczema, Denies Hx Psoriasis Psychiatric Medical History: Reports: Hx Anxiety, Hx Depression - & anxiety Past Surgical History: Reports: Hx Cardiac Catheterization, Hx Section, Hx Coronary Stent, Hx Tonsillectomy - Immunizations Hx Diphtheria, Pertussis, Tetanus Vaccination: Yes Physical Exam - Vital signs Vitals: Temp Pulse Resp BP Pulse Ox 98.3 F 80 22 H 125/97 H 96 03/11/19 14:03/11/19 14:03/11/19 14:03/11/19 14:03/11/19 14:06 Course - Vital Signs Vital signs: Temp Pulse Resp BP Pulse Ox 98.3 F 80 22 H 125/97 H 96 03/11/19 14:03/11/19 14:03/11/19 14:06 03/11/19 14:06 03/11/19 14:06 Doctor's Discharge - Discharge Referrals: PAZ QUINTEROS MD [Primary Care Provider] - Follow up as needed
[2019-03-11 16:22] LABS: ABSOLUTE EOSINOPHILS # (AUTO) 0.2 10^3/uL (0.0-0.6); ABSOLUTE LYMPHOCYTES (AUTO) 2.9 10^3/uL (0.5-4.7); ABSOLUTE MONOCYTES (AUTO) 0.5 10^3/uL (0.1-1.4); ABSOLUTE NEUT (AUTO) 3.9 10^3/uL (1.7-8.2); BASOPHILS % (AUTO) 0.6 % (0-2); EOSINOPHILS % (AUTO) 2.9 % (0-6); HEMATOCRIT 36.1 % (36.0-47.0); HEMOGLOBIN 11.4 g/dL (12.0-15.5); LYMPHOCYTES % (AUTO) 37.6 % (13-45); MEAN CORPUSCULAR HEMOGLOBIN 23.4 pg (27.0-33.4); MEAN CORPUSCULAR HGB CONC 31.4 g/dL (32.0-36.0); MEAN CORPUSCULAR VOLUME 74 fl (80-97); MONOCYTES % (AUTO) 7.1 % (3-13); PLATELET COUNT 195 10^3/uL (150-450); RED BLOOD COUNT 4.86 10^6/uL (3.72-5.28); RED CELL DISTRIBUTION WIDTH 17.9 % (11.5-14.0); SEGMENTED NEUTROPHILS % (AUTO) 51.8 % (42-78); TOTAL CELLS COUNTED % (AUTO) 100 %; WHITE BLOOD COUNT 7.6 10^3/uL (4.0-10.5)
[2019-03-11 16:32] LABS: APPEARANCE,URINE SLIGHTLY-CLOUDY; BILIRUBIN,URINE NEGATIVE (NEGATIVE); COLOR,URINE YELLOW; GLUCOSE, URINE NEGATIVE (NEGATIVE); KETONES,URINE NEGATIVE (NEGATIVE); PROTEIN,URINE NEGATIVE (NEGATIVE); URINE SPECIFIC GRAVITY 1.021
[2019-03-11 16:39] LABS: ALBUMIN 3.5 g/dL (3.5-5.0); ALKALINE PHOSPHATASE 63 U/L (38-126); ANION GAP 7 (5-19); ASPARTATE AMINO TRANSFERASE 19 U/L (14-36); BILIRUBIN,DIRECT 0.2 mg/dL (0.0-0.4); BILIRUBIN,TOTAL 0.4 mg/dL (0.2-1.3); BLOOD UREA NITROGEN 9 mg/dL (7-20); CALCIUM 8.4 mg/dL (8.4-10.2); CARBON DIOXIDE 29 mmol/L (22-30); CHLORIDE 106 mmol/L (98-107); GLUCOSE 91 mg/dL (75-110); POTASSIUM 3.9 mmol/L (3.6-5.0); TOTAL PROTEIN 7.9 g/dL (6.3-8.2)
--- NOTE | 2019-03-11 16:41 | RADIOLOGY REPORT (SQ) ---
EXAM DESCRIPTION: CHEST 2 VIEWS COMPLETED DATE/TIME: 03/11/2019 4:26 pm REASON FOR STUDY: cough congestion cannot sleep due to cough COMPARISON: PA and lateral views of the chest from 02/19/2019. EXAM PARAMETERS: NUMBER OF VIEWS: two views TECHNIQUE: PA and lateral views of the chest were obtained. RADIATION DOSE: NA LIMITATIONS: none FINDINGS: LUNGS AND PLEURA: Bilateral perihilar opacities without a superimposed consolidation, size able pleural effusion or pneumothorax. MEDIASTINUM AND HILAR STRUCTURES: No mediastinal or hilar contour abnormality. HEART AND VASCULAR STRUCTURES: The cardiac silhouette is enlarged. BONES: No acute findings. HARDWARE: None in the chest. OTHER: No other finding. IMPRESSION: Cardiomegaly with probable interstitial edema. TECHNICAL DOCUMENTATION: JOB ID: [id number] [employer]- All Rights Reserved Reading location - IP/workstation name: [email or web address]
[2019-03-11 16:56] LABS: NT PRO BNP 597 pg/mL (<125)
[2019-03-11 16:58] LABS: TROPONIN I < 0.012 ng/mL
--- NOTE | 2019-03-11 20:41 | ER Document Report ---
ED General - General Chief Complaint: Shortness Of Breath Stated Complaint: SHORTNESS OF BREATH Time Seen by Provider: 03/11/19 15:29 Primary Care Provider: PAZ QUINTEROS MD [Primary Care Provider] - Follow up as needed Mode of Arrival: Wheelchair Notes: 43-year-old woman presents to the emergency department with a complaint of shortness of breath. She has a history of cardiomyopathy and congestive heart failure. She has been having episodic coughing and shortness of breath at night when trying to sleep. She also notes exertional dyspnea with coughing and shortness of breath episodes. She been seen in the emergency department twice in February and again today. Chest x-rays at that time and today reveals vascular congestion compatible with CHF. Patient presently is using torsemide as a diuretic, however states that it has not been helping. States that she had a better diuresis with furosemide. She denies palpitations or dizziness, no syncope or episodes of respiratory distress. TRAVEL OUTSIDE OF THE [place] IN LAST 30 DAYS: No - Related Data Allergies/Adverse Reactions: lisinopril [Lisinopril] Allergy (Severe, Verified 03/11/19 15:37) Difficulty breathing levofloxacin [From Levaquin] Allergy (Verified 03/11/19 15:37) Home Medications: potassium Past Medical History - General Information source: Patient - Social History Smoking Status: Current Some Day Smoker Family History: Reviewed & Not Pertinent, CAD - Father with an RI in his 30s, Hyperlipidemia, Hypertension Patient has suicidal ideation: No Patient has homicidal ideation: No - Past Medical History Cardiac Medical History: Reports: Hx Congestive Heart Failure, Hx Coronary Artery Disease, Hx Heart Attack - 2007,2015, Hx Hypercholesterolemia, Hx Hypertension Pulmonary Medical History: Reports: Hx Asthma, Hx Bronchitis, Hx COPD, Hx Pneumonia, Hx Sleep Apnea GI Medical History: Reports: Hx Gastroesophageal Reflux Disease Musculoskeletal Medical History: Reports Hx Arthritis Skin Medical History: Denies Hx Eczema, Denies Hx Psoriasis Psychiatric Medical History: Reports: Hx Anxiety, Hx Depression - & anxiety Past Surgical History: Reports: Hx Cardiac Catheterization, Hx Section, Hx Coronary Stent, Hx Tonsillectomy - Immunizations Hx Diphtheria, Pertussis, Tetanus Vaccination: Yes Hx Pneumococcal Vaccination: 10/09/16 Review of Systems - Review of Systems Notes: Constitutional: Negative for fever. HENT: Negative for sore throat. Eyes: Negative for visual changes. Cardiovascular: Negative for chest pain. Respiratory: + cough, SEBASTIAN, PND, shortness of breath. Gastrointestinal: Negative for abdominal pain, vomiting or diarrhea. Genitourinary: Negative for dysuria. Musculoskeletal: Negative for back pain. Skin: Negative for rash. Neurological: Negative for headaches, weakness or numbness. 10 point ROS negative except as marked above and in HPI. Physical Exam - Vital signs Vitals: Temp Pulse Resp BP Pulse Ox 98.3 F 80 22 H 125/97 H 96 03/11/19 14:03/11/19 14:03/11/19 14:03/11/19 14:03/11/19 14:06 - Notes Notes: PHYSICAL EXAMINATION: Physical Exam: General: Morbidly obese woman in no acute distress, O2 sat 100% HEENT: NC/AT, pupils equal round and reactive to light, MM moist,nares clear, Neck: supple, no adenopathy, no masses. Lungs: clear, no wheezing, no rales no rhonchi CVS: Regular rate and rhythm no murmur gallop or rub Abdomen: Soft active nontender, no masses, no hepatosplenomegaly Ext: No edema clubbing or cyanosis. Neuro: Alert and responsive, moving all 4 extremities on command, cranial nerves intact. Skin: Intact no open lesions, no rash PSYCH: Normal mood, normal affect. Course - Re-evaluation Re-evalutation: 03/12/19 01:08 Patient was given Lasix 40 mg IV and and a impressive diuresis, states that she feels better is now able to lie flat and was resting quietly in the room at the time of this reevaluation. She said that she is ready to go home as the person who brought them to the emergency department is also in the room stating it is time to go. I have explained to the patient that we will put her on Lasix 20 mg, she is encouraged to follow-up with her primary care doctor tomorrow for follow-up. She may also see a shoe shiner, however she will need a referral from her primary care doctor. The patient is in agreement with this plan. - Vital Signs Vital signs: Temp Pulse Resp BP Pulse Ox 98.3 F 80 22 H 108/58 L 94 03/11/19 14:03/11/19 14:03/12/19 00:02 03/11/19 23:03 03/12/19 00:02 - Laboratory Result Diagrams: 03/11/19 15:48 03/11/19 15:48 Laboratory results interpreted by me: 03/11/19 03/11/19 03/11/19 15:48 15:48 15:48 Hgb 11.4 L MCV 74 L MCH 23.4 L MCHC 31.4 L RDW 17.9 H NT-Pro-B Natriuret Pep 597 H Urine Urobilinogen 4.0 H Discharge - Discharge Clinical Impression: Acute on chronic systolic CHF (congestive heart failure) HTN (hypertension) Qualifiers: Hypertension type: unspecified Qualified Code(s): I10 - Essential (primary) hypertension Condition: Good Disposition: HOME, SELF-CARE Instructions: Congestive Heart Failure ([facility]) Additional Instructions: Please take the medication as prescribed, Lasix 40 mg twice daily Follow-up with your primary care doctor, call the office tomorrow regarding appointment and follow-up. Referrals: PAZ QUINTEROS MD [Primary Care Provider] - Follow up as needed
[2019-03-11] MEDS ORDERED: FUROSEMIDE INJ/PF 20 MG/2 ML SDV IV ONE (23:06)
[2019-03-11] MEDS ORDERED: LORAZEPAM INJ 2 MG/1 ML VIAL IV ONE (23:22)
[2019-03-12 00:04] VITALS: BP 108/58
--- NOTE | 2019-03-12 09:34 | EKG REPORT ---
SEVERITY:- ABNORMAL ECG - SINUS RHYTHM RUN OF VENTRICULAR PREMATURE COMPLEXES PROBABLE LEFT ATRIAL ABNORMALITY LEFT AXIS DEVIATION LEFT VENTRICULAR HYPERTROPHY ANTERIOR INFARCT, AGE INDETERMINATE : Confirmed by: Lacho Martinez 12-Mar-2019 09:33:23
--- NOTE | 2019-03-12 09:34 | EKG REPORT ---
SEVERITY:- ABNORMAL ECG - SINUS RHYTHM MULTIPLE VENTRICULAR PREMATURE COMPLEXES LAD, CONSIDER LEFT ANTERIOR FASCICULAR BLOCK LVH WITH SECONDARY REPOLARIZATION ABNORMALITY ANTERIOR INFARCT, AGE INDETERMINATE : Confirmed by: Lacho Martinez 12-Mar-2019 09:33:55
== END 2019-03-12 01:25 | disposition home or self-care (01) ==
LOC: ER 13:43
DX: I50.23 Acute on chronic systolic (congestive) heart failure (principal); R06.02 Shortness of breath; I42.9 Cardiomyopathy, unspecified; R05 Cough; Z79.899 Other long term (current) drug therapy; F17.200 Nicotine dependence, unspecified, uncomplicated; I10 Essential (primary) hypertension; I25.10 Atherosclerotic heart disease of native coronary artery without angina pectoris; J44.9 Chronic obstructive pulmonary disease, unspecified
CPT/HCPCS: 93005; 99285; 96374; 96375; 36415; 85025; 80053; 81001; 84484; 83880; 71046; 93010; J1940; J2060

== ENCOUNTER 2019-03-17 10:52 | Emergency (ER) | payer MEDICARE, MEDICAID ==
--- NOTE | 2019-03-17 12:12 | ER Document Report ---
ED Medical Screen (RME) - General Chief Complaint: Shortness Of Breath Stated Complaint: HEADACHE Time Seen by Provider: 03/17/19 11:50 Primary Care Provider: PAZ QUINTEROS MD [Primary Care Provider] - Follow up as needed Mode of Arrival: Wheelchair Information source: Patient Notes: Morbidly obese 43-year-old female presenting to the emergency department with s hortness of breath and body aches. Patient reports history of CHF, states she was wrongly diagnosed here in February with pneumonia. She states she has had worsening shortness of breath since then. She states she feels so short of breath she has lost her appetite. She speaking in full and complete sentences although she is difficult to understand. Her says this is her baseline. I have greeted and performed a rapid initial assessment of this patient. A comprehensive ED assessment and evaluation of the patient, analysis of test results and completion of the medical decision making process will be conducted by additional ED providers. I have specifically instructed the patient or family members with the patient to immediately return to any nursing staff should anything change in the patient's condition or with their chief complaint. TRAVEL OUTSIDE OF THE [place] IN LAST 30 DAYS: No - Related Data Allergies/Adverse Reactions: lisinopril [Lisinopril] Allergy (Severe, Verified 03/11/19 15:37) Difficulty breathing levofloxacin [From Levaquin] Allergy (Verified 03/11/19 15:37) Past Medical History - Social History Chew tobacco use (# tins/day): No Frequency of alcohol use: None Drug Abuse: None - Past Medical History Cardiac Medical History: Reports: Hx Congestive Heart Failure, Hx Coronary Artery Disease, Hx Heart Attack - 2007,2015, Hx Hypercholesterolemia, Hx Hypertension Pulmonary Medical History: Reports: Hx Asthma, Hx Bronchitis, Hx COPD, Hx Pneumonia, Hx Sleep Apnea GI Medical History: Reports: Hx Gastroesophageal Reflux Disease Musculoskeltal Medical History: Reports Hx Arthritis Skin Medical History: Denies Hx Eczema, Denies Hx Psoriasis Psychiatric Medical History: Reports: Hx Anxiety, Hx Depression - & anxiety Past Surgical History: Reports: Hx Cardiac Catheterization, Hx Section, Hx Coronary Stent, Hx Tonsillectomy - Immunizations Hx Diphtheria, Pertussis, Tetanus Vaccination: Yes Physical Exam - Vital signs Vitals: Temp Pulse Resp BP Pulse Ox 98.2 F 82 22 H 109/85 97 03/17/19 11:34 01/14/20 11:34 03/17/19 11:34 03/17/19 11:34 03/17/19 11:34 Course - Vital Signs Vital signs: Temp Pulse Resp BP Pulse Ox 98.2 F 82 22 H 109/85 97 03/17/19 11:34 03/17/19 11:34 03/17/19 11:34 03/17/19 11:34 03/17/19 11:34 Doctor's Discharge - Discharge Referrals: PAZ QUINTEROS MD [Primary Care Provider] - Follow up as needed
[2019-03-17] MEDS ORDERED: IPRATROPIUM/ALBUTEROL 0.5-2.5 MG/3 ML AMPUL NEB ONE (13:14)
[2019-03-17 13:21] LABS: ABSOLUTE BASOPHILS # (AUTO) 0.1 10^3/uL (0.0-0.2); ABSOLUTE EOSINOPHILS # (AUTO) 0.2 10^3/uL (0.0-0.6); ABSOLUTE LYMPHOCYTES (AUTO) 2.7 10^3/uL (0.5-4.7); ABSOLUTE MONOCYTES (AUTO) 0.6 10^3/uL (0.1-1.4); ABSOLUTE NEUT (AUTO) 4.4 10^3/uL (1.7-8.2); BASOPHILS % (AUTO) 0.8 % (0-2); EOSINOPHILS % (AUTO) 2.7 % (0-6); HEMATOCRIT 33.8 % (36.0-47.0); HEMOGLOBIN 10.6 g/dL (12.0-15.5); LYMPHOCYTES % (AUTO) 33.7 % (13-45); MEAN CORPUSCULAR HEMOGLOBIN 23.5 pg (27.0-33.4); MEAN CORPUSCULAR HGB CONC 31.3 g/dL (32.0-36.0); MEAN CORPUSCULAR VOLUME 75 fl (80-97); MONOCYTES % (AUTO) 7.1 % (3-13); PLATELET COUNT 211 10^3/uL (150-450); RED BLOOD COUNT 4.51 10^6/uL (3.72-5.28); SEGMENTED NEUTROPHILS % (AUTO) 55.7 % (42-78); TOTAL CELLS COUNTED % (AUTO) 100 %; WHITE BLOOD COUNT 7.9 10^3/uL (4.0-10.5)
[2019-03-17 13:35] LABS: ALBUMIN 3.6 g/dL (3.5-5.0); ALKALINE PHOSPHATASE 62 U/L (38-126); ANION GAP 6 (5-19); ASPARTATE AMINO TRANSFERASE 42 U/L (14-36); BILIRUBIN,DIRECT 0.4 mg/dL (0.0-0.4); BILIRUBIN,TOTAL 0.5 mg/dL (0.2-1.3); BLOOD UREA NITROGEN 11 mg/dL (7-20); CALCIUM 8.4 mg/dL (8.4-10.2); CARBON DIOXIDE 28 mmol/L (22-30); CHLORIDE 106 mmol/L (98-107); GLUCOSE 90 mg/dL (75-110); POTASSIUM 4.3 mmol/L (3.6-5.0)
--- NOTE | 2019-03-17 13:37 | RADIOLOGY REPORT (SQ) ---
EXAM DESCRIPTION: CHEST SINGLE VIEW COMPLETED DATE/TIME: 03/17/2019 1:21 pm REASON FOR STUDY: shortness of breath COMPARISON: Chest films 10/16/2018, 02/06/2019, 02/19/2019, 03/11/2019 EXAM PARAMETERS: NUMBER OF VIEWS: One view. TECHNIQUE: Single frontal radiographic view of the chest acquired. RADIATION DOSE: NA LIMITATIONS: Morbidly obese patient, AP portable chest FINDINGS: LUNGS AND PLEURA: No opacities, masses or pneumothorax. No pleural effusion. MEDIASTINUM AND HILAR STRUCTURES: No masses. Contour normal. HEART AND VASCULAR STRUCTURES: Stable moderate to marked cardiomegaly BONES: No acute findings. HARDWARE: None in the chest. OTHER: No other significant finding. IMPRESSION: Stable cardiomegaly No acute infiltrates TECHNICAL DOCUMENTATION: JOB ID: [id number] [employer]- All Rights Reserved Reading location - IP/workstation name: [email or web address]
[2019-03-17 13:47] LABS: NT PRO BNP 453 pg/mL (<125)
[2019-03-17 13:51] LABS: TROPONIN I < 0.012 ng/mL
--- NOTE | 2019-03-17 14:01 | ER Document Report ---
ED General - General Chief Complaint: Shortness Of Breath Stated Complaint: HEADACHE Time Seen by Provider: 03/17/19 11:50 Primary Care Provider: PAZ QUINTEROS MD [Primary Care Provider] - Follow up as needed Mode of Arrival: Wheelchair Notes: Patient is a 43-year-old female with a history of CAD, hypertension, cardiac stents x2, cardiomyopathy, anxiety who presents the emergency department with a chief complaint of shortness of breath and chest pain. Patient reports that she is been seen multiple times over the past month for the same symptoms. Patient reports back in February she was treated for pneumonia. Patient reports that her symptoms never got better. Patient reports when she was seen here on March 11 she was placed on Lasix 40 mg daily. She states that this has not helped with her symptoms. Patient reports she is also been given multiple doses of breathing treatments which does not seem to help with her symptoms either. Patient reports at times she does feel like she has palpitations and a feeling of a rapid heartbeat. Patient denies fever. Patient reports he does have sick contacts as her son was just diagnosed with the flu. Patient reports she did r eceive the flu shot. Patient reports when she lies down she feels like there is a clear mucus coming up to her throat causing her to cough and feel short of breath. Patient reports she does not currently have a gl accountant or a legal adviser. Patient reports she was placed to follow-up with Dr. Quinteros tomorrow but was told to come to the emergency department for an evaluation due to her shortness of breath and chest pain. Patient does report joint pain and body aches. TRAVEL OUTSIDE OF THE [place] IN LAST 30 DAYS: No - Related Data Allergies/Adverse Reactions: lisinopril [Lisinopril] Allergy (Severe, Verified 03/11/19 15:37) Difficulty breathing levofloxacin [From Levaquin] Allergy (Verified 03/11/19 15:37) Past Medical History - General Information source: Patient - Social History Smoking Status: Current Every Day Smoker Chew tobacco use (# tins/day): No Frequency of alcohol use: None Drug Abuse: None Lives with: Family, Spouse/Significant other Family History: Reviewed & Not Pertinent, CAD - Father with an [place] in his 30s, Hyperlipidemia, Hypertension Patient has suicidal ideation: No Patient has homicidal ideation: No - Past Medical History Cardiac Medical History: Reports: Hx Congestive Heart Failure, Hx Coronary Artery Disease, Hx Heart Attack - 2008,2016, Hx Hypercholesterolemia, Hx Hypertension Pulmonary Medical History: Reports: Hx Asthma, Hx Bronchitis, Hx COPD, Hx Pneumonia, Hx Sleep Apnea EENT Medical History: Reports: None Neurological Medical History: Reports: None Endocrine Medical History: Reports: None Renal/ Medical History: Reports: None Malignancy Medical History: Reports: None GI Medical History: Reports: Hx Gastroesophageal Reflux Disease Musculoskeletal Medical History: Reports Hx Arthritis Skin Medical History: Reports None, Denies Hx Eczema, Denies Hx Psoriasis Psychiatric Medical History: Reports: Hx Anxiety, Hx Depression - & anxiety Traumatic Medical History: Reports: None Infectious Medical History: Reports: None Past Surgical History: Reports: Hx Cardiac Catheterization, Hx Section, Hx Coronary Stent, Hx Tonsillectomy - Immunizations Hx Diphtheria, Pertussis, Tetanus Vaccination: Yes Hx Pneumococcal Vaccination: 10/09/16 Review of Systems - Review of Systems Constitutional: See HPI EENT: No symptoms reported Cardiovascular: See HPI Respiratory: See HPI Gastrointestinal: See HPI Genitourinary: No symptoms reported Female Genitourinary: No symptoms reported Musculoskeletal: See HPI Skin: No symptoms reported Hematologic/Lymphatic: No symptoms reported Neurological/Psychological: No symptoms reported Physical Exam - Vital signs Vitals: Temp Pulse Resp BP Pulse Ox 98.2 F 82 22 H 109/85 97 03/17/19 11:34 03/17/19 11:34 03/17/19 11:34 03/17/19 11:34 03/17/19 11:34 Interpretation: Normal - Notes Notes: GENERAL: Well-appearing, well-nourished and in no acute distress. HEAD: Atraumatic, normocephalic. EYES: Pupils equal round and reactive to light, extraocular movements intact, sclera anicteric, conjunctiva are normal. ENT: Nares patent, oropharynx clear without exudates. Moist mucous membranes. NECK: Normal range of motion, supple without lymphadenopathy or JVD. LUNGS: Breath sounds clear to auscultation bilaterally and equal. No wheezes rales or rhonchi. Intermittent nonproductive cough noted throughout examination. HEART: Regular rate and rhythm without murmurs, rubs or gallops. No reproducible chest wall tenderness with palpation. ABDOMEN: Soft, obese, nontender, normoactive bowel sounds. No guarding, no rebound. No masses appreciated. BACK: No cervical, thoracic, lumbar midline tenderness. No saddle anesthesia, normal distal neurovascular exam. GENITOURINARY: Deferred. EXTREMITIES: Normal range of motion, no pitting or edema. No clubbing or cyanosis. NEUROLOGICAL: Cranial nerves II through XII grossly intact. Normal speech, nor mal gait. PSYCH: Normal mood, normal affect. SKIN: Warm, Dry, normal turgor, no rashes or lesions noted. Course - Re-evaluation Re-evalutation: 03/17/19 14:00 We will obtain influenza test as well as a urinalysis. Patient reports after receiving the breathing treatment her symptoms have not improved and she still has some chest pain and shortness of breath. Patient reports her shortness of breath is worse with movement. Patient concerned that she has been here over the past month and treated for pneumonia, was placed on Lasix last week and continues to still have symptoms. Patient reports she is suppose to follow-up with Dr. Quinteros tomorrow but was told to come to the emergency department for evaluation. 03/17/19 16:[address] did speak with Dr. Quinteros who knows the patient very well. He is aware of the c/o chest x 1 month, patient does have a follow up appointment with him tomorrow at 10 am, he would like her to keep this appointment and follow up as scheduled. I did speak with the patient regarding the planned and she is in agreement. Patient is calm and cooperative. Patient currently in no acute distress. Patient has been sinus rhythm on the monitor. No arrhythmias have been reported. Patient does report intermittent cough. Patient reports she was given Valium for her nerves which did also seem to help with her cough. I did inform her that Dr. Quinteros would need to refill this prescription tomorrow. Patient given strict return precautions. - Vital Signs Vital signs: Temp Pulse Resp BP Pulse Ox 98.2 F 82 22 H 109/85 97 03/17/19 11:34 03/17/19 11:34 03/17/19 11:34 03/17/19 11:34 03/17/19 11:34 - Laboratory Result Diagrams: 03/17/19 13:00 03/17/19 13:00 Laboratory results interpreted by me: 03/17/19 03/17/19 03/17/19 13:00 13:00 13:00 Hgb 10.6 L Hct 33.8 L MCV 75 L MCH 23.5 L MCHC 31.3 L RDW 17.0 H AST 42 H NT-Pro-B Natriuret Pep 453 H Urine Protein Urine Urobilinogen 03/17/19 15:07 Hgb Hct MCV MCH MCHC RDW AST NT-Pro-B Natriuret Pep Urine Protein 30 H Urine Urobilinogen 4.0 H 03/17/19 15:47 Chest X-Ray 03/17/19 12:11 IMPRESSION: Stable cardiomegaly No acute infiltrates - Diagnostic Test Radiology reviewed: Reports reviewed Radiology results interpreted by me: 03/17/19 15:47 Chest X-Ray 03/17/19 12:11 IMPRESSION: Stable cardiomegaly No acute infiltrates - EKG Interpretation by Me Additional EKG results interpreted by me: 03/17/19 16:02 Patient's EKG shows sinus rhythm with a heart rate of 79. Patient's CA interval 156, QT 424 and QTC is 487. Patient does note to have a PVC on EKG. There does not appear to be any ST segment changes in consecutive leads. EKG does look similar to EKG performed on March 11, 2019. Discharge - Discharge Clinical Impression: Cough, Morbid obesity with BMI of 60.0-69.9, adult CHF (congestive heart failure) Qualifiers: Heart failure type: unspecified Heart failure chronicity: chronic Qualified Code(s): I50.9 - Heart failure, unspecified Chest pain Qualifiers: Chest pain type: unspecified Qualified Code(s): R07.9 - Chest pain, unspecified Sleep apnea Qualifiers: Sleep apnea type: unspecified type Qualified Code(s): G47.30 - Sleep apnea, unspecified Condition: Stable Disposition: HOME, SELF-CARE Additional Instructions: *Today you are seen in the emergency department for chest pain. I did speak with your primary care physician Dr. Quinteros who would like to see you in the office as previously scheduled, tomorrow 03-18-2019 @ 10am. Continue taking your diuretic and home medications. Continue using your CPAP. It is unsure what is causing your chest pain and shortness of breath, your chest XRAY and blood work is reassuring, there is no sign of fluid or infection in your lungs. Please return to the ER if you develop any new or worsening symptoms. CHEST PAIN OF UNCLEAR CAUSE: The exact cause of your chest pain isn't clear. Fortunately, there is no evidence of a dangerous medical condition. Further testing may be required to find the source of the pain. Most often, we find that this pain is coming from the chest wall -- the muscles or rib joints in the chest. But chest pain can come from the lung and lung lining, the esophagus, the heart valves or heart lining, and even the sto mach or gallbladder. Rest. Eat lightly until the pain is gone. We may prescribe medicine for pain and inflammation. You should call the physician immediately if the pain radiates to the sh oulder, jaw or arms; if you start to run a fever or develop a cough; or if you develop shortness of breath, or other new or alarming symptoms. NORMAL EXAM AND WORKUP: At this time, your examination and workup show no significant abnormality. No significant abnormal physical findings were noted. All laboratory, EKG, and imaging (x-ray, CT scans, ultrasound) studies that were ordered show no significant abnormality. Although your examination and all studies that were ordered showed no significant abnormal finding, there are no examinations and no studies that are 100% accurate. There is always the possibility that some abnormality could exist and not be detected with physical examination or within the limits and capabilities of laboratory and other studies. You should return or follow up as you were instructed on your visit today for further evaluation if your symptoms do not resolve. FOLLOW-UP CARE: If you have been referred to a physician for follow-up care, call the physicians office for an appointment as you were instructed or within the next two days. If you experience worsening or a significant change in your symptoms, notify the physician immediately or return to the Emergency Department at any time for re-evaluation. Referrals: PAZ QUINTEROS MD [Primary Care Provider] - Follow up as needed
[2019-03-17 14:40] LABS: A TYPE INFLUENZA AG NEGATIVE (NEGATIVE); B INFLUENZA AG NEGATIVE (NEGATIVE)
[2019-03-17 15:44] LABS: APPEARANCE,URINE SLIGHTLY-CLOUDY; BILIRUBIN,URINE NEGATIVE (NEGATIVE); CALCIUM OXALATE CRYSTALS,URINE MODERATE /HPF; COLOR,URINE AMBER; GLUCOSE, URINE NEGATIVE (NEGATIVE); KETONES,URINE NEGATIVE (NEGATIVE); LEUKOCYTE ESTERASE,URINE NEGATIVE (NEGATIVE); NITRITE,URINE NEGATIVE (NEGATIVE); PROTEIN,URINE 30 mg/dL (NEGATIVE); URINE SPECIFIC GRAVITY 1.025
[2019-03-17 16:36] VITALS: BP 105/74
--- NOTE | 2019-03-17 21:29 | EKG REPORT ---
SEVERITY:- ABNORMAL ECG - SINUS RHYTHM VENTRICULAR PREMATURE COMPLEX PROBABLE LEFT ATRIAL ABNORMALITY LVH WITH SECONDARY REPOLARIZATION ABNORMALITY ANTERIOR Q WAVES, POSSIBLY DUE TO LVH BORDERLINE PROLONGED QT INTERVAL : Confirmed by: Amy Montejo MD 17-Mar-2019 21:29:01
== END 2019-03-17 16:36 | disposition home or self-care (01) ==
LOC: ER 10:52
DX: I11.0 Hypertensive heart disease with heart failure (principal); I50.9 Heart failure, unspecified; E66.01 Morbid (severe) obesity due to excess calories; Z68.44 Body mass index [BMI] 60.0-69.9, adult; G47.30 Sleep apnea, unspecified; I25.10 Atherosclerotic heart disease of native coronary artery without angina pectoris; I49.3 Ventricular premature depolarization; J44.9 Chronic obstructive pulmonary disease, unspecified; I25.2 Old myocardial infarction; R06.02 Shortness of breath; R07.9 Chest pain, unspecified; R05 Cough; M25.50 Pain in unspecified joint; F17.200 Nicotine dependence, unspecified, uncomplicated; Z95.5 Presence of coronary angioplasty implant and graft; Z87.01 Personal history of pneumonia (recurrent); Z20.828 Contact with and (suspected) exposure to other viral communicable diseases; Z88.8 Allergy status to other drugs, medicaments and biological substances; Z88.1 Allergy status to other antibiotic agents
CPT/HCPCS: 93005; 94640; 99285; 36415; 85025; 80053; 81001; 84484; 87804; 83880; 71045; 93010; A9270; J7620

== ENCOUNTER 2019-06-03 20:41 | Emergency (ER) | payer MEDICARE, MEDICAID ==
[2019-06-03] MEDS ORDERED: ALBUTEROL SULFATE HFA (90 MCG/PUFF) 8 GM MDI (1 MDI/ER DISP) IH ONE (22:02)
--- NOTE | 2019-06-03 22:07 | ER Document Report ---
ED General - General Chief Complaint: Chest Pain Stated Complaint: BREATHING DIFFICULTIES Time Seen by Provider: 06/03/19 21:48 Primary Care Provider: PAZ QUINTEROS MD [Primary Care Provider] - Follow up as needed Mode of Arrival: Wheelchair Information source: Patient Notes: 43-year-old female presented to ED for complaint of shortness of breath chest pain pain all over. She states she has been having hot and cold flashes. She states she has a runny nose headache and sore throat. She is alert oriented respirations regular nonlabored speaking in full sentences. She states she was told by her doctor that she might need some albuterol due to her shortness of breath. She does have a history of CAD high blood pressure coronary stents cardiomyopathy anxiety. Patient will be evaluated for the Covid 19 virus. TRAVEL OUTSIDE OF THE [place] IN LAST 30 DAYS: No - HPI Onset: Yesterday Onset/Duration: Gradual Quality of pain: Achy Severity: Moderate Pain Level: 4 Associated symptoms: Body/muscle aches, Chest pain, Chills, Nonproductive cough, Fever, Sinus pain/drainage, Shortness of breath Exacerbated by: Denies Relieved by: Denies Similar symptoms previously: Yes Recently seen / treated by doctor: Yes - Related Data Allergies/Adverse Reactions: lisinopril [Lisinopril] Allergy (Severe, Verified 06/03/19 22:31) Difficulty breathing levofloxacin [From Levaquin] Allergy (Verified 06/03/19 22:31) Past Medical History - General Information source: Patient - Social History Smoking Status: Never Smoker Frequency of alcohol use: None Drug Abuse: None Lives with: Family Family History: Reviewed & Not Pertinent, CAD - Father with an [place] in his 30s, Hyperlipidemia, Hypertension - Past Medical History Cardiac Medical History: Reports: Hx Congestive Heart Failure, Hx Coronary Artery Disease, Hx Heart Attack - 2007,2016, Hx Hypercholesterolemia, Hx Hypertension Pulmonary Medical History: Reports: Hx Asthma, Hx Bronchitis, Hx COPD, Hx Pneumonia, Hx Sleep Apnea EENT Medical History: Reports: None Neurological Medical History: Reports: None Endocrine Medical History: Reports: None Renal/ Medical History: Reports: None Malignancy Medical History: Reports: None GI Medical History: Reports: Hx Gastroesophageal Reflux Disease Musculoskeletal Medical History: Reports Hx Arthritis Skin Medical History: Reports None Psychiatric Medical History: Reports: Hx Anxiety, Hx Depression - & anxiety Traumatic Medical History: Reports: None Infectious Medical History: Reports: None Past Surgical History: Reports: Hx Cardiac Catheterization, Hx Section, Hx Coronary Stent, Hx Tonsillectomy - Immunizations Hx Diphtheria, Pertussis, Tetanus Vaccination: Yes Hx Pneumococcal Vaccination: 10/09/16 Review of Systems - Review of Systems Constitutional: Chills, Fever, Recent illness EENT: Nose discharge, Sinus discharge Cardiovascular: Chest pain Respiratory: Cough, Short of breath Gastrointestinal: No symptoms reported Genitourinary: No symptoms reported Female Genitourinary: No symptoms reported Musculoskeletal: Other - Body aches Skin: No symptoms reported Hematologic/Lymphatic: No symptoms reported Neurological/Psychological: Headaches -: Yes All other systems reviewed and negative Physical Exam - Vital signs Vitals: Temp Pulse Resp BP Pulse Ox 98.2 F 83 20 127/78 H 100 06/03/19 21:33 06/03/19 21:33 06/03/19 21:33 06/03/19 21:33 06/03/19 21:33 Interpretation: Normal. No: Febrile - 99.6 - General General appearance: Appears well, Alert - HEENT Head: Normocephalic, Atraumatic Eyes: Normal Pupils: PERRL Ears: Normal External canal: Normal Tympanic membrane: Normal Sinus: Normal Nasal: Purulent discharge, Swelling Mouth/Lips: Normal Mucous membranes: Normal Pharynx: Erythema, Post nasal drainage Neck: Normal - Respiratory Respiratory status: No respiratory distress Chest status: Tender, Pain with cough, Pain with deep breathing Breath sounds: Normal Chest palpation: Normal - Cardiovascular Rhythm: Regular Heart sounds: Normal auscultation Murmur: No - Abdominal Inspection: Normal Distension: No distension Bowel sounds: Normal Tenderness: Nontender Organomegaly: No organomegaly - Back Back: Normal, Nontender - Extremities General upper extremity: Normal inspection, Nontender, Normal color, Normal ROM, Normal temperature General lower extremity: Normal inspection, Nontender, Normal color, Normal ROM, Normal temperature, Normal weight bearing. No: Selwyn's sign - Neurological Neuro grossly intact: Yes Cognition: Normal Orientation: AAOx4 Karan Coma Scale Eye Opening: Spontaneous [place] Coma Scale Verbal: Oriented [place] Coma Scale Motor: Obeys Commands Karan Coma Scale Total: 15 Speech: Normal Motor strength normal: LUE, RUE, LLE, RLE Sensory: Normal - Psychological Associated symptoms: Normal affect, Normal mood - Skin Skin Temperature: Warm Skin Moisture: Dry Skin Color: Normal Course - Re-evaluation Re-evalutation: 06/04/19 00:45 This patient was evaluated during the global covid 19 pandemic this evaluation treatment and testing was consistent with the current guidelines for patients who present with complaints or symptoms that may be related to the cover 19 virus. - Vital Signs Vital signs: Temp Pulse Resp BP Pulse Ox 98.2 F 75 22 H 124/76 99 06/04/19 03:30 06/04/19 03:30 06/04/19 03:30 06/04/19 03:30 06/04/19 03:30 - Laboratory Result Diagrams: 06/03/19 22:48 06/03/19 22:48 Laboratory results interpreted by me: 06/03/19 06/03/19 06/03/19 22:48 22:48 23:46 Hgb 10.4 L Hct 33.1 L MCV 72 L MCH 22.5 L MCHC 31.3 L RDW 18.4 H Chloride 108 H Carbon Dioxide 32 H Anion Gap 4 L Albumin 3.4 L Urine Protein 30 H Urine Urobilinogen 4.0 H Leukocyte Esterase Rfl TRACE H - Diagnostic Test Radiology reviewed: Image reviewed, Reports reviewed Discharge - Discharge Clinical Impression: Shortness of breath, Total body pain Chest pain Qualifiers: Chest pain type: unspecified Qualified Code(s): R07.9 - Chest pain, unspecified Condition: Stable Disposition: HOME, SELF-CARE Additional Instructions: UPPER RESPIRATORY ILLNESS: You have a viral infection of the respiratory passages -- a "cold." This common infection causes nasal congestion, drainage, and often sore throat and cough. It is highly contagious. The disease usually lasts about 10 to 14 days. There is no "cure" for the viral infection -- it must run its course. If there is a complication, such as bacterial infection in the nose, sinuses, middle ear, or bronchial tubes, antibiotics may be required. The antibiotics won't affect the virus. Drink plenty of fluids. A humidifier may help. An expectorant medication or decongestant may make you more comfortable. Use acetaminophen or ibuprofen for fever or aches. See the doctor if fever persists over two days, if there is any significant worsening of your symptoms, or if you simply fail to improve as expected. You have been recommended treatment with Flonase which is [id number] 1 spray each nostril twice a day. You could also use salt soda solution gargles. These will help to remove the drainage from the back your throat. Chloraseptic spray was [id number] that will also help with your sore throat. Salt and soda solution gargle 1 quart of water 1 tablespoon of salt 1 teaspoon of baking soda Mixed 3 ingredients together and boil for 1 minute Placed in a covered quart jar Use 1/2 ounce of cold solution to gargle 3 times a day USE OF ACETAMINOPHEN (Tylenol): Acetaminophen may be taken for pain relief or fever control. It's much safer than aspirin, offering a wider range of "safe" dosages. It is safe during . Some brand names are Tylenol, Panadol, Datril, Anacin 3, Tempra, and Liquiprin. Acetaminophen can be repeated every four hours. The following are maximum recommended dosages: >89 pounds or adults 650 mg to 900 mg Acetaminophen can be repeated every four hours. Maximum dose not to exceed 4000 mg a day. FOLLOW-UP CARE: If you have been referred to a physician for follow-up care, call the physicians office for an appointment as you were instructed or within the next two days. If you experience worsening or a significant change in your symptoms, notify the physician immediately or return to the Emergency Department at any time for re-evaluation. You have also been tested for the covid 19 virus. Your symptoms were consistent with possible infection with this virus. You will need to self quarantine for the next 14 days. If your test comes back negative or positive you will be called with the results. Please stay at home until you get these results. Please do not go out in public. Please call your primary doctor for any increase in shortness of breath body aches body pains chest pain or fever. Please do not go to the doctor's office or go to the emergency room please call your primary doctor or the emergency room before showing up. Forms: Elevated Blood Pressure, Return to Work Referrals: PAZ QUINTEROS MD [Primary Care Provider] - Follow up as needed
--- NOTE | 2019-06-03 22:41 | RADIOLOGY REPORT (SQ) ---
EXAM DESCRIPTION: X-RAY CHEST ONE VIEW CLINICAL HISTORY: 43 years Female chest pain cough body aches COMPARISON: 03/17/2019 TECHNIQUE: Portable upright chest at 2220 hours on 06/03/2019. FINDINGS: Comparison with the previous film demonstrates no significant interval change allowing for the change in technique. The lungs are adequately expanded. Visualization of the lower lung sandy is somewhat limited due to prominent overlying soft tissues. No focal consolidation or pleural effusions are seen. Mild to moderate enlargement of the cardiac silhouette with mild pulmonary vascular redistribution. No acute bony abnormalities are seen. Degenerative changes of the thoracic spine. IMPRESSION: No obvious active cardiopulmonary lesions are observed. Cardiomegaly with mild pulmonary vascular redistribution consistent with pulmonary venous hypertension.
[2019-06-03 23:07] LABS: ABSOLUTE EOSINOPHILS # (AUTO) 0.2 10^3/uL (0.0-0.6); ABSOLUTE LYMPHOCYTES (AUTO) 2.5 10^3/uL (0.5-4.7); ABSOLUTE MONOCYTES (AUTO) 0.6 10^3/uL (0.1-1.4); ABSOLUTE NEUT (AUTO) 4.1 10^3/uL (1.7-8.2); BASOPHILS % (AUTO) 0.4 % (0-2); EOSINOPHILS % (AUTO) 2.7 % (0-6); HEMATOCRIT 33.1 % (36.0-47.0); HEMOGLOBIN 10.4 g/dL (12.0-15.5); LYMPHOCYTES % (AUTO) 33.7 % (13-45); MEAN CORPUSCULAR HEMOGLOBIN 22.5 pg (27.0-33.4); MEAN CORPUSCULAR HGB CONC 31.3 g/dL (32.0-36.0); MEAN CORPUSCULAR VOLUME 72 fl (80-97); MONOCYTES % (AUTO) 8.5 % (3-13); PLATELET COUNT 184 10^3/uL (150-450); RED BLOOD COUNT 4.62 10^6/uL (3.72-5.28); RED CELL DISTRIBUTION WIDTH 18.4 % (11.5-14.0); SEGMENTED NEUTROPHILS % (AUTO) 54.7 % (42-78); TOTAL CELLS COUNTED % (AUTO) 100 %; WHITE BLOOD COUNT 7.4 10^3/uL (4.0-10.5)
[2019-06-03 23:15] LABS: A TYPE INFLUENZA AG NEGATIVE (NEGATIVE); B INFLUENZA AG NEGATIVE (NEGATIVE)
[2019-06-03 23:24] LABS: ALBUMIN 3.4 g/dL (3.5-5.0); ALKALINE PHOSPHATASE 59 U/L (38-126); ASPARTATE AMINO TRANSFERASE 25 U/L (14-36); BILIRUBIN,DIRECT 0.2 mg/dL (0.0-0.4); BILIRUBIN,TOTAL 0.2 mg/dL (0.2-1.3); BLOOD UREA NITROGEN 13 mg/dL (7-20); CALCIUM 8.6 mg/dL (8.4-10.2); GLUCOSE 108 mg/dL (75-110); POTASSIUM 4.8 mmol/L (3.6-5.0); TOTAL PROTEIN 7.7 g/dL (6.3-8.2)
[2019-06-03 23:29] LABS: CARBON DIOXIDE 32 mmol/L (22-30); CHLORIDE 108 mmol/L (98-107)
[2019-06-03 23:31] LABS: ANION GAP 4 (5-19)
[2019-06-04 00:19] LABS: APPEARANCE,URINE CLOUDY; BILIRUBIN,URINE NEGATIVE (NEGATIVE); COLOR,URINE YELLOW; GLUCOSE, URINE NEGATIVE (NEGATIVE); KETONES,URINE NEGATIVE (NEGATIVE); PROTEIN,URINE 30 mg/dL (NEGATIVE); URINE SPECIFIC GRAVITY 1.028
[2019-06-04] MEDS ORDERED: NORMAL SALINE 500 ML IV ONE (00:40)
[2019-06-04] MEDS ORDERED: ACETAMINOPHEN 325 MG TABLET PO ONE (02:51)
[2019-06-04 03:35] VITALS: BP 124/76
--- NOTE | 2019-06-04 09:37 | EKG REPORT ---
SEVERITY:- ABNORMAL ECG - SINUS RHYTHM MULTIFORM VENTRICULAR PREMATURE COMPLEXES PROBABLE LEFT ATRIAL ABNORMALITY LEFT ANTERIOR FASCICULAR BLOCK CONSIDER ANTEROSEPTAL INFARCT NONSPECIFIC T ABNORMALITIES, LATERAL LEADS BORDERLINE PROLONGED QT INTERVAL : Confirmed by: Lacho Martinez 04-Jun-2019 09:35:29
== END 2019-06-04 03:30 | disposition home or self-care (01) ==
LOC: ER 20:41
DX: R07.9 Chest pain, unspecified (principal); R06.02 Shortness of breath; M79.10 Myalgia, unspecified site; R50.9 Fever, unspecified; R09.89 Other specified symptoms and signs involving the circulatory and respiratory systems; R51 Headache; J02.9 Acute pharyngitis, unspecified; I25.10 Atherosclerotic heart disease of native coronary artery without angina pectoris; I42.9 Cardiomyopathy, unspecified; Z88.8 Allergy status to other drugs, medicaments and biological substances; I50.9 Heart failure, unspecified; I11.0 Hypertensive heart disease with heart failure; J44.9 Chronic obstructive pulmonary disease, unspecified; Z20.828 Contact with and (suspected) exposure to other viral communicable diseases
CPT/HCPCS: 93005; 99285; 96360; 36415; 87070; 87880; 83690; 84703; 85025; 87635; 80053; 81001; 84484; 87804; 71045; 93010; A9270; J7040